=== PATIENT | female | born 1955 | race Caucasian/White ===

== ENCOUNTER 2019-06-26 12:30 | Outpatient (RCR) | payer MEDICARE, MEDICAID, SELFPAY ==
[2019-06-26 13:27] LABS: Basophils % 0.4 %; Eosinophils # 0.1 10^3/uL (0.0-0.8); Eosinophils % 1.1 %; Hematocrit 45.3 % (37.0-47.0); Hemoglobin 14.2 g/dL (11.5-15.3); Lymphocytes # 2.4 10^3/uL (0.8-4.8); Lymphocytes % 30.9 %; Mean Corpuscular HGB Conc 31.3 g/dL (30.0-36.0); Mean Corpuscular Hemoglobin 27.9 pg (28.0-34.0); Monocytes # 0.8 10^3/uL (0.2-0.9); Monocytes % 9.9 %; Neutrophils # 4.5 10^3/uL (1.8-7.7); Neutrophils % 57.4 %; Nucleated Red Blood Cells % 0 %; Platelet Count 302 10^3/cmm (130-400); Red Blood Count 5.09 10^6/uL (4.1-5.3); White Blood Count 7.8 10^3/uL (4.0-10.0)
== END 2019-07-21 23:59 | disposition home or self-care (01) ==
LOC: ONCMED 12:30
PROVIDERS: Family Provider Nurse Practitioner; PCP Nurse Practitioner; Visit Provider Internal Medicine Hematology & Oncology
DX: D75.1 Secondary polycythemia (principal); C50.511 Malignant neoplasm of lower-outer quadrant of right female breast; F17.210 Nicotine dependence, cigarettes, uncomplicated; Z17.0 Estrogen receptor positive status [ER+]; G93.5 Compression of brain; I27.20 Pulmonary hypertension, unspecified; J44.9 Chronic obstructive pulmonary disease, unspecified; M19.90 Unspecified osteoarthritis, unspecified site; F32.9 Major depressive disorder, single episode, unspecified; G89.29 Other chronic pain; M47.816 Spondylosis without myelopathy or radiculopathy, lumbar region; Z99.81 Dependence on supplemental oxygen; Z79.811 Long term (current) use of aromatase inhibitors; Z79.51 Long term (current) use of inhaled steroids; Z92.3 Personal history of irradiation
CPT/HCPCS: 36415; 85025; 99214

== ENCOUNTER 2019-06-30 09:00 | Outpatient (CLI) | payer MEDICARE, MEDICAID, SELFPAY ==
--- NOTE | 2019-06-30 12:56 | ONC FU_ITS ---
Dr. Díaz follow up note Patient: Swathi Frederick Unit #: [id number]: 1955 Dicatated By: Kaya Díaz M.D.Date of Visit:Jun 30, 2019 Onc Med Follow-up/Prog Note History of Present Illness: This is a 63 year-old woman with grade 1 infiltrating ductal carcinoma of the right breast, stage IA (T1c, N0, M0), ER/NE positive and HER-2/christophe negative. She had presented in October 2014 with palpable lump in her right breast. She had been on hormone replacement therapy for the preceding 20 years. Her mammogram on 11/06/2014 revealed 1.3 cm mass in the right breast at 9:00 position corresponding to a 2 cm nodule palpable on examination. An ultrasound guided biopsy on 12/07/2014 revealed grade 1/3 infiltrating ductal carcinoma with the prognostic profile showing ER positive at 100%, NE positive at 98%, and HER-2/christophe negative, 1.1 by FISH, and 1+ by IHC. The Ki-67 was 10%. She underwent lumpectomy and sentinel lymph node biopsy by Dr. Brennan on 12/24/2014. Her surgical pathology showed 1.5 cm infiltrating ductal carcinoma without lymphovascular invasion. Initial margins were positive, but after further excision the final margins were negative. One sentinel lymph was not involved. Her disease thus was pathologic stage IA (T1c, N0, M0). She was first seen by Dr. Ramirez on 12/27/2014. She had daily headaches ever since stopping her hormone replacement therapy. MRI of the brain on 01/10/2015 was negative for metastatic disease. Chiari I malformation was noted. She was referred to neurology for management of migraines. Oncotype DX score on 01/08/2015 return low at 15, corresponding to 9% risk of distant recurrence following hormonal treatment. She began on adjuvant treatment with Femara. Vitamin D deficiency was found, and she was also then started on replacement therapy. DEXA scan in April 2015 showed normal bone density. She completed definitive adjuvant radiation treatment with a boost on 03/06/2015. A CT of the chest on 03/21/2015 showed bilateral nonspecific upper lobe pulmonary nodules from 2-5 mm, and diffuse interstitial thickening with a pulmonary artery hypertension. Her other medical illnesses include COPD, degenerative arthritis, and depression. 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 She has a history of smoking 1 pack of cigarettes daily for 40 years, and she continues to smoke. Repeat CT of the chest on 08/26/2015 showed clearing of the pulmonary nodules. There was soft tissue density in the right breast with a seroma. By ultrasound, the seroma had decreased. She underwent an FNA of the seroma in August 2015. Cytology was benign. She continued adjuvant hormonal therapy with Femara since december 2014 still has dyspnea on exertion because of COPD and now quit smoking said her lungs capacity is down to 17% only and still an Active smoker Chronic back pain MRI lumbar spine done on 06/23/2018 and bone scan done on 06/09/2018 showed no evidence of malignancy rather chronic arthritis Came for follow-up, denies any specific complaints, no nausea vomiting, no fever or chills, no diarrhea constipation, occasionally hot flashes otherwise tolerating Femara well. Still smoking but has cut down significantly Medications: Advair Diskus 1 puff(s) (of 250-50 mcg/dose) Aerosol Powder, Breath Activated Inhalation b.i.d., Aspirin 1 (325 mg) Tablet Oral daily, Benadryl 1 (25 mg) Capsule Oral daily PRN, ClonazePAM 1 Tablet (of 0.5 mg) Oral b.i.d., Doxycycline Hyclate 1 Tablet (of 100 mg) Oral b.i.d., Ibuprofen 1 Tablet (of 800 mg) Oral t.i.d., PARoxetine HCl 1 Tablet (of 20 mg) Oral daily, ProAir HFA 1 puff(s) (of 108 (90 base) mcg/act) Aerosol, solution Inhalation q 4 hours, Propranolol HCl ER 1 Capsule (of 60 mg) Capsule SR 24 HR Oral daily, Venlafaxine HCl 1 Tablet (of 75 mg) Tablet Oral daily Allergies: No Known Allergies. Review of Systems: Review of Systems is not available for this patient. Vital Signs: Performed on Jun 30, 2019 09:18 Height - 63.00 in Weight - 190.4 lbs (LOW) BSA - 1.89 sq.m BMI - 33.73 (HIGH) Temperature - 97.4 F (LOW) Pulse - 72 /min Respiration - 24 /min BP - 160/90 mm(hg) (HIGH) O2 Sat - 92 % (LOW) Pain - 10 Performance Status: 2 - Ambulatory/capable of all self-care, unable to perform any work activities. Up and about more than 50% of waking hours. (ECOG) Physical Examination: Respiratory - mild wheezing, Cardiovascular - Regular rate and rhythm of heart, Extremities - no edema. Lab/Imaging: Test performed on Jun 26, 2019 12:52 WBC 7.8 10^9/L RBC 5.09 10^12/L HGB 14.2 g/dL HCT 45.3 % MCV 89.0 fl MCH 27.9 pg MCHC 31.3 g/dL RDW 13.0 % Platelet Count 302 10^9/L MPV 11.0 fL Neutrophils (Gran) 4.5 10^9/L Lymphocytes 2.4 10^9/L Monocytes 0.8 10^9/L Eosinophils 0.1 10^9/L Basophils 0.0 10^9/L Manual Lymphocytes 30.9 % Manual Monocytes 9.9 % Manual Eosinophils 1.1 % Manual Basophils 0.4 % NRBCs 0.0 /100 WBC Impression: 1. Patient with grade 1 infiltrating ductal carcinoma of the right breast, stage IA (T1c, N0, M0), ER/NE positive and HER-2/christophe negative. Oncotype DX score was 15, low risk. 2. She completed radiation to the right breast on 03/06/2015 to a total dose of 6600 cGy. 3. She began adjuvant hormonal therapy with Femara 2.5 mg daily in December 2014. Her other medical illnesses include: 4. COPD with secondary erythrocytosis.on o2 5. Degenerative arthritis. 6. Depression. 7. She has nicotine dependence (cigarettes). Chronic back pain MRI scan of lumbosacral area done on 06/23/2018 and bone scan done on 06/09/2018 showed no evidence of malignancy but chronic arthritis She does have ongoing problems with the COPD, and she currently appears to be experiencing an acute exacerbation. Polycythemia probably due to hypoxia due to severe COPD or chronic smoking, now on home oxygen Improved with smoking cessation for 1 week Plan: Discussed with patient regarding her labs white blood count 7.8 hemoglobin 14.2 crit 45.3 platelets 302,000 Clinically, patient doing well, tolerating adjuvant therapy with Femara well, no signs symptom suggestive of recurrence of disease. As far as polycythemia is concern, her hemoglobin/hematocrit has improved with cutting down with smoking. Patient was encouraged and was offered any assistance she may need to quit smoking. Patient said she is working on that. In the meantime continue with Femara and her follow-up mammogram done on 01/22/2019 shows BI-RADS 2 e.g. benign. She will return 6 months with CBC CMP at that time she will conclude her 5 years of adjuvant therapy with Femara. Signed By: Kaya Díaz M.D. <<Signature on File>>
== END 2019-06-30 09:01 | disposition home or self-care (01) ==
LOC: ONCMED 09:04
PROVIDERS: Family Provider Nurse Practitioner; PCP Nurse Practitioner; Visit Provider Internal Medicine Hematology & Oncology
DX: C50.511 Malignant neoplasm of lower-outer quadrant of right female breast (principal); C77.3 Secondary and unspecified malignant neoplasm of axilla and upper limb lymph nodes; D75.1 Secondary polycythemia; J44.9 Chronic obstructive pulmonary disease, unspecified; M19.90 Unspecified osteoarthritis, unspecified site; F32.9 Major depressive disorder, single episode, unspecified; F17.210 Nicotine dependence, cigarettes, uncomplicated; G89.29 Other chronic pain; M54.5 Low back pain; Z99.81 Dependence on supplemental oxygen; Z17.0 Estrogen receptor positive status [ER+]; Z79.811 Long term (current) use of aromatase inhibitors; Z79.51 Long term (current) use of inhaled steroids; Z92.3 Personal history of irradiation
CPT/HCPCS: 99214

== ENCOUNTER 2019-11-30 09:19 | Outpatient (CLI) | payer MEDICARE, MEDICAID, SELFPAY ==
[2019-11-30 09:49] LABS: Basophils % 0.4 %; Eosinophils # 0.1 10^3/uL (0.0-0.8); Hematocrit 42.7 % (37.0-47.0); Hemoglobin 12.7 g/dL (11.5-15.3); Lymphocytes # 2.1 10^3/uL (0.8-4.8); Lymphocytes % 25.1 %; Mean Corpuscular HGB Conc 29.7 g/dL (30.0-36.0); Mean Corpuscular Hemoglobin 28.5 pg (28.0-34.0); Mean Corpuscular Volume 95.7 fL (81-99); Mean Platelet Volume 10.4 fL (7.4-10.4); Monocytes # 0.9 10^3/uL (0.2-0.9); Monocytes % 10.6 %; Neutrophils # 5.3 10^3/uL (1.8-7.7); Neutrophils % 62.7 %; Nucleated Red Blood Cells % 0 %; Platelet Count 319 10^3/cmm (130-400); Red Blood Count 4.46 10^6/uL (4.1-5.3); Red Cell Distribution Width 12.7 % (12.1-15.1); White Blood Count 8.4 10^3/uL (4.0-10.0)
[2019-11-30 11:20] LABS: Alanine Aminotransferase 10 U/L (0-33); Alkaline Phosphatase 116 IU/L (35-105); Anion Gap 17.2 (5-19); Aspartate Amino Transferase 15 U/L (0-32); Blood Urea Nitrogen 11 mg/dL (8-23); Calcium 9.4 mg/dL (8.5-10.5); Carbon Dioxide 32 mmol/L (22-29); Chloride 93 mmol/L (98-107); Globulin 3.8 g/dL (1.3-4.6); Glomerular Filtration Rate 101.3 mL/min (90-130); Glucose 88 mg/dL (65-115); Osmolality Calculated 281 mOsm/kg (285-295); Potassium 4.2 mmol/L (3.5-5.1); Sodium 138 mmol/L (136-145); Total Bilirubin 0.2 mg/dL (0.15-1.2); Total Protein 7.8 g/dL (6.6-8.7)
--- NOTE | 2019-11-30 11:45 | ONC FU_ITS ---
Dr. Díaz follow up note Patient: Swathi Frederick Unit #: [id number]: 1955 Dicatated By: Kaya Díaz M.D.Date of Visit:Nov 30, 2019 Onc Med Follow-up/Prog Note History of Present Illness: This is a 64 year-old woman with grade 1 infiltrating ductal carcinoma of the right breast, stage IA (T1c, N0, M0), ER/PA positive and HER-2/christophe negative. She had presented in October 2014 with palpable lump in her right breast. She had been on hormone replacement therapy for the preceding 20 years. Her mammogram on 11/06/2014 revealed 1.3 cm mass in the right breast at 9:00 position corresponding to a 2 cm nodule palpable on examination. An ultrasound guided biopsy on 12/07/2014 revealed grade 1/3 infiltrating ductal carcinoma with the prognostic profile showing ER positive at 100%, PA positive at 98%, and HER-2/christophe negative, 1.1 by FISH, and 1+ by IHC. The Ki-67 was 10%. She underwent lumpectomy and sentinel lymph node biopsy by Dr. Brennan on 12/24/2014. Her surgical pathology showed 1.5 cm infiltrating ductal carcinoma without lymphovascular invasion. Initial margins were positive, but after further excision the final margins were negative. One sentinel lymph was not involved. Her disease thus was pathologic stage IA (T1c, N0, M0). She was first seen by Dr. Ramirez on 12/27/2014. She had daily headaches ever since stopping her hormone replacement therapy. MRI of the brain on 01/10/2015 was negative for metastatic disease. Chiari I malformation was noted. She was referred to neurology for management of migraines. Oncotype DX score on 01/08/2015 return low at 15, corresponding to 9% risk of distant recurrence following hormonal treatment. She began on adjuvant treatment with Femara. Femara was discontinued as she completed 5 years on November 30, 2019 Vitamin D deficiency was found, and she was also then started on replacement therapy. DEXA scan in April 2015 showed normal bone density. She completed definitive adjuvant radiation treatment with a boost on 03/06/2015. A CT of the chest on 03/21/2015 showed bilateral nonspecific upper lobe pulmonary nodules from 2-5 mm, and diffuse interstitial thickening with a pulmonary artery hypertension. Her other medical illnesses include COPD, degenerative arthritis, and depression. 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 She has a history of smoking 1 pack of cigarettes daily for 40 years, and she continues to smoke. Repeat CT of the chest on 08/26/2015 showed clearing of the pulmonary nodules. There was soft tissue density in the right breast with a seroma. By ultrasound, the seroma had decreased. She underwent an FNA of the seroma in August 2015. Cytology was benign. She continued adjuvant hormonal therapy with Femara since december 2014 still has dyspnea on exertion because of COPD and now quit smoking said her lungs capacity is down to 17% only and still an Active smoker Chronic back pain MRI lumbar spine done on 06/23/2018 and bone scan done on 06/09/2018 showed no evidence of malignancy rather chronic arthritis Came for follow-up, denies any specific complaints except mild generalized weakness and fatigue which is chronic in nature, patient is on home oxygen and still smoke about half a pack a day now and trying to cut down further. Denies any new bony pains or fever or chills, denies any nausea or vomiting denies any dysuria. Denies any cough or sore throat. Occasional hot flashes otherwise tolerating Femara very well Medications: Advair Diskus 1 puff(s) (of 250-50 mcg/dose) Aerosol Powder, Breath Activated Inhalation b.i.d., Aspirin 1 (325 mg) Tablet Oral daily, Benadryl 1 (25 mg) Capsule Oral daily PRN, ClonazePAM 1 Tablet (of 0.5 mg) Oral b.i.d., Doxycycline Hyclate 1 Tablet (of 100 mg) Oral b.i.d., Ibuprofen 1 Tablet (of 800 mg) Oral t.i.d., PARoxetine HCl 1 Tablet (of 20 mg) Oral daily, ProAir HFA 1 puff(s) (of 108 (90 base) mcg/act) Aerosol, solution Inhalation q 4 hours, Propranolol HCl ER 1 Capsule (of 60 mg) Capsule SR 24 HR Oral daily, Venlafaxine HCl 1 Tablet (of 75 mg) Tablet Oral daily Allergies: No Known Allergies. Review of Systems: Review of Systems is not available for this patient. Vital Signs: Performed on Nov 30, 2019 10:48 Height - 63.00 in Weight - 191.2 lbs (HIGH) BSA - 1.90 sq.m BMI - 33.87 (HIGH) Temperature - 99.2 F (HIGH) Pulse - 69 /min Respiration - 24 /min BP - 130/76 mm(hg) O2 Sat - 92 % (LOW) Pain - 4 Performance Status: 1 - No physically strenuous activity, but ambulatory and able to carry out light or sedentary work (e.g. office work, light house work). (ECOG) Physical Examination: Respiratory - Poor air entry, mild wheezing, Cardiovascular - Regular rate and rhythm of heart without, Extremities - No edema or rash. Lab/Imaging: Test performed on Jun 26, 2019 12:52 WBC 7.8 10^9/L RBC 5.09 10^12/L HGB 14.2 g/dL HCT 45.3 % MCV 89.0 fl MCH 27.9 pg MCHC 31.3 g/dL RDW 13.0 % Platelet Count 302 10^9/L MPV 11.0 fL Neutrophils (Gran) 4.5 10^9/L Lymphocytes 2.4 10^9/L Monocytes 0.8 10^9/L Eosinophils 0.1 10^9/L Basophils 0.0 10^9/L Manual Lymphocytes 30.9 % Manual Monocytes 9.9 % Manual Eosinophils 1.1 % Manual Basophils 0.4 % NRBCs 0.0 /100 WBC Impression: 1. Patient with grade 1 infiltrating ductal carcinoma of the right breast, stage IA (T1c, N0, M0), ER/PA positive and HER-2/christophe negative. Oncotype DX score was 15, low risk. 2. She completed radiation to the right breast on 03/06/2015 to a total dose of 6600 cGy. 3. She began adjuvant hormonal therapy with Femara 2.5 mg daily in December 2014. Her other medical illnesses include: 4. COPD with secondary erythrocytosis.on o2 5. Degenerative arthritis. 6. Depression. 7. She has nicotine dependence (cigarettes). Chronic back pain MRI scan of lumbosacral area done on 06/23/2018 and bone scan done on 06/09/2018 showed no evidence of malignancy but chronic arthritis She does have ongoing problems with the COPD, and she currently appears to be experiencing an acute exacerbation. Polycythemia probably due to hypoxia due to severe COPD or chronic smoking, now on home oxygen Improved with smoking cessation for 1 week Plan: Discussed with patient regarding her labs white blood count 8.4 hemoglobin 12.7 hematocrit 42.7 platelets 319,000 CMP within normal limit except alk phos 116 Clinically, patient is doing well with no signs symptoms suggestive of recurrence of disease, patient has completed 5 years of adjuvant therapy with Femara today so we will discontinue Femara today and then she will return to clinic in 6 months with a follow-up mammogram. And CBC Polycythemia, probably due to smoking, and underlying chronic lung disease patient is on home oxygen. And also use BiPAP for sleep apnea. Her follow-up hemoglobin/hematocrit is in desirable range. Patient was advised to quit smoking and was offered any assistance she may need and also advised to use BiPAP diligently. Signed By: Kaya Díaz M.D. <<Signature on File>>
== END 2019-11-30 09:20 | disposition home or self-care (01) ==
LOC: ONCMED 09:24
PROVIDERS: PCP Family Medicine; Visit Provider Internal Medicine Hematology & Oncology
DX: Z08 Encounter for follow-up examination after completed treatment for malignant neoplasm (principal); Z85.3 Personal history of malignant neoplasm of breast; D75.1 Secondary polycythemia; E55.9 Vitamin D deficiency, unspecified; F17.210 Nicotine dependence, cigarettes, uncomplicated; F41.9 Anxiety disorder, unspecified; J45.909 Unspecified asthma, uncomplicated; J44.9 Chronic obstructive pulmonary disease, unspecified; F32.9 Major depressive disorder, single episode, unspecified; M19.90 Unspecified osteoarthritis, unspecified site; G47.33 Obstructive sleep apnea (adult) (pediatric); Z92.3 Personal history of irradiation; Z92.21 Personal history of antineoplastic chemotherapy
CPT/HCPCS: 36415; 80053; 85025; G0463

== ENCOUNTER → 2019-12-28 13:10 | Outpatient (BNVA) | payer MEDICARE, MEDICAID, SELFPAY | PROVIDERS: PCP Family Medicine; Visit Provider Family Medicine | DX: Z13.6 Encounter for screening for cardiovascular disorders (principal); E66.9 Obesity, unspecified; K21.9 Gastro-esophageal reflux disease without esophagitis; F17.219 Nicotine dependence, cigarettes, with unspecified nicotine-induced disorders; Z68.32 Body mass index [BMI] 32.0-32.9, adult | CPT/HCPCS: 80061; 82306 ==

== ENCOUNTER 2020-01-16 11:37 | Outpatient (CLI) | payer MEDICARE, MEDICAID, SELFPAY ==
--- NOTE | 2020-01-16 11:45 | USCV_ITS ---
Jjalexis Swathi Age: 64 Gender: F : 1955 Exam Date: 01/16/2020 12:11 Ordering Phys: Lorena Allred MD Technologist: Marge Chavez Exam Location: [facility] [place] Indication: SOB BP: / HR: 81 Rhythm: Sinus Technical Quality: Adequate MEASUREMENTS (Male / Female) Normal Values 2D ECHO LV Diastolic Diameter PLAX 3.7 cm 4.2 - 5.9 / 3.9 - 5.3 cm LV Systolic Diameter PLAX 2.9 cm IVS Diastolic Thickness 1.1 cm 0.6 - 1.0 / 0.6 - 0.9 cm IVS Systolic Thickness 1.7 cm LVPW Diastolic Thickness 1.5 cm 0.6 - 1.0 / 0.6 - 0.9 cm LVPW Systolic Thickness 1.3 cm LVOT Diameter 2.0 cm LV Ejection Fraction 2D Teich 42.6 % LV Ejection Fraction MOD 2C 56.7 % LV Ejection Fraction 2C AL 56.5 % LA Diameter 3.3 cm LA Width 2.7 cm LA Height 3.7 cm RA Width 3.2 cm RA Height 3.1 cm M-MODE LV Diastolic Diameter MM 3.7 cm 4.2 - 5.9 / 3.9 - 5.3 cm LV Systolic Diameter MM 2.4 cm LV Ejection Fraction MM Teich 64.6 % IVS Diastolic Thickness MM 1.2 cm 0.6 - 1.0 / 0.6 - 0.9 cm IVS Systolic Thickness MM 1.4 cm LVPW Diastolic Thickness MM 1.4 cm 0.6 - 1.0 / 0.6 - 0.9 cm LVPW Systolic Thickness MM 2.0 cm RV Diastolic Diameter MM 1.5 cm Aortic Annulus Diameter 2.9 cm LA Ao Ratio MM 1.2 MV E Point Septal Separation 0.5 cm DOPPLER AV Peak Velocity 139.0 cm/s LVOT Peak Velocity 84.0 cm/s AV Area Cont Eq vti 2.0 cm squared AV Area Cont Eq pk 1.9 cm squared MV Area PHT 3.0 cm squared Mitral E to A Ratio 1.0 MV E' Velocity 6.0 cm/s Mitral E to MV E' Ratio 11.0 Mitral E to LV E' Lateral Ratio 13.3 Mitral E to LV E' Septal Ratio 9.5 TR Peak Velocity 289.6 cm/s TR Peak Gradient 33.6 mmHg TR Mean Velocity 227.4 cm/s TR Mean Gradient 22.4 mmHg TR Velocity Time Integral 116.5 cm TV Peak E Velocity 48.0 cm/s Right Atrial Pressure 3.0 mmHg Pulmonary Artery Systolic Pressu 36.5 mmHg PV Peak Velocity 86.0 cm/s RV Acceleration Time 0.1 s RV Ejection Time 0.3 s RV AcT/ET 0.4 FINDINGS Left Ventricle Normal left ventricular size and systolic function, EF 76 %. No regional wall motion abnormalities. Right Ventricle The right ventricle is normal in size and function. Right Atrium The right atrium is normal in size. Left Atrium The left atrium is normal in size. Mitral Valve Thickened anterior mitral leaflet Aortic Valve No gross abnormalities noted Tricuspid Valve Trace tricuspid valve regurgitation. Pulmonic Valve No gross abnormalities noted Pericardium Normal pericardium without effusion. Aorta Plaque seen in the ascending aorta. CONCLUSIONS Normal left ventricular size and systolic function, EF 76 %. No regional wall motion abnormalities. Thickened anterior mitral leaflet. Trace tricuspid valve regurgitation. There is no pericardial effusion. There are no intracardiac masses. Plaques seen in the ascending aorta. No previous study is available for comparison. Dr Andreina Elizondo MD FAC (Electronically Signed) Final Date: 16 January 2020 23:50 S
== END 2020-01-16 11:38 | disposition home or self-care (01) ==
LOC: US 11:39
PROVIDERS: PCP Family Medicine; Visit Provider Internal Medicine Critical Care Medicine
DX: R06.02 Shortness of breath (principal); I08.2 Rheumatic disorders of both aortic and tricuspid valves
CPT/HCPCS: 93306

== ENCOUNTER 2020-01-22 09:37 | Outpatient (CLI) | payer MEDICARE, MEDICAID, SELFPAY ==
--- NOTE | 2020-01-22 09:43 | MM_ITS ---
WS: [id number] BILATERAL DIGITAL DIAGNOSTIC MAMMOGRAM MAMMOGRAPHY WITH CAD CLINICAL INFORMATION: HX OF BREAST CA HISTORY: History of right breast cancer with radiation therapy. COMPARISON: January 19, 2019 TECHNIQUE: Bilateral CC, MLO, and ML views. FINDINGS: Scattered fibroglandular densities bilaterally. Stable clustered and slightly increased calcification s right breast along the prior lumpectomy site. Stable intramammary lymph nodes upper outer left [address]. No suspicious focal mass, asymmetry, calcifications, or architectural distortion. No evidence of fabiano gnancy. MM/[id number] IMPRESSION: BI-RADS: 2-Benign FOLLOW UP: 1 Year Follow-up Recommend return to annual diagnostic mammography.
== END 2020-01-22 09:38 | disposition home or self-care (01) ==
LOC: ONCMED 09:39
PROVIDERS: PCP Family Medicine; Visit Provider Internal Medicine Hematology & Oncology
DX: Z85.3 Personal history of malignant neoplasm of breast (principal)
CPT/HCPCS: 77066

== ENCOUNTER → 2020-03-11 10:54 | Outpatient (BNVA) | payer MEDICARE, MEDICAID, SELFPAY | PROVIDERS: PCP Family Medicine; Visit Provider Internal Medicine | DX: Z20.828 Contact with and (suspected) exposure to other viral communicable diseases (principal) | CPT/HCPCS: 87635 ==

== ENCOUNTER 2020-03-20 12:14 | Outpatient (CLI) | payer MEDICARE, MEDICAID, SELFPAY ==
[2020-03-20 14:50] LABS: 25 Hydroxy Vitamin D 42 ng/mL (30-100)
== END 2020-03-20 12:15 | disposition home or self-care (01) ==
LOC: LAB 12:18
PROVIDERS: PCP Family Medicine; Visit Provider Family Medicine
DX: E55.9 Vitamin D deficiency, unspecified (principal)
CPT/HCPCS: 36415; 82306

== ENCOUNTER 2020-05-31 09:59 | Outpatient (CLI) | payer MEDICARE, MEDICAID, SELFPAY ==
[2020-05-31 10:33] LABS: Basophils % 0.2 %; Eosinophils # 0.1 10^3/uL (0.0-0.8); Eosinophils % 1.7 %; Hematocrit 35.3 % (37.0-47.0); Hemoglobin 10.3 g/dL (11.5-15.3); Lymphocytes # 1.6 10^3/uL (0.8-4.8); Mean Corpuscular HGB Conc 29.2 g/dL (30.0-36.0); Mean Corpuscular Volume 89.1 fL (81-99); Mean Platelet Volume 10.2 fL (7.4-10.4); Monocytes # 0.9 10^3/uL (0.2-0.9); Monocytes % 10.7 %; Neutrophils # 5.44 10^3/uL (1.8-7.7); Neutrophils % 67.2 %; Nucleated Red Blood Cells % 0 %; Platelet Count 405 10^3/cmm (130-400); Red Blood Count 3.96 10^6/uL (4.1-5.3); Red Cell Distribution Width 13.1 % (12.1-15.1); White Blood Count 8.1 10^3/uL (4.0-10.0)
--- NOTE | 2020-05-31 12:02 | ONC FU_ITS ---
Dr. Díaz follow up note Patient: Swathi Frederick Unit #: [id number]: 1955 Dicatated By: Kaya Díaz M.D.Date of Visit:May 31, 2020 Onc Med Follow-up/Prog Note History of Present Illness: This is a 64 year-old woman with grade 1 infiltrating ductal carcinoma of the right breast, stage IA (T1c, N0, M0), ER/NM positive and HER-2/christophe negative. She had presented in October 2014 with palpable lump in her right breast. She had been on hormone replacement therapy for the preceding 20 years. Her mammogram on 11/06/2014 revealed 1.3 cm mass in the right breast at 9:00 position corresponding to a 2 cm nodule palpable on examination. An ultrasound guided biopsy on 12/07/2014 revealed grade 1/3 infiltrating ductal carcinoma with the prognostic profile showing ER positive at 100%, NM positive at 98%, and HER-2/christophe negative, 1.1 by FISH, and 1+ by IHC. The Ki-67 was 10%. She underwent lumpectomy and sentinel lymph node biopsy by Dr. Brennan on 12/24/2014. Her surgical pathology showed 1.5 cm infiltrating ductal carcinoma without lymphovascular invasion. Initial margins were positive, but after further excision the final margins were negative. One sentinel lymph was not involved. Her disease thus was pathologic stage IA (T1c, N0, M0). She was first seen by Dr. Ramirez on 12/27/2014. She had daily headaches ever since stopping her hormone replacement therapy. MRI of the brain on 01/10/2015 was negative for metastatic disease. Chiari I malformation was noted. She was referred to neurology for management of migraines. Oncotype DX score on 01/08/2015 return low at 15, corresponding to 9% risk of distant recurrence following hormonal treatment. She began on adjuvant treatment with Femara. Femara was discontinued as she completed 5 years on November 30, 2019 Vitamin D deficiency was found, and she was also then started on replacement therapy. DEXA scan in April 2015 showed normal bone density. She completed definitive adjuvant radiation treatment with a boost on 03/06/2015. A CT of the chest on 03/21/2015 showed bilateral nonspecific upper lobe pulmonary nodules from 2-5 mm, and diffuse interstitial thickening with a pulmonary artery hypertension. Her other medical illnesses include COPD, degenerative arthritis, and depression. 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 She has a history of smoking 1 pack of cigarettes daily for 40 years, and she continues to smoke. Repeat CT of the chest on 08/26/2015 showed clearing of the pulmonary nodules. There was soft tissue density in the right breast with a seroma. By ultrasound, the seroma had decreased. She underwent an FNA of the seroma in August 2015. Cytology was benign. 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 Patient still smoke about a pack a day. But denies any fever chills denies any nausea or vomiting denies any diarrhea or constipation denies any bony pains denies any melena or hematochezia, denies any hemoptysis or hematemesis, denies any jaundice Medications: Advair Diskus 1 puff(s) (of 250-50 mcg/dose) Aerosol Powder, Breath Activated Inhalation b.i.d., Aspirin 1 (325 mg) Tablet Oral daily, Benadryl 1 (25 mg) Capsule Oral daily PRN, ClonazePAM 1 Tablet (of 0.5 mg) Oral b.i.d., Doxycycline Hyclate 1 Tablet (of 100 mg) Oral b.i.d., Ibuprofen 1 Tablet (of 800 mg) Oral t.i.d., Lisinopril 1 Tablet (of 10 mg) Oral daily, PARoxetine HCl 1 Tablet (of 20 mg) Oral daily, ProAir HFA 1 puff(s) (of 108 (90 base) mcg/act) Aerosol, solution Inhalation q 4 hours, Propranolol HCl ER 1 Capsule (of 60 mg) Capsule SR 24 HR Oral daily, Venlafaxine HCl 1 Tablet (of 75 mg) Tablet Oral daily Allergies: No Known Allergies. Review of Systems: Constitutional - Appetite is good and weight is stable. No fever, chills, hot flashes, or night sweats. Energy level is fair, ENMT - No sinus congestion/drainage. No mouth sores. No sore throat or difficulty swallowing, Hematologic/Lymphatic - Positive for abnormal bruising or bleeding, Respiratory - Pt has shortness of breath, is on oxygen, Cardiovascular - No angina pain. No palpitations, Gastrointestinal - No nausea or vomiting. No heartburn or acid reflux. No diarrhea or constipation. No blood in the stool or black stools, Genitourinary (F) - No dysuria or hematuria. No urinary frequency. No urgency or incontinence, Musculoskeletal - Pt reports back pain, Integumentary - , Neurologic - No headache or dizziness. No numbness/paresthesias or other focal neurologic symptoms, Psychiatric - No anxiety or depression. No insomnia. Vital Signs: Performed on May 31, 2020 11:29 Height - 63.00 in Weight - 190.0 lbs (LOW) BSA - 1.89 sq.m BMI - 33.66 (HIGH) Temperature - 98.0 F (LOW) Pulse - 77 /min Respiration - 26 /min BP - 179/94 mm(hg) (HIGH) O2 Sat - 99 % Pain - 10 Performance Status: 1 - No physically strenuous activity, but ambulatory and able to carry out light or sedentary work (e.g. office work, light house work). (ECOG) Physical Examination: Respiratory - Poor air entry mild wheezing bilaterally, Cardiovascular - Regular rate and rhythm of heart, Gastrointestinal - Soft, bowel sounds present, Extremities - No visible edema or rash. Lab/Imaging: Test performed on May 31, 2020 10:15 WBC 8.1 10 3/uL RBC 3.96 10 6/uL HGB 10.3 g/dL HCT 35.3 % MCV 89.1 fL MCH 26.0 pg MCHC 29.2 g/dL RDW 13.1 % Platelet Count 405 10 3/cmm MPV 10.2 fL Neutrophils 5.44 10 3/uL Lymphocytes 1.6 10 3/uL Monocytes 0.9 10 3/uL Eosinophils 0.1 10 3/uL Basophils 0.0 10 3/uL Neutrophil % 67.2 % Lymphocyte % 20.0 % Monocyte % 10.7 % Eosinophil % 1.7 % Basophils % 0.2 % NRBC % 0 % Impression: 1. Patient with grade 1 infiltrating ductal carcinoma of the right breast, stage IA (T1c, N0, M0), ER/NM positive and HER-2/christophe negative. Oncotype DX score was 15, low risk. 2. She completed radiation to the right breast on 03/06/2015 to a total dose of 6600 cGy. 3. She began adjuvant hormonal therapy with Femara 2.5 mg daily in December 2014. Her other medical illnesses include: 4. COPD with secondary erythrocytosis.on o2 5. Degenerative arthritis. 6. Depression. 7. She has nicotine dependence (cigarettes). Chronic back pain MRI scan of lumbosacral area done on 06/23/2018 and bone scan done on 06/09/2018 showed no evidence of malignancy but chronic arthritis She does have ongoing problems with the COPD, and she currently appears to be experiencing an acute exacerbation. Polycythemia probably due to hypoxia due to severe COPD or chronic smoking, now on home oxygen Improved with smoking cessation for 1 week Plan: Discussed with patient regarding her labs white blood count 8.1 hemoglobin 10.3 hematocrit 35.3 platelets 405,000, compared to hemoglobin 12.7 on November 30, 2019 Follow-up mammogram shows benign findings Clinically, patient doing well now with new symptoms like progressive generalized weakness and fatigue and her follow-up labs shows anemia,Patient has history of polycythemia secondary to chronic smoking and sleep apnea patient denies any history of gross bleeding. At this point will consider baseline anemia work-up including iron studies B12 folic acid and reticulocyte count and then she will return to clinic in 2 weeks with CBC Patient was advised to quit smoking and was offered any assistance she may need Signed By: Kaya Díaz M.D. <<Signature on File>>
== END 2020-05-31 10:00 | disposition home or self-care (01) ==
LOC: ONCMED 10:03
PROVIDERS: PCP Family Medicine; Visit Provider Internal Medicine Hematology & Oncology
DX: Z08 Encounter for follow-up examination after completed treatment for malignant neoplasm (principal); Z85.3 Personal history of malignant neoplasm of breast; D75.1 Secondary polycythemia; J44.1 Chronic obstructive pulmonary disease with (acute) exacerbation; R09.02 Hypoxemia; R53.1 Weakness; R53.83 Other fatigue; G47.30 Sleep apnea, unspecified; M19.90 Unspecified osteoarthritis, unspecified site; F32.9 Major depressive disorder, single episode, unspecified; F17.210 Nicotine dependence, cigarettes, uncomplicated; Z99.81 Dependence on supplemental oxygen; Z92.3 Personal history of irradiation; Z92.23 Personal history of estrogen therapy
CPT/HCPCS: 36415; 85025; 85045; 99214

== ENCOUNTER 2020-06-19 05:52 | Outpatient (CLI) | payer MEDICARE, MEDICAID, SELFPAY ==
[2020-06-19 11:33] LABS: Basophils % 0.2 %; Eosinophils # 0.1 10^3/uL (0.0-0.8); Eosinophils % 1.7 %; Hematocrit 36.1 % (37.0-47.0); Hemoglobin 10.4 g/dL (11.5-15.3); Lymphocytes # 1.5 10^3/uL (0.8-4.8); Lymphocytes % 17.6 %; Mean Corpuscular HGB Conc 28.8 g/dL (30.0-36.0); Mean Corpuscular Hemoglobin 25.7 pg (28.0-34.0); Mean Corpuscular Volume 89.4 fL (81-99); Mean Platelet Volume 10.1 fL (7.4-10.4); Monocytes # 0.7 10^3/uL (0.2-0.9); Monocytes % 8.3 %; Neutrophils # 5.91 10^3/uL (1.8-7.7); Neutrophils % 71.8 %; Nucleated Red Blood Cells % 0 %; Platelet Count 398 10^3/cmm (130-400); Red Blood Count 4.04 10^6/uL (4.1-5.3); Red Cell Distribution Width 13.4 % (12.1-15.1); White Blood Count 8.2 10^3/uL (4.0-10.0)
[2020-06-19 12:19] LABS: Ferritin 97 ng/mL (15-150); Iron 40 ug/dL (37-145); Percent Saturation 15.3 % (20-50); Total Iron Binding Capacity 261 mcg/dl; Unsaturated Iron Binding 221 ug/dL (112-347); Vitamin B12 326 pg/mL (232-1245)
--- NOTE | 2020-06-19 13:14 | ONC FU_ITS ---
Dr. Díaz follow up note Patient: Swathi Frederick Unit #: [id number]: 1955 Dicatated By: Kaya Díaz M.D.Date of Visit:Jun 19, 2020 Onc Med Follow-up/Prog Note History of Present Illness: This is a 64 year-old woman with grade 1 infiltrating ductal carcinoma of the right breast, stage IA (T1c, N0, M0), ER/KS positive and HER-2/christophe negative. She had presented in October 2014 with palpable lump in her right breast. She had been on hormone replacement therapy for the preceding 20 years. Her mammogram on 11/06/2014 revealed 1.3 cm mass in the right breast at 9:00 position corresponding to a 2 cm nodule palpable on examination. An ultrasound guided biopsy on 12/07/2014 revealed grade 1/3 infiltrating ductal carcinoma with the prognostic profile showing ER positive at 100%, KS positive at 98%, and HER-2/christophe negative, 1.1 by FISH, and 1+ by IHC. The Ki-67 was 10%. She underwent lumpectomy and sentinel lymph node biopsy by Dr. Brennan on 12/24/2014. Her surgical pathology showed 1.5 cm infiltrating ductal carcinoma without lymphovascular invasion. Initial margins were positive, but after further excision the final margins were negative. One sentinel lymph was not involved. Her disease thus was pathologic stage IA (T1c, N0, M0). She was first seen by Dr. Ramirez on 12/27/2014. She had daily headaches ever since stopping her hormone replacement therapy. MRI of the brain on 01/10/2015 was negative for metastatic disease. Chiari I malformation was noted. She was referred to neurology for management of migraines. Oncotype DX score on 01/08/2015 return low at 15, corresponding to 9% risk of distant recurrence following hormonal treatment. She began on adjuvant treatment with Femara. Femara was discontinued as she completed 5 years on November 30, 2019 Vitamin D deficiency was found, and she was also then started on replacement therapy. DEXA scan in April 2015 showed normal bone density. She completed definitive adjuvant radiation treatment with a boost on 03/06/2015. A CT of the chest on 03/21/2015 showed bilateral nonspecific upper lobe pulmonary nodules from 2-5 mm, and diffuse interstitial thickening with a pulmonary artery hypertension. Her other medical illnesses include COPD, degenerative arthritis, and depression. 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 She has a history of smoking 1 pack of cigarettes daily for 40 years, and she continues to smoke. Repeat CT of the chest on 08/26/2015 showed clearing of the pulmonary nodules. There was soft tissue density in the right breast with a seroma. By ultrasound, the seroma had decreased. She underwent an FNA of the seroma in August 2015. Cytology was benign. She continued adjuvant hormonal therapy with Femara since december 2014 still has dyspnea on exertion because of COPD and now quit smoking said her lungs capacity is down to 17% only and still an Active smoker Chronic back pain MRI lumbar spine done on 06/23/2018 and bone scan done on 06/09/2018 showed no evidence of malignancy rather chronic arthritis Follow-up mammogram done on January 22, 2020 showed BI-RADS 2, benign Came for follow-up, denies any specific complaint except generalized weakness and fatigue, no melena or hematochezia, no nausea or vomiting, no diarrhea constipation, no jaundice, no hematuria., No shortness of breath or palpitation at rest, patient is on home oxygen and continues to smoke about a pack a day Medications: Advair Diskus 1 puff(s) (of 250-50 mcg/dose) Aerosol Powder, Breath Activated Inhalation b.i.d., Aspirin 1 (325 mg) Tablet Oral daily, Benadryl 1 (25 mg) Capsule Oral daily PRN, ClonazePAM 1 Tablet (of 0.5 mg) Oral b.i.d., Doxycycline Hyclate 1 Tablet (of 100 mg) Oral b.i.d., Ibuprofen 1 Tablet (of 800 mg) Oral t.i.d., Lisinopril 1 Tablet (of 10 mg) Oral daily, PARoxetine HCl 1 Tablet (of 20 mg) Oral daily, ProAir HFA 1 puff(s) (of 108 (90 base) mcg/act) Aerosol, solution Inhalation q 4 hours, Propranolol HCl ER 1 Capsule (of 60 mg) Capsule SR 24 HR Oral daily, Venlafaxine HCl 1 Tablet (of 75 mg) Tablet Oral daily Allergies: No Known Allergies. Review of Systems: Constitutional - Her energy level is fair. Appetite is good and weight is stable. No fever, chills, or night sweats. She has hot flashes, Eyes - Denies blurred vision and double vision, ENMT - She has sinus congestion/drainage. No mouth sores. No sore throat or difficulty swallowing, Endocrine - Denies diabetes and thyroid disease, Hematologic/Lymphatic - No abnormal bruising or bleeding, Breasts - No abnormal masses of breast, no nipple discharge or pain, Respiratory - She has shortness of breath. She has a productive cough which produces yellow phlegm. No pleuritic pain or hemoptysis, Cardiovascular - No angina pain. No palpitations, Gastrointestinal - No nausea or vomiting. She has had heartburn. No diarrhea or constipation. No blood in the stool or black stools, Genitourinary (F) - No dysuria or hematuria. No urinary frequency. No urgency or incontinence, Musculoskeletal - No joint or bone pain, Integumentary - , Neurologic - She has had headaches. No dizziness. She has numbness/tingling in her right foot, Psychiatric - She has anxiety and depression. No insomnia. Vital Signs: Performed on Jun 19, 2020 12:38 Height - 63.00 in Weight - 188.6 lbs (LOW) BSA - 1.89 sq.m BMI - 33.41 (HIGH) Temperature - 98.0 F (LOW) Pulse - 82 /min Respiration - 18 /min BP - 178/99 mm(hg) (HIGH) O2 Sat - 93 % (LOW) Pain - 0 Performance Status: 2 - Ambulatory/capable of all self-care, unable to perform any work activities. Up and about more than 50% of waking hours. (ECOG) Physical Examination: Respiratory - Poor air entry, bilateral wheezing, Cardiovascular - Regular rate and rhythm of heart, Gastrointestinal - Soft, bowel sounds present, Extremities - No edema or rash. Lab/Imaging: Test performed on May 31, 2020 10:15 Retic Count % 1.5300 % WBC 8.1 10 3/uL RBC 3.96 10 6/uL HGB 10.3 g/dL HCT 35.3 % MCV 89.1 fL MCH 26.0 pg MCHC 29.2 g/dL RDW 13.1 % Platelet Count 405 10 3/cmm MPV 10.2 fL Neutrophils 5.44 10 3/uL Lymphocytes 1.6 10 3/uL Monocytes 0.9 10 3/uL Eosinophils 0.1 10 3/uL Basophils 0.0 10 3/uL Neutrophil % 67.2 % Lymphocyte % 20.0 % Monocyte % 10.7 % Eosinophil % 1.7 % Basophils % 0.2 % NRBC % 0 % Impression: 1. Patient with grade 1 infiltrating ductal carcinoma of the right breast, stage IA (T1c, N0, M0), ER/KS positive and HER-2/christophe negative. Oncotype DX score was 15, low risk. 2. She completed radiation to the right breast on 03/06/2015 to a total dose of 6600 cGy. 3. She began adjuvant hormonal therapy with Femara 2.5 mg daily in December 2014. Her other medical illnesses include: 4. COPD with secondary erythrocytosis.on o2 5. Degenerative arthritis. 6. Depression. 7. She has nicotine dependence (cigarettes). Chronic back pain MRI scan of lumbosacral area done on 06/23/2018 and bone scan done on 06/09/2018 showed no evidence of malignancy but chronic arthritis She does have ongoing problems with the COPD, and she currently appears to be experiencing an acute exacerbation. Polycythemia probably due to hypoxia due to severe COPD or chronic smoking, now on home oxygen Improved with smoking cessation for 1 week Plan: Discussed with patient regarding her labs white blood count 8.2 hemoglobin 10.4 g hematocrit 36.1 platelets 398,000 anemia work-up showed iron saturation 15.3% which is low, ferritin 97 iron 40, B12 326 Clinically, patient doing reasonably well now with iron deficiency anemia, stable, will try oral iron/MVI and repeat CBC and iron studies in a month, if no improvement, may consider parenteral iron or bone marrow evaluation. Patient was advised to quit smoking, was offered any assistance she may need Signed By: Kaya Díaz M.D. <<Signature on File>>
== END 2020-06-19 05:53 | disposition home or self-care (01) ==
LOC: ONCMED 05:53
PROVIDERS: PCP Family Medicine; Visit Provider Internal Medicine Hematology & Oncology
DX: Z08 Encounter for follow-up examination after completed treatment for malignant neoplasm (principal); Z85.3 Personal history of malignant neoplasm of breast; D50.9 Iron deficiency anemia, unspecified; D75.1 Secondary polycythemia; J44.1 Chronic obstructive pulmonary disease with (acute) exacerbation; F17.210 Nicotine dependence, cigarettes, uncomplicated; M47.817 Spondylosis without myelopathy or radiculopathy, lumbosacral region; F32.9 Major depressive disorder, single episode, unspecified; Z99.81 Dependence on supplemental oxygen
CPT/HCPCS: 36415; 82607; 82728; 83540; 83550; 85025; G0463

== ENCOUNTER 2020-07-19 09:39 | Outpatient (CLI) | payer MEDICARE, MEDICAID, SELFPAY ==
[2020-07-19 10:26] LABS: Basophils % 0.2 %; Eosinophils # 0.1 10^3/uL (0.0-0.8); Eosinophils % 1.1 %; Hematocrit 33.4 % (37.0-47.0); Hemoglobin 9.6 g/dL (11.5-15.3); Lymphocytes # 1.8 10^3/uL (0.8-4.8); Lymphocytes % 16.6 %; Mean Corpuscular HGB Conc 28.7 g/dL (30.0-36.0); Mean Corpuscular Hemoglobin 25.5 pg (28.0-34.0); Mean Corpuscular Volume 88.8 fL (81-99); Monocytes # 1.3 10^3/uL (0.2-0.9); Monocytes % 11.9 %; Neutrophils # 7.41 10^3/uL (1.8-7.7); Neutrophils % 69.7 %; Nucleated Red Blood Cells % 0 %; Platelet Count 450 10^3/cmm (130-400); Red Blood Count 3.76 10^6/uL (4.1-5.3); Red Cell Distribution Width 13.7 % (12.1-15.1); White Blood Count 10.6 10^3/uL (4.0-10.0)
[2020-07-19 10:34] LABS: Ferritin 124 ng/mL (15-150); Iron 50 ug/dL (37-145); Percent Saturation 20.2 % (20-50); Total Iron Binding Capacity 247 mcg/dl; Unsaturated Iron Binding 197 ug/dL (112-347)
--- NOTE | 2020-07-19 11:49 | ONC FU_ITS ---
Dr. Díaz follow up note Patient: Swathi Frederick Unit #: [id number]: 1955 Dicatated By: Kaya Díaz M.D.Date of Visit:Jul 19, 2020 Onc Med Follow-up/Prog Note History of Present Illness: This is a 64 year-old woman with grade 1 infiltrating ductal carcinoma of the right breast, stage IA (T1c, N0, M0), ER/HI positive and HER-2/christophe negative. She had presented in October 2014 with palpable lump in her right breast. She had been on hormone replacement therapy for the preceding 20 years. Her mammogram on 11/06/2014 revealed 1.3 cm mass in the right breast at 9:00 position corresponding to a 2 cm nodule palpable on examination. An ultrasound guided biopsy on 12/07/2014 revealed grade 1/3 infiltrating ductal carcinoma with the prognostic profile showing ER positive at 100%, HI positive at 98%, and HER-2/christophe negative, 1.1 by FISH, and 1+ by IHC. The Ki-67 was 10%. She underwent lumpectomy and sentinel lymph node biopsy by Dr. Brennan on 12/24/2014. Her surgical pathology showed 1.5 cm infiltrating ductal carcinoma without lymphovascular invasion. Initial margins were positive, but after further excision the final margins were negative. One sentinel lymph was not involved. Her disease thus was pathologic stage IA (T1c, N0, M0). She was first seen by Dr. Ramirez on 12/27/2014. She had daily headaches ever since stopping her hormone replacement therapy. MRI of the brain on 01/10/2015 was negative for metastatic disease. Chiari I malformation was noted. She was referred to neurology for management of migraines. Oncotype DX score on 01/08/2015 return low at 15, corresponding to 9% risk of distant recurrence following hormonal treatment. She began on adjuvant treatment with Femara. Femara was discontinued as she completed 5 years on November 30, 2019 Vitamin D deficiency was found, and she was also then started on replacement therapy. DEXA scan in April 2015 showed normal bone density. She completed definitive adjuvant radiation treatment with a boost on 03/06/2015. A CT of the chest on 03/21/2015 showed bilateral nonspecific upper lobe pulmonary nodules from 2-5 mm, and diffuse interstitial thickening with a pulmonary artery hypertension. Her other medical illnesses include COPD, degenerative arthritis, and depression. 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 She has a history of smoking 1 pack of cigarettes daily for 40 years, and she continues to smoke. Repeat CT of the chest on 08/26/2015 showed clearing of the pulmonary nodules. There was soft tissue density in the right breast with a seroma. By ultrasound, the seroma had decreased. She underwent an FNA of the seroma in August 2015. Cytology was benign. She continued adjuvant hormonal therapy with Femara since december 2014 still has dyspnea on exertion because of COPD and now quit smoking said her lungs capacity is down to 17% only and still an Active smoker Chronic back pain MRI lumbar spine done on 06/23/2018 and bone scan done on 06/09/2018 showed no evidence of malignancy rather chronic arthritis Follow-up mammogram done on January 22, 2020 showed BI-RADS 2, benign Came for follow-up, denies any specific complaint except chronic cough but now with off and on blood mixed, as per patient Dr. Allred's office has ordered CT scan of chest and she is waiting for schedule. Also complaining of intolerance to oral iron, with indigestion, constipation and does not want to continue with. Denies any melena or hematochezia denies any jaundice but off and on mild hemoptysis. Medications: Advair Diskus 1 puff(s) (of 250-50 mcg/dose) Aerosol Powder, Breath Activated Inhalation b.i.d., Aspirin 1 (325 mg) Tablet Oral daily, Benadryl 1 (25 mg) Capsule Oral daily PRN, ClonazePAM 1 Tablet (of 0.5 mg) Oral b.i.d., Doxycycline Hyclate 1 Tablet (of 100 mg) Oral b.i.d., Ibuprofen 1 Tablet (of 800 mg) Oral t.i.d., Lisinopril 1 Tablet (of 10 mg) Oral daily, PARoxetine HCl 1 Tablet (of 20 mg) Oral daily, ProAir HFA 1 puff(s) (of 108 (90 base) mcg/act) Aerosol, solution Inhalation q 4 hours, Propranolol HCl ER 1 Capsule (of 60 mg) Capsule SR 24 HR Oral daily, Venlafaxine HCl 1 Tablet (of 75 mg) Tablet Oral daily Allergies: No Known Allergies. Review of Systems: Constitutional - Appetite is good and weight is stable. No fever, chills, hot flashes, or night sweats. Energy level is fair, ENMT - No sinus congestion/drainage. No mouth sores. No sore throat or difficulty swallowing, Hematologic/Lymphatic - Positive for abnormal bruising or bleeding, Respiratory - Pt has shortness of breath, is on oxygen, Cardiovascular - No angina pain. No palpitations, Gastrointestinal - No nausea or vomiting. No heartburn or acid reflux. No diarrhea or constipation. No blood in the stool or black stools, Genitourinary (F) - No dysuria or hematuria. No urinary frequency. No urgency or incontinence, Musculoskeletal - Pt reports back pain, Neurologic - No headache or dizziness. No numbness/paresthesias or other focal neurologic symptoms, Psychiatric - No anxiety or depression. No insomnia. Vital Signs: Performed on Jul 19, 2020 11:13 Height - 63.00 in Weight - 184.2 lbs (LOW) BSA - 1.87 sq.m BMI - 32.63 (HIGH) Temperature - 99.0 F (HIGH) Pulse - 88 /min Respiration - 16 /min BP - 196/89 mm(hg) (HIGH) O2 Sat - 83 % (LOW) Pain - 8 Performance Status: 2 - Ambulatory/capable of all self-care, unable to perform any work activities. Up and about more than 50% of waking hours. (ECOG) Physical Examination: Respiratory - Poor air entry otherwise clear, Cardiovascular - Regular rate and rhythm of heart, Gastrointestinal - Soft, bowel sounds present, Extremities - No visible edema. Lab/Imaging: Test performed on Jun 19, 2020 11:16 Ferritin 97 ng/mL Iron 40 mcg/dL Vitamin B12 326 pg/mL Iron Binding Capacity (TIBC) 261 mcg/dl % Iron Saturation 15.3 % UIBC 221 mcg/dL WBC 8.2 10 3/uL RBC 4.04 10 6/uL HGB 10.4 g/dL HCT 36.1 % MCV 89.4 fL MCH 25.7 pg MCHC 28.8 g/dL RDW 13.4 % Platelet Count 398 10 3/cmm MPV 10.1 fL Neutrophils 5.91 10 3/uL Lymphocytes 1.5 10 3/uL Monocytes 0.7 10 3/uL Eosinophils 0.1 10 3/uL Basophils 0.0 10 3/uL Neutrophil % 71.8 % Lymphocyte % 17.6 % Monocyte % 8.3 % Eosinophil % 1.7 % Basophils % 0.2 % NRBC % 0 % Test performed on May 31, 2020 10:15 Retic Count % 1.5300 % Impression: 1. Patient with grade 1 infiltrating ductal carcinoma of the right breast, stage IA (T1c, N0, M0), ER/HI positive and HER-2/christophe negative. Oncotype DX score was 15, low risk. 2. She completed radiation to the right breast on 03/06/2015 to a total dose of 6600 cGy. 3. She began adjuvant hormonal therapy with Femara 2.5 mg daily in December 2014. Her other medical illnesses include: 4. COPD with secondary erythrocytosis.on o2 5. Degenerative arthritis. 6. Depression. 7. She has nicotine dependence (cigarettes). Chronic back pain MRI scan of lumbosacral area done on 06/23/2018 and bone scan done on 06/09/2018 showed no evidence of malignancy but chronic arthritis She does have ongoing problems with the COPD, and she currently appears to be experiencing an acute exacerbation. Polycythemia probably due to hypoxia due to severe COPD or chronic smoking, now on home oxygen Improved with smoking cessation for 1 week Iron deficiency anemia, Intolerance to oral iron Plan: Discussed with patient regarding her labs white blood count 10.6 hemoglobin 9.6 hematocrit 33.4 platelets 450,000, today's iron studies pending Iron studies done on June 19, 2020 showed iron saturation 15.3% which is low ferritin 97 iron 40 and TIBC 261 and B12 at 326 Clinically, patient is doing reasonably well but complaining of generalized weakness and fatigue and her follow-up CBC shows further drop in her hemoglobin now 9.6 g compared to 10.4 g on June 19, 2020 which could be due to off and on hemoptysis and patient is not comfortable with oral iron, as patient has iron deficiency anemia, and intolerance to oral iron, we will consider trial of parenteral iron with Injectafer 750 mg IV weekly x2 and return to clinic in month after second infusion with CBC and iron studies, if there is a normalization of her iron stores and patient has persistent anemia, will consider bone marrow evaluation to rule out underlying myelodysplasia As far as mild hemoptysis is concerned, now being evaluated by pulmonology, patient was advised to quit smoking and was offered any assistance she may need Mild leukocytosis could be due to underlying chronic bronchitis or smoking, will continue to monitor. Signed By: Kaya Díaz M.D. <<Signature on File>>
== END 2020-07-19 09:40 | disposition home or self-care (01) ==
LOC: ONCMED 09:42
PROVIDERS: PCP Family Medicine; Visit Provider Internal Medicine Hematology & Oncology
DX: Z08 Encounter for follow-up examination after completed treatment for malignant neoplasm (principal); Z85.3 Personal history of malignant neoplasm of breast; R04.2 Hemoptysis; D50.9 Iron deficiency anemia, unspecified; D72.829 Elevated white blood cell count, unspecified; J44.9 Chronic obstructive pulmonary disease, unspecified; D75.1 Secondary polycythemia; F17.200 Nicotine dependence, unspecified, uncomplicated; Z99.81 Dependence on supplemental oxygen
CPT/HCPCS: 36415; 82728; 83540; 83550; 85025; 99214

== ENCOUNTER 2020-07-31 09:29 | Outpatient (CLI) | payer MEDICARE, MEDICAID, SELFPAY ==
--- NOTE | 2020-07-31 | CT_ITS ---
WS: [id number] LDCT LUNG CANCER SCREENING TECHNIQUE: Noncontrast CT of the chest with coronal and sagittal reformatted images. CLINICAL INFORMATION: NICOTINE DEPENDECE COMPARISON: CT chest 3 DLP: [address] scans at [facility] use at least one of these dose optimization techniques: automat ed exposure control; mA and/or kV adjustment per patient size (includes targeted exams where dose is matched to clinical indication); or iterative reconstruction. FINDINGS: Spiculated right suprahilar and right upper lobe paramediastinal and soft tissue mass. This measures approximately 6.4 x 4.0 x 7.6 cm AP by transverse by craniocaudal. Findings are most compatible with NEOPLASM. Recommend dedicated contrast enhanced chest CT and further evaluation with bronchoscopy. Mi ld narrowing of the right upper mainstem bronchus. Mild narrowing of the right distal main stem bronc hus. Mediastinal lymphadenopathy. Right hilar lymphadenopathy. Additional spiculated right suprahilar nodules along the right fissure measuring 1.6 x 1.3 CM. Spicul ated right middle lobe nodule measuring 7 mm. Subpleural nodularity in the right middle lobe. Interst itial thickening in the right upper lobe suspicious for lymphangitic or interstitial spread of diseas e. A few tiny satellite nodules. Advanced chronic emphysematous changes. Left lung is well aerated. Aortic calcification. Coronary john cification. Adrenal glands appear normal. No axillary lymphadenopathy. RECOMMEND FURTHER EVALUATION WITH CONTRAST-ENHANCED CHEST CT AND BRONCHOSCOPY. CT/CT lung screening [id number] IMPRESSION: LUNG-RADS: 4XS-Suspicious with Significant Findings FOLLOW UP: See Report
== END 2020-07-31 09:30 | disposition home or self-care (01) ==
LOC: ONCMED 09:31 → RAD 09:32
PROVIDERS: PCP Family Medicine; Visit Provider Internal Medicine Critical Care Medicine
DX: Z12.2 Encounter for screening for malignant neoplasm of respiratory organs (principal); F17.210 Nicotine dependence, cigarettes, uncomplicated
CPT/HCPCS: 71271

== ENCOUNTER → 2020-08-08 11:24 | Outpatient (BNVA) | payer MEDICARE, MEDICAID, SELFPAY | PROVIDERS: PCP Family Medicine; Visit Provider Internal Medicine Critical Care Medicine | DX: Z01.812 Encounter for preprocedural laboratory examination (principal); R06.02 Shortness of breath; J98.59 Other diseases of mediastinum, not elsewhere classified | CPT/HCPCS: 87635 ==

== ENCOUNTER 2020-08-12 05:51 | Outpatient (CLI) | payer MEDICARE, MEDICAID, SELFPAY ==
[2020-08-12] MEDS: ferric carboxy (IVPB) 750 MG in sodium chloride 0.9% (100 ml) 100 ML 460 MG IV (10:35)
[2020-08-12] MEDS: sodium chloride 0.9% (100 ml) 100 ML (10:35)
== END 2020-08-12 05:52 | disposition home or self-care (01) ==
LOC: ONCMED 05:54
PROVIDERS: PCP Family Medicine; Visit Provider Internal Medicine Hematology & Oncology
DX: D50.9 Iron deficiency anemia, unspecified (principal)
CPT/HCPCS: 96365; J1439

== ENCOUNTER 2020-08-15 06:12 | Day surgery (SDC) | payer MEDICARE, MEDICAID, SELFPAY ==
[2020-08-14 08:44] VITALS: BMI 32.2
--- NOTE | 2020-08-15 07:05 | W.PM.OPSUD ---
Surgery/Procedure H&P Update DATE OF PROCEDURE: August 15, 2020 DATE H&P PERFORMED: 07/16/20 H&P UPDATE INFORMATION: I have reviewed H&P completed within last 30 days, I have examined patient prior to procedure and No changes to prior documentation PREOP DIAGNOSIS: Suspected lung cancer PRIMARY INDICATION FOR PROCEDURE: This is a 65-year-old lady with previous history of stage Ia breast cancer now coming in with a PET positive midsternal lung mass. PLANNED PROCEDURE: Bronchoscopy with inspection of the airway, possible endobronchial biopsy, bronchoalveolar lavage, endobronchial ultrasound-guided transbronchial needle aspiration of lymph nodes. Operation Date: 08/15/20 08:00 Proposed Procedures p Ebus [id number] R91.1(Not Applicable) - Lorena Allred MD
[2020-08-15 07:06] VITALS: BP 136/84; PULSE 99; RESP 24; TEMP 36.1; O2SAT 95
[2020-08-15] MEDS: sodium chloride 0.9% 1,000 ML 30 ML IV (07:07)
[2020-08-15] MEDS: midazolam 1 mg/mL INJ 2 mL 2 MG IVP (07:07)
--- NOTE | 2020-08-15 07:49 | ANES.PREANE2 ---
Pre-Anesthetic Assessment Pre-Anesthetic Assessment: Height/Weight: Height 1.63 m Weight 85.275 kg Temp Pulse Resp BP Pulse Ox 97.0 F L 99 24 H 136/84 95 08/15/20 07:06 08/15/20 07:06 08/15/20 07:06 08/15/20 07:06 08/15/20 07:06 Preop Diagnosis: Suspected lung cancer Proposed Procedure: Operation Date: 08/15/20 08:00 Proposed Procedures p Ebus [id number] R91.1(Not Applicable) - Lorena Allred MD Was Beta Renata taken within 24 hours: N/A Last intake: Intake Last Liquid Date 08/14/20 Last Liquid Time 23:54 Last Solid Date 08/14/20 Last Solid Time 20:00 Social: Social History: Tobacco and No alcohol Exam: Pre-Anes Outpt Exam: alert, oriented x 3 and regular rate & rhythm Additional Exam Findings (including area of procedure): BBS decreased, rhonchi Airway: Submandibular: WNL Cervical ROM: WNL MP: 2 Dentition: False Pulmonary: Pulmonary: COPD and Cough Comments: Home O2 6L CV/HEM: CV/HEM: HTN GI: GI: GERD Metabolic: Metabolic: Morbid obesity Neuropsych: Neuropsych: Anxiety Anesthetic Plan: ASA status: 3 Anesthesia: General Risk of > 500 ml blood loss (7ml/kg in children): No Meds/Allergies Current Medications: Current Medications Generic Name Dose Route Start Last Admin Trade Name Freq PRN Reason Stop Dose Admin Sodium Chloride 1,000 mls @ 30 ml s/hr 08/15/20 06:45 08/15/20 07:07 Sodium Chloride 0.9% IV 08/16/20 06:44 30 mls/hr .Q24H GIANNA Administration Midazolam HCl 2 mg 08/15/20 06:41 08/15/20 07:07 Midazolam 1 Mg/M l Inj 2 Ml IVP 2 mg Q5M PRN Administration Preop Anxiety PFSH Anesthesia PFSH: Medical History (Updated 08/01/20 @ 15:15 by Lorena Allred MD) Anxiety and depression COPD (chronic obstructive pulmonary disease) Essential (primary) hypertension Essential tremor History of breast cancer Scoliosis Surgical History (Updated 07/29/20 @ 11:48 by Jair Brennan MD) H/O tubal ligation History of appendectomy History of lumpectomy of right breast History of tonsillectomy Status post colonoscopy Family History Other CAD (coronary artery disease) Diabetes Social History Smoking and tobacco status: current every day smoker cigarettes Packs smoked per day: 0.5 Years cigarettes smoked: 50 Quit status (tobacco): considering quitting Second hand smoke exposure: No Smoking risk assessment/counseling performed?: Yes Alcohol intake: never Lives independently: Yes Household members: none Marital status: / Current occupational status: disabled History of recent travel: No Current gender identity: Female Data Anesthesia Cardiac Studies: No Data to Display
[2020-08-15 08:44] VITALS: BP 156/66; PULSE 98; RESP 20; TEMP 36.4; O2SAT 96
[2020-08-15 08:47] VITALS: BP 129/89; PULSE 96; RESP 22; O2SAT 99
--- NOTE | 2020-08-15 08:51 | P.PCN_ITS ---
PACU note PACU note: VSS, Good respiratory effort, report to CAL[facility]INNER Post-Anesthesia Exam: awake
--- NOTE | 2020-08-15 08:51 | PM.PACU ---
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
[2020-08-15 08:54] VITALS: BP 122/73; PULSE 96; RESP 18; TEMP 36.4; O2SAT 95
[2020-08-15 08:59] VITALS: BP 129/73; PULSE 95; RESP 20; TEMP 36.6; O2SAT 95
--- NOTE | 2020-08-15 09:09 | PM.OP ---
Operative Report Date of procedure: August 15, 2020 Pre-op Diagnosis: Suspected lung cancer Post-op diagnosis: same Brief History: This is a 65-year-old lady with PET positive right hilar and paratracheal mass coming in for bronchoscopic evaluation. Procedure: Name of the procedure: Bronchoscopy with inspection of the airway,endobronchial ultrasound-guided transbronchial needle aspiration of lymph nodes and control of bleeding. Indication: Suspected lung cancer Anesthesia: General anesthesia. Local anesthesia: The vocal cords, trachea, arnol in the right and left mainstem bronchi were anesthetized with 1% lidocaine. Description of the procedure: The procedure was explained to the patient and the consent was obtained. The patient was brought to the OR. The patient underwent laryngeal mask airway placement for general anesthesia. Following induction of general anesthesia, the bronchoscope was advanced through the LMA. The vocal cords are normal. The vocal cords anesthetized with 1% lidocaine, 3 mL. Bronchoscope was then introduced into the upper trachea. The upper and lower trachea was anesthetized with 1% lidocaine. The lower trachea appeared to be erythematous, no endotracheal lesion was seen. The arnol was sharp. The arnol, the right and left mainstem bronchi are anesthetized with 1% lidocaine. In a systematic manner bilateral bronchial tree was then examined. The bronchoscope was advanced into the left mainstem bronchus. The left upper lobe, lingula and left lower lobe bronchi were examined up to the third subsegmental level and no abnormalities were identified. There is no endobronchial lesion, active bleeding or mucous plug. The bronchoscope was then introduced into the right mainstem bronchus. The right upper lobe, right middle lobe and right lower lobe bronchi were examined up to the third subsegmental level and no abnormalities were identified. There was airway erythema throughout the lung. The endobronchial ultrasound was introduced through the LMA. Large right paratracheal mass was identified under ultrasound guidance. Fine-needle aspiration was performed from the right paratracheal mass. Samples: 1. The fine-needle aspiration from right paratracheal mass was sent for rapid onsite evaluation as well as histopathology. Complications: There was no immediate complications. Duration of the procedure: 14 minutes
[2020-08-15 09:37] VITALS: BP 144/93; PULSE 89; RESP 18; O2SAT 94
--- NOTE | 2020-08-15 11:42 | ANE.PACU2 ---
Inpatient post-anesthesia follow up: Airway intact: Yes Vital signs: Temperature 97.9 F Pulse Rate 89 Respiratory Rate 18 Blood Pressure 144/93 Pulse Oximetry 94 Oxygen Delivery Me thod Nasal Cannula Oxygen Flow Rate 4 Fraction of Inspir ed Oxygen Hydration adequate: Yes Nausea and vomiting: No Pain level: 2 Mental status: Baseline
[2020-08-22 13:21] LABS: PD-L1 (Clone 22C3) by IHC BBPL See Report
== END 2020-08-15 10:11 | disposition home or self-care (01) ==
PROVIDERS: PCP Family Medicine; Visit Provider Internal Medicine Critical Care Medicine
PROC: BB4BZZZ Ultrasonography of Pleura (ICD-10-PCS; principal; 2020-08-15 08:00)
PROC: 0BJ08ZZ Inspection of Tracheobronchial Tree, Via Natural or Artificial Opening Endoscopic (ICD-10-PCS; CPT 31622; 2020-08-15 08:00)
DX: C34.90 Malignant neoplasm of unspecified part of unspecified bronchus or lung (principal); J44.9 Chronic obstructive pulmonary disease, unspecified; Z99.81 Dependence on supplemental oxygen; K21.9 Gastro-esophageal reflux disease without esophagitis; E66.01 Morbid (severe) obesity due to excess calories; Z68.32 Body mass index [BMI] 32.0-32.9, adult; F41.9 Anxiety disorder, unspecified; Z85.3 Personal history of malignant neoplasm of breast; F17.210 Nicotine dependence, cigarettes, uncomplicated
CPT/HCPCS: 31625; 31627; 80500; 88305; 88342; 96374; J2250; J2704; J7030

== ENCOUNTER 2020-08-19 10:41 | Outpatient (CLI) | payer MEDICARE, MEDICAID, SELFPAY ==
[2020-08-19] MEDS: ferric carboxy (IVPB) 750 MG in sodium chloride 0.9% (100 ml) 100 ML 460 MG IV (10:55)
== END 2020-08-19 10:42 | disposition home or self-care (01) ==
PROVIDERS: PCP Family Medicine; Visit Provider Internal Medicine Hematology & Oncology
DX: D50.9 Iron deficiency anemia, unspecified (principal); D75.1 Secondary polycythemia; C50.511 Malignant neoplasm of lower-outer quadrant of right female breast; Z17.0 Estrogen receptor positive status [ER+]; F17.210 Nicotine dependence, cigarettes, uncomplicated; E55.9 Vitamin D deficiency, unspecified
CPT/HCPCS: 96365; J1439

== ENCOUNTER 2020-08-21 05:43 | Outpatient (CLI) | payer MEDICARE, MEDICAID, SELFPAY ==
--- NOTE | 2020-08-21 14:36 | ONC FU_ITS ---
Dr. Díaz follow up note Patient: Swathi Frederick Unit #: [id number]: 1955 Dicatated By: Kaya Díaz M.D.Date of Visit:Aug 21, 2020 Onc Med Follow-up/Prog Note History of Present Illness: This is a 65 year-old woman with grade 1 infiltrating ductal carcinoma of the right breast, stage IA (T1c, N0, M0), ER/AK positive and HER-2/christophe negative. She had presented in October 2014 with palpable lump in her right breast. She had been on hormone replacement therapy for the preceding 20 years. Her mammogram on 11/06/2014 revealed 1.3 cm mass in the right breast at 9:00 position corresponding to a 2 cm nodule palpable on examination. An ultrasound guided biopsy on 12/07/2014 revealed grade 1/3 infiltrating ductal carcinoma with the prognostic profile showing ER positive at 100%, AK positive at 98%, and HER-2/christophe negative, 1.1 by FISH, and 1+ by IHC. The Ki-67 was 10%. She underwent lumpectomy and sentinel lymph node biopsy by Dr. Bernnan on 12/24/2014. Her surgical pathology showed 1.5 cm infiltrating ductal carcinoma without lymphovascular invasion. Initial margins were positive, but after further excision the final margins were negative. One sentinel lymph was not involved. Her disease thus was pathologic stage IA (T1c, N0, M0). She was first seen by Dr. Ramirez on 12/27/2014. She had daily headaches ever since stopping her hormone replacement therapy. MRI of the brain on 01/10/2015 was negative for metastatic disease. Chiari I malformation was noted. She was referred to neurology for management of migraines. Oncotype DX score on 01/08/2015 return low at 15, corresponding to 9% risk of distant recurrence following hormonal treatment. She began on adjuvant treatment with Femara. Femara was discontinued as she completed 5 years on November 30, 2019 Vitamin D deficiency was found, and she was also then started on replacement therapy. DEXA scan in April 2015 showed normal bone density. She completed definitive adjuvant radiation treatment with a boost on 03/06/2015. A CT of the chest on 03/21/2015 showed bilateral nonspecific upper lobe pulmonary nodules from 2-5 mm, and diffuse interstitial thickening with a pulmonary artery hypertension. Her other medical illnesses include COPD, degenerative arthritis, and depression. 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 She has a history of smoking 1 pack of cigarettes daily for 40 years, and she continues to smoke. Repeat CT of the chest on 08/26/2015 showed clearing of the pulmonary nodules. There was soft tissue density in the right breast with a seroma. By ultrasound, the seroma had decreased. She underwent an FNA of the seroma in August 2015. Cytology was benign. She continued adjuvant hormonal therapy with Femara since december 2014 still has dyspnea on exertion because of COPD and now quit smoking said her lungs capacity is down to 17% only and still an Active smoker Chronic back pain MRI lumbar spine done on 06/23/2018 and bone scan done on 06/09/2018 showed no evidence of malignancy rather chronic arthritis Follow-up mammogram done on January 22, 2020 showed BI-RADS 2, benign chronic cough but now with off and on blood mixed, as per patient Dr. Allred's office has ordered CT scan of chest Which was done on July 31, 2020 showed 6.4 x 4 x 7.6 cm right upper lobe paramediastinal mass and additional spiculated right suprahilar nodule along with right fissure measuring 1.6 x 1.3 cm. Spiculated right middle lobe nodule measuring 7 mm subpleural nodularity in the right middle lobe advance chronic emphysematous changes subsequently underwent CT PET scan on August 03, 2020 which confirmed right upper lobe paramediastinal/superior right hilar mass measuring 4.2 x 7.4 cm with central necrosis with SUV of 37.3 and a 1.4 cm spiculated mass at the minor fissure, right upper lobe has SUV of 12.6, consistent with a satellite malignant lesion. Other, subcentimeter lesions are present in other lobes bilaterally, too small to characterize. Mediastinal lymphadenopathy is present in prevascular, left paratracheal, subaortic, bilateral hilar territory. The field marketing representative left hilar node has SUV of 8.5. Otherwise no evidence of distant or osseous metastatic disease. Underwent bronchoscopy on August 15, 2020, and biopsy from right paritracheal mass confirmed squamous cell carcinoma and biopsy of right paratracheal mass #2 again confirmed squamous cell carcinoma Came for follow-up, denies any specific complaint except off and on but improving hemoptysis as per patient after recent bronchoscopy she was having little more hemoptysis than she was told by Dr. Allred that he did cauterization in the bronchus so hemoptysis should continue to improve. Denies any new bony pains denies any fever or chills denies any nausea or vomiting but occasionally headaches, still smoking about half pack a day and she is on home oxygen. Medications: Advair Diskus 1 puff(s) (of 250-50 mcg/dose) Aerosol Powder, Breath Activated Inhalation b.i.d., Aspirin 1 (325 mg) Tablet Oral daily, Benadryl 1 (25 mg) Capsule Oral daily PRN, ClonazePAM 1 Tablet (of 0.5 mg) Oral b.i.d., Doxycycline Hyclate 1 Tablet (of 100 mg) Oral b.i.d., Ibuprofen 1 Tablet (of 800 mg) Oral t.i.d., Lisinopril 1 Tablet (of 10 mg) Oral daily, PARoxetine HCl 1 Tablet (of 20 mg) Oral daily, ProAir HFA 1 puff(s) (of 108 (90 base) mcg/act) Aerosol, solution Inhalation q 4 hours, Propranolol HCl ER 1 Capsule (of 60 mg) Capsule SR 24 HR Oral daily, Venlafaxine HCl 1 Tablet (of 75 mg) Tablet Oral daily Allergies: No Known Allergies. Review of Systems: Review of Systems is not available for this patient. Vital Signs: Performed on Aug 21, 2020 13:12 Height - 63.00 in Weight - 180.6 lbs (LOW) BSA - 1.85 sq.m BMI - 31.99 (HIGH) Temperature - 98.7 F Pulse - 74 /min Respiration - 22 /min BP - 172/76 mm(hg) (HIGH) O2 Sat - 97 % Pain - 8 Fatigue - 5 Performance Status: 2 - Ambulatory/capable of all self-care, unable to perform any work activities. Up and about more than 50% of waking hours. (ECOG) Physical Examination: Respiratory - Poor air entry otherwise clear, Cardiovascular - Regular rate and rhythm of heart, Gastrointestinal - Soft, bowel sounds present, Extremities - No visible edema. Lab/Imaging: Test performed on Jul 19, 2020 09:55 Ferritin 124 ng/mL Iron 50 mcg/dL Iron Binding Capacity (TIBC) 247 mcg/dl % Iron Saturation 20.2 % UIBC 197 mcg/dL WBC 10.6 10 3/uL RBC 3.76 10 6/uL HGB 9.6 g/dL HCT 33.4 % MCV 88.8 fL MCH 25.5 pg MCHC 28.7 g/dL RDW 13.7 % Platelet Count 450 10 3/cmm MPV 10.0 fL Neutrophils 7.41 10 3/uL Lymphocytes 1.8 10 3/uL Monocytes 1.3 10 3/uL Eosinophils 0.1 10 3/uL Basophils 0.0 10 3/uL Neutrophil % 69.7 % Lymphocyte % 16.6 % Monocyte % 11.9 % Eosinophil % 1.1 % Basophils % 0.2 % NRBC % 0 % Test performed on Jun 19, 2020 11:16 Vitamin B12 326 pg/mL Test performed on May 31, 2020 10:15 Retic Count % 1.5300 % Impression: 1. Squamous cell carcinoma per transbronchial biopsy from right peritracheal mass done on August 15, 2020 CT scan of chest done on July 31, 2020 showed 6.4 x 4 x 7.6 cm right suprahilar/right upper lobe paramediastinal mass and additional spiculated right suprahilar nodule along with right fissure measuring 1.6 x 1.3 cm, spiculated right middle lobe nodule measuring 7 mm and mediastinal lymphadenopathy CT PET scan done on August 03, 2020 showed FDG positive centrally necrotic right upper lobe mass, malignant circular lesion at the right minor fissure, multiple bilateral pulmonary nodules too small to characterize, extensive bilateral malignant mediastinal lymphadenopathy 2. Patient with grade 1 infiltrating ductal carcinoma of the right breast, stage IA (T1c, N0, M0), ER/AK positive and HER-2/christophe negative. Oncotype DX score was 15, low risk. 3 She completed radiation to the right breast on 03/06/2015 to a total dose of 6600 cGy. 4. She began adjuvant hormonal therapy with Femara 2.5 mg daily in December 2014. 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 Degenerative arthritis. 7. She has nicotine dependence (cigarettes). Chronic back pain MRI scan of lumbosacral area done on 06/23/2018 and bone scan done on 06/09/2018 showed no evidence of malignancy but chronic arthritis She does have ongoing problems with the COPD, and she currently appears to be experiencing an acute exacerbation. Polycythemia probably due to hypoxia due to severe COPD or chronic smoking, now on home oxygen Improved with smoking cessation for 1 week Iron deficiency anemia, Intolerance to oral iron Plan: Discussed with patient regarding her newly diagnosed non-small cell lung cancer, disease status and treatment options, clinically it appears patient has extensive locoregional non-small cell lung cancer, on CT PET scan patient has bilateral mediastinal lymphadenopathy, clinically that will make her stage at least IIIb, as multiple bilateral pulmonary nodules are too small to characterize. At this point will proceed with MRI scan of the head to complete staging work-up and also consider Pose molecular profiling to identify therapeutic mutation, we will also consider refer to radiation oncology for evaluation, although concern is advanced his emphysema requiring home oxygen and patient continues to smoke, as far as mild hemoptysis concern, it is improving. Patient was advised to quit smoking and was offered any assistance she may need Patient will return to clinic after MRI scan of the brain and hopefully by that time will have guardant 360 report back for discussion and treatment planning Signed By: Kaya Díaz M.D. <<Signature on File>>
== END 2020-08-21 05:44 | disposition home or self-care (01) ==
LOC: ONCMED 05:45
PROVIDERS: PCP Family Medicine; Visit Provider Internal Medicine Hematology & Oncology
DX: C34.11 Malignant neoplasm of upper lobe, right bronchus or lung (principal); Z85.3 Personal history of malignant neoplasm of breast; R91.8 Other nonspecific abnormal finding of lung field; R59.0 Localized enlarged lymph nodes; R04.2 Hemoptysis; J44.9 Chronic obstructive pulmonary disease, unspecified; D75.1 Secondary polycythemia; D50.9 Iron deficiency anemia, unspecified; M19.90 Unspecified osteoarthritis, unspecified site; F17.210 Nicotine dependence, cigarettes, uncomplicated; Z92.3 Personal history of irradiation; Z92.23 Personal history of estrogen therapy; Z99.81 Dependence on supplemental oxygen
CPT/HCPCS: 99214

== ENCOUNTER 2020-08-22 08:55 | Outpatient (CLI) | payer MEDICARE, MEDICAID, SELFPAY | END 2020-08-22 08:56 | disposition home or self-care (01) | LOC: ONCMED 08:59 | PROVIDERS: PCP Family Medicine; Visit Provider Internal Medicine Hematology & Oncology | DX: C34.91 Malignant neoplasm of unspecified part of right bronchus or lung (principal) | CPT/HCPCS: 36415 ==

== ENCOUNTER 2020-09-05 09:07 | Outpatient (CLI) | payer MEDICARE, MEDICAID, SELFPAY ==
--- NOTE | 2020-09-05 09:10 | MR_ITS ---
WS: [id number] MRI HEAD WITH CONTRAST TECHNIQUE: Sagittal T1, T2 axial, T2 axial FLAIR, axial susceptibility weighted imaging, axial diffus ion weighted images, and coronal T2 images were obtained. Pre and post-T1 axial and post T1 coronal i mages. ADC and FSPGR images. CLINICAL INFORMATION: NEW DIAGNOSIS OF LUNG CANCER COMPARISON: None. FINDINGS: No evidence of restricted diffusion to suggest acute ischemia. Mild small vessel changes. Mild parenc hymal volume loss. Small vessel changes in the aquiles. Small vessel changes have progressed since 2014. Normal posterior fossa. Normal vascular flow voids at the skull base. No extra-axial fluid collection . No evidence of mass or mass effect. Paranasal sinuses and mastoid air cells are well aerated. Mild symmetric atrophy temporal lobes and hippocampal formations. Normal optic chiasm and pituitary infund ibulum. Incidental slightly low-lying cerebellar tonsils. Normal fourth ventricle. Several punctate foci of hemosiderin in the right posterior temporal and parietal lobes. Single punct ate focus of hemosiderin in the left posterior temporal lobe. This is nonspecific but can be seen wit h amyloid angiopathy. Not typical for hypertensive microhemorrhage. No hemosiderin in the brainstem o r aquiles. No abnormal gadolinium enhancement. Normal dural venous sinuses. Normal optic chiasm and pituitary in fundibulum. Normal cavernous sinuses and Meckel's cave. MR/MR head wo/w con [id number] IMPRESSION: 1. No evidence of restricted diffusion to suggest acute ischemia. 2. No evidence of enhancing intracranial metastatic disease. 3. Mild small vessel changes with mild parenchymal volume loss. Small vessel c hanges in the aquiles. This is progressed since 2014. 4. Numerous new small punctate foci of hemosiderin in the right parietal and t emporal lobes. Single focus in the left posterior temporal lobe consistent with chronic tiny punctate microhemorrhages mainly subcortical in location. This is nonspecific but can be seen with amyloid angiopathy. 5. Mild symmetric atrophy involving the temporal lobes and hippocampal formati ons.
[2020-09-05 10:01] LABS: Blood Urea Nitrogen 14 mg/dL (8-23); Glomerular Filtration Rate 161.2 mL/min (90-130)
[2020-09-05] MEDS: gadobenate dimeglumine 20 mL vial IV (10:09)
== END 2020-09-05 09:08 | disposition home or self-care (01) ==
LOC: RADSHAW 09:08
PROVIDERS: Radiology Neuroradiology; PCP Family Medicine; Visit Provider Internal Medicine Hematology & Oncology
DX: C34.90 Malignant neoplasm of unspecified part of unspecified bronchus or lung (principal); G31.9 Degenerative disease of nervous system, unspecified
CPT/HCPCS: 70553; 82565; 84520; A9577

== ENCOUNTER 2020-09-19 05:42 | Outpatient (CLI) | payer MEDICARE, MEDICAID, SELFPAY ==
[2020-09-19 12:07] LABS: Basophils % 0.3 %; Eosinophils # 0.1 10^3/uL (0.0-0.8); Eosinophils % 0.6 %; Hematocrit 37.1 % (37.0-47.0); Hemoglobin 11.2 g/dL (11.5-15.3); Lymphocytes # 1.8 10^3/uL (0.8-4.8); Lymphocytes % 16.7 %; Mean Corpuscular HGB Conc 30.2 g/dL (30.0-36.0); Mean Corpuscular Hemoglobin 27.6 pg (28.0-34.0); Mean Corpuscular Volume 91.4 fL (81-99); Mean Platelet Volume 10.4 fL (7.4-10.4); Monocytes # 0.9 10^3/uL (0.2-0.9); Monocytes % 8.1 %; Neutrophils # 8.13 10^3/uL (1.8-7.7); Nucleated Red Blood Cells % 0 %; Platelet Count 471 10^3/cmm (130-400); Red Blood Count 4.06 10^6/uL (4.1-5.3); Red Cell Distribution Width 15.8 % (12.1-15.1)
[2020-09-19 12:47] LABS: Alanine Aminotransferase 16 U/L (0-33); Albumin Level 3.8 g/dL (3.5-5.2); Alkaline Phosphatase 137 IU/L (35-105); Anion Gap 12.6 (5-19); Aspartate Amino Transferase 13 U/L (0-32); Blood Urea Nitrogen 13 mg/dL (8-23); Calcium 9.6 mg/dL (8.5-10.5); Carbon Dioxide 34 mmol/L (22-29); Chloride 93 mmol/L (98-107); Globulin 3.8 g/dL (1.3-4.6); Glomerular Filtration Rate 161.2 mL/min (90-130); Glucose 107 mg/dL (65-115); Osmolality Calculated 283 mOsm/kg (285-295); Potassium 3.6 mmol/L (3.5-5.1); Sodium 136 mmol/L (136-145); Total Bilirubin 0.2 mg/dL (0.15-1.2); Total Protein 7.6 g/dL (6.6-8.7)
--- NOTE | 2020-09-19 16:15 | ONC FU_ITS ---
Dr. Díaz follow up note Patient: Swathi Frederick Unit #: [id number]: 1955 Dicatated By: Kaya Díaz M.D.Date of Visit:Sep 19, 2020 Onc Med Follow-up/Prog Note History of Present Illness: This is a 65 year-old woman with grade 1 infiltrating ductal carcinoma of the right breast, stage IA (T1c, N0, M0), ER/VT positive and HER-2/christophe negative. She had presented in October 2014 with palpable lump in her right breast. She had been on hormone replacement therapy for the preceding 20 years. Her mammogram on 11/06/2014 revealed 1.3 cm mass in the right breast at 9:00 position corresponding to a 2 cm nodule palpable on examination. An ultrasound guided biopsy on 12/07/2014 revealed grade 1/3 infiltrating ductal carcinoma with the prognostic profile showing ER positive at 100%, VT positive at 98%, and HER-2/christophe negative, 1.1 by FISH, and 1+ by IHC. The Ki-67 was 10%. She underwent lumpectomy and sentinel lymph node biopsy by Dr. Brennan on 12/24/2014. Her surgical pathology showed 1.5 cm infiltrating ductal carcinoma without lymphovascular invasion. Initial margins were positive, but after further excision the final margins were negative. One sentinel lymph was not involved. Her disease thus was pathologic stage IA (T1c, N0, M0). She was first seen by Dr. Ramirez on 12/27/2014. She had daily headaches ever since stopping her hormone replacement therapy. MRI of the brain on 01/10/2015 was negative for metastatic disease. Chiari I malformation was noted. She was referred to neurology for management of migraines. Oncotype DX score on 01/08/2015 return low at 15, corresponding to 9% risk of distant recurrence following hormonal treatment. She began on adjuvant treatment with Femara. Femara was discontinued as she completed 5 years on November 30, 2019 Vitamin D deficiency was found, and she was also then started on replacement therapy. DEXA scan in April 2015 showed normal bone density. She completed definitive adjuvant radiation treatment with a boost on 03/06/2015. A CT of the chest on 03/21/2015 showed bilateral nonspecific upper lobe pulmonary nodules from 2-5 mm, and diffuse interstitial thickening with a pulmonary artery hypertension. Her other medical illnesses include COPD, degenerative arthritis, and depression. 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 She has a history of smoking 1 pack of cigarettes daily for 40 years, and she continues to smoke. Repeat CT of the chest on 08/26/2015 showed clearing of the pulmonary nodules. There was soft tissue density in the right breast with a seroma. By ultrasound, the seroma had decreased. She underwent an FNA of the seroma in August 2015. Cytology was benign. She continued adjuvant hormonal therapy with Femara since december 2014 still has dyspnea on exertion because of COPD and now quit smoking said her lungs capacity is down to 17% only and still an Active smoker Chronic back pain MRI lumbar spine done on 06/23/2018 and bone scan done on 06/09/2018 showed no evidence of malignancy rather chronic arthritis Follow-up mammogram done on January 22, 2020 showed BI-RADS 2, benign chronic cough but now with off and on blood mixed, as per patient Dr. Allred's office has ordered CT scan of chest Which was done on July 31, 2020 showed 6.4 x 4 x 7.6 cm right upper lobe paramediastinal mass and additional spiculated right suprahilar nodule along with right fissure measuring 1.6 x 1.3 cm. Spiculated right middle lobe nodule measuring 7 mm subpleural nodularity in the right middle lobe advance chronic emphysematous changes subsequently underwent CT PET scan on August 03, 2020 which confirmed right upper lobe paramediastinal/superior right hilar mass measuring 4.2 x 7.4 cm with central necrosis with SUV of 37.3 and a 1.4 cm spiculated mass at the minor fissure, right upper lobe has SUV of 12.6, consistent with a satellite malignant lesion. Other, subcentimeter lesions are present in other lobes bilaterally, too small to characterize. Mediastinal lymphadenopathy is present in prevascular, left paratracheal, subaortic, bilateral hilar territory. The digital sales representative left hilar node has SUV of 8.5. Otherwise no evidence of distant or osseous metastatic disease. Underwent bronchoscopy on August 15, 2020, and biopsy from right paritracheal mass confirmed squamous cell carcinoma and biopsy of right paratracheal mass #2 again confirmed squamous cell carcinoma MRI scan of the brain done on September 05, 2020 showed no evidence of enhancing intracranial metastatic disease Guardant 360 done on August 29, 2020 showed no targetable therapeutic mutations PD-L1 expression, TPS more than 50%, Came for follow-up, denies any specific complaint except anxiety no fever chills, no nausea vomiting, no diarrhea constipation no hemoptysis hematemesis no headaches still smoke about pack a day and on home oxygen Medications: Advair Diskus 1 puff(s) (of 250-50 mcg/dose) Aerosol Powder, Breath Activated Inhalation b.i.d., Aspirin 1 (325 mg) Tablet Oral daily, Benadryl 1 (25 mg) Capsule Oral daily PRN, ClonazePAM 1 Tablet (of 0.5 mg) Oral b.i.d., Doxycycline Hyclate 1 Tablet (of 100 mg) Oral b.i.d., Ibuprofen 1 Tablet (of 800 mg) Oral t.i.d., Lisinopril 1 Tablet (of 10 mg) Oral daily, PARoxetine HCl 1 Tablet (of 20 mg) Oral daily, ProAir HFA 1 puff(s) (of 108 (90 base) mcg/act) Aerosol, solution Inhalation q 4 hours, Propranolol HCl ER 1 Capsule (of 60 mg) Capsule SR 24 HR Oral daily, Venlafaxine HCl 1 Tablet (of 75 mg) Tablet Oral daily Allergies: No Known Allergies. Review of Systems: Review of Systems is not available for this patient. Vital Signs: Performed on Sep 19, 2020 12:59 Height - 63.00 in Temperature - 98.1 F (LOW) Pulse - 89 /min Respiration - 18 /min BP - 151/75 mm(hg) (HIGH) O2 Sat - 95 % (LOW) Pain - 7 Performance Status: 2 - Ambulatory/capable of all self-care, unable to perform any work activities. Up and about more than 50% of waking hours. (ECOG) Physical Examination: Respiratory - Poor air entry, mild wheezing bilaterally, Cardiovascular - Regular rate and rhythm of heart, Gastrointestinal - Soft, bowel sounds present, Extremities - No visible edema. Lab/Imaging: Test performed on Jul 19, 2020 09:55 Ferritin 124 ng/mL Iron 50 mcg/dL Iron Binding Capacity (TIBC) 247 mcg/dl % Iron Saturation 20.2 % UIBC 197 mcg/dL WBC 10.6 10 3/uL RBC 3.76 10 6/uL HGB 9.6 g/dL HCT 33.4 % MCV 88.8 fL MCH 25.5 pg MCHC 28.7 g/dL RDW 13.7 % Platelet Count 450 10 3/cmm MPV 10.0 fL Neutrophils 7.41 10 3/uL Lymphocytes 1.8 10 3/uL Monocytes 1.3 10 3/uL Eosinophils 0.1 10 3/uL Basophils 0.0 10 3/uL Neutrophil % 69.7 % Lymphocyte % 16.6 % Monocyte % 11.9 % Eosinophil % 1.1 % Basophils % 0.2 % NRBC % 0 % Test performed on Jun 19, 2020 11:16 Vitamin B12 326 pg/mL Test performed on May 31, 2020 10:15 Retic Count % 1.5300 % Impression: 1. Squamous cell carcinoma per transbronchial biopsy from right peritracheal mass done on August 15, 2020 CT scan of chest done on July 31, 2020 showed 6.4 x 4 x 7.6 cm right suprahilar/right upper lobe paramediastinal mass and additional spiculated right suprahilar nodule along with right fissure measuring 1.6 x 1.3 cm, spiculated right middle lobe nodule measuring 7 mm and mediastinal lymphadenopathy CT PET scan done on August 03, 2020 showed FDG positive centrally necrotic right upper lobe mass, malignant circular lesion at the right minor fissure, multiple bilateral pulmonary nodules too small to characterize, extensive bilateral malignant mediastinal lymphadenopathy, Stage IIIb versus stage Court, PD-L1 TPS more than 50% MRI scan of the head done on September 05, 2020 showed no evidence of metastatic disease Guardant 360 shows no targetable therapeutic mutations 2. Patient with grade 1 infiltrating ductal carcinoma of the right breast, stage IA (T1c, N0, M0), ER/VT positive and HER-2/christophe negative. Oncotype DX score was 15, low risk. 3 She completed radiation to the right breast on 03/06/2015 to a total dose of 6600 cGy. 4. She began adjuvant hormonal therapy with Femara 2.5 mg daily in December 2014. 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 Degenerative arthritis. 7. She has nicotine dependence (cigarettes). Chronic back pain MRI scan of lumbosacral area done on 06/23/2018 and bone scan done on 06/09/2018 showed no evidence of malignancy but chronic arthritis She does have ongoing problems with the COPD, and she currently appears to be experiencing an acute exacerbation. Polycythemia probably due to hypoxia due to severe COPD or chronic smoking, now on home oxygen Improved with smoking cessation for 1 week Iron deficiency anemia, Intolerance to oral iron Plan: Regarding her labs white blood count 11 hemoglobin 11.2 compared to 9.6 prior to Injectafer infusion, hematocrit 37.1 platelets 471,000 Guardant 360 showed no targetable therapeutic mutations, PD-L1 tissue, shows TPS more than 50%, MRI scan of the brain shows no brain mets Clinically, patient doing well with no new signs symptoms, further testing confirmed there is no evidence of brain mets and molecular profiling shows no evidence of targetable therapeutic mutations but her PD-L1 on the tissue showed TPS more than 50%. And clinically appears patient has locally advanced disease or may be metastatic disease to the lungs, case was discussed with Dr. Cruz radiation oncology who suggested upfront systemic therapy followed by CT PET scan if it shows resolution of bilateral pulmonary nodules then consider combined chemoradiation therapy. Considering locally advanced disease still contained in the chest, will consider chemo immunotherapy with Keytruda every 3 weeks and carboplatin/Taxol day 1 and 8 and repeat every 21 days along with Keytruda and consider follow-up CT PET scan after 3 cycles if it shows good response e.g. resolution of bilateral pulmonary nodules then will discuss with radiation oncology regarding combined chemoradiation All the side effect possible benefits associated with chemoimmunotherapy including but not limited to bone marrow suppression, allergic reaction, endocrinopathy especially with immunotherapy, peripheral neuropathy hyperglycemia due to steroids especially with the Taxol, hair loss was discussed further teaching done by chemotherapy nurse in the meantime will obtain approval from her insurance and then we will see her back 1 week after starting of chemoimmunotherapy with CBC CMP Patient was advised to quit smoking and was offered any assistance she may need And also refer her to Dr. Brennan for Port-A-Cath placement Signed By: Kaya Díaz M.D. <<Signature on File>>
== END 2020-09-19 05:43 | disposition home or self-care (01) ==
LOC: ONCMED 05:44
PROVIDERS: PCP Family Medicine; Visit Provider Internal Medicine Hematology & Oncology
DX: C34.11 Malignant neoplasm of upper lobe, right bronchus or lung (principal); C77.1 Secondary and unspecified malignant neoplasm of intrathoracic lymph nodes; D50.9 Iron deficiency anemia, unspecified; Z85.3 Personal history of malignant neoplasm of breast; J44.9 Chronic obstructive pulmonary disease, unspecified; M19.90 Unspecified osteoarthritis, unspecified site; F17.210 Nicotine dependence, cigarettes, uncomplicated; D75.1 Secondary polycythemia; Z99.81 Dependence on supplemental oxygen; Z92.23 Personal history of estrogen therapy; Z92.3 Personal history of irradiation
CPT/HCPCS: 36415; 80053; 85025; 99215

== ENCOUNTER → 2020-09-28 14:13 | Outpatient (BNVA) | payer MEDICARE, MEDICAID, SELFPAY | PROVIDERS: PCP Family Medicine; Visit Provider Nurse Practitioner | DX: Z20.822 Contact with and (suspected) exposure to COVID-19 (principal) | CPT/HCPCS: 87635 ==

== ENCOUNTER 2020-10-01 10:20 | Day surgery (SDC) | payer MEDICARE, MEDICAID, SELFPAY ==
[2020-09-30 11:10] VITALS: BMI 32.2
[2020-10-01] VITALS (7 sets, daily range): BP systolic 75–129; BP diastolic 49–67; PULSE 83–89; RESP 18–27; TEMP 36.4–37.6; O2SAT 92–100
--- NOTE | 2020-10-01 | SC_ITS ---
WS: [id number] C-ARM RADIOGRAPHS CHEST; 3 IMAGES HISTORY: NEELAM CATH COMPARISON: None available. Intraoperative imaging during LEFT subclavian Port-A-Cath placement. SC/C-arm FL for CVA [id number] IMPRESSION: Intraoperative imaging during Mediport placement.
--- NOTE | 2020-10-01 10:48 | SCC_ITS ---
Placement of port-a-cath 20.2 seconds of fluoroscopic guidance, for a cumulative dose of 2.39 mGy, was provided to Dr. Brennan by the radiology department. C-arm images of the chest were saved for the patient's permanent record. [facility]
--- NOTE | 2020-10-01 11:36 | W.PM.OPSUD ---
Surgery/Procedure H&P Update DATE OF PROCEDURE: October 01, 2020 DATE H&P PERFORMED: 09/27/20 H&P UPDATE INFORMATION: I have reviewed H&P completed within last 30 days, I have examined patient prior to procedure and No changes to prior documentation PREOP DIAGNOSIS: Lung cancer PLANNED PROCEDURE: Operation Date: 10/01/20 12:00 Proposed Procedures p [id number] Placement of port-a-cath c34.90(Not Applicable) - Jair Brennan MD
--- NOTE | 2020-10-01 11:51 | ANES.PREANE2 ---
Pre-Anesthetic Assessment Pre-Anesthetic Assessment: Height/Weight: Height 1.63 m Weight 85.275 kg Temp Pulse Resp BP Pulse Ox 97.5 F L 83 18 129/67 100 10/01/20 11:05 10/01/20 11:05 10/01/20 11:05 10/01/20 11:05 10/01/20 11:05 Preop Diagnosis: Lung cancer Proposed Procedure: Operation Date: 10/01/20 12:00 Proposed Procedures p 47208 Placement of port-a-cath c34.90(Not Applicable) - Jair Brennan MD Was Beta Renata taken within 24 hours: Yes Was Clonidine taken within 24 hours: N/A Last intake: Intake Last Liquid Date 09/30/20 Last Liquid Time 21:00 Last Solid Date 09/30/20 Last Solid Time 18:00 Social: Social History: Tobacco and No alcohol Exam: Pre-Anes Outpt Exam: alert, oriented x 3, clear to auscultation bilaterally and regular rate & rhythm Airway: Submandibular: WNL Cervical ROM: WNL MP: 2 Pulmonary: Pulmonary: COPD Comments: Metastatic Cancer CV/HEM: CV/HEM: None reported : : None reported Hepatic: Hepatic: None reported GI: GI: None reported Metabolic: Metabolic: None reported Musc/skel: Musc/skel: Lower Back Pain, OA/DJD and Weakness Neuropsych: Neuropsych: Depression Anesthetic Plan: ASA status: 3 Anesthesia: MAC PFSH Anesthesia PFSH: Medical History (Updated 09/27/20 @ 12:21 by Jair Brennan MD) Anxiety and depression COPD (chronic obstructive pulmonary disease) Essential (primary) hypertension Essential tremor History of breast cancer Lung cancer Scoliosis Surgical History H/O tubal ligation History of appendectomy History of lumpectomy of right breast History of tonsillectomy Status post colonoscopy Family History Other CAD (coronary artery disease) Diabetes Social History Smoking and tobacco status: current every day smoker cigarettes Packs smoked per day: 0.5 Years cigarettes smoked: 50 Quit status (tobacco): considering quitting Second hand smoke exposure: No Smoking risk assessment/counseling performed?: Yes Alcohol intake: never Lives independently: Yes Household members: none Marital status: / Current occupational status: disabled History of recent travel: No Current gender identity: Female Data Anesthesia Cardiac Studies: No Data to Display
[2020-10-01] MEDS: sodium chloride 0.9% 1,000 ML 30 ML IV (12:02)
--- NOTE | 2020-10-01 12:48 | PM.OP ---
Operative Report Date of procedure: October 01, 2020 Pre-op Diagnosis: Lung cancer Post-op diagnosis: same Procedure Done: Placement of PowerPort in the left subclavian vein Fluoroscopic guidance and interpretation for placement of catheter Pathology: none sent Surgeon: Jair Brennan Anesthesia: MAC Condition: stable Disposition: PACU Procedure: The patient was taken to the Operating Room and the chest and neck bilaterally were prepped and draped in a sterile manner after the antibiotic had been administered and shoulder rolls had been placed. A total of 10 mL of 1% lidocaine with 0.5% Marcaine was infiltrated under the clavicle on the left side at the site of the planned entry into the subclavian vein. An introducer needle was then used to access the subclavian vein under the clavicle and after withdrawing blood syringe was removed and a guidewire passed under fluoroscopy into the superior vena cava. The site of the planned port was then marked on the chest and a 15 blade was used to make a 3 cm skin incision this was extended into the subcutaneous tissue using electrocautery and a subcutaneous pocket over the pectoralis fascia was created 2-0 Vicryl suture was used to suture the port to the pectoral fascia in the pocket on 3 sides. The catheter, after having been flushed with hep saline, was attached to the tunneler and a tunnel created between the port site and the subclavian vein entry site. Under fluoroscopy the dilator sheath was passed over the guidewire into the proximal superior vena cava. The inner dilator was removed and the sheath left behind and~ the catheter was introduced through the peel-away sheath with the tip in the superior vena cava. The peel-away sheath was removed. The proximal end of the catheter was cut to the right size and was attached to the port. Using a Crocker needle the port was accessed, it withdrew blood easily and flushed easily. A final 5cc of heparin was used to flush the PowerPort. The subcutaneous tissue was approximated using interrupted 3-0 Vicryl sutures and the skin at the introducer site and the port site was closed using subcuticular running 4-0 Monocryl sutures. Surgical glue was applied and the patient was stable throughout the procedure. Fluoroscopic guidance and interpretation was performed for introduction of the guidewire in the left subclavian vein, passage of dilator and placement of catheter tip in the distal superior vena cava.
[2020-10-01] MEDS: heparin, porcine 1,000 unit/mL INJ 10 mL 6000 UNIT IRRIGATION (13:03)
[2020-10-01] MEDS: lidocaine 1% INJ 20 mL 10 ML SUBCUT (13:10)
--- NOTE | 2020-10-01 13:23 | SUR.PHASEI ---
PT AWAKES EASILY, GOOD RESP NOTED VSS LT CHEST DRESSING EXOFING D/I
--- NOTE | 2020-10-01 13:58 | ANE.PACU2 ---
Inpatient post-anesthesia follow up: Airway intact: Yes Vital signs: Temperature 99.6 F Pulse Rate 88 Respiratory Rate 18 Blood Pressure 102/59 Pulse Oximetry 98 Oxygen Delivery Me thod Nasal Cannula Oxygen Flow Rate 6 Fraction of Inspir ed Oxygen Hydration adequate: Yes Nausea and vomiting: No Pain level: 2 Mental status: Baseline
== END 2020-10-01 14:06 | disposition home or self-care (01) ==
PROVIDERS: PCP Family Medicine; Visit Provider Surgery
PROC: (CPT 36561; principal; 2020-10-01 11:50)
DX: C34.90 Malignant neoplasm of unspecified part of unspecified bronchus or lung (principal); J44.9 Chronic obstructive pulmonary disease, unspecified; M19.90 Unspecified osteoarthritis, unspecified site; F32.9 Major depressive disorder, single episode, unspecified; I10 Essential (primary) hypertension; Z85.3 Personal history of malignant neoplasm of breast; F17.210 Nicotine dependence, cigarettes, uncomplicated; Z79.82 Long term (current) use of aspirin
CPT/HCPCS: 36561; 77001; 96365; C1788; J0690; J1644; J2250; J2704; J3010; J3490; J7030

== ENCOUNTER 2020-10-08 14:20 | Outpatient (CLI) | payer MEDICARE, MEDICAID, SELFPAY ==
[2020-10-08 14:59] LABS: Basophils % 0.4 %; Eosinophils # 0.1 10^3/uL (0.0-0.8); Eosinophils % 1.3 %; Hematocrit 34.9 % (37.0-47.0); Hemoglobin 10.7 g/dL (11.5-15.3); Lymphocytes # 2.5 10^3/uL (0.8-4.8); Lymphocytes % 22.9 %; Mean Corpuscular HGB Conc 30.7 g/dL (30.0-36.0); Mean Corpuscular Hemoglobin 27.5 pg (28.0-34.0); Mean Corpuscular Volume 89.7 fL (81-99); Mean Platelet Volume 10.1 fL (7.4-10.4); Monocytes # 1.4 10^3/uL (0.2-0.9); Monocytes % 12.6 %; Neutrophils # 6.74 10^3/uL (1.8-7.7); Neutrophils % 62.4 %; Nucleated Red Blood Cells % 0 %; Platelet Count 430 10^3/cmm (130-400); Red Blood Count 3.89 10^6/uL (4.1-5.3); Red Cell Distribution Width 14.9 % (12.1-15.1); White Blood Count 10.8 10^3/uL (4.0-10.0)
[2020-10-08 16:19] LABS: Alanine Aminotransferase 8 U/L (0-33); Albumin Level 3.5 g/dL (3.5-5.2); Alkaline Phosphatase 108 IU/L (35-105); Anion Gap 14.2 (5-19); Aspartate Amino Transferase 16 U/L (0-32); Blood Urea Nitrogen 10 mg/dL (8-23); Calcium 9.1 mg/dL (8.5-10.5); Carbon Dioxide 31 mmol/L (22-29); Chloride 96 mmol/L (98-107); Globulin 3.7 g/dL (1.3-4.6); Glomerular Filtration Rate 124.6 mL/min (90-130); Glucose 81 mg/dL (65-115); Osmolality Calculated 282 mOsm/kg (285-295); Potassium 4.2 mmol/L (3.5-5.1); Sodium 137 mmol/L (136-145); Thyroid Stimulating Hormone 1.02 uIU/mL (0.27-4.20); Total Bilirubin 0.2 mg/dL (0.15-1.2); Total Protein 7.2 g/dL (6.6-8.7)
== END 2020-10-08 14:21 | disposition home or self-care (01) ==
LOC: ONCMED 14:21
PROVIDERS: PCP Family Medicine; Visit Provider Internal Medicine Hematology & Oncology
DX: C50.811 Malignant neoplasm of overlapping sites of right female breast (principal); Z17.0 Estrogen receptor positive status [ER+]; E03.9 Hypothyroidism, unspecified; Z79.899 Other long term (current) drug therapy
CPT/HCPCS: 36591; 80053; 84443; 85025

== ENCOUNTER 2020-10-09 09:25 | Outpatient (CLI) | payer MEDICARE, MEDICAID, SELFPAY ==
[2020-10-09] MEDS: sodium chloride 0.9% 250 ML 75 ML IV (11:10)
[2020-10-09] MEDS: palonosetron 0.25 mg/5 mL SDV IV (11:10)
[2020-10-09] MEDS: famotidine 20 mg/2 mL INJ IVP (11:11)
[2020-10-09] MEDS: diphenhydrAMINE 50 mg/mL SDV 1mL 25 MG IV (11:13)
[2020-10-09] MEDS: fosaprepitant 150 MG in sodium chloride 0.9% 150 ML 300 MG IV (11:32)
--- NOTE | 2020-10-26 22:26 | ONC FU_ITS ---
[facility] Patient Note Patient: Swathi Frederick Unit #: [id number]: [id number] Dictated By: Javy HancockDate of Visit: Oct 09, 2020 Onc MED Follow-Up/Prog Note Chief Complaint: Breast cancer. History of Present Illness: Ms Frederick is a 65 year-old woman with grade 1 infiltrating ductal carcinoma of the right breast, stage IA (T1c, N0, M0), ER/ME positive and HER-2/christophe negative. She had presented in October 2014 with palpable lump in her right breast. She had been on hormone replacement therapy for the preceding 20 years. Her mammogram on 11/06/2014 revealed 1.3 cm mass in the right breast at 9:00 position corresponding to a 2 cm nodule palpable on examination. An ultrasound guided biopsy on 12/07/2014 revealed grade 1/3 infiltrating ductal carcinoma with the prognostic profile showing ER positive at 100%, ME positive at 98%, and HER-2/christophe negative, 1.1 by FISH, and 1+ by IHC. The Ki-67 was 10%. She underwent lumpectomy and sentinel lymph node biopsy by Dr. Brennan on 12/24/2014. Her surgical pathology showed 1.5 cm infiltrating ductal carcinoma without lymphovascular invasion. Initial margins were positive, but after further excision the final margins were negative. One sentinel lymph was not involved. Her disease thus was pathologic stage IA (T1c, N0, M0). She was first seen by Dr. Ramirez on 12/27/2014. She had daily headaches ever since stopping her hormone replacement therapy. MRI of the brain on 01/10/2015 was negative for metastatic disease. Chiari I malformation was noted. She was referred to neurology for management of migraines. Oncotype DX score on 01/08/2015 return low at 15, corresponding to 9% risk of distant recurrence following hormonal treatment. She began on adjuvant treatment with Femara in December 2014. Femara was discontinued as she completed 5 years on November 30, 2019. She was found to beVitamin D deficient and she was also then started on replacement therapy. DEXA scan in April 2015 showed normal bone density. She completed definitive adjuvant radiation treatment with a boost on 03/06/2015. A CT of the chest on 03/21/2015 showed bilateral nonspecific upper lobe pulmonary nodules from 2-5 mm, and diffuse interstitial thickening with a pulmonary artery hypertension. Her other medical illnesses include COPD, degenerative arthritis, and depression. 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 She has a history of smoking 1 pack of cigarettes daily for 40 years, and she continues to smoke. Repeat CT of the chest on 08/26/2015 showed clearing of the pulmonary nodules. There was soft tissue density in the right breast with a seroma. By ultrasound, the seroma had decreased. She underwent an FNA of the seroma in August 2015. Cytology was benign. She continued adjuvant hormonal therapy with Femara since December 2014 . Follow-up mammogram done on January 22, 2020 showed BI-RADS 2, benign. Mrs. Mathews had follow-up with Dr. Allred on July 16, 2020 for exacerbation of COPD although she continued to smoke. She was offered low-dose CT scan for lung cancer screening ended pursue the CTs [place]. She did have a CT lung screening on July 31 2020. It reported a spiculated right suprahilar and right upper lobe paramediastinal and soft tissue mass. It measured 6.4 x 4.0 x 7.6 cm AP by transverse by craniocaudal. Findings were most compatible with neoplasm. Recommended dedicated contrast-enhanced chest CT and further evaluation with bronchoscopy. Mild narrowing of the right upper main stem bronchus. Mild narrowing of the right distal mainstem bronchus. Mediastinal lymphadenopathy. Right hilar lymphadenopathy. Mrs. Niño underwent PET CT on August 03, 2020 via [facility] radiology. The right upper lobe paramediastinal/superior right hilar mass measured 4.2 x 7.4 cm with central necrosis and an SUV of 37.3 representing malignancy, likely primary bronchogenic carcinoma. A 1.4 spiculated mass at the minor fissure, right upper lobe has an SUV of 12.6 consistent with a satellite malignant lesion. Other subcentimeter lesions were present in other lobes bilaterally too small to characterize. These are likely malignant and should be closely followed on future imaging. Malignant mediastinal adenopathy is present, representing metastatic disease. These are present in the prevascular, left paratracheal, subaortic and bilateral hilar territory. The financial services sales representative left hilar node has an SUV of 8.5. There were no findings to indicate osseous metastatic disease. No significant pelvic or abdominal adenopathy was present. She did have extensive malignant mediastinal adenopathy. Ms. Mathews underwent bronchoscopy with endobronchial ultrasound-guided transbronchial needle aspiration of lymph nodes and control of bleeding on August 15, [address] Allred. Fine-needle aspiration was performed on the right paratracheal mass. 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 P63 was positive DTF???1 was negative p16 negative Ki 67 = 60% global CK 5/6 strongly and diffusely positive in tumor cells. CK7 was negative CK20 was negative; CK cocktail: Strongly and diffusely positive in tumor cells. CK 8/18 strongly and diffusely positive in tumor cells. CK Victor M: Strongly diffusely positive tumor cells. Staging MRI of the brain from September 05, 2020 reported no evidence of restricted diffusion to suggest ischemia. No evidence of enhancing intracranial metastatic disease. Mild small vessel changes with mild parenchymal volume loss. Small vessel changes in the aquiles. This has progressed since 2015. Numerous new small punctate foci of hemosiderin in the right parietal and temporal lobes. Single focus in the left posterior temporal lobe consistent with chronic tiny punctate microhemorrhages mainly subcortical in location. This is nonspecific but can be seen with amyloid angiopathy. Mild symmetric atrophy involving the temporal lobes and hippocampal formations. Guardant 360 done on August 29, 2020 showed no targetable therapeutic mutations. PD-L1 expression TPS was more than 50%. Dr. Díaz's plan of care is to pursue systemic chemotherapy followed by follow-up PET CT. If the PET/CT shows resolution of bilateral pulmonary nodules then consider combined chemoradiation therapy. Considering that Ms. Tamayo has locally advanced disease still contained in the chest Dr. Díaz has recommended chemo therapy with immunotherapy consisting of pembrolizumab every 3 weeks and carboplatin Taxol day 1 and 8 repeat every 28 days. She will have follow-up PET CT after 3 cycles. If this again shows good resolution of bilateral pulmonary nodules then will discuss radiation oncology with combined chemoradiation. Incidentally Mrs. Niño was found to be iron deficient with a hemoglobin of 9.4 and was given 2 doses of Injectafer 1 on August 12, 2020 and again on August 19, 2020. Repeat follow-up PET/CT from September 28, 2020 reported the right upper lobe. Mediastinal/superior right hilar mass currently measured 4.2 x 7.4 cm with an SUV of 28.9 and extensive central necrosis. This is unchanged in size and questionably improved in uptake. The 1.46 spiculated mass at the minor fissure, right upper lobe has an SUV of 13.5 and is unchanged in the prior study from 08/03/2020. Subcentimeter pulmonary nodules are unchanged with the prior study. The left hilar index node has an SUV of 7.7, unchanged from 8.5 previously. The other mediastinal nodes in the prevascular, left paratracheal and subaortic and bilateral hilar regions are stable from the prior study. There is no indication of osseous metastatic disease. Mrs. Frederick is here today to begin her first cycle of chemotherapy with carboplatin Taxol day 1 and 8 and Keytruda days 1 on a 21-day cycle. She has pre-existing peripheral neuropathy but states is nothing that has been bothersome or limiting for her. She denies any fever or chills. She still is extremely short of breath and continues to wear continuous oxygen. She has had no new hemoptysis.. She denies any orthopnea. She said no nausea or vomiting. She denies any bowels or bladder changes at present. Her appetite is fair but her energy is marginal. She states she is too short of breath to do much of anything but is able to do her chores around the house as long as she takes it slow . Her ECOG is 2. Past Medical History: Anxiety Asthma Chronic obstructive pulmonary disease Depression Osteoarthritis Past Surgical History: Appendectomy Tonsillectomy Tubal ligation Left subclavian Port-A-Cath???Dr. Brennan in 2020 Prevnar 13 in 2014 Flu vaccine in 2014 Breast biopsy in 2014 Allergies: No Known Allergies. Medications: Advair Diskus 1 puff(s) (of 250-50 mcg/dose) Aerosol Powder, Breath Activated Inhalation b.i.d. Aspirin 1 (325 mg) Tablet Oral daily Benadryl 1 (25 mg) Capsule Oral daily PRN ClonazePAM 1 Tablet (of 0.5 mg) Oral b.i.d. Doxycycline Hyclate 1 Tablet (of 100 mg) Oral b.i.d. Ibuprofen 1 Tablet (of 800 mg) Oral t.i.d. Lisinopril 1 Tablet (of 10 mg) Oral daily PARoxetine HCl 1 Tablet (of 20 mg) Oral daily ProAir HFA 1 puff(s) (of 108 (90 base) mcg/act) Aerosol, solution Inhalation q 4 hours Propranolol HCl ER 1 Capsule (of 60 mg) Capsule SR 24 HR Oral daily Venlafaxine HCl 1 Tablet (of 75 mg) Tablet Oral daily Family History: Ms. Frederick's mother is . Ms. Frederick's father is . Unknown family history. Social History: Ms. Frederick is and she is a disabled. She is a daily smoker who has smoked 0.5 packs/day for 41 years. She has no history of drinking. Ms. Frederick reports the following support systems: lives in own house and adequate transportation available for expected visits. Her diet consists of regular meals. She indicates her activity level as: daily activities. Review Of Symptoms: see above Vital Signs: Performed on Oct 09, 2020 09:44 Height - 63.00 in Weight - 179.4 lbs (LOW) BSA - 1.85 sq.m BMI - 31.78 (HIGH) Temperature - 97.6 F (LOW) Pulse - 93 /min Respiration - 18 /min BP - 131/83 mm(hg) O2 Sat - 94 % (LOW) Pain - 0 Fatigue - 8,2 - Ambulatory/capable of all self-care, unable to perform any work activities. Up and about more than 50% of waking hours. (ECOG) Physical Examination: Constitutional Alert, oriented, no acute distress. Skin pink, warm and dry. Head Normocephalic; atraumatic. Eyes Conjunctivae and sclerae are clear and without icterus. Pupils are reactive and equal. Neck Supple without masses or thyromegaly. No jugular venous distension. Hematologic/Lymphatic No petechiae or purpura. No tender or palpable lymph nodes in the cervical, supraclavicular, or axillary area. Respiratory Lungs are clear to auscultation without rhonchi but faint scattered wheezing in lower lobes that resolves with cough. Cardiovascular Regular rate and rhythm of heart without murmurs,clicks, gallops or rubs. Chest Chest is symmetric without chest wall deformities. Left chest wall venous access device insertion site is unremarkable. Back/Spine Non-tender to palpation. Extremities No visible deformities, no cyanosis, clubbing or edema. Pulses 4+ and equal bilaterally. Musculoskeletal No tenderness or swelling, normal range of motion without obvious weakness. Integumentary No rashes or lesions. Neurologic No sensory or motor deficits, normal cerebellar function, normal gait. Psychiatric Alert and oriented times three. Coherent speech. Verbalizes understanding of our discussions today. Laboratory:see flow sheet Impression: 1. Squamous cell carcinoma per transbronchial biopsy from right peritracheal mass done on August 15, 2020 CT scan of chest done on July 31, 2020 showed 6.4 x 4 x 7.6 cm right suprahilar/right upper lobe paramediastinal mass and additional spiculated right suprahilar nodule along with right fissure measuring 1.6 x 1.3 cm, spiculated right middle lobe nodule measuring 7 mm and mediastinal lymphadenopathy CT PET scan done on August 03, 2020 showed FDG positive centrally necrotic right upper lobe mass, malignant circular lesion at the right minor fissure, multiple bilateral pulmonary nodules too small to characterize, extensive bilateral malignant mediastinal lymphadenopathy, Stage IIIb versus stage Court, PD-L1 TPS more than 50% MRI scan of the head done on September 05, 2020 showed no evidence of metastatic disease Guardant 360 shows no targetable therapeutic mutations 2. Patient with grade 1 infiltrating ductal carcinoma of the right breast, stage IA (T1c, N0, M0), ER/ME positive and HER-2/christophe negative. Oncotype DX score was 15, low risk. 3 She completed radiation to the right breast on 03/06/2015 to a total dose of 6600 cGy. 4. She began adjuvant hormonal therapy with Femara 2.5 mg daily in December 2014. 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 Degenerative arthritis. 7. She has nicotine dependence (cigarettes). Chronic back pain MRI scan of lumbosacral area done on 06/23/2018 and bone scan done on 06/09/2018 showed no evidence of malignancy but chronic arthritis She does have ongoing problems with the COPD, and she currently appears to be experiencing an acute exacerbation. Polycythemia probably due to hypoxia due to severe COPD or chronic smoking, now on home oxygen Improved with smoking cessation for 1 week Iron deficiency anemia, Intolerance to oral iron Plan: PROBLEMS ADDRESSED TODAY 1. Non-small cell lung cancer diagnosed July 2020. Guardant 360 showed no targetable therapeutic mutations, PD-L1 tissue, shows TPS more than 50%, MRI scan of the brain shows no brain mets Clinically, patient doing well with no new signs symptoms, further testing confirmed there is no evidence of brain mets and molecular profiling shows no evidence of targetable therapeutic mutations but her PD-L1 on the tissue showed TPS more than 50%. And clinically appears patient has locally advanced disease or may be metastatic disease to the lungs, case was discussed with Dr. Cruz radiation oncology who suggested upfront systemic therapy followed by CT PET scan if it shows resolution of bilateral pulmonary nodules then consider combined chemoradiation therapy. Considering locally advanced disease still contained in the chest, will consider chemo immunotherapy with Keytruda every 3 weeks and carboplatin/Taxol day 1 and 8 and repeat every 21 days along with Keytruda and consider follow-up CT PET scan after 3 cycles if it shows good response e.g. resolution of bilateral pulmonary nodules then will discuss with radiation oncology regarding combined chemoradiation A. Proceed with cycle 1 pembrolizumab, carboplatin, paclitaxel. B. Steroid compliance confirmed. C. Labs from October 08, 2020 were reviewed in detail and discussed with Ms. Mathews and a copy was given to her. WBC 10.8, hemoglobin 10.7, platelets 4 and 30,000 ANC is 6740. Potassium 4.2 random glucose is 81 creatinine 0.5 and LFTs are normal. Baseline TSH is 1.02. 2. Iron deficiency anemia-intolerant to oral iron replacement A. Status post Injectafer last given on August 19, 2020 that was her second dose the first 1 was on August 12, 2020. B. Her hemoglobin has improved to 10.7 from July 19 at which time was 9.6. C. She has not yet had repeat iron studies. 3. Follow-up plan A. We will plan to see her back in 1 week with CBC CMP for post chemo follow-up. B. She will have interim CBC CMP for chemotherapy monitoring. C. She will return in 3 weeks for cycle 2 pembrolizumab/carboplatin/paclitaxel. D. Mrs. Mathews was instructed to contact us in interim should questions or problems arise. 4. Patient chemotherapy education A. The patient was informed of chemotherapy plan and specific drugs were discussed. We also discussed how chemotherapy works and identified common side effects including alopecia; myelosuppression-including neutropenia, anemia, thrombocytopenia; peripheral neuropathy; fatigue; nausea; diarrhea; constipation; bleeding or bruising; skin changes; mouth sores; drug hypersensitivity/allergic reactions or anaphylaxis and extravasation. They have also been informed how to contact the clinic with side effects or symptoms, including but not limited to fever greater than 100.4???, chills, sore throat, bleeding or bruising that is not explained or mouth sores, cough, nasal discharge, diarrhea, constipation, nausea and/or vomiting not relieved with medications on hand at home, as well as any other concern or question they may have. Our hours are 8:00 a.m. to 4:30 p.m. on Wednesday through and 8-12:00 on Wednesday. However, someone is sharepoint solutions architect 24 hours per day and they have been advised to contact the [facility] at if it is after hours. We have also discussed potential long-term side effects of chemotherapy including secondary cancers, infertility, pulmonary complications, cardiac complications, and again peripheral neuropathy. We have discussed that they certainly need to let us know before taking any antioxidants or herbal or further dietary supplements, as we are unsure of how these agents react with chemotherapy and we request that they avoid these products for now. They were informed that it is okay to take multivitamins at normal doses. They verbally state that they understand to take all medications as directed by their healthcare provider unless otherwise indicated. They also verbalized understanding to leave the pressure dressing on the intravenous administration site for at least two hours after treatment. Instructions for oral care with baking soda and salt water rinses as well as a guide for use of [id number] medication were provided with the treatment plan. They have been given a written patient treatment plan, of which a copy is in the chart, as well as specific drug information. They have no questions and verbalized understanding and are willing to proceed with chemotherapy at this time. Time spent with this visit today included review of patient records prior to visit, discussion of chemotherapy treatment plan, side effect of medication management as well as answering various questions and then post visit documentation was 65 minutes. Signed By: Javy Hancock-, [facility] Kaya Díaz MD <<Signature on File>>
== END 2020-10-09 09:26 | disposition home or self-care (01) ==
LOC: ONCMED 09:27
PROVIDERS: PCP Family Medicine; Visit Provider Nurse Practitioner
DX: Z51.12 Encounter for antineoplastic immunotherapy (principal); Z51.11 Encounter for antineoplastic chemotherapy; C34.11 Malignant neoplasm of upper lobe, right bronchus or lung; C50.511 Malignant neoplasm of lower-outer quadrant of right female breast; Z17.0 Estrogen receptor positive status [ER+]; D75.1 Secondary polycythemia; D50.9 Iron deficiency anemia, unspecified; F17.210 Nicotine dependence, cigarettes, uncomplicated; E55.9 Vitamin D deficiency, unspecified; I27.20 Pulmonary hypertension, unspecified; J44.9 Chronic obstructive pulmonary disease, unspecified; F32.9 Major depressive disorder, single episode, unspecified; F41.9 Anxiety disorder, unspecified; J45.909 Unspecified asthma, uncomplicated; Z79.811 Long term (current) use of aromatase inhibitors
CPT/HCPCS: 96367; 96375; 96413; 96417; 99215; J1100; J1200; J1453; J2469; J3490; J7030; J7040; J7050; J9045; J9267; J9271

== ENCOUNTER 2020-10-16 07:13 | Outpatient (CLI) | payer MEDICARE, MEDICAID, SELFPAY ==
[2020-10-16 09:23] LABS: Basophils % 0.2 %; Hematocrit 36.8 % (37.0-47.0); Hemoglobin 11.3 g/dL (11.5-15.3); Lymphocytes # 0.5 10^3/uL (0.8-4.8); Lymphocytes % 6.5 %; Mean Corpuscular HGB Conc 30.7 g/dL (30.0-36.0); Mean Corpuscular Hemoglobin 27.9 pg (28.0-34.0); Mean Corpuscular Volume 90.9 fL (81-99); Mean Platelet Volume 10.4 fL (7.4-10.4); Monocytes # 0.1 10^3/uL (0.2-0.9); Monocytes % 0.6 %; Neutrophils # 7.42 10^3/uL (1.8-7.7); Neutrophils % 92.2 %; Nucleated Red Blood Cells % 0 %; Platelet Count 477 10^3/cmm (130-400); Red Blood Count 4.05 10^6/uL (4.1-5.3); White Blood Count 8.1 10^3/uL (4.0-10.0)
[2020-10-16 09:57] LABS: Alanine Aminotransferase 10 U/L (0-33); Albumin Level 3.6 g/dL (3.5-5.2); Alkaline Phosphatase 96 IU/L (35-105); Anion Gap 16.6 (5-19); Aspartate Amino Transferase 10 U/L (0-32); Blood Urea Nitrogen 10 mg/dL (8-23); Carbon Dioxide 29 mmol/L (22-29); Chloride 96 mmol/L (98-107); Globulin 3.5 g/dL (1.3-4.6); Glomerular Filtration Rate 161.2 mL/min (90-130); Glucose 175 mg/dL (65-115); Osmolality Calculated 287 mOsm/kg (285-295); Potassium 4.6 mmol/L (3.5-5.1); Sodium 137 mmol/L (136-145); Total Bilirubin 0.2 mg/dL (0.15-1.2); Total Protein 7.1 g/dL (6.6-8.7)
[2020-10-16] MEDS: famotidine 20 mg/2 mL INJ IVP (10:55)
[2020-10-16] MEDS: sodium chloride 0.9% 250 ML 75 ML IV (10:55)
[2020-10-16] MEDS: diphenhydrAMINE 50 mg/mL SDV 1mL 25 MG IV (10:56)
[2020-10-16] MEDS: fosaprepitant 150 MG in sodium chloride 0.9% 150 ML 300 MG IV (10:58)
[2020-10-16] MEDS: palonosetron 0.25 mg/5 mL SDV IV (11:25)
[2020-10-16] MEDS: pegfilgrastim 6 mg/0.6 mL Kit (onpro) SUBCUT (13:55)
--- NOTE | 2020-10-29 00:39 | ONC FU_ITS ---
[facility] Patient Note Patient: Swathi Frederick Unit #: [id number]: [id number] Dictated By: Javy HancockDate of Visit: Oct 16, 2020 Onc MED Follow-Up/Prog Note Chief Complaint: Breast cancer. History of Present Illness: Ms Frederick is a 65 year-old woman with grade 1 infiltrating ductal carcinoma of the right breast, stage IA (T1c, N0, M0), ER/FL positive and HER-2/christophe negative. She had presented in October 2014 with palpable lump in her right breast. She had been on hormone replacement therapy for the preceding 20 years. Her mammogram on 11/06/2014 revealed 1.3 cm mass in the right breast at 9:00 position corresponding to a 2 cm nodule palpable on examination. An ultrasound guided biopsy on 12/07/2014 revealed grade 1/3 infiltrating ductal carcinoma with the prognostic profile showing ER positive at 100%, FL positive at 98%, and HER-2/christophe negative, 1.1 by FISH, and 1+ by IHC. The Ki-67 was 10%. She underwent lumpectomy and sentinel lymph node biopsy by Dr. Brennan on 12/24/2014. Her surgical pathology showed 1.5 cm infiltrating ductal carcinoma without lymphovascular invasion. Initial margins were positive, but after further excision the final margins were negative. One sentinel lymph was not involved. Her disease thus was pathologic stage IA (T1c, N0, M0). She was first seen by Dr. Ramirez on 12/27/2014. She had daily headaches ever since stopping her hormone replacement therapy. MRI of the brain on 01/10/2015 was negative for metastatic disease. Chiari I malformation was noted. She was referred to neurology for management of migraines. Oncotype DX score on 01/08/2015 return low at 15, corresponding to 9% risk of distant recurrence following hormonal treatment. She began on adjuvant treatment with Femara in December 2014. Femara was discontinued as she completed 5 years on November 30, 2019. She was found to beVitamin D deficient and she was also then started on replacement therapy. DEXA scan in April 2015 showed normal bone density. She completed definitive adjuvant radiation treatment with a boost on 03/06/2015. A CT of the chest on 03/21/2015 showed bilateral nonspecific upper lobe pulmonary nodules from 2-5 mm, and diffuse interstitial thickening with a pulmonary artery hypertension. Her other medical illnesses include COPD, degenerative arthritis, and depression. 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 She has a history of smoking 1 pack of cigarettes daily for 40 years, and she continues to smoke. Repeat CT of the chest on 08/26/2015 showed clearing of the pulmonary nodules. There was soft tissue density in the right breast with a seroma. By ultrasound, the seroma had decreased. She underwent an FNA of the seroma in August 2015. Cytology was benign. She continued adjuvant hormonal therapy with Femara since December 2014 . Follow-up mammogram done on January 22, 2020 showed BI-RADS 2, benign. Mrs. Mathews had follow-up with Dr. Allred on July 16, 2020 for exacerbation of COPD although she continued to smoke. She was offered low-dose CT scan for lung cancer screening ended pursue the CTs [place]. She did have a CT lung screening on July 31 2020. It reported a spiculated right suprahilar and right upper lobe paramediastinal and soft tissue mass. It measured 6.4 x 4.0 x 7.6 cm AP by transverse by craniocaudal. Findings were most compatible with neoplasm. Recommended dedicated contrast-enhanced chest CT and further evaluation with bronchoscopy. Mild narrowing of the right upper main stem bronchus. Mild narrowing of the right distal mainstem bronchus. Mediastinal lymphadenopathy. Right hilar lymphadenopathy. Mrs. Niño underwent PET CT on August 03, [address] [facility] radiology. The right upper lobe paramediastinal/superior right hilar mass measured 4.2 x 7.4 cm with central necrosis and an SUV of 37.3 representing malignancy, likely primary bronchogenic carcinoma. A 1.4 spiculated mass at the minor fissure, right upper lobe has an SUV of 12.6 consistent with a satellite malignant lesion. Other subcentimeter lesions were present in other lobes bilaterally too small to characterize. These are likely malignant and should be closely followed on future imaging. Malignant mediastinal adenopathy is present, representing metastatic disease. These are present in the prevascular, left paratracheal, subaortic and bilateral hilar territory. The correspondence representative left hilar node has an SUV of 8.5. There were no findings to indicate osseous metastatic disease. No significant pelvic or abdominal adenopathy was present. She did have extensive malignant mediastinal adenopathy. Ms. Mathews underwent bronchoscopy with endobronchial ultrasound-guided transbronchial needle aspiration of lymph nodes and control of bleeding on August 15, [address] Allred. Fine-needle aspiration was performed on the right paratracheal mass. 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 P63 was positive DTF???1 was negative p16 negative Ki 67 = 60% global CK 5/6 strongly and diffusely positive in tumor cells. CK7 was negative CK20 was negative; CK cocktail: Strongly and diffusely positive in tumor cells. CK 8/18 strongly and diffusely positive in tumor cells. CK Victor M: Strongly diffusely positive tumor cells. Staging MRI of the brain from September 05, 2020 reported no evidence of restricted diffusion to suggest ischemia. No evidence of enhancing intracranial metastatic disease. Mild small vessel changes with mild parenchymal volume loss. Small vessel changes in the aquiles. This has progressed since 2015. Numerous new small punctate foci of hemosiderin in the right parietal and temporal lobes. Single focus in the left posterior temporal lobe consistent with chronic tiny punctate microhemorrhages mainly subcortical in location. This is nonspecific but can be seen with amyloid angiopathy. Mild symmetric atrophy involving the temporal lobes and hippocampal formations. Guardant 360 done on August 29, 2020 showed no targetable therapeutic mutations. PD-L1 expression TPS was more than 50%. Dr. Díaz's plan of care is to pursue systemic chemotherapy followed by follow-up PET CT. If the PET/CT shows resolution of bilateral pulmonary nodules then consider combined chemoradiation therapy. Considering that Ms. Tamayo has locally advanced disease still contained in the chest Dr. Díaz has recommended chemo therapy with immunotherapy consisting of pembrolizumab every 3 weeks and carboplatin Taxol day 1 and 8 repeat every 28 days. She will have follow-up PET CT after 3 cycles. If this again shows good resolution of bilateral pulmonary nodules then will discuss radiation oncology with combined chemoradiation. Incidentally Mrs. Niño was found to be iron deficient with a hemoglobin of 9.4 and was given 2 doses of Injectafer 1 on August 12, 2020 and again on August 19, 2020. Repeat follow-up PET/CT from September 28, 2020 reported the right upper lobe. Mediastinal/superior right hilar mass currently measured 4.2 x 7.4 cm with an SUV of 28.9 and extensive central necrosis. This is unchanged in size and questionably improved in uptake. The 1.46 spiculated mass at the minor fissure, right upper lobe has an SUV of 13.5 and is unchanged in the prior study from 08/03/2020. Subcentimeter pulmonary nodules are unchanged with the prior study. The left hilar index node has an SUV of 7.7, unchanged from 8.5 previously. The other mediastinal nodes in the prevascular, left paratracheal and subaortic and bilateral hilar regions are stable from the prior study. There is no indication of osseous metastatic disease. Mrs. Frederick is here today for followup and consideration of cycle 1 day 8 with carboplatin Taxol day 1 and 8 and Keytruda days 1 on a 21-day cycle. She began cycle 1 day 1 on 10/09/2020. She has pre-existing peripheral neuropathy but states is nothing that has been bothersome or limiting for her. She denies any exacerbation of the neuropathy with cycle 1 carboplatin/Taxol/Keytruda. She states she thinks she is tolerated it well. She states she is eating good but her energy still comes and goes. She states her breathing is still pretty marginal but is certainly no worse. She thinks it may be slightly better. She denies any fever or chills. She still is extremely short of breath and continues to wear continuous oxygen. She has had no new Or worsening hemoptysis. She denies any orthopnea. She denies nausea or vomiting. She denies any bowels or bladder changes at present. Her appetite is fair but her energy is marginal. She states she is too short of breath to do much of anything but is able to do her chores around the house as long as she takes it slow . Her ECOG is 2. Past Medical History: Anxiety Asthma Chronic obstructive pulmonary disease Depression Osteoarthritis Past Surgical History: Appendectomy Tonsillectomy Tubal ligation Left subclavian Port-A-Cath???Dr. Brennan in 2020 Prevnar 13 in 2014 Flu vaccine in 2014 Breast biopsy in 2014 Allergies: No Known Allergies. Medications: Advair Diskus 1 puff(s) (of 250-50 mcg/dose) Aerosol Powder, Breath Activated Inhalation b.i.d. Aspirin 1 (325 mg) Tablet Oral daily Benadryl 1 (25 mg) Capsule Oral daily PRN ClonazePAM 1 Tablet (of 0.5 mg) Oral b.i.d. Doxycycline Hyclate 1 Tablet (of 100 mg) Oral b.i.d. Ibuprofen 1 Tablet (of 800 mg) Oral t.i.d. Lisinopril 1 Tablet (of 10 mg) Oral daily PARoxetine HCl 1 Tablet (of 20 mg) Oral daily ProAir HFA 1 puff(s) (of 108 (90 base) mcg/act) Aerosol, solution Inhalation q 4 hours Propranolol HCl ER 1 Capsule (of 60 mg) Capsule SR 24 HR Oral daily Venlafaxine HCl 1 Tablet (of 75 mg) Tablet Oral daily Family History: Ms. Frederick's mother is . Ms. Frederick's father is . Unknown family history. Social History: Ms. Frederick is and she is a disabled. She is a daily smoker who has smoked 0.5 packs/day for 41 years. She has no history of drinking. Ms. Frederick reports the following support systems: lives in own house and adequate transportation available for expected visits. Her diet consists of regular meals. She indicates her activity level as: daily activities. Review Of Symptoms: <See Above> Vital Signs: Performed on Oct 16, 2020 15:04 Height - 63.00 in Temperature - 97.2 F (LOW) Pulse - 75 /min Respiration - 18 /min BP - 130/73 mm(hg) O2 Sat - 97 %,1 - No physically strenuous activity, but ambulatory and able to carry out light or sedentary work (e.g. office work, light house work). (ECOG) Physical Examination: Constitutional Alert, oriented, no acute distress. Skin pink, warm and dry. Head Normocephalic; atraumatic. Eyes Conjunctivae and sclerae are clear and without icterus. Pupils are reactive and equal. Neck Supple without masses or thyromegaly. No jugular venous distension. Hematologic/Lymphatic No petechiae or purpura. No tender or palpable lymph nodes in the cervical, supraclavicular, or axillary area. Respiratory Lungs are clear to auscultation without rhonchi but faint scattered wheezing in lower lobes that resolves with cough. Cardiovascular Regular rate and rhythm of heart without murmurs,clicks, gallops or rubs. Chest Chest is symmetric without chest wall deformities. Left chest wall venous access device insertion site is unremarkable. Back/Spine Non-tender to palpation. Extremities No visible deformities, no cyanosis, clubbing or edema. Pulses 4+ and equal bilaterally. Musculoskeletal No tenderness or swelling, normal range of motion without obvious weakness. Integumentary No rashes or lesions. Neurologic No sensory or motor deficits, normal cerebellar function, normal gait. Psychiatric Alert and oriented times three. Coherent speech. Verbalizes understanding of our discussions today. Laboratory:Test performed on Oct 16, 2020 08:52 Sodium 137 mmol/L Potassium 4.6 mmol/L Chloride 96 mmol/L CO2 29 mmol/L Anion Gap 16.6 BUN 10 mg/dL Creatinine 0.4 mg/dL Cr Clearance (Est) 184.9300 mL/min eGFR 161.2 mL/min Glucose 175 mg/dL Osmolality - Calculated 287 mOsm/kg Calcium 9.0 mg/dL Protein, Total 7.1 g/dL Albumin 3.6 g/dL Globulin 3.5 g/dL Bilirubin, Total 0.2 mg/dL ALT (SGPT) 10 U/L AST (SGOT) 10 U/L Alkaline Phosphatase 96 IU/L WBC 8.1 10 3/uL RBC 4.05 10 6/uL HGB 11.3 g/dL HCT 36.8 % MCV 90.9 fL MCH 27.9 pg MCHC 30.7 g/dL RDW 15.0 % Platelet Count 477 10 3/cmm MPV 10.4 fL Neutrophils 7.42 10 3/uL Lymphocytes 0.5 10 3/uL Monocytes 0.1 10 3/uL Eosinophils 0.0 10 3/uL Basophils 0.0 10 3/uL Neutrophil % 92.2 % Lymphocyte % 6.5 % Monocyte % 0.6 % Eosinophil % 0.0 % Basophils % 0.2 % NRBC % 0 % Test performed on Oct 08, 2020 14:43 TSH 1.02 uIU/mL Test performed on Jul 19, 2020 09:55 Ferritin 124 ng/mL Iron 50 mcg/dL Iron Binding Capacity (TIBC) 247 mcg/dl % Iron Saturation 20.2 % UIBC 197 mcg/dL Test performed on Jun 19, 2020 11:16 Vitamin B12 326 pg/mL Test performed on May 31, 2020 10:15 Retic Count % 1.5300 % Impression: 1. Squamous cell carcinoma per transbronchial biopsy from right peritracheal mass done on August 15, 2020 CT scan of chest done on July 31, 2020 showed 6.4 x 4 x 7.6 cm right suprahilar/right upper lobe paramediastinal mass and additional spiculated right suprahilar nodule along with right fissure measuring 1.6 x 1.3 cm, spiculated right middle lobe nodule measuring 7 mm and mediastinal lymphadenopathy CT PET scan done on August 03, 2020 showed FDG positive centrally necrotic right upper lobe mass, malignant circular lesion at the right minor fissure, multiple bilateral pulmonary nodules too small to characterize, extensive bilateral malignant mediastinal lymphadenopathy, Stage IIIb versus stage Court, PD-L1 TPS more than 50% MRI scan of the head done on September 05, 2020 showed no evidence of metastatic disease Guardant 360 shows no targetable therapeutic mutations 2. Patient with grade 1 infiltrating ductal carcinoma of the right breast, stage IA (T1c, N0, M0), ER/FL positive and HER-2/christophe negative. Oncotype DX score was 15, low risk. 3 She completed radiation to the right breast on 03/06/2015 to a total dose of 6600 cGy. 4. She began adjuvant hormonal therapy with Femara 2.5 mg daily in December 2014. 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 Degenerative arthritis. 7. She has nicotine dependence (cigarettes). Chronic back pain MRI scan of lumbosacral area done on 06/23/2018 and bone scan done on 06/09/2018 showed no evidence of malignancy but chronic arthritis She does have ongoing problems with the COPD, and she currently appears to be experiencing an acute exacerbation. Polycythemia probably due to hypoxia due to severe COPD or chronic smoking, now on home oxygen Improved with smoking cessation for 1 week Iron deficiency anemia, Intolerance to oral iron Plan/Problems Addressed at this Visit: 1. Non-small cell lung cancer diagnosed July 2020. Guardant 360 showed no targetable therapeutic mutations, PD-L1 tissue, shows TPS more than 50%, MRI scan of the brain shows no brain mets Clinically, patient doing well with no new signs symptoms, further testing confirmed there is no evidence of brain mets and molecular profiling shows no evidence of targetable therapeutic mutations but her PD-L1 on the tissue showed TPS more than 50%. And clinically appears patient has locally advanced disease or may be metastatic disease to the lungs, case was discussed with Dr. Cruz radiation oncology who suggested upfront systemic therapy followed by CT PET scan if it shows resolution of bilateral pulmonary nodules then consider combined chemoradiation therapy. Considering locally advanced disease still contained in the chest, Dr Díaz has recommended chemo immunotherapy with Keytruda every 3 weeks and carboplatin/Taxol day 1 and 8 and repeat every 21 days along with Keytruda and consider follow-up CT PET scan after 3 cycles if it shows good response e.g. resolution of bilateral pulmonary nodules then will discuss with radiation oncology regarding combined chemoradiation A. Proceed with cycle 1 day 8 pembrolizumab, carboplatin, paclitaxel. The pembrolizumab was given on day 1 and she is due for day 8 carboplatin paclitaxel today. B. Steroid compliance confirmed. C. Labs from October 16, 2020 were reviewed in detail and discussed with Ms. Mathews and a copy was given to her. WBC 8.1, hemoglobin 11.3, platelets 477,000, ANC is 7420. Creatinine 0.4 random glucose 175, LFTs are normal. Baseline TSH 1.02. D. We will refill her hydrocodone 10/21/2024 to take 1 or 2 as needed for pain. She has chronic pain from the degenerative arthritis. She is also scheduled for Neulasta on pro and I am concerned about worsening of her pre-existing bone pain. 2. Iron deficiency anemia-intolerant to oral iron replacement A. Status post Injectafer last given on August 19, 2020 that was her second dose the first 1 was on August 12, 2020. B. Her hemoglobin has improved to 11.3 from July 19 at which time was 9.6. C. She has not yet had repeat iron studies. 3. Follow-up plan A. We will plan to see her back in 2 weeks with CBC CMP for consideration of cycle 2 day 1 treatment. B. She will have interim CBC CMP for chemotherapy monitoring. C. Mrs. Mathews was instructed to contact us in interim should questions or problems arise. Signed By: Javy Hancock-, [facility] Kaya Díaz MD <<Signature on File>>
== END 2020-10-16 07:14 | disposition home or self-care (01) ==
LOC: ONCMED 07:18
PROVIDERS: PCP Family Medicine; Visit Provider Nurse Practitioner
DX: Z51.11 Encounter for antineoplastic chemotherapy (principal); C50.511 Malignant neoplasm of lower-outer quadrant of right female breast; Z17.0 Estrogen receptor positive status [ER+]; C78.01 Secondary malignant neoplasm of right lung; D75.1 Secondary polycythemia; D50.9 Iron deficiency anemia, unspecified; F17.210 Nicotine dependence, cigarettes, uncomplicated; E55.9 Vitamin D deficiency, unspecified; J44.9 Chronic obstructive pulmonary disease, unspecified; Z79.811 Long term (current) use of aromatase inhibitors
CPT/HCPCS: 80053; 85025; 96372; 96375; 96377; 96413; 96417; 99214; J1100; J1200; J1453; J2469; J2505; J3490; J7030; J7040; J7050; J9045; J9267

== ENCOUNTER 2020-10-23 06:39 | Outpatient (CLI) | payer MEDICARE, MEDICAID, SELFPAY ==
[2020-10-23 10:49] LABS: Hematocrit 37.8 % (37.0-47.0); Hemoglobin 11.3 g/dL (11.5-15.3); Mean Corpuscular HGB Conc 29.9 g/dL (30.0-36.0); Mean Corpuscular Hemoglobin 28.1 pg (28.0-34.0); Mean Platelet Volume 10.4 fL (7.4-10.4); Platelet Count 376 10^3/cmm (130-400); Red Blood Count 4.02 10^6/uL (4.1-5.3); Red Cell Distribution Width 16.2 % (12.1-15.1); White Blood Count 21.1 10^3/uL (4.0-10.0)
[2020-10-23 11:05] LABS: Alanine Aminotransferase 12 U/L (0-33); Albumin Level 3.7 g/dL (3.5-5.2); Alkaline Phosphatase 184 IU/L (35-105); Anion Gap 11.1 (5-19); Aspartate Amino Transferase 11 U/L (0-32); Blood Urea Nitrogen 8 mg/dL (8-23); Calcium 8.8 mg/dL (8.5-10.5); Carbon Dioxide 31 mmol/L (22-29); Chloride 98 mmol/L (98-107); Glomerular Filtration Rate 161.2 mL/min (90-130); Glucose 103 mg/dL (65-115); Osmolality Calculated 281 mOsm/kg (285-295); Potassium 4.1 mmol/L (3.5-5.1); Sodium 136 mmol/L (136-145); Total Bilirubin 0.2 mg/dL (0.15-1.2); Total Protein 6.7 g/dL (6.6-8.7)
[2020-10-23 11:24] LABS: Slide Review Slide Review Perform
[2020-10-23 11:48] LABS: Absolute Eosinophils 0.2 10^3/cmm (0.0-0.7); Absolute Segmented Neutrophil 16.5 10/cmm (1.6-7.1); Eosinophils 1 %; Lymphocytes 10 %; Monocytes Absolute 1.3 10^3/cmm (0.1-0.6); Segmented Neutrophils 78 %; Total Cells Counted 100 (0-100)
[2020-10-23 11:50] LABS: Lymphocytes Absolute 2.1 10^3/cmm (1.2-3.4)
[2020-10-23 12:09] LABS: Absolute Neutrophil 16.5 10^3/cmm (1.4-6.5); Platelet Estimate Normal (Normal)
== END 2020-10-23 06:40 | disposition home or self-care (01) ==
LOC: ONCMED 06:42
PROVIDERS: PCP Family Medicine; Visit Provider Nurse Practitioner
DX: C50.511 Malignant neoplasm of lower-outer quadrant of right female breast (principal); Z17.0 Estrogen receptor positive status [ER+]; C34.11 Malignant neoplasm of upper lobe, right bronchus or lung; D50.9 Iron deficiency anemia, unspecified; D75.1 Secondary polycythemia; F17.210 Nicotine dependence, cigarettes, uncomplicated; E55.9 Vitamin D deficiency, unspecified
CPT/HCPCS: 36591; 80053; 85007; 85025

== ENCOUNTER 2020-11-06 05:36 | Outpatient (RCR) | payer MEDICARE, MEDICAID, SELFPAY ==
[2020-10-30 10:04] LABS: Basophils # 0.1 10^3/uL (0.0-0.1); Basophils % 0.4 %; Hematocrit 35.8 % (37.0-47.0); Hemoglobin 10.9 g/dL (11.5-15.3); Lymphocytes # 0.8 10^3/uL (0.8-4.8); Lymphocytes % 5.1 %; Mean Corpuscular HGB Conc 30.4 g/dL (30.0-36.0); Mean Corpuscular Hemoglobin 27.9 pg (28.0-34.0); Mean Corpuscular Volume 91.8 fL (81-99); Mean Platelet Volume 9.8 fL (7.4-10.4); Monocytes # 0.2 10^3/uL (0.2-0.9); Monocytes % 1.1 %; Neutrophils # 14.93 10^3/uL (1.8-7.7); Neutrophils % 92.4 %; Nucleated Red Blood Cells % 0 %; Platelet Count 363 10^3/cmm (130-400); Red Cell Distribution Width 15.9 % (12.1-15.1); White Blood Count 16.2 10^3/uL (4.0-10.0)
[2020-10-30 10:41] LABS: Alanine Aminotransferase 12 U/L (0-33); Albumin Level 3.8 g/dL (3.5-5.2); Alkaline Phosphatase 152 IU/L (35-105); Anion Gap 13.8 (5-19); Aspartate Amino Transferase 9 U/L (0-32); Blood Urea Nitrogen 11 mg/dL (8-23); Calcium 9.5 mg/dL (8.5-10.5); Carbon Dioxide 32 mmol/L (22-29); Chloride 97 mmol/L (98-107); Globulin 3.8 g/dL (1.3-4.6); Glomerular Filtration Rate 161.2 mL/min (90-130); Glucose 110 mg/dL (65-115); Osmolality Calculated 286 mOsm/kg (285-295); Potassium 4.8 mmol/L (3.5-5.1); Sodium 138 mmol/L (136-145); Thyroid Stimulating Hormone 0.44 uIU/mL (0.27-4.20); Total Bilirubin 0.2 mg/dL (0.15-1.2); Total Protein 7.6 g/dL (6.6-8.7)
--- NOTE | 2020-10-30 11:19 | ONC FU_ITS ---
Dr. Díaz follow up note Patient: Swathi Frederick Unit #: [id number]: [id number] Dicatated By: Kaya Díaz M.D.Date of Visit:October 30, 2020 Onc Med Follow-up/Prog Note History of Present Illness: Ms Frederick is a 65 year-old woman with grade 1 infiltrating ductal carcinoma of the right breast, stage IA (T1c, N0, M0), ER/DC positive and HER-2/christophe negative. She had presented in October 2014 with palpable lump in her right breast. She had been on hormone replacement therapy for the preceding 20 years. Her mammogram on 11/06/2014 revealed 1.3 cm mass in the right breast at 9:00 position corresponding to a 2 cm nodule palpable on examination. An ultrasound guided biopsy on 12/07/2014 revealed grade 1/3 infiltrating ductal carcinoma with the prognostic profile showing ER positive at 100%, DC positive at 98%, and HER-2/christophe negative, 1.1 by FISH, and 1+ by IHC. The Ki-67 was 10%. She underwent lumpectomy and sentinel lymph node biopsy by Dr. Brennan on 12/24/2014. Her surgical pathology showed 1.5 cm infiltrating ductal carcinoma without lymphovascular invasion. Initial margins were positive, but after further excision the final margins were negative. One sentinel lymph was not involved. Her disease thus was pathologic stage IA (T1c, N0, M0). She was first seen by Dr. Ramirez on 12/27/2014. She had daily headaches ever since stopping her hormone replacement therapy. MRI of the brain on 01/10/2015 was negative for metastatic disease. Chiari I malformation was noted. She was referred to neurology for management of migraines. Oncotype DX score on 01/08/2015 return low at 15, corresponding to 9% risk of distant recurrence following hormonal treatment. She began on adjuvant treatment with Femara in December 2014. Femara was discontinued as she completed 5 years on November 30, 2019. She was found to beVitamin D deficient and she was also then started on replacement therapy. DEXA scan in April 2015 showed normal bone density. She completed definitive adjuvant radiation treatment with a boost on 03/06/2015. A CT of the chest on 03/21/2015 showed bilateral nonspecific upper lobe pulmonary nodules from 2-5 mm, and diffuse interstitial thickening with a pulmonary artery hypertension. Her other medical illnesses include COPD, degenerative arthritis, and depression. 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 She has a history of smoking 1 pack of cigarettes daily for 40 years, and she continues to smoke. Repeat CT of the chest on 08/26/2015 showed clearing of the pulmonary nodules. There was soft tissue density in the right breast with a seroma. By ultrasound, the seroma had decreased. She underwent an FNA of the seroma in August 2015. Cytology was benign. She continued adjuvant hormonal therapy with Femara since December 2014 . Follow-up mammogram done on January 22, 2020 showed BI-RADS 2, benign. Mrs. Mathews had follow-up with Dr. Allred on July 16, 2020 for exacerbation of COPD although she continued to smoke. She was offered low-dose CT scan for lung cancer screening ended pursue the CTs [place]. She did have a CT lung screening on July 31 2020. It reported a spiculated right suprahilar and right upper lobe paramediastinal and soft tissue mass. It measured 6.4 x 4.0 x 7.6 cm AP by transverse by craniocaudal. Findings were most compatible with neoplasm. Recommended dedicated contrast-enhanced chest CT and further evaluation with bronchoscopy. Mild narrowing of the right upper main stem bronchus. Mild narrowing of the right distal mainstem bronchus. Mediastinal lymphadenopathy. Right hilar lymphadenopathy. Mrs. Niño underwent PET CT on August 03, 2020 via [facility] radiology. The right upper lobe paramediastinal/superior right hilar mass measured 4.2 x 7.4 cm with central necrosis and an SUV of 37.3 representing malignancy, likely primary bronchogenic carcinoma. A 1.4 spiculated mass at the minor fissure, right upper lobe has an SUV of 12.6 consistent with a satellite malignant lesion. Other subcentimeter lesions were present in other lobes bilaterally too small to characterize. These are likely malignant and should be closely followed on future imaging. Malignant mediastinal adenopathy is present, representing metastatic disease. These are present in the prevascular, left paratracheal, subaortic and bilateral hilar territory. 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 There were no findings to indicate osseous metastatic disease. No significant pelvic or abdominal adenopathy was present. She did have extensive malignant mediastinal adenopathy. Ms. Mathews underwent bronchoscopy with endobronchial ultrasound-guided transbronchial needle aspiration of lymph nodes and control of bleeding on August 15, [address] Allred. Fine-needle aspiration was performed on the right paratracheal mass. 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 P63 was positive DTF???1 was negative p16 negative Ki 67 = 60% global CK 5/6 strongly and diffusely positive in tumor cells. CK7 was negative CK20 was negative; CK cocktail: Strongly and diffusely positive in tumor cells. CK 8/18 strongly and diffusely positive in tumor cells. CK Victor M: Strongly diffusely positive tumor cells. Staging MRI of the brain from September 05, 2020 reported no evidence of restricted diffusion to suggest ischemia. No evidence of enhancing intracranial metastatic disease. Mild small vessel changes with mild parenchymal volume loss. Small vessel changes in the aquiles. This has progressed since 2015. Numerous new small punctate foci of hemosiderin in the right parietal and temporal lobes. Single focus in the left posterior temporal lobe consistent with chronic tiny punctate microhemorrhages mainly subcortical in location. This is nonspecific but can be seen with amyloid angiopathy. Mild symmetric atrophy involving the temporal lobes and hippocampal formations. Guardant 360 done on August 29, 2020 showed no targetable therapeutic mutations. PD-L1 expression TPS was more than 50%. , Was advised to pursue with systemic therapy with chemoimmunotherapy with Keytruda/carboplatin/Taxol , followed by follow-up PET CT. If the PET/CT shows resolution of bilateral pulmonary nodules then consider combined chemoradiation therapy. Considering that she has locally advanced disease still contained in the chest , chemo therapy with immunotherapy consisting of pembrolizumab every 3 weeks and carboplatin Taxol day 1 and 8 repeat every 28 days was recommended She will have follow-up PET CT after 3 cycles. If this again shows good resolution of bilateral pulmonary nodules then will discuss radiation oncology with combined chemoradiation. Incidentally Mrs. Niño was found to be iron deficient with a hemoglobin of 9.4 and was given 2 doses of Injectafer 1 on August 12, 2020 and again on August 19, 2020. Repeat follow-up PET/CT from September 28, 2020 reported the right upper lobe. Mediastinal/superior right hilar mass currently measured 4.2 x 7.4 cm with an SUV of 28.9 and extensive central necrosis. This is unchanged in size and questionably improved in uptake. The 1.46 spiculated mass at the minor fissure, right upper lobe has an SUV of 13.5 and is unchanged in the prior study from 08/03/2020. Subcentimeter pulmonary nodules are unchanged with the prior study. The left hilar index node has an SUV of 7.7, unchanged from 8.5 previously. The other mediastinal nodes in the prevascular, left paratracheal and subaortic and bilateral hilar regions are stable from the prior study. There is no indication of osseous metastatic disease. Patient started chemoimmunotherapy on October 09, 2020 with Keytruda/carboplatin/Taxol Came for follow-up, complaining of mild sore throat somewhat feverish, but no hemoptysis or hematemesis, some worsening of wheezing, still smoke about a pack a day, no hemoptysis or hematemesis, no jaundice, no skin rash, tolerated first cycle of chemotherapy well with Keytruda/carboplatin/Taxol., Medications: Advair Diskus 1 puff(s) (of 250-50 mcg/dose) Aerosol Powder, Breath Activated Inhalation b.i.d., Aspirin 1 (325 mg) Tablet Oral daily, Benadryl 1 (25 mg) Capsule Oral daily PRN, ClonazePAM 1 Tablet (of 0.5 mg) Oral b.i.d., Doxycycline Hyclate 1 Tablet (of 100 mg) Oral b.i.d., Ibuprofen 1 Tablet (of 800 mg) Oral t.i.d., Lisinopril 1 Tablet (of 10 mg) Oral daily, PARoxetine HCl 1 Tablet (of 20 mg) Oral daily, ProAir HFA 1 puff(s) (of 108 (90 base) mcg/act) Aerosol, solution Inhalation q 4 hours, Propranolol HCl ER 1 Capsule (of 60 mg) Capsule SR 24 HR Oral daily, Venlafaxine HCl 1 Tablet (of 75 mg) Tablet Oral daily Allergies: No Known Allergies. Review of Systems: Review of Systems is not available for this patient. Vital Signs: Performed on October 30, 2020 10:31 Height - 63.00 in Temperature - 96.9 F (LOW) Pulse - 73 /min Respiration - 18 /min BP - 134/76 mm(hg) O2 Sat - 98 % Pain - 0 Fatigue - 8 Performance Status: 1 - No physically strenuous activity, but ambulatory and able to carry out light or sedentary work (e.g. office work, light house work). (ECOG) Physical Examination: Respiratory - Poor air entry mild wheezing, Cardiovascular - Regular rate and rhythm of heart, Gastrointestinal - Soft, bowel sounds present, Extremities - No visible edema or rash. Lab/Imaging: Test performed on October 30, 2020 09:50 Sodium 138 mmol/L TSH 0.44 uIU/mL Potassium 4.8 mmol/L Chloride 97 mmol/L CO2 32 mmol/L Anion Gap 13.8 BUN 11 mg/dL Creatinine 0.4 mg/dL Cr Clearance (Est) 184.9300 mL/min eGFR 161.2 mL/min Glucose 110 mg/dL Osmolality - Calculated 286 mOsm/kg Calcium 9.5 mg/dL Protein, Total 7.6 g/dL Albumin 3.8 g/dL Globulin 3.8 g/dL Bilirubin, Total 0.2 mg/dL ALT (SGPT) 12 U/L AST (SGOT) 9 U/L Alkaline Phosphatase 152 IU/L WBC 16.2 10 3/uL RBC 3.90 10 6/uL HGB 10.9 g/dL HCT 35.8 % MCV 91.8 fL MCH 27.9 pg MCHC 30.4 g/dL RDW 15.9 % Platelet Count 363 10 3/cmm MPV 9.8 fL Neutrophils 14.93 10 3/uL Lymphocytes 0.8 10 3/uL Monocytes 0.2 10 3/uL Eosinophils 0.0 10 3/uL Basophils 0.1 10 3/uL Neutrophil % 92.4 % Lymphocyte % 5.1 % Monocyte % 1.1 % Eosinophil % 0.0 % Basophils % 0.4 % NRBC % 0 % Test performed on Jul 19, 2020 09:55 Ferritin 124 ng/mL Iron 50 mcg/dL Iron Binding Capacity (TIBC) 247 mcg/dl % Iron Saturation 20.2 % UIBC 197 mcg/dL Test performed on Jun 19, 2020 11:16 Vitamin B12 326 pg/mL Test performed on May 31, 2020 10:15 Retic Count % 1.5300 % Impression: 1. Squamous cell carcinoma per transbronchial biopsy from right peritracheal mass done on August 15, 2020 CT scan of chest done on July 31, 2020 showed 6.4 x 4 x 7.6 cm right suprahilar/right upper lobe paramediastinal mass and additional spiculated right suprahilar nodule along with right fissure measuring 1.6 x 1.3 cm, spiculated right middle lobe nodule measuring 7 mm and mediastinal lymphadenopathy CT PET scan done on August 03, 2020 showed FDG positive centrally necrotic right upper lobe mass, malignant circular lesion at the right minor fissure, multiple bilateral pulmonary nodules too small to characterize, extensive bilateral malignant mediastinal lymphadenopathy, Stage IIIb versus stage Court, PD-L1 TPS more than 50% MRI scan of the head done on September 05, 2020 showed no evidence of metastatic disease Guardant 360 shows no targetable therapeutic mutations Started on chemoimmunotherapy with Keytruda/carboplatin/Taxol on October 09, 2020 2. Patient with grade 1 infiltrating ductal carcinoma of the right breast, stage IA (T1c, N0, M0), ER/DC positive and HER-2/christophe negative. Oncotype DX score was 15, low risk. 3 She completed radiation to the right breast on 03/06/2015 to a total dose of 6600 cGy. 4. She began adjuvant hormonal therapy with Femara 2.5 mg daily in December 2014. 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 Degenerative arthritis. 7. She has nicotine dependence (cigarettes). Chronic back pain MRI scan of lumbosacral area done on 06/23/2018 and bone scan done on 06/09/2018 showed no evidence of malignancy but chronic arthritis She does have ongoing problems with the COPD, and she currently appears to be experiencing an acute exacerbation. Polycythemia probably due to hypoxia due to severe COPD or chronic smoking, now on home oxygen Improved with smoking cessation for 1 week Iron deficiency anemia, Intolerance to oral iron Plan: Discussed with patient regarding her labs white blood count 16.2 hemoglobin 10.9 hematocrit 35.8 platelets 363,000 Clinically, patient is doing reasonably well, tolerating systemic chemoimmunotherapy with Keytruda/carboplatin/Taxol well, will proceed with second cycle today and then she return to clinic in 1 week for day 8 carboplatin/Taxol followed by Neulasta to prevent chemotherapy-induced leukopenia/neutropenia As per mild sore throat/wheezing is concerned probably due to upper respiratory infection with atypical bacteria, will consider Z-Demarcus with Medrol Dosepak, patient was also advised to stop smoking and was offered any assistance she may need.And also get chest x-ray Return to clinic in 1 week with CBC CMP Signed By: Kaya Díaz M.D. <<Signature on File>>
[2020-10-30] MEDS: sodium chloride 0.9% 250 ML 75 ML IV (11:24)
[2020-10-30] MEDS: famotidine 20 mg/2 mL INJ IVP (11:24)
[2020-10-30] MEDS: diphenhydrAMINE 50 mg/mL SDV 1mL 25 MG IV (11:26)
[2020-10-30] MEDS: palonosetron 0.25 mg/5 mL SDV IV (11:30)
[2020-10-30] MEDS: fosaprepitant 150 MG in sodium chloride 0.9% 150 ML 300 MG IV (11:46)
[2020-11-06 10:41] LABS: Basophils % 0.4 %; Hematocrit 38.3 % (37.0-47.0); Hemoglobin 11.8 g/dL (11.5-15.3); Lymphocytes # 0.6 10^3/uL (0.8-4.8); Lymphocytes % 7.7 %; Mean Corpuscular HGB Conc 30.8 g/dL (30.0-36.0); Mean Corpuscular Hemoglobin 28.1 pg (28.0-34.0); Mean Corpuscular Volume 91.2 fL (81-99); Mean Platelet Volume 9.8 fL (7.4-10.4); Monocytes # 0.1 10^3/uL (0.2-0.9); Monocytes % 1.3 %; Neutrophils # 7.44 10^3/uL (1.8-7.7); Neutrophils % 89.4 %; Nucleated Red Blood Cells % 0 %; Platelet Count 456 10^3/cmm (130-400); Red Cell Distribution Width 15.9 % (12.1-15.1); White Blood Count 8.3 10^3/uL (4.0-10.0)
[2020-11-06 11:06] LABS: Alanine Aminotransferase 33 U/L (0-33); Albumin Level 3.9 g/dL (3.5-5.2); Alkaline Phosphatase 124 IU/L (35-105); Anion Gap 16.5 (5-19); Aspartate Amino Transferase 18 U/L (0-32); Blood Urea Nitrogen 17 mg/dL (8-23); Calcium 8.9 mg/dL (8.5-10.5); Carbon Dioxide 30 mmol/L (22-29); Chloride 96 mmol/L (98-107); Globulin 3.6 g/dL (1.3-4.6); Glomerular Filtration Rate 124.6 mL/min (90-130); Glucose 119 mg/dL (65-115); Osmolality Calculated 287 mOsm/kg (285-295); Potassium 5.5 mmol/L (3.5-5.1); Sodium 137 mmol/L (136-145); Total Bilirubin 0.2 mg/dL (0.15-1.2); Total Protein 7.5 g/dL (6.6-8.7)
[2020-11-06] MEDS: famotidine 20 mg/2 mL INJ IVP (12:48)
[2020-11-06] MEDS: sodium chloride 0.9% 250 ML 75 ML IV (12:48)
[2020-11-06] MEDS: diphenhydrAMINE 50 mg/mL SDV 1mL 25 MG IVP (12:50)
[2020-11-06] MEDS: palonosetron 0.25 mg/5 mL SDV IVP (12:54)
[2020-11-06] MEDS: fosaprepitant 150 MG in sodium chloride 0.9% 150 ML 300 MG IV (13:09)
[2020-11-06 13:35] LABS: Ferritin 892 ng/mL (15-150); Iron 57 ug/dL (37-145); Percent Saturation 18.2 % (20-50); Total Iron Binding Capacity 313 mcg/dl; Unsaturated Iron Binding 256 ug/dL (112-347)
[2020-11-06] MEDS: pegfilgrastim 6 mg/0.6 mL Kit (onpro) SUBCUT (15:08)
--- NOTE | 2020-11-14 11:31 | ONC FU_ITS ---
[facility] Patient Note Patient: Swathi Frederick Unit #: [id number]: [id number] Dictated By: Javy HancockDate of Visit: November 06, 2020 Onc MED Follow-Up/Prog Note Chief Complaint: Breast cancer. History of Present Illness: Ms Frederick is a 65 year-old woman with grade 1 infiltrating ductal carcinoma of the right breast, stage IA (T1c, N0, M0), ER/CT positive and HER-2/christophe negative. She had presented in October 2014 with palpable lump in her right breast. She had been on hormone replacement therapy for the preceding 20 years. Her mammogram on 11/06/2014 revealed 1.3 cm mass in the right breast at 9:00 position corresponding to a 2 cm nodule palpable on examination. An ultrasound guided biopsy on 12/07/2014 revealed grade 1/3 infiltrating ductal carcinoma with the prognostic profile showing ER positive at 100%, CT positive at 98%, and HER-2/christophe negative, 1.1 by FISH, and 1+ by IHC. The Ki-67 was 10%. She underwent lumpectomy and sentinel lymph node biopsy by Dr. Brennan on 12/24/2014. Her surgical pathology showed 1.5 cm infiltrating ductal carcinoma without lymphovascular invasion. Initial margins were positive, but after further excision the final margins were negative. One sentinel lymph was not involved. Her disease thus was pathologic stage IA (T1c, N0, M0). She was first seen by Dr. Ramirez on 12/27/2014. She had daily headaches ever since stopping her hormone replacement therapy. MRI of the brain on 01/10/2015 was negative for metastatic disease. Chiari I malformation was noted. She was referred to neurology for management of migraines. Oncotype DX score on 01/08/2015 return low at 15, corresponding to 9% risk of distant recurrence following hormonal treatment. She began on adjuvant treatment with Femara in December 2014. Femara was discontinued as she completed 5 years on November 30, 2019. She was found to beVitamin D deficient and she was also then started on replacement therapy. DEXA scan in April 2015 showed normal bone density. She completed definitive adjuvant radiation treatment with a boost on 03/06/2015. A CT of the chest on 03/21/2015 showed bilateral nonspecific upper lobe pulmonary nodules from 2-5 mm, and diffuse interstitial thickening with a pulmonary artery hypertension. Her other medical illnesses include COPD, degenerative arthritis, and depression. 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 She has a history of smoking 1 pack of cigarettes daily for 40 years, and she continues to smoke. Repeat CT of the chest on 08/26/2015 showed clearing of the pulmonary nodules. There was soft tissue density in the right breast with a seroma. By ultrasound, the seroma had decreased. She underwent an FNA of the seroma in August 2015. Cytology was benign. She continued adjuvant hormonal therapy with Femara since December 2014 . Follow-up mammogram done on January 22, 2020 showed BI-RADS 2, benign. Mrs. Mathews had follow-up with Dr. Allred on July 16, 2020 for exacerbation of COPD although she continued to smoke. She was offered low-dose CT scan for lung cancer screening ended pursue the CTs [place]. She did have a CT lung screening on July 31 2020. It reported a spiculated right suprahilar and right upper lobe paramediastinal and soft tissue mass. It measured 6.4 x 4.0 x 7.6 cm AP by transverse by craniocaudal. Findings were most compatible with neoplasm. Recommended dedicated contrast-enhanced chest CT and further evaluation with bronchoscopy. Mild narrowing of the right upper main stem bronchus. Mild narrowing of the right distal mainstem bronchus. Mediastinal lymphadenopathy. Right hilar lymphadenopathy. Mrs. Niño underwent PET CT on August 03, 2020 via [facility] radiology. The right upper lobe paramediastinal/superior right hilar mass measured 4.2 x 7.4 cm with central necrosis and an SUV of 37.3 representing malignancy, likely primary bronchogenic carcinoma. A 1.4 spiculated mass at the minor fissure, right upper lobe has an SUV of 12.6 consistent with a satellite malignant lesion. Other subcentimeter lesions were present in other lobes bilaterally too small to characterize. These are likely malignant and should be closely followed on future imaging. Malignant mediastinal adenopathy is present, representing metastatic disease. These are present in the prevascular, left paratracheal, subaortic and bilateral hilar territory. The ict sales representative left hilar node has an SUV of 8.5. There were no findings to indicate osseous metastatic disease. No significant pelvic or abdominal adenopathy was present. She did have extensive malignant mediastinal adenopathy. Ms. Mathews underwent bronchoscopy with endobronchial ultrasound-guided transbronchial needle aspiration of lymph nodes and control of bleeding on August 15, [address] Allred. Fine-needle aspiration was performed on the right paratracheal mass. 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 P63 was positive DTF???1 was negative p16 negative Ki 67 = 60% global CK 5/6 strongly and diffusely positive in tumor cells. CK7 was negative CK20 was negative; CK cocktail: Strongly and diffusely positive in tumor cells. CK 8/18 strongly and diffusely positive in tumor cells. CK Victor M: Strongly diffusely positive tumor cells. Staging MRI of the brain from September 05, 2020 reported no evidence of restricted diffusion to suggest ischemia. No evidence of enhancing intracranial metastatic disease. Mild small vessel changes with mild parenchymal volume loss. Small vessel changes in the aquiles. This has progressed since 2015. Numerous new small punctate foci of hemosiderin in the right parietal and temporal lobes. Single focus in the left posterior temporal lobe consistent with chronic tiny punctate microhemorrhages mainly subcortical in location. This is nonspecific but can be seen with amyloid angiopathy. Mild symmetric atrophy involving the temporal lobes and hippocampal formations. Guardant 360 done on August 29, 2020 showed no targetable therapeutic mutations. PD-L1 expression TPS was more than 50%. Dr. Díaz's plan of care is to pursue systemic chemotherapy followed by follow-up PET CT. If the PET/CT shows resolution of bilateral pulmonary nodules then consider combined chemoradiation therapy. Considering that Ms. Tamayo has locally advanced disease still contained in the chest Dr. Díaz has recommended chemo therapy with immunotherapy consisting of pembrolizumab every 3 weeks and carboplatin Taxol day 1 and 8 repeat every 28 days. She will have follow-up PET CT after 3 cycles. If this again shows good resolution of bilateral pulmonary nodules then will discuss radiation oncology with combined chemoradiation. Incidentally Mrs. Niño was found to be iron deficient with a hemoglobin of 9.4 and was given 2 doses of Injectafer 1 on August 12, 2020 and again on August 19, 2020. Repeat follow-up PET/CT from September 28, 2020 reported the right upper lobe. Mediastinal/superior right hilar mass currently measured 4.2 x 7.4 cm with an SUV of 28.9 and extensive central necrosis. This is unchanged in size and questionably improved in uptake. The 1.46 spiculated mass at the minor fissure, right upper lobe has an SUV of 13.5 and is unchanged in the prior study from 08/03/2020. Subcentimeter pulmonary nodules are unchanged with the prior study. The left hilar index node has an SUV of 7.7, unchanged from 8.5 previously. The other mediastinal nodes in the prevascular, left paratracheal and subaortic and bilateral hilar regions are stable from the prior study. There is no indication of osseous metastatic disease. She began chemotherapy with carboplatin Taxol/Keytruda on day 1 and 8 of a 21-day cycle on October 09, 2020. She is here today for cycle 2-day 8 carboplatin paclitaxel. She had carboplatin Taxol Keytruda last week. She has pre-existing peripheral neuropathy but states is nothing that has been bothersome or limiting for her. She denies any exacerbation of the neuropathy with the chemotherapy. She states she does feel little better overall. She still short of breath but states it is seems to be getting better. She denies any hemoptysis. She denies any productive cough. She states overall her cough is better. She denies any fever or chills. She states she has not had any mouth sores, sore throat or trouble swallowing. Her appetite is still good. Her energy is still marginal. She tires easily and has to rest often. She is still able to do all her ADLs. She denies any nausea or vomiting. She is had no diarrhea or constipation. She denies any urinary changes. She denies any headaches, vision changes or periods of confusion. She states overall she is doing pretty good . Her ECOG is 2. Past Medical History: Anxiety Asthma Chronic obstructive pulmonary disease Depression Osteoarthritis Past Surgical History: Appendectomy Tonsillectomy Tubal ligation Left subclavian Port-A-Cath???Dr. Brennan in 2020 Prevnar 13 in 2014 Flu vaccine in 2014 Breast biopsy in 2014 Allergies: No Known Allergies. Medications: Advair Diskus 1 puff(s) (of 250-50 mcg/dose) Aerosol Powder, Breath Activated Inhalation b.i.d. Aspirin 1 (325 mg) Tablet Oral daily Benadryl 1 (25 mg) Capsule Oral daily PRN ClonazePAM 1 Tablet (of 0.5 mg) Oral b.i.d. Doxycycline Hyclate 1 Tablet (of 100 mg) Oral b.i.d. Ibuprofen 1 Tablet (of 800 mg) Oral t.i.d. Lisinopril 1 Tablet (of 10 mg) Oral daily PARoxetine HCl 1 Tablet (of 20 mg) Oral daily ProAir HFA 1 puff(s) (of 108 (90 base) mcg/act) Aerosol, solution Inhalation q 4 hours Propranolol HCl ER 1 Capsule (of 60 mg) Capsule SR 24 HR Oral daily Venlafaxine HCl 1 Tablet (of 75 mg) Tablet Oral daily Family History: Ms. Frederick's mother is . Ms. Frederick's father is . Unknown family history. Social History: Ms. Frederick is and she is a disabled. She is a daily smoker who has smoked 0.5 packs/day for 41 years. She has no history of drinking. Ms. Frederick reports the following support systems: lives in own house and adequate transportation available for expected visits. Her diet consists of regular meals. She indicates her activity level as: daily activities. Review Of Symptoms: <See Above> Vital Signs: Performed on November 06, 2020 15:16 Height - 63.00 in Temperature - 97.8 F (LOW) Pulse - 85 /min Respiration - 20 /min BP - 121/61 mm(hg) O2 Sat - 96 % Performed on November 06, 2020 12:05 Height - 63.00 in Weight - 181 lbs (HIGH) BSA - 1.85 sq.m BMI - 32.06 (HIGH) Temperature - 96.9 F (LOW) Pulse - 80 /min Respiration - 19 /min BP - 120/77 mm(hg) O2 Sat - 97 % Pain - 8,2 - Ambulatory/capable of all self-care, unable to perform any work activities. Up and about more than 50% of waking hours. (ECOG) Physical Examination: Constitutional Alert, oriented, no acute distress. Skin pink, warm and dry. Head Normocephalic; atraumatic. Eyes Conjunctivae and sclerae are clear and without icterus. Pupils are reactive and equal. Neck Supple without masses or thyromegaly. No jugular venous distension. Respiratory Lungs are clear to auscultation without rhonchi but faint scattered wheezing in lower lobes that resolves with cough. Cardiovascular Regular rate and rhythm of heart without murmurs,clicks, gallops or rubs. Chest Chest is symmetric without chest wall deformities. Left chest wall venous access device insertion site is unremarkable. Back/Spine Non-tender to palpation. Extremities No visible deformities, no cyanosis, clubbing or edema. Pulses 4+ and equal bilaterally. Musculoskeletal No tenderness or swelling, normal range of motion without obvious weakness. Integumentary No rashes or lesions. Neurologic No sensory or motor deficits, normal cerebellar function. Psychiatric Alert and oriented times three. Coherent speech. Verbalizes understanding of our discussions today. Laboratory:Test performed on November 06, 2020 12:14 Creatinine 0.5 mg/dL Cr Clearance (Est) 147.95 mL/min Test performed on November 06, 2020 10:10 Ferritin 892 ng/mL Iron 57 mcg/dL Sodium 137 mmol/L Iron Binding Capacity (TIBC) 313 mcg/dl Potassium 5.5 mmol/L % Iron Saturation 18.2 % Chloride 96 mmol/L CO2 30 mmol/L UIBC 256 mcg/dL Anion Gap 16.5 BUN 17 mg/dL eGFR 124.6 mL/min Glucose 119 mg/dL Osmolality - Calculated 287 mOsm/kg Calcium 8.9 mg/dL Protein, Total 7.5 g/dL Albumin 3.9 g/dL Globulin 3.6 g/dL Bilirubin, Total 0.2 mg/dL ALT (SGPT) 33 U/L AST (SGOT) 18 U/L Alkaline Phosphatase 124 IU/L WBC 8.3 10 3/uL RBC 4.20 10 6/uL HGB 11.8 g/dL HCT 38.3 % MCV 91.2 fL MCH 28.1 pg MCHC 30.8 g/dL RDW 15.9 % Platelet Count 456 10 3/cmm MPV 9.8 fL Neutrophils 7.44 10 3/uL Lymphocytes 0.6 10 3/uL Monocytes 0.1 10 3/uL Eosinophils 0.0 10 3/uL Basophils 0.0 10 3/uL Neutrophil % 89.4 % Lymphocyte % 7.7 % Monocyte % 1.3 % Eosinophil % 0.0 % Basophils % 0.4 % NRBC % 0 % Test performed on October 30, 2020 09:50 TSH 0.44 uIU/mL Test performed on Jun 19, 2020 11:16 Vitamin B12 326 pg/mL Test performed on May 31, 2020 10:15 Retic Count % 1.5300 % Impression: 1. Squamous cell carcinoma per transbronchial biopsy from right peritracheal mass done on August 15, 2020 CT scan of chest done on July 31, 2020 showed 6.4 x 4 x 7.6 cm right suprahilar/right upper lobe paramediastinal mass and additional spiculated right suprahilar nodule along with right fissure measuring 1.6 x 1.3 cm, spiculated right middle lobe nodule measuring 7 mm and mediastinal lymphadenopathy CT PET scan done on August 03, 2020 showed FDG positive centrally necrotic right upper lobe mass, malignant circular lesion at the right minor fissure, multiple bilateral pulmonary nodules too small to characterize, extensive bilateral malignant mediastinal lymphadenopathy, Stage IIIb versus stage Court, PD-L1 TPS more than 50% MRI scan of the head done on September 05, 2020 showed no evidence of metastatic disease Guardant 360 shows no targetable therapeutic mutations 2. Patient with grade 1 infiltrating ductal carcinoma of the right breast, stage IA (T1c, N0, M0), ER/CT positive and HER-2/christophe negative. Oncotype DX score was 15, low risk. 3 She completed radiation to the right breast on 03/06/2015 to a total dose of 6600 cGy. 4. She began adjuvant hormonal therapy with Femara 2.5 mg daily in December 2014. 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 Degenerative arthritis. 7. She has nicotine dependence (cigarettes). Chronic back pain MRI scan of lumbosacral area done on 06/23/2018 and bone scan done on 06/09/2018 showed no evidence of malignancy but chronic arthritis She does have ongoing problems with the COPD, and she currently appears to be experiencing an acute exacerbation. Polycythemia probably due to hypoxia due to severe COPD or chronic smoking, now on home oxygen Improved with smoking cessation for 1 week Iron deficiency anemia, Intolerance to oral iron Plan/Problems Addressed at this Visit: 1. Non-small cell lung cancer diagnosed July 2020. Guardant 360 showed no targetable therapeutic mutations, PD-L1 tissue, shows TPS more than 50%, MRI scan of the brain shows no brain mets Clinically, patient doing well with no new signs symptoms, further testing confirmed there is no evidence of brain mets and molecular profiling shows no evidence of targetable therapeutic mutations but her PD-L1 on the tissue showed TPS more than 50%. And clinically appears patient has locally advanced disease or may be metastatic disease to the lungs, case was discussed with Dr. Cruz radiation oncology who suggested upfront systemic therapy followed by CT PET scan if it shows resolution of bilateral pulmonary nodules then consider combined chemoradiation therapy. Considering locally advanced disease still contained in the chest, Dr Díaz has recommended chemo immunotherapy with Keytruda every 3 weeks and carboplatin/Taxol day 1 and 8 and repeat every 21 days along with Keytruda and consider follow-up CT PET scan after 3 cycles if it shows good response e.g. resolution of bilateral pulmonary nodules then will discuss with radiation oncology regarding combined chemoradiation A. Proceed with cycle 2 day 8 pembrolizumab, carboplatin, paclitaxel. The pembrolizumab was given on day 1 and she is due for day 8 carboplatin paclitaxel today. She will continue with Neulasta support as well. B. Steroid compliance confirmed. C. Labs from November 06, 2020 were reviewed in detail and discussed with Ms. Mathews and a copy was given to her. WBC 8.3, hemoglobin 11.8, platelets 156,000, ANC is 7 5.5, random glucose 119, creatinine 0.5 LFTs are normal alk phos is 124 but improved from 152 on last visit. Her TSH last week was 0.44. Her weight is stable at 181. 440. Potassium D. Pain management: hydrocodone 10/21/2024 to take 1 or 2 as needed for pain. She has chronic pain from the degenerative arthritis. She is also scheduled for Neulasta on pro and I am concerned about worsening of her pre-existing bone pain. E. Refill lorazepam. 2. Iron deficiency anemia-intolerant to oral iron replacement A. Status post Injectafer last given on August 19, 2020 that was her second dose the first 1 was on August 12, 2020. B. Her hemoglobin has improved to 11.8 from July 19 at which time was 9.6. C. She has not yet had repeat iron studies. 3. Follow-up plan A. We will plan to see her back in 2 weeks with CBC CMP for consideration of cycle 3 day 1 treatment. B. She will have interim CBC CMP for chemotherapy monitoring. C. Mrs. Mathews was instructed to contact us in interim should questions or problems arise. Signed By: Javy Hancock-, [facility] Kaya Díaz MD <<Signature on File>>
== END 2020-11-18 23:59 | disposition home or self-care (01) ==
LOC: ONCMED 05:36
PROVIDERS: Internal Medicine Hematology & Oncology; PCP Family Medicine; Visit Provider Nurse Practitioner
DX: Z51.12 Encounter for antineoplastic immunotherapy (principal); Z51.11 Encounter for antineoplastic chemotherapy; C50.511 Malignant neoplasm of lower-outer quadrant of right female breast; Z17.0 Estrogen receptor positive status [ER+]; C34.11 Malignant neoplasm of upper lobe, right bronchus or lung; D75.1 Secondary polycythemia; D50.9 Iron deficiency anemia, unspecified; E55.9 Vitamin D deficiency, unspecified; F17.210 Nicotine dependence, cigarettes, uncomplicated; F41.9 Anxiety disorder, unspecified; J45.909 Unspecified asthma, uncomplicated; J44.9 Chronic obstructive pulmonary disease, unspecified; F32.9 Major depressive disorder, single episode, unspecified; Z79.811 Long term (current) use of aromatase inhibitors; Z79.899 Other long term (current) drug therapy
CPT/HCPCS: 80053; 82728; 83540; 83550; 84443; 85025; 96367; 96375; 96377; 96413; 96417; 99214; 99215; J1100; J1200; J1453; J2469; J2505; J3490; J7030; J7040; J7050; J9045; J9267; J9271

== ENCOUNTER 2020-11-17 09:37 | Emergency (ER) | payer MEDICARE, MEDICAID, SELFPAY ==
[2020-11-17 09:39] VITALS: BP 124/63; RESP 22; TEMP 36.2; BMI 30.9
--- NOTE | 2020-11-17 09:57 | W.ED.GENADLT ---
HPI - General Adult General: Chief complaint: General Medical Stated complaint: SORE THROAT Time Seen by Provider: 11/17/20 09:42 History of Present Illness: HPI narrative: Patient is a 65-year-old female comes to the ED with a sore throat, headache and sinus drainage and congestion. Patient has a past medical history of stage III lung cancer and is on 6 L of oxygen via nasal cannula at home. Patient has chemotherapy weekly. Patient says for the past 3 to 4 days she is been having a sore throat and a headache. Patient says she has been having sinus drainage and congestion for several weeks now. She says the sore throat for the past couple days is worse in the mornings. She states that last night she took ibuprofen 800 mg to help with her headache and sore throat and it did improve her pain and she was able to sleep. Today she woke up with a worse sore throat and a headache as well. She takes azithromycin 500 mg every other day and Zyrtec 10 mg daily. Associated symptoms: Reports headache(s); Deny chest pain, dyspnea, nausea, rash, palpitations or vomiting Review of Systems Const: Denies: fever(s), chills or fatigue Eyes: Denies: change in vision or eye discomfort ENMT: Reports: throat pain, nasal discharge, nasal congestion and sinus pain; Denies: odynophagia Card: Denies: chest pain, palpitations, edema, swelling of feet/ankles, dyspnea on exertion or orthopnea Resp: Denies: dyspnea, productive cough or non-productive cough GI: Denies: abdominal pain, nausea, vomiting, diarrhea, constipation or hematochezia : Denies: flank pain, dysuria or hematuria Musc: Denies: neck pain, back pain or extremity swelling Skin/Breast: Denies: rash or new lesions Neuro: Reports: headache(s); Denies: numbness in extremities or weakness in extremities PFSH ED PFSH: Medical History Anxiety and depression COPD (chronic obstructive pulmonary disease) Essential (primary) hypertension Essential tremor History of breast cancer Lung cancer Scoliosis Surgical History H/O tubal ligation History of appendectomy History of lumpectomy of right breast History of tonsillectomy Port-A-Cath in place (10/01/20) Status post colonoscopy Family History Other CAD (coronary artery disease) Diabetes Social History Smoking and tobacco status: current every day smoker cigarettes Packs smoked per day: 0.5 Years cigarettes smoked: 50 Quit status (tobacco): considering quitting Second hand smoke exposure: No Smoking risk assessment/counseling performed?: Yes Alcohol intake: never Lives independently: Yes Household members: none Marital status: / Current occupational status: disabled History of recent travel: No Current gender identity: Female Physical Exam Const: COMMON NORMALS: no acute distress, patient oriented x3 and alert GENERAL APPEARANCE: cooperative and comfortable HENMT: COMMON NORMALS: normocephalic, EAC's normal and TM's normal bilaterally HEAD & SCALP: normocephalic FACE & SINUS: sinus tenderness frontal (bilateral) and maxillary (bilateral) NOSE: Nasal discharge present clear Clear nasal discharge laterality: bilateral and Other nasal findings present (Patient had to blow nose several times during exam.) EXTERNAL AUDITORY CANAL: EAC's normal TYMPANIC MEMBRANE: TM's normal bilaterally MOUTH: Normal oral and palatal mucosa present THROAT: uvula midline and posterior oropharynx abnormal cobblestoning Eye: COMMON NORMALS: Equal, round and reactive pupils present PUPIL: Yes Equal, round and reactive pupils present Neck/C-Spine: COMMON NORMALS: supple GENERAL: Yes normal visual inspection Resp: COMMON NORMALS: normal respiratory effort, No retractions, No use of accessory muscles and clear to auscultation bilaterally AUSCULTATION: clear to auscultation bilaterally Cardio: COMMON NORMALS: regular rate, regular rhythm, S1 normal heart sound present, S2 normal heart sound present, No gallops present (Cardio), No clicks present (Cardio), No murmurs present (Cardio) and Peripheral pulses 2+ throughout RATE: regular rate RHYTHM: regular rhythm HEART SOUNDS: S1 normal heart sound present and S2 normal heart sound present PERIPHERAL PULSES: Peripheral pulses 2+ throughout GI: COMMON NORMALS: Normal to inspection, nondistended, normoactive bowel sounds present, Soft to palpation, non-tender and no masses PALPATION: Yes Soft to palpation : COMMON NORMALS: Yes no CVA tenderness BLADDER/KIDNEY EXAM: Yes no CVA tenderness Back/Pelvis: COMMON NORMALS: no CVA tenderness Extremity: COMMON NORMALS: normal to inspection Neuro: COMMON NORMALS: patient oriented x3 and moves all extremities SENSORIUM/ORIENTATION: Yes alert Skin: GENERAL SKIN EXAM: dry skin Course Vital Signs: Vital signs: Vital Signs Temperature 97.1 F L 11/17/20 09:39 Pulse Rate 84 11/17/20 11:58 Respiratory Rate 20 H 11/17/20 11:58 Blood Pressure 142/74 11/17/20 11:58 Pulse Oximetry 90 11/17/20 11:58 MDM - General Adult MDM Narrative: Medical decision making narrative: Patient is a 65-year-old female who comes to the ED with nasal drainage, sinus pain and headache. Patient has stage III lung cancer and is on approximately 6 L of oxygen at home. Exam findings are remarkable for maxillary and frontal sinus tenderness bilaterally. Cobblestoning of posterior oropharynx and clear nasal drainage. Rapid strep was negative. Patient diagnosed with sinusitis discharged home with a steroid prescription and Augmentin. Patient told to follow-up with her PCP in 7 to 10 days for reevaluation. Return to ED precautions given. Patient understood agree with plan. Lab Data: Attestation: I reviewed the patient's lab results. Labs: Lab Results 11/17/20 Range/Units 10:19 Group A Strep Rapi d Negative (Negative) Discharge Plan Discharge Patient Disposition: Home Clinical Impression: Sinusitis Qualifiers: Sinusitis location: maxillary Chronicity: acute Recurrence: non-recurrent Qualified Code(s): J01.00 - Acute maxillary sinusitis, unspecified Condition: Stable Prescriptions: New amoxicillin-pot clavulanate 500-125 mg tablet 1 tab PO BID 7 Days Qty: 14 RF: 0 methylprednisolone 4 mg tablets,dose pack See Rx Instructions .ROUTE .COMPLEX Qty: 21 RF: 0 No Action albuterol sulfate 2.5 mg/0.5 mL solution for nebulization 5 mg INHALATION QID RF: 0 paroxetine HCl [Paxil] 20 mg tablet 20 mg PO QDAY RF: 0 aspirin [Adult Low Dose Aspirin] 81 mg tablet,delayed release (DR/EC) 325 mg PO QDAY RF: 0 guaifenesin 600 mg tablet extended release 12hr 600 mg PO BID RF: 0 budesonide 0.5 mg/2 mL suspension for nebulization 0.5 mg INHALATION BID 30 Days Qty: 120 RF: 3 revefenacin 175 mcg/3 mL solution for nebulization 175 mcg INHALATION DAILY 30 Days Qty: 90 RF: 3 ondansetron HCl 8 mg tablet 8 mg PO Q8H PRN (Reason: nausea and vomiting) 10 Days Qty: 30 RF: 0 Perforomist 20 mcg/2 mL solution for nebulization 2 ml INHALATION BID RF: 0 azithromycin 500 mg tablet 500 mg PO .COMPLEX 90 Days Qty: 45 RF: 1 lorazepam 1 mg tablet 1 mg PO TID PRNRF: 0 cetirizine [Zyrtec] 10 mg tablet 10 mg PO DAILY RF: 0 omeprazole 40 mg capsule,delayed release(DR/EC) 40 mg PO BID Qty: 60 RF: 2 cyclobenzaprine 10 mg tablet 10 mg PO TID PRN (Reason: muscle spasm) Qty: 90 RF: 0 propranolol 60 mg capsule,extended release 24 hr 60 mg PO QDAY Qty: 30 RF: 5 lisinopril 10 mg tablet 10 mg PO .po q hs Qty: 90 RF: 0 (DME) wheelchair See Rx Instructions .Route .MEDSUPPLY Qty: 1 RF: 0 ibuprofen 800 mg tablet 800 mg PO BID Qty: 60 RF: 0 venlafaxine [Effexor XR] 75 mg capsule,extended release 24hr 75 mg PO DAILY Qty: 30 RF: 0 clonazepam 0.5 mg tablet 0.5 mg PO BID Qty: 60 RF: 0 fluticasone propionate [Flonase Allergy Relief] 50 mcg/actuation spray,suspension 1 spray intranasal DAILY Qty: 16 RF: 3 hydrocodone-acetaminophen 5-325 mg tablet 1 tab PO Q6H PRN (Reason: pain) Qty: 20 RF: 0 Discharge Orders: Discharge ED (Routine); Ordered 11/17/20 Ordered By: Jb Katz Referrals: Sveta Price DO [Primary Care Provider] - Discharge Diet: Regular Discharge Activity: Increase activity as tolerated Patient Instructions: Sinusitis (ED) Activity Restrictions/Additional Instructions: Follow-up with medical provider as directed. Take medications as prescribed. Fill your steroid prescription today, but you do not need to start taking steroid prescription until tomorrow. Return to the ER or your medical provider if condition worsens. Please read and understand discharge instructions. Thank you for choosing [facility] for your healthcare needs today. Please realize this is an emergency room and that we are providing you with a medical screening exam and this may not be complete and all inclusive of all the testing and or work up that you may need to determine your ailment or severity of your illness. It is very important that you follow up as instructed or that you return to the Emergency Department should you have concerns or if your condition changes or worsens in any way. Coding Level of Care Code ED [employer] for [employer] Fwd Exam Comprehensive
[2020-11-17] MEDS: ibuprofen 800 mg tablet PO (10:08)
[2020-11-17 10:11] VITALS: BP 124/63; PULSE 84; RESP 18; O2SAT 89
[2020-11-17 10:31] LABS: Rapid Strep A Test Negative (Negative)
[2020-11-17] MEDS: dexamethasone 10 mg/mL INJ IM (11:44)
[2020-11-17 11:58] VITALS: BP 142/74; PULSE 84; RESP 20; O2SAT 90
== END 2020-11-17 11:59 | disposition home or self-care (01) ==
PROVIDERS: Emergency Provider Physician Assistant; PCP Family Medicine
DX: J01.00 Acute maxillary sinusitis, unspecified (principal); Z79.82 Long term (current) use of aspirin; J44.9 Chronic obstructive pulmonary disease, unspecified; I10 Essential (primary) hypertension; Z85.3 Personal history of malignant neoplasm of breast; Z85.118 Personal history of other malignant neoplasm of bronchus and lung; F17.210 Nicotine dependence, cigarettes, uncomplicated
CPT/HCPCS: 87081; 87880; 96372; 99283; J1100

== ENCOUNTER 2020-12-17 05:44 | Outpatient (RCR) | payer MEDICARE, MEDICAID, SELFPAY ==
--- NOTE | 2020-11-20 08:28 | XR_ITS ---
WS: [id number] Chest 2 views, 11/20/2020 Clinical Data: BASELINE/COUGH/COUGH/SHORTNESS OF BREATH Comparison: PET scan, 09/28/2020. Findings: No nodules, masses or effusions are seen. The heart is normal. The pulmonary vascularity is not increased. No pneumonia or pneumothorax is seen. The large right upper lobe right paratracheal m ass is not seen on the current examination. The diaphragms are flattened. The aortic arch shows mild calcification. There is a left subclavian catheter which ends in the superior vena cava. XR/XR chest 2V* [id number] Impression: 1. Right upper lobe mass not present on today's x-ray. 2. Atherosclerosis and hyperinflation.
[2020-11-20 11:41] LABS: Basophils # 0.1 10^3/uL (0.0-0.1); Basophils % 0.5 %; Hematocrit 32.3 % (37.0-47.0); Hemoglobin 9.9 g/dL (11.5-15.3); Lymphocytes # 0.7 10^3/uL (0.8-4.8); Lymphocytes % 4.6 %; Mean Corpuscular HGB Conc 30.7 g/dL (30.0-36.0); Mean Corpuscular Hemoglobin 28.5 pg (28.0-34.0); Mean Corpuscular Volume 93.1 fL (81-99); Mean Platelet Volume 9.5 fL (7.4-10.4); Monocytes # 0.2 10^3/uL (0.2-0.9); Monocytes % 1.6 %; Neutrophils % 92.3 %; Nucleated Red Blood Cells % 0 %; Platelet Count 327 10^3/cmm (130-400); Red Blood Count 3.47 10^6/uL (4.1-5.3); White Blood Count 14.6 10^3/uL (4.0-10.0)
[2020-11-20 12:07] LABS: Alanine Aminotransferase 24 U/L (0-33); Albumin Level 3.3 g/dL (3.5-5.2); Alkaline Phosphatase 175 IU/L (35-105); Anion Gap 13.1 (5-19); Aspartate Amino Transferase 13 U/L (0-32); Blood Urea Nitrogen 14 mg/dL (8-23); Calcium 9.1 mg/dL (8.5-10.5); Carbon Dioxide 31 mmol/L (22-29); Chloride 97 mmol/L (98-107); Globulin 3.4 g/dL (1.3-4.6); Glomerular Filtration Rate 161.2 mL/min (90-130); Glucose 138 mg/dL (65-115); Osmolality Calculated 287 mOsm/kg (285-295); Potassium 4.1 mmol/L (3.5-5.1); Sodium 137 mmol/L (136-145); Total Bilirubin 0.2 mg/dL (0.15-1.2); Total Protein 6.7 g/dL (6.6-8.7)
[2020-11-20] MEDS: sodium chloride 0.9% 250 ML 75 ML IV (13:35)
[2020-11-20] MEDS: famotidine 20 mg/2 mL INJ IVP (13:35)
[2020-11-20] MEDS: diphenhydrAMINE 50 mg/mL SDV 1mL 25 MG IVP (13:37)
[2020-11-20] MEDS: palonosetron 0.25 mg/5 mL SDV IVP (13:42)
[2020-11-20] MEDS: fosaprepitant 150 MG in sodium chloride 0.9% 150 ML 300 MG IV (13:59)
--- NOTE | 2020-11-20 17:01 | ONC FU_ITS ---
Dr. 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 She had presented in October 2014 with palpable lump in her right breast. She had been on hormone replacement therapy for the preceding 20 years. Her mammogram on 11/06/2014 revealed 1.3 cm mass in the right breast at 9:00 position corresponding to a 2 cm nodule palpable on examination. An ultrasound guided biopsy on 12/07/2014 revealed grade 1/3 infiltrating ductal carcinoma with the prognostic profile showing ER positive at 100%, MS positive at 98%, and HER-2/christophe negative, 1.1 by FISH, and 1+ by IHC. The Ki-67 was 10%. She underwent lumpectomy and sentinel lymph node biopsy by Dr. Brennan on 12/24/2014. Her surgical pathology showed 1.5 cm infiltrating ductal carcinoma without lymphovascular invasion. Initial margins were positive, but after further excision the final margins were negative. One sentinel lymph was not involved. Her disease thus was pathologic stage IA (T1c, N0, M0). She was first seen by Dr. Ramirez on 12/27/2014. She had daily headaches ever since stopping her hormone replacement therapy. MRI of the brain on 01/10/2015 was negative for metastatic disease. Chiari I malformation was noted. She was referred to neurology for management of migraines. Oncotype DX score on 01/08/2015 return low at 15, corresponding to 9% risk of distant recurrence following hormonal treatment. She began on adjuvant treatment with Femara in December 2014. Femara was discontinued as she completed 5 years on November 30, 2019. She was found to beVitamin D deficient and she was also then started on replacement therapy. DEXA scan in April 2015 showed normal bone density. She completed definitive adjuvant radiation treatment with a boost on 03/06/2015. A CT of the chest on 03/21/2015 showed bilateral nonspecific upper lobe pulmonary nodules from 2-5 mm, and diffuse interstitial thickening with a pulmonary artery hypertension. Her other medical illnesses include COPD, degenerative arthritis, and depression. 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 She has a history of smoking 1 pack of cigarettes daily for 40 years, and she continues to smoke. Repeat CT of the chest on 08/26/2015 showed clearing of the pulmonary nodules. There was soft tissue density in the right breast with a seroma. By ultrasound, the seroma had decreased. She underwent an FNA of the seroma in August 2015. Cytology was benign. She continued adjuvant hormonal therapy with Femara since December 2014 . Follow-up mammogram done on January 22, 2020 showed BI-RADS 2, benign. Mrs. Mathews had follow-up with Dr. Allred on July 16, 2020 for exacerbation of COPD although she continued to smoke. She was offered low-dose CT scan for lung cancer screening ended pursue the CTs [place]. She did have a CT lung screening on July 31 2020. It reported a spiculated right suprahilar and right upper lobe paramediastinal and soft tissue mass. It measured 6.4 x 4.0 x 7.6 cm AP by transverse by craniocaudal. Findings were most compatible with neoplasm. Recommended dedicated contrast-enhanced chest CT and further evaluation with bronchoscopy. Mild narrowing of the right upper main stem bronchus. Mild narrowing of the right distal mainstem bronchus. Mediastinal lymphadenopathy. Right hilar lymphadenopathy. Mrs. Niño underwent PET CT on August 03, 2020 via [facility] radiology. The right upper lobe paramediastinal/superior right hilar mass measured 4.2 x 7.4 cm with central necrosis and an SUV of 37.3 representing malignancy, likely primary bronchogenic carcinoma. A 1.4 spiculated mass at the minor fissure, right upper lobe has an SUV of 12.6 consistent with a satellite malignant lesion. Other subcentimeter lesions were present in other lobes bilaterally too small to characterize. These are likely malignant and should be closely followed on future imaging. Malignant mediastinal adenopathy is present, representing metastatic disease. These are present in the prevascular, left paratracheal, subaortic and bilateral hilar territory. The phone representative left hilar node has an SUV of 8.5. There were no findings to indicate osseous metastatic disease. No significant pelvic or abdominal adenopathy was present. She did have extensive malignant mediastinal adenopathy. Ms. Mathews underwent bronchoscopy with endobronchial ultrasound-guided transbronchial needle aspiration of lymph nodes and control of bleeding on August 15, [address] Allred. Fine-needle aspiration was performed on the right paratracheal mass. 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 P63 was positive DTF???1 was negative p16 negative Ki 67 = 60% global CK 5/6 strongly and diffusely positive in tumor cells. CK7 was negative CK20 was negative; CK cocktail: Strongly and diffusely positive in tumor cells. CK 8/18 strongly and diffusely positive in tumor cells. CK Victor M: Strongly diffusely positive tumor cells. Staging MRI of the brain from September 05, 2020 reported no evidence of restricted diffusion to suggest ischemia. No evidence of enhancing intracranial metastatic disease. Mild small vessel changes with mild parenchymal volume loss. Small vessel changes in the aquiles. This has progressed since 2015. Numerous new small punctate foci of hemosiderin in the right parietal and temporal lobes. Single focus in the left posterior temporal lobe consistent with chronic tiny punctate microhemorrhages mainly subcortical in location. This is nonspecific but can be seen with amyloid angiopathy. Mild symmetric atrophy involving the temporal lobes and hippocampal formations. Guardant 360 done on August 29, 2020 showed no targetable therapeutic mutations. PD-L1 expression TPS was more than 50%. Dr. Díaz's plan of care is to pursue systemic chemotherapy followed by follow-up PET CT. If the PET/CT shows resolution of bilateral pulmonary nodules then consider combined chemoradiation therapy. Considering that Ms. Tamayo has locally advanced disease still contained in the chest Dr. Díaz has recommended chemo therapy with immunotherapy consisting of pembrolizumab every 3 weeks and carboplatin Taxol day 1 and 8 repeat every 28 days. She will have follow-up PET CT after 3 cycles. If this again shows good resolution of bilateral pulmonary nodules then will discuss radiation oncology with combined chemoradiation. Incidentally Mrs. Niño was found to be iron deficient with a hemoglobin of 9.4 and was given 2 doses of Injectafer 1 on August 12, 2020 and again on August 19, 2020. Repeat follow-up PET/CT from September 28, 2020 reported the right upper lobe. Mediastinal/superior right hilar mass currently measured 4.2 x 7.4 cm with an SUV of 28.9 and extensive central necrosis. This is unchanged in size and questionably improved in uptake. The 1.46 spiculated mass at the minor fissure, right upper lobe has an SUV of 13.5 and is unchanged in the prior study from 08/03/2020. Subcentimeter pulmonary nodules are unchanged with the prior study. The left hilar index node has an SUV of 7.7, unchanged from 8.5 previously. The other mediastinal nodes in the prevascular, left paratracheal and subaortic and bilateral hilar regions are stable from the prior study. There is no indication of osseous metastatic disease. She began chemotherapy with carboplatin Taxol/Keytruda on day 1 and 8 of a 21-day cycle on October 09, 2020. Came for follow-up, denies any specific complaints except she was admitted to hospital recently with severe sinusitis treated with antibiotics, now feeling much better and denies any specific complaint except dyspnea exertion, patient has severe COPD/emphysema on home oxygen and also continues to smoke AGAINST MEDICAL ADVICE. But no hemoptysis or hematemesis, no jaundice, no skin rash, no headaches blurred vision or double vision, tolerating systemic therapy with Keytruda/carboplatin/Taxol well otherwise Medications: Advair Diskus 1 puff(s) (of 250-50 mcg/dose) Aerosol Powder, Breath Activated Inhalation b.i.d., Amoxicillin-Pot Clavulanate (500-125 mg) Tablet Oral b.i.d., Aspirin 1 (325 mg) Tablet Oral daily, Benadryl 1 (25 mg) Capsule Oral daily PRN, ClonazePAM 1 Tablet (of 0.5 mg) Oral b.i.d., Doxycycline Hyclate 1 Tablet (of 100 mg) Oral b.i.d., Ibuprofen 1 Tablet (of 800 mg) Oral t.i.d., Lisinopril 1 Tablet (of 10 mg) Oral daily, methylPREDNISolone Tablet Therapy Pack Oral, PARoxetine HCl 1 Tablet (of 20 mg) Oral daily, ProAir HFA 1 puff(s) (of 108 (90 base) mcg/act) Aerosol, solution Inhalation q 4 hours, Propranolol HCl ER 1 Capsule (of 60 mg) Capsule SR 24 HR Oral daily, Venlafaxine HCl 1 Tablet (of 75 mg) Tablet Oral daily Allergies: No Known Allergies. Review of Systems: Review of Systems is not available for this patient. Vital Signs: Performed on Nov 20, 2020 12:41 Height - 63.00 in Temperature - 97.4 F (LOW) Pulse - 73 /min Respiration - 18 /min BP - 135/77 mm(hg) O2 Sat - 98 % Pain - 4 Fatigue - 10 Performance Status: 1 - No physically strenuous activity, but ambulatory and able to carry out light or sedentary work (e.g. office work, light house work). (ECOG) Physical Examination: Respiratory - Poor air entry, with mild wheezing bilaterally, Cardiovascular - Regular rate and rhythm of heart, Gastrointestinal - Soft, bowel sounds present, Extremities - No visible edema or rash. Lab/Imaging: Test performed on Nov 20, 2020 11:20 Sodium 137 mmol/L TSH 0.30 uIU/mL Potassium 4.1 mmol/L Chloride 97 mmol/L CO2 31 mmol/L Anion Gap 13.1 BUN 14 mg/dL Creatinine 0.4 mg/dL Cr Clearance (Est) 184.9300 mL/min eGFR 161.2 mL/min Glucose 138 mg/dL Osmolality - Calculated 287 mOsm/kg Calcium 9.1 mg/dL Protein, Total 6.7 g/dL Albumin 3.3 g/dL Globulin 3.4 g/dL Bilirubin, Total 0.2 mg/dL ALT (SGPT) 24 U/L AST (SGOT) 13 U/L Alkaline Phosphatase 175 IU/L WBC 14.6 10 3/uL RBC 3.47 10 6/uL HGB 9.9 g/dL HCT 32.3 % MCV 93.1 fL MCH 28.5 pg MCHC 30.7 g/dL RDW 17.0 % Platelet Count 327 10 3/cmm MPV 9.5 fL Neutrophils 13.50 10 3/uL Lymphocytes 0.7 10 3/uL Monocytes 0.2 10 3/uL Eosinophils 0.0 10 3/uL Basophils 0.1 10 3/uL Neutrophil % 92.3 % Lymphocyte % 4.6 % Monocyte % 1.6 % Eosinophil % 0.0 % Basophils % 0.5 % NRBC % 0 % Test performed on November 06, 2020 10:10 Ferritin 892 ng/mL Iron 57 mcg/dL Iron Binding Capacity (TIBC) 313 mcg/dl % Iron Saturation 18.2 % UIBC 256 mcg/dL Test performed on Jun 19, 2020 11:16 Vitamin B12 326 pg/mL Test performed on May 31, 2020 10:15 Retic Count % 1.5300 % Impression: 1. Squamous cell carcinoma per transbronchial biopsy from right peritracheal mass done on August 15, 2020 CT scan of chest done on July 31, 2020 showed 6.4 x 4 x 7.6 cm right suprahilar/right upper lobe paramediastinal mass and additional spiculated right suprahilar nodule along with right fissure measuring 1.6 x 1.3 cm, spiculated right middle lobe nodule measuring 7 mm and mediastinal lymphadenopathy CT PET scan done on August 03, 2020 showed FDG positive centrally necrotic right upper lobe mass, malignant circular lesion at the right minor fissure, multiple bilateral pulmonary nodules too small to characterize, extensive bilateral malignant mediastinal lymphadenopathy, Stage IIIb versus stage Court, PD-L1 TPS more than 50% MRI scan of the head done on September 05, 2020 showed no evidence of metastatic disease Guardant 360 shows no targetable therapeutic mutations 2. Patient with grade 1 infiltrating ductal carcinoma of the right breast, stage IA (T1c, N0, M0), ER/MS positive and HER-2/christophe negative. Oncotype DX score was 15, low risk. 3 She completed radiation to the right breast on 03/06/2015 to a total dose of 6600 cGy. 4. She began adjuvant hormonal therapy with Femara 2.5 mg daily in December 2014. 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 Degenerative arthritis. 7. She has nicotine dependence (cigarettes). Chronic back pain MRI scan of lumbosacral area done on 06/23/2018 and bone scan done on 06/09/2018 showed no evidence of malignancy but chronic arthritis She does have ongoing problems with the COPD, and she currently appears to be experiencing an acute exacerbation. Polycythemia probably due to hypoxia due to severe COPD or chronic smoking, now on home oxygen Improved with smoking cessation for 1 week Iron deficiency anemia, Intolerance to oral iron Plan: Discussed with patient regarding her labs white blood count 14.6 hemoglobin 9.9 hematocrit 32.3 platelets 327,000 CMP within normal limits Clinically, patient is doing reasonably well, with no new signs symptoms history of recurrence of or disease progression, tolerating palliative chemotherapy with carboplatin/Taxol/Keytruda well, will proceed with next cycle with Keytruda/carboplatin/Taxol today and then she will return to clinic in 1 week with CBC CMP if is in desirable range, for day 8 chemotherapy with carboplatin/Taxol, Patient was advised to quit smoking and was offered any assistance she may need Signed By: Kaya Díaz M.D. <<Signature on File>>
[2020-11-26 08:51] LABS: Basophils # 0.1 10^3/uL (0.0-0.1); Basophils % 0.5 %; Hematocrit 35.5 % (37.0-47.0); Hemoglobin 10.9 g/dL (11.5-15.3); Lymphocytes # 0.5 10^3/uL (0.8-4.8); Lymphocytes % 5.4 %; Mean Corpuscular HGB Conc 30.7 g/dL (30.0-36.0); Mean Corpuscular Hemoglobin 28.8 pg (28.0-34.0); Mean Corpuscular Volume 93.7 fL (81-99); Mean Platelet Volume 9.6 fL (7.4-10.4); Monocytes # 0.1 10^3/uL (0.2-0.9); Monocytes % 1.2 %; Neutrophils # 8.44 10^3/uL (1.8-7.7); Nucleated Red Blood Cells % 0 %; Platelet Count 474 10^3/cmm (130-400); Red Blood Count 3.79 10^6/uL (4.1-5.3); Red Cell Distribution Width 16.3 % (12.1-15.1); White Blood Count 9.2 10^3/uL (4.0-10.0)
[2020-11-26 09:18] LABS: Alanine Aminotransferase 24 U/L (0-33); Albumin Level 4.1 g/dL (3.5-5.2); Alkaline Phosphatase 168 IU/L (35-105); Aspartate Amino Transferase 16 U/L (0-32); Blood Urea Nitrogen 16 mg/dL (8-23); Calcium 9.1 mg/dL (8.5-10.5); Carbon Dioxide 28 mmol/L (22-29); Chloride 93 mmol/L (98-107); Globulin 3.2 g/dL (1.3-4.6); Glomerular Filtration Rate 161.2 mL/min (90-130); Glucose 149 mg/dL (65-115); Osmolality Calculated 284 mOsm/kg (285-295); Sodium 135 mmol/L (136-145); Total Bilirubin 0.2 mg/dL (0.15-1.2); Total Protein 7.3 g/dL (6.6-8.7)
[2020-11-26] MEDS: sodium chloride 0.9% 250 ML 75 ML IV (11:35)
[2020-11-26] MEDS: palonosetron 0.25 mg/5 mL SDV IVP (11:38)
[2020-11-26] MEDS: famotidine 20 mg/2 mL INJ IVP (11:39)
[2020-11-26] MEDS: diphenhydrAMINE 50 mg/mL SDV 1mL 25 MG IVP (11:40)
[2020-11-26] MEDS: fosaprepitant 150 MG in sodium chloride 0.9% 150 ML 300 MG IV (11:57)
[2020-11-26] MEDS: pegfilgrastim 6 mg/0.6 mL Kit (onpro) SUBCUT (14:30)
--- NOTE | 2020-12-03 09:16 | ONC FU_ITS ---
Dr. Díaz follow up note Patient: Swathi Frederick Unit #: [id number]: 1955 Dicatated By: Kaya Díaz M.D.Date of Visit:Nov 26, 2020 Onc Med Follow-up/Prog Note History of Present Illness: Ms Frederick is a 65 year-old woman with grade 1 infiltrating ductal carcinoma of the right breast, stage IA (T1c, N0, M0), ER/IL positive and HER-2/christophe negative. She had presented in October 2014 with palpable lump in her right breast. She had been on hormone replacement therapy for the preceding 20 years. Her mammogram on 11/06/2014 revealed 1.3 cm mass in the right breast at 9:00 position corresponding to a 2 cm nodule palpable on examination. An ultrasound guided biopsy on 12/07/2014 revealed grade 1/3 infiltrating ductal carcinoma with the prognostic profile showing ER positive at 100%, IL positive at 98%, and HER-2/christophe negative, 1.1 by FISH, and 1+ by IHC. The Ki-67 was 10%. She underwent lumpectomy and sentinel lymph node biopsy by Dr. Brennan on 12/24/2014. Her surgical pathology showed 1.5 cm infiltrating ductal carcinoma without lymphovascular invasion. Initial margins were positive, but after further excision the final margins were negative. One sentinel lymph was not involved. Her disease thus was pathologic stage IA (T1c, N0, M0). She was first seen by Dr. Ramirez on 12/27/2014. She had daily headaches ever since stopping her hormone replacement therapy. MRI of the brain on 01/10/2015 was negative for metastatic disease. Chiari I malformation was noted. She was referred to neurology for management of migraines. Oncotype DX score on 01/08/2015 return low at 15, corresponding to 9% risk of distant recurrence following hormonal treatment. She began on adjuvant treatment with Femara in December 2014. Femara was discontinued as she completed 5 years on November 30, 2019. She was found to beVitamin D deficient and she was also then started on replacement therapy. DEXA scan in April 2015 showed normal bone density. She completed definitive adjuvant radiation treatment with a boost on 03/06/2015. A CT of the chest on 03/21/2015 showed bilateral nonspecific upper lobe pulmonary nodules from 2-5 mm, and diffuse interstitial thickening with a pulmonary artery hypertension. Her other medical illnesses include COPD, degenerative arthritis, and depression. 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 She has a history of smoking 1 pack of cigarettes daily for 40 years, and she continues to smoke. Repeat CT of the chest on 08/26/2015 showed clearing of the pulmonary nodules. There was soft tissue density in the right breast with a seroma. By ultrasound, the seroma had decreased. She underwent an FNA of the seroma in August 2015. Cytology was benign. She continued adjuvant hormonal therapy with Femara since December 2014 . Follow-up mammogram done on January 22, 2020 showed BI-RADS 2, benign. Mrs. Mathews had follow-up with Dr. Allred on July 16, 2020 for exacerbation of COPD although she continued to smoke. She was offered low-dose CT scan for lung cancer screening ended pursue the CTs [place]. She did have a CT lung screening on July 31 2020. It reported a spiculated right suprahilar and right upper lobe paramediastinal and soft tissue mass. It measured 6.4 x 4.0 x 7.6 cm AP by transverse by craniocaudal. Findings were most compatible with neoplasm. Recommended dedicated contrast-enhanced chest CT and further evaluation with bronchoscopy. Mild narrowing of the right upper main stem bronchus. Mild narrowing of the right distal mainstem bronchus. Mediastinal lymphadenopathy. Right hilar lymphadenopathy. Mrs. Niño underwent PET CT on August 03, 2020 via [facility] radiology. The right upper lobe paramediastinal/superior right hilar mass measured 4.2 x 7.4 cm with central necrosis and an SUV of 37.3 representing malignancy, likely primary bronchogenic carcinoma. A 1.4 spiculated mass at the minor fissure, right upper lobe has an SUV of 12.6 consistent with a satellite malignant lesion. Other subcentimeter lesions were present in other lobes bilaterally too small to characterize. These are likely malignant and should be closely followed on future imaging. Malignant mediastinal adenopathy is present, representing metastatic disease. These are present in the prevascular, left paratracheal, subaortic and bilateral hilar territory. The hospital insurance representative left hilar node has an SUV of 8.5. There were no findings to indicate osseous metastatic disease. No significant pelvic or abdominal adenopathy was present. She did have extensive malignant mediastinal adenopathy. Ms. Mathews underwent bronchoscopy with endobronchial ultrasound-guided transbronchial needle aspiration of lymph nodes and control of bleeding on August 15, [address] Allred. Fine-needle aspiration was performed on the right paratracheal mass. 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 P63 was positive DTF???1 was negative p16 negative Ki 67 = 60% global CK 5/6 strongly and diffusely positive in tumor cells. CK7 was negative CK20 was negative; CK cocktail: Strongly and diffusely positive in tumor cells. CK 8/18 strongly and diffusely positive in tumor cells. CK Victor M: Strongly diffusely positive tumor cells. Staging MRI of the brain from September 05, 2020 reported no evidence of restricted diffusion to suggest ischemia. No evidence of enhancing intracranial metastatic disease. Mild small vessel changes with mild parenchymal volume loss. Small vessel changes in the aquiles. This has progressed since 2015. Numerous new small punctate foci of hemosiderin in the right parietal and temporal lobes. Single focus in the left posterior temporal lobe consistent with chronic tiny punctate microhemorrhages mainly subcortical in location. This is nonspecific but can be seen with amyloid angiopathy. Mild symmetric atrophy involving the temporal lobes and hippocampal formations. Guardant 360 done on August 29, 2020 showed no targetable therapeutic mutations. PD-L1 expression TPS was more than 50%. Dr. Díaz's plan of care is to pursue systemic chemotherapy followed by follow-up PET CT. If the PET/CT shows resolution of bilateral pulmonary nodules then consider combined chemoradiation therapy. Considering that Ms. Tamayo has locally advanced disease still contained in the chest Dr. Díaz has recommended chemo therapy with immunotherapy consisting of pembrolizumab every 3 weeks and carboplatin Taxol day 1 and 8 repeat every 28 days. She will have follow-up PET CT after 3 cycles. If this again shows good resolution of bilateral pulmonary nodules then will discuss radiation oncology with combined chemoradiation. Incidentally Mrs. Niño was found to be iron deficient with a hemoglobin of 9.4 and was given 2 doses of Injectafer 1 on August 12, 2020 and again on August 19, 2020. Repeat follow-up PET/CT from September 28, 2020 reported the right upper lobe. Mediastinal/superior right hilar mass currently measured 4.2 x 7.4 cm with an SUV of 28.9 and extensive central necrosis. This is unchanged in size and questionably improved in uptake. The 1.46 spiculated mass at the minor fissure, right upper lobe has an SUV of 13.5 and is unchanged in the prior study from 08/03/2020. Subcentimeter pulmonary nodules are unchanged with the prior study. The left hilar index node has an SUV of 7.7, unchanged from 8.5 previously. The other mediastinal nodes in the prevascular, left paratracheal and subaortic and bilateral hilar regions are stable from the prior study. There is no indication of osseous metastatic disease. She began chemotherapy with carboplatin Taxol/Keytruda on day 1 and 8 of a 21-day cycle on October 09, 2020. Came for follow-up, denies any specific complaints, no fever chills, no nausea or vomiting, no diarrhea constipation, still smoking about a pack a day while on home oxygen, denies any abdominal pain. Denies any peripheral numbness, tolerating systemic therapy with Keytruda/carboplatin/Taxol well otherwise Medications: Advair Diskus 1 puff(s) (of 250-50 mcg/dose) Aerosol Powder, Breath Activated Inhalation b.i.d., Amoxicillin-Pot Clavulanate (500-125 mg) Tablet Oral b.i.d., Aspirin 1 (325 mg) Tablet Oral daily, Benadryl 1 (25 mg) Capsule Oral daily PRN, ClonazePAM 1 Tablet (of 0.5 mg) Oral b.i.d., Doxycycline Hyclate 1 Tablet (of 100 mg) Oral b.i.d., Ibuprofen 1 Tablet (of 800 mg) Oral t.i.d., Lisinopril 1 Tablet (of 10 mg) Oral daily, methylPREDNISolone Tablet Therapy Pack Oral, PARoxetine HCl 1 Tablet (of 20 mg) Oral daily, ProAir HFA 1 puff(s) (of 108 (90 base) mcg/act) Aerosol, solution Inhalation q 4 hours, Propranolol HCl ER 1 Capsule (of 60 mg) Capsule SR 24 HR Oral daily, Venlafaxine HCl 1 Tablet (of 75 mg) Tablet Oral daily Allergies: No Known Allergies. Review of Systems: Review of Systems is not available for this patient. Vital Signs: Performed on Nov 26, 2020 12:38 Height - 63.00 in Weight - 176 lbs (LOW) BSA - 1.83 sq.m BMI - 31.18 (HIGH) Temperature - 97 F (LOW) Pulse - 92 /min Respiration - 18 /min BP - 143/84 mm(hg) (HIGH) O2 Sat - 94 % (LOW) Pain - 8 Fatigue - 10 Performance Status: 1 - No physically strenuous activity, but ambulatory and able to carry out light or sedentary work (e.g. office work, light house work). (ECOG) Physical Examination: Respiratory - Poor air entry otherwise clear, Cardiovascular - Regular rate and rhythm of heart, Gastrointestinal - Soft, bowel sounds present, Extremities - No visible edema or rash. Lab/Imaging: Test performed on Nov 26, 2020 08:35 Sodium 135 mmol/L Potassium 5.0 mmol/L Chloride 93 mmol/L CO2 28 mmol/L Anion Gap 19.0 BUN 16 mg/dL Creatinine 0.4 mg/dL Cr Clearance (Est) 184.9300 mL/min eGFR 161.2 mL/min Glucose 149 mg/dL Osmolality - Calculated 284 mOsm/kg Calcium 9.1 mg/dL Protein, Total 7.3 g/dL Albumin 4.1 g/dL Globulin 3.2 g/dL Bilirubin, Total 0.2 mg/dL ALT (SGPT) 24 U/L AST (SGOT) 16 U/L Alkaline Phosphatase 168 IU/L WBC 9.2 10 3/uL RBC 3.79 10 6/uL HGB 10.9 g/dL HCT 35.5 % MCV 93.7 fL MCH 28.8 pg MCHC 30.7 g/dL RDW 16.3 % Platelet Count 474 10 3/cmm MPV 9.6 fL Neutrophils 8.44 10 3/uL Lymphocytes 0.5 10 3/uL Monocytes 0.1 10 3/uL Eosinophils 0.0 10 3/uL Basophils 0.1 10 3/uL Neutrophil % 92.0 % Lymphocyte % 5.4 % Monocyte % 1.2 % Eosinophil % 0.0 % Basophils % 0.5 % NRBC % 0 % Test performed on Nov 20, 2020 11:20 TSH 0.30 uIU/mL Test performed on November 06, 2020 10:10 Ferritin 892 ng/mL Iron 57 mcg/dL Iron Binding Capacity (TIBC) 313 mcg/dl % Iron Saturation 18.2 % UIBC 256 mcg/dL Test performed on Jun 19, 2020 11:16 Vitamin B12 326 pg/mL Test performed on May 31, 2020 10:15 Retic Count % 1.5300 % Impression: 1. Squamous cell carcinoma per transbronchial biopsy from right peritracheal mass done on August 15, 2020 CT scan of chest done on July 31, 2020 showed 6.4 x 4 x 7.6 cm right suprahilar/right upper lobe paramediastinal mass and additional spiculated right suprahilar nodule along with right fissure measuring 1.6 x 1.3 cm, spiculated right middle lobe nodule measuring 7 mm and mediastinal lymphadenopathy CT PET scan done on August 03, 2020 showed FDG positive centrally necrotic right upper lobe mass, malignant circular lesion at the right minor fissure, multiple bilateral pulmonary nodules too small to characterize, extensive bilateral malignant mediastinal lymphadenopathy, Stage IIIb versus stage Court, PD-L1 TPS more than 50% MRI scan of the head done on September 05, 2020 showed no evidence of metastatic disease Guardant 360 shows no targetable therapeutic mutations 2. Patient with grade 1 infiltrating ductal carcinoma of the right breast, stage IA (T1c, N0, M0), ER/IL positive and HER-2/christophe negative. Oncotype DX score was 15, low risk. 3 She completed radiation to the right breast on 03/06/2015 to a total dose of 6600 cGy. 4. She began adjuvant hormonal therapy with Femara 2.5 mg daily in December 2014. 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 Degenerative arthritis. 7. She has nicotine dependence (cigarettes). Chronic back pain MRI scan of lumbosacral area done on 06/23/2018 and bone scan done on 06/09/2018 showed no evidence of malignancy but chronic arthritis She does have ongoing problems with the COPD, and she currently appears to be experiencing an acute exacerbation. Polycythemia probably due to hypoxia due to severe COPD or chronic smoking, now on home oxygen Improved with smoking cessation for 1 week Iron deficiency anemia, Intolerance to oral iron Plan: Discussed with patient regarding her labs white blood count 9.2 hemoglobin 10.9 g compared to 9.9 g previously hematocrit 35.5 platelets 474,000 CMP within normal limits except alk phos 168 Clinically, patient is doing well with no new signs symptom, tolerating systemic therapy with Keytruda/carboplatin/Taxol well, will proceed next weekly dose of carboplatin/Taxol today and then she will return to clinic in 2 weeks with CBC CMP and if reasonable for next cycle, I will consider follow-up CT PET scan after next cycle to assess disease response. Patient was advised to quit smoking and was offered any assistance she may need Signed By: Kaya Díaz M.D. <<Signature on File>>
[2020-12-10 11:09] LABS: Basophils # 0.2 10^3/uL (0.0-0.1); Basophils % 0.8 %; Hematocrit 29.3 % (37.0-47.0); Lymphocytes # 0.8 10^3/uL (0.8-4.8); Lymphocytes % 3.8 %; Mean Corpuscular HGB Conc 30.7 g/dL (30.0-36.0); Mean Corpuscular Volume 94.5 fL (81-99); Mean Platelet Volume 10.3 fL (7.4-10.4); Monocytes # 0.3 10^3/uL (0.2-0.9); Monocytes % 1.5 %; Neutrophils # 20.18 10^3/uL (1.8-7.7); Neutrophils % 93.1 %; Nucleated Red Blood Cells % 0 %; Platelet Count 333 10^3/cmm (130-400); Red Cell Distribution Width 17.7 % (12.1-15.1); White Blood Count 21.7 10^3/uL (4.0-10.0)
[2020-12-10 11:44] LABS: Alanine Aminotransferase 12 U/L (0-33); Albumin Level 3.4 g/dL (3.5-5.2); Alkaline Phosphatase 212 IU/L (35-105); Anion Gap 17.2 (5-19); Aspartate Amino Transferase 16 U/L (0-32); Blood Urea Nitrogen 13 mg/dL (8-23); Calcium 9.3 mg/dL (8.5-10.5); Carbon Dioxide 27 mmol/L (22-29); Chloride 100 mmol/L (98-107); Globulin 3.6 g/dL (1.3-4.6); Glomerular Filtration Rate 161.2 mL/min (90-130); Glucose 112 mg/dL (65-115); Osmolality Calculated 291 mOsm/kg (285-295); Potassium 4.2 mmol/L (3.5-5.1); Sodium 140 mmol/L (136-145); Total Bilirubin 0.2 mg/dL (0.15-1.2)
--- NOTE | 2020-12-16 22:07 | ONC FU_ITS ---
[facility] Patient Note Patient: Swathi Frederick Unit #: [id number]: [id number] Dictated By: Javy HancockDate of Visit: Dec 10, 2020 Onc MED Follow-Up/Prog Note Chief Complaint: Breast cancer. History of Present Illness: Ms Frederick is a 65 year-old woman with grade 1 infiltrating ductal carcinoma of the right breast, stage IA (T1c, N0, M0), ER/TX positive and HER-2/christophe negative. She had presented in October 2014 with palpable lump in her right breast. She had been on hormone replacement therapy for the preceding 20 years. Her mammogram on 11/06/2014 revealed 1.3 cm mass in the right breast at 9:00 position corresponding to a 2 cm nodule palpable on examination. An ultrasound guided biopsy on 12/07/2014 revealed grade 1/3 infiltrating ductal carcinoma with the prognostic profile showing ER positive at 100%, TX positive at 98%, and HER-2/christophe negative, 1.1 by FISH, and 1+ by IHC. The Ki-67 was 10%. She underwent lumpectomy and sentinel lymph node biopsy by Dr. Brennan on 12/24/2014. Her surgical pathology showed 1.5 cm infiltrating ductal carcinoma without lymphovascular invasion. Initial margins were positive, but after further excision the final margins were negative. One sentinel lymph was not involved. Her disease thus was pathologic stage IA (T1c, N0, M0). She was first seen by Dr. Ramirez on 12/27/2014. She had daily headaches ever since stopping her hormone replacement therapy. MRI of the brain on 01/10/2015 was negative for metastatic disease. Chiari I malformation was noted. She was referred to neurology for management of migraines. Oncotype DX score on 01/08/2015 return low at 15, corresponding to 9% risk of distant recurrence following hormonal treatment. She began on adjuvant treatment with Femara in December 2014. Femara was discontinued as she completed 5 years on November 30, 2019. She was found to beVitamin D deficient and she was also then started on replacement therapy. DEXA scan in April 2015 showed normal bone density. She completed definitive adjuvant radiation treatment with a boost on 03/06/2015. A CT of the chest on 03/21/2015 showed bilateral nonspecific upper lobe pulmonary nodules from 2-5 mm, and diffuse interstitial thickening with a pulmonary artery hypertension. Her other medical illnesses include COPD, degenerative arthritis, and depression. 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 She has a history of smoking 1 pack of cigarettes daily for 40 years, and she continues to smoke. Repeat CT of the chest on 08/26/2015 showed clearing of the pulmonary nodules. There was soft tissue density in the right breast with a seroma. By ultrasound, the seroma had decreased. She underwent an FNA of the seroma in August 2015. Cytology was benign. She continued adjuvant hormonal therapy with Femara since December 2014 . Follow-up mammogram done on January 22, 2020 showed BI-RADS 2, benign. Mrs. Mathews had follow-up with Dr. Allred on July 16, 2020 for exacerbation of COPD although she continued to smoke. She was offered low-dose CT scan for lung cancer screening ended pursue the CTs [place]. She did have a CT lung screening on July 31 2020. It reported a spiculated right suprahilar and right upper lobe paramediastinal and soft tissue mass. It measured 6.4 x 4.0 x 7.6 cm AP by transverse by craniocaudal. Findings were most compatible with neoplasm. Recommended dedicated contrast-enhanced chest CT and further evaluation with bronchoscopy. Mild narrowing of the right upper main stem bronchus. Mild narrowing of the right distal mainstem bronchus. Mediastinal lymphadenopathy. Right hilar lymphadenopathy. Mrs. Niño underwent PET CT on August 03, 2020 via [facility] radiology. The right upper lobe paramediastinal/superior right hilar mass measured 4.2 x 7.4 cm with central necrosis and an SUV of 37.3 representing malignancy, likely primary bronchogenic carcinoma. A 1.4 spiculated mass at the minor fissure, right upper lobe has an SUV of 12.6 consistent with a satellite malignant lesion. Other subcentimeter lesions were present in other lobes bilaterally too small to characterize. These are likely malignant and should be closely followed on future imaging. Malignant mediastinal adenopathy is present, representing metastatic disease. These are present in the prevascular, left paratracheal, subaortic and bilateral hilar territory. The parts representative left hilar node has an SUV of 8.5. There were no findings to indicate osseous metastatic disease. No significant pelvic or abdominal adenopathy was present. She did have extensive malignant mediastinal adenopathy. Ms. Mathews underwent bronchoscopy with endobronchial ultrasound-guided transbronchial needle aspiration of lymph nodes and control of bleeding on August 15, [address] Allred. Fine-needle aspiration was performed on the right paratracheal mass. 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 P63 was positive DTF???1 was negative p16 negative Ki 67 = 60% global CK 5/6 strongly and diffusely positive in tumor cells. CK7 was negative CK20 was negative; CK cocktail: Strongly and diffusely positive in tumor cells. CK 8/18 strongly and diffusely positive in tumor cells. CK Victor M: Strongly diffusely positive tumor cells. Staging MRI of the brain from September 05, 2020 reported no evidence of restricted diffusion to suggest ischemia. No evidence of enhancing intracranial metastatic disease. Mild small vessel changes with mild parenchymal volume loss. Small vessel changes in the aquiles. This has progressed since 2015. Numerous new small punctate foci of hemosiderin in the right parietal and temporal lobes. Single focus in the left posterior temporal lobe consistent with chronic tiny punctate microhemorrhages mainly subcortical in location. This is nonspecific but can be seen with amyloid angiopathy. Mild symmetric atrophy involving the temporal lobes and hippocampal formations. Guardant 360 done on August 29, 2020 showed no targetable therapeutic mutations. PD-L1 expression TPS was more than 50%. Dr. Díaz's plan of care is to pursue systemic chemotherapy followed by follow-up PET CT. If the PET/CT shows resolution of bilateral pulmonary nodules then consider combined chemoradiation therapy. Considering that Ms. Tamayo has locally advanced disease still contained in the chest Dr. Díaz has recommended chemo therapy with immunotherapy consisting of pembrolizumab every 3 weeks and carboplatin Taxol day 1 and 8 repeat every 28 days. She will have follow-up PET CT after 3 cycles. If this again shows good resolution of bilateral pulmonary nodules then will discuss radiation oncology with combined chemoradiation. Incidentally Ms. Frederick was found to be iron deficient with a hemoglobin of 9.4 and was given 2 doses of Injectafer 1 on August 12, 2020 and again on August 19, 2020. Repeat follow-up PET/CT from September 28, 2020 reported the right upper lobe. Mediastinal/superior right hilar mass currently measured 4.2 x 7.4 cm with an SUV of 28.9 and extensive central necrosis. This is unchanged in size and questionably improved in uptake. The 1.46 spiculated mass at the minor fissure, right upper lobe has an SUV of 13.5 and is unchanged in the prior study from 08/03/2020. Subcentimeter pulmonary nodules are unchanged with the prior study. The left hilar index node has an SUV of 7.7, unchanged from 8.5 previously. The other mediastinal nodes in the prevascular, left paratracheal and subaortic and bilateral hilar regions are stable from the prior study. There is no indication of osseous metastatic disease. She began chemotherapy with carboplatin Taxol/Keytruda on day 1 and 8 of a 21-day cycle on October 09, 2020. Ms. Mathews is here today for follow-up. Mrs. Mathews presents today for follow-up. She is due for cycle 4-day 1 carboplatin paclitaxel and Keytruda. However she presents with symptoms of upper respiratory infection including productive cough, sore throat and left-sided ear pain. She states the ear pain radiates down into her jaw even. She has not had any known fever but has had some intermittent chills. She has not been on any antibiotics recently. She denies any recent Covid exposure. She has had no recent testing. She does have productive cough of thick green sputum . She states she is significantly more short of breath with the sputum. She has a hard time getting it up sometimes but other times it comes freely. She states she coughs a lot at night and this keeps her awake and she is not resting well. Her appetite is decreased just because of the cough. She states overall she just feels weaker. She is still able to do all her ADLs without any assistance. She denies any angina or palpitations. She said no diarrhea. Her ECOG is 2. Past Medical History: Anxiety Asthma Chronic obstructive pulmonary disease Depression Osteoarthritis Past Surgical History: Appendectomy Tonsillectomy Tubal ligation Left subclavian Port-A-Cath???Dr. Brennan in 2020 Prevnar 13 in 2014 Flu vaccine in 2014 Breast biopsy in 2014 Allergies: No Known Allergies. Medications: Advair Diskus 1 puff(s) (of 250-50 mcg/dose) Aerosol Powder, Breath Activated Inhalation b.i.d. Amoxicillin-Pot Clavulanate (500-125 mg) Tablet Oral b.i.d. Aspirin 1 (325 mg) Tablet Oral daily Benadryl 1 (25 mg) Capsule Oral daily PRN ClonazePAM 1 Tablet (of 0.5 mg) Oral b.i.d. Doxycycline Hyclate 1 Tablet (of 100 mg) Oral b.i.d. Ibuprofen 1 Tablet (of 800 mg) Oral t.i.d. Lisinopril 1 Tablet (of 10 mg) Oral daily methylPREDNISolone Tablet Therapy Pack Oral PARoxetine HCl 1 Tablet (of 20 mg) Oral daily ProAir HFA 1 puff(s) (of 108 (90 base) mcg/act) Aerosol, solution Inhalation q 4 hours Propranolol HCl ER 1 Capsule (of 60 mg) Capsule SR 24 HR Oral daily Venlafaxine HCl 1 Tablet (of 75 mg) Tablet Oral daily Family History: Ms. Frederick's mother is . Ms. Frederick's father is . Unknown family history. Social History: Ms. Frederick is and she is a disabled. She is a daily smoker who has smoked 0.5 packs/day for 41 years. She has no history of drinking. Ms. Frederick reports the following support systems: lives in own house and adequate transportation available for expected visits. Her diet consists of regular meals. She indicates her activity level as: daily activities. Review Of Symptoms: <See Above> Vital Signs: Performed on Dec 10, 2020 12:02 Height - 63.00 in Weight - 180.8 lbs (HIGH) BSA - 1.85 sq.m BMI - 32.03 (HIGH) Temperature - 96.8 F (LOW) Pulse - 85 /min Respiration - 20 /min BP - 120/80 mm(hg) O2 Sat - 91 % (LOW) Pain - 0 Fatigue - 10,2 - Ambulatory/capable of all self-care, unable to perform any work activities. Up and about more than 50% of waking hours. (ECOG) Physical Examination: Constitutional Alert, oriented, no acute distress. Skin pink, warm and dry. Head Normocephalic; atraumatic. Eyes Conjunctivae and sclerae are clear and without icterus. Pupils are reactive and equal. Neck Supple without masses or thyromegaly. No jugular venous distension. Hematologic/Lymphatic No petechiae or purpura. No tender or palpable lymph nodes in the cervical, supraclavicular, or axillary area. Respiratory Lungs are noted to have mild rhonchi bilaterally and faint scattered wheezing in lower lobes that resolves with cough. Cardiovascular Regular rate and rhythm of heart without murmurs,clicks, gallops or rubs. Chest Chest is symmetric without chest wall deformities. Left chest wall venous access device insertion site is unremarkable. Back/Spine Non-tender to palpation. Extremities No visible deformities, no cyanosis, clubbing or edema. Pulses 4+ and equal bilaterally. Musculoskeletal No tenderness or swelling, normal range of motion without obvious weakness. Integumentary No rashes or lesions. Neurologic No sensory or motor deficits, normal cerebellar function. Psychiatric Alert and oriented times three. Coherent speech. Verbalizes understanding of our discussions today. Laboratory:Test performed on Dec 10, 2020 10:32 Sodium 140 mmol/L Potassium 4.2 mmol/L Chloride 100 mmol/L CO2 27 mmol/L Anion Gap 17.2 BUN 13 mg/dL Creatinine 0.4 mg/dL Cr Clearance (Est) 184.9300 mL/min eGFR 161.2 mL/min Glucose 112 mg/dL Osmolality - Calculated 291 mOsm/kg Calcium 9.3 mg/dL Protein, Total 7.0 g/dL Albumin 3.4 g/dL Globulin 3.6 g/dL Bilirubin, Total 0.2 mg/dL ALT (SGPT) 12 U/L AST (SGOT) 16 U/L Alkaline Phosphatase 212 IU/L WBC 21.7 10 3/uL RBC 3.10 10 6/uL HGB 9.0 g/dL HCT 29.3 % MCV 94.5 fL MCH 29.0 pg MCHC 30.7 g/dL RDW 17.7 % Platelet Count 333 10 3/cmm MPV 10.3 fL Neutrophils 20.18 10 3/uL Lymphocytes 0.8 10 3/uL Monocytes 0.3 10 3/uL Eosinophils 0.0 10 3/uL Basophils 0.2 10 3/uL Neutrophil % 93.1 % Lymphocyte % 3.8 % Monocyte % 1.5 % Eosinophil % 0.0 % Basophils % 0.8 % NRBC % 0 % Test performed on Nov 20, 2020 11:20 TSH 0.30 uIU/mL Test performed on November 06, 2020 10:10 Ferritin 892 ng/mL Iron 57 mcg/dL Iron Binding Capacity (TIBC) 313 mcg/dl % Iron Saturation 18.2 % UIBC 256 mcg/dL Test performed on Jun 19, 2020 11:16 Vitamin B12 326 pg/mL Impression: 1. Squamous cell carcinoma per transbronchial biopsy from right peritracheal mass done on August 15, 2020 CT scan of chest done on July 31, 2020 showed 6.4 x 4 x 7.6 cm right suprahilar/right upper lobe paramediastinal mass and additional spiculated right suprahilar nodule along with right fissure measuring 1.6 x 1.3 cm, spiculated right middle lobe nodule measuring 7 mm and mediastinal lymphadenopathy CT PET scan done on August 03, 2020 showed FDG positive centrally necrotic right upper lobe mass, malignant circular lesion at the right minor fissure, multiple bilateral pulmonary nodules too small to characterize, extensive bilateral malignant mediastinal lymphadenopathy, Stage IIIb versus stage Court, PD-L1 TPS more than 50% MRI scan of the head done on September 05, 2020 showed no evidence of metastatic disease Guardant 360 shows no targetable therapeutic mutations 2. Patient with grade 1 infiltrating ductal carcinoma of the right breast, stage IA (T1c, N0, M0), ER/TX positive and HER-2/christophe negative. Oncotype DX score was 15, low risk. 3 She completed radiation to the right breast on 03/06/2015 to a total dose of 6600 cGy. 4. She began adjuvant hormonal therapy with Femara 2.5 mg daily in December 2014. 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 Degenerative arthritis. 7. She has nicotine dependence (cigarettes). Chronic back pain MRI scan of lumbosacral area done on 06/23/2018 and bone scan done on 06/09/2018 showed no evidence of malignancy but chronic arthritis She does have ongoing problems with the COPD, and she currently appears to be experiencing an acute exacerbation. Polycythemia probably due to hypoxia due to severe COPD or chronic smoking, now on home oxygen Improved with smoking cessation for 1 week Iron deficiency anemia, Intolerance to oral iron Plan/Problems Addressed at this Visit: Lung cancer: Considering locally advanced disease still contained in the chest, Dr Díaz has recommended chemo immunotherapy with Keytruda every 3 weeks and carboplatin/Taxol day 1 and 8 and repeat every 21 days along with Keytruda and consider follow-up CT PET scan after 3 cycles if it shows good response e.g. resolution of bilateral pulmonary nodules then will discuss with radiation oncology regarding combined chemoradiation A. Hold planned treatment today due to URI. B. Steroid compliance confirmed. C. Labs from December 10, 2020 were reviewed in detail and discussed with Ms. Mathews and a copy was given to her. WBC 21.7. She did have Neulasta on November 26, 2020. Hemoglobin 9.0, platelets 333,000. Her ANC is 20,180. Her basophils are 0.2. D. Pain management: hydrocodone 10/21/2024 to take 1 or 2 as needed for pain. She has chronic pain from the degenerative arthritis. She is also scheduled for Neulasta on pro and I am concerned about worsening of her pre-existing bone pain. 2. Iron deficiency anemia-intolerant to oral iron replacement A. Status post Injectafer last given on August 19, 2020 that was her second dose the first 1 was on August 12, 2020. B. Her hemoglobin has improved to 11.8 from July 19 at which time was 9.6. However it is 9.0 today. This could be due to her upper respiratory infection however we will plan to recheck her repeat iron studies on her next visit. 3. Upper respiratory infection acute A. We will start her on Augmentin 875 twice daily for 7 days. A. She also have Ciprodex 4 her left ear pain. She does have some redness in the canal and slight discoloration of the TM but no active exudate. C. We will also send in Ramsey Cortez to help with the cough. D. We will refill her ibuprofen 100 mg 3 times daily as needed for pain. She states she thinks this is working better than her other pain medication right now although she does have both available when she refills ibuprofen. 4. Follow-up plan A. We will plan to see her back in 1 weeks with CBC CMP for consideration of cycle 4 day 1 treatment. B. She will have interim CBC CMP for chemotherapy monitoring. C. Mrs. Mathews was instructed to contact us in interim should questions or problems arise. Signed By: Javy Hancock-, [facility]OR[facility] ALLEGAN HOSPITALArlin Díaz MD <<Signature on File>>
[2020-12-17 10:54] LABS: Basophils % 0.2 %; Hematocrit 30.5 % (37.0-47.0); Hemoglobin 9.4 g/dL (11.5-15.3); Lymphocytes # 0.8 10^3/uL (0.8-4.8); Lymphocytes % 7.8 %; Mean Corpuscular HGB Conc 30.8 g/dL (30.0-36.0); Mean Corpuscular Hemoglobin 29.5 pg (28.0-34.0); Mean Corpuscular Volume 95.6 fL (81-99); Mean Platelet Volume 9.6 fL (7.4-10.4); Monocytes # 0.1 10^3/uL (0.2-0.9); Neutrophils # 8.81 10^3/uL (1.8-7.7); Neutrophils % 90.5 %; Nucleated Red Blood Cells % 0 %; Platelet Count 331 10^3/cmm (130-400); Red Blood Count 3.19 10^6/uL (4.1-5.3); White Blood Count 9.7 10^3/uL (4.0-10.0)
[2020-12-17 11:01] LABS: Glucose Urine UA Norm (Normal); Ketones Urine Negative (Negative); Protein Urine Neg (Negative); Specific Gravity, Urine 1.005 (1.005-1.030); Urine Appearance Clear (CLEAR); Urine Color Yellow (Yellow); pH Urine 7 (5-7)
[2020-12-17 11:02] LABS: Add Urine Microscopic? YES; Bilirubin Urine Neg (Negative); Blood Urine Trace (Negative); Leukocyte Esterase Urine Negative (Negative); Nitrate Urine Negative (Negative); RBC Urine 0-4 /hpf (0-2); Urobilinogen Urine Norm (Negative)
[2020-12-17 11:03] LABS: Add Urine Culture? No; WBC Urine 0-4 /hpf (0-5)
[2020-12-17 11:18] LABS: Alanine Aminotransferase 11 U/L (0-33); Albumin Level 3.4 g/dL (3.5-5.2); Alkaline Phosphatase 137 IU/L (35-105); Anion Gap 14.3 (5-19); Aspartate Amino Transferase 9 U/L (0-32); Blood Urea Nitrogen 9 mg/dL (8-23); Calcium 8.9 mg/dL (8.5-10.5); Carbon Dioxide 31 mmol/L (22-29); Chloride 98 mmol/L (98-107); Ferritin 885 ng/mL (15-150); Globulin 3.2 g/dL (1.3-4.6); Glomerular Filtration Rate 224.7 mL/min (90-130); Glucose 109 mg/dL (65-115); Iron 50 ug/dL (37-145); Osmolality Calculated 287 mOsm/kg (285-295); Percent Saturation 24.6 % (20-50); Potassium 4.3 mmol/L (3.5-5.1); Sodium 139 mmol/L (136-145); Total Bilirubin 0.2 mg/dL (0.15-1.2); Total Iron Binding Capacity 203 mcg/dl; Total Protein 6.6 g/dL (6.6-8.7); Unsaturated Iron Binding 153 ug/dL (112-347)
[2020-12-17] MEDS: sodium chloride 0.9% 250 ML 75 ML IV (12:31)
[2020-12-17] MEDS: famotidine 20 mg/2 mL INJ IVP (12:31)
[2020-12-17] MEDS: diphenhydrAMINE 50 mg/mL SDV 1mL 25 MG IVP (12:33)
[2020-12-17] MEDS: palonosetron 0.25 mg/5 mL SDV IVP (12:42)
[2020-12-17] MEDS: fosaprepitant 150 MG in sodium chloride 0.9% 150 ML 300 MG IV (13:05)
--- NOTE | 2020-12-23 14:15 | ONC FU_ITS ---
[facility] Patient Note Patient: Swathi Frederick Unit #: [id number]: 1955 Dictated By: Javy HancockDate of Visit: Dec 17, 2020 Onc MED Follow-Up/Prog Note Chief Complaint: Breast cancer. History of Present Illness: Ms Frederick is a 65 year-old woman with grade 1 infiltrating ductal carcinoma of the right breast, stage IA (T1c, N0, M0), ER/MA positive and HER-2/christophe negative. She had presented in October 2014 with palpable lump in her right breast. She had been on hormone replacement therapy for the preceding 20 years. Her mammogram on 11/06/2014 revealed 1.3 cm mass in the right breast at 9:00 position corresponding to a 2 cm nodule palpable on examination. An ultrasound guided biopsy on 12/07/2014 revealed grade 1/3 infiltrating ductal carcinoma with the prognostic profile showing ER positive at 100%, MA positive at 98%, and HER-2/christophe negative, 1.1 by FISH, and 1+ by IHC. The Ki-67 was 10%. She underwent lumpectomy and sentinel lymph node biopsy by Dr. Brennan on 12/24/2014. Her surgical pathology showed 1.5 cm infiltrating ductal carcinoma without lymphovascular invasion. Initial margins were positive, but after further excision the final margins were negative. One sentinel lymph was not involved. Her disease thus was pathologic stage IA (T1c, N0, M0). She was first seen by Dr. Ramirez on 12/27/2014. She had daily headaches ever since stopping her hormone replacement therapy. MRI of the brain on 01/10/2015 was negative for metastatic disease. Chiari I malformation was noted. She was referred to neurology for management of migraines. Oncotype DX score on 01/08/2015 return low at 15, corresponding to 9% risk of distant recurrence following hormonal treatment. She began on adjuvant treatment with Femara in December 2014. Femara was discontinued as she completed 5 years on November 30, 2019. She was found to beVitamin D deficient and she was also then started on replacement therapy. DEXA scan in April 2015 showed normal bone density. She completed definitive adjuvant radiation treatment with a boost on 03/06/2015. A CT of the chest on 03/21/2015 showed bilateral nonspecific upper lobe pulmonary nodules from 2-5 mm, and diffuse interstitial thickening with a pulmonary artery hypertension. Her other medical illnesses include COPD, degenerative arthritis, and depression. 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 She has a history of smoking 1 pack of cigarettes daily for 40 years, and she continues to smoke. Repeat CT of the chest on 08/26/2015 showed clearing of the pulmonary nodules. There was soft tissue density in the right breast with a seroma. By ultrasound, the seroma had decreased. She underwent an FNA of the seroma in August 2015. Cytology was benign. She continued adjuvant hormonal therapy with Femara since December 2014 . Follow-up mammogram done on January 22, 2020 showed BI-RADS 2, benign. Mrs. Mathews had follow-up with Dr. Allred on July 16, 2020 for exacerbation of COPD although she continued to smoke. She was offered low-dose CT scan for lung cancer screening ended pursue the CTs [place]. She did have a CT lung screening on July 31 2020. It reported a spiculated right suprahilar and right upper lobe paramediastinal and soft tissue mass. It measured 6.4 x 4.0 x 7.6 cm AP by transverse by craniocaudal. Findings were most compatible with neoplasm. Recommended dedicated contrast-enhanced chest CT and further evaluation with bronchoscopy. Mild narrowing of the right upper main stem bronchus. Mild narrowing of the right distal mainstem bronchus. Mediastinal lymphadenopathy. Right hilar lymphadenopathy. Mrs. Niño underwent PET CT on August 03, 2020 via [facility]. The right upper lobe paramediastinal/superior right hilar mass measured 4.2 x 7.4 cm with central necrosis and an SUV of 37.3 representing malignancy, likely primary bronchogenic carcinoma. A 1.4 spiculated mass at the minor fissure, right upper lobe has an SUV of 12.6 consistent with a satellite malignant lesion. Other subcentimeter lesions were present in other lobes bilaterally too small to characterize. These are likely malignant and should be closely followed on future imaging. Malignant mediastinal adenopathy is present, representing metastatic disease. These are present in the prevascular, left paratracheal, subaortic and bilateral hilar territory. The players club representative left hilar node has an SUV of 8.5. There were no findings to indicate osseous metastatic disease. No significant pelvic or abdominal adenopathy was present. She did have extensive malignant mediastinal adenopathy. Ms. Mathews underwent bronchoscopy with endobronchial ultrasound-guided transbronchial needle aspiration of lymph nodes and control of bleeding on August 15, [address] Allred. Fine-needle aspiration was performed on the right paratracheal mass. 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 P63 was positive DTF???1 was negative p16 negative Ki 67 = 60% global CK 5/6 strongly and diffusely positive in tumor cells. CK7 was negative CK20 was negative; CK cocktail: Strongly and diffusely positive in tumor cells. CK 8/18 strongly and diffusely positive in tumor cells. CK Victor M: Strongly diffusely positive tumor cells. Staging MRI of the brain from September 05, 2020 reported no evidence of restricted diffusion to suggest ischemia. No evidence of enhancing intracranial metastatic disease. Mild small vessel changes with mild parenchymal volume loss. Small vessel changes in the aquiles. This has progressed since 2015. Numerous new small punctate foci of hemosiderin in the right parietal and temporal lobes. Single focus in the left posterior temporal lobe consistent with chronic tiny punctate microhemorrhages mainly subcortical in location. This is nonspecific but can be seen with amyloid angiopathy. Mild symmetric atrophy involving the temporal lobes and hippocampal formations. Guardant 360 done on August 29, 2020 showed no targetable therapeutic mutations. PD-L1 expression TPS was more than 50%. Dr. Díaz's plan of care is to pursue systemic chemotherapy followed by follow-up PET CT. If the PET/CT shows resolution of bilateral pulmonary nodules then consider combined chemoradiation therapy. Considering that Ms. Tamayo has locally advanced disease still contained in the chest Dr. Díaz has recommended chemo therapy with immunotherapy consisting of pembrolizumab every 3 weeks and carboplatin Taxol day 1 and 8 repeat every 28 days. She will have follow-up PET CT after 3 cycles. If this again shows good resolution of bilateral pulmonary nodules then will discuss radiation oncology with combined chemoradiation. Incidentally Ms. Frederick was found to be iron deficient with a hemoglobin of 9.4 and was given 2 doses of Injectafer 1 on August 12, 2020 and again on August 19, 2020. Repeat follow-up PET/CT from September 28, 2020 reported the right upper lobe. Mediastinal/superior right hilar mass currently measured 4.2 x 7.4 cm with an SUV of 28.9 and extensive central necrosis. This is unchanged in size and questionably improved in uptake. The 1.46 spiculated mass at the minor fissure, right upper lobe has an SUV of 13.5 and is unchanged in the prior study from 08/03/2020. Subcentimeter pulmonary nodules are unchanged with the prior study. The left hilar index node has an SUV of 7.7, unchanged from 8.5 previously. The other mediastinal nodes in the prevascular, left paratracheal and subaortic and bilateral hilar regions are stable from the prior study. There is no indication of osseous metastatic disease. She began chemotherapy with carboplatin Taxol/Keytruda on day 1 and 8 of a 21-day cycle on October 09, 2020. Ms. Mathews is here today for follow-up. She is due for cycle 4-day 1 Keytruda/carboplatin paclitaxel. She presented last week for consideration of treatment but was found to have an upper respiratory infection including productive cough, sore throat and left-sided ear pain. She was given oral antibiotics and ear drops and her treatment delayed 1 week. She states she is feeling much better. Her ear pain resolved with than 1 to 2 days of treatment with the antibiotics and eardrops. She no longer has productive cough. She denies any fever or chills. She denies any mouth sores, sore throat or difficulty swallowing. Her energy is some better and her appetite is better. She still has marginal performance status but is able to do all her ADLs without any assistance. She denies any new pain. She is utilizing a wheeled walker for mobility assistance. She states she does not use it at home but uses it in the clinic just for additional stability. She denies any current nausea or vomiting. She states she has been able to eat her little diabetes without any problem. She denies any neuropathy symptoms. She denies any diarrhea or constipation. She has had no episodes of headaches, vision changes or acute confusion. Her ECOG is 2. Past Medical History: Anxiety Asthma Chronic obstructive pulmonary disease Depression Osteoarthritis Past Surgical History: Appendectomy Tonsillectomy Tubal ligation Left subclavian Port-A-Cath???Dr. Brennan in 2020 Prevnar 13 in 2014 Flu vaccine in 2014 Breast biopsy in 2014 Allergies: No Known Allergies. Medications: Advair Diskus 1 puff(s) (of 250-50 mcg/dose) Aerosol Powder, Breath Activated Inhalation b.i.d. Amoxicillin-Pot Clavulanate (500-125 mg) Tablet Oral b.i.d. Aspirin 1 (325 mg) Tablet Oral daily Benadryl 1 (25 mg) Capsule Oral daily PRN ClonazePAM 1 Tablet (of 0.5 mg) Oral b.i.d. Doxycycline Hyclate 1 Tablet (of 100 mg) Oral b.i.d. Ibuprofen 1 Tablet (of 800 mg) Oral t.i.d. Lisinopril 1 Tablet (of 10 mg) Oral daily methylPREDNISolone Tablet Therapy Pack Oral PARoxetine HCl 1 Tablet (of 20 mg) Oral daily ProAir HFA 1 puff(s) (of 108 (90 base) mcg/act) Aerosol, solution Inhalation q 4 hours Propranolol HCl ER 1 Capsule (of 60 mg) Capsule SR 24 HR Oral daily Venlafaxine HCl 1 Tablet (of 75 mg) Tablet Oral daily Family History: Ms. Frederick's mother is . Ms. Frederick's father is . Unknown family history. Social History: Ms. Frederick is and she is a disabled. She is a daily smoker who has smoked 0.5 packs/day for 41 years. She has no history of drinking. Ms. Frederick reports the following support systems: lives in own house and adequate transportation available for expected visits. Her diet consists of regular meals. She indicates her activity level as: daily activities. Review Of Symptoms: <See Above> Vital Signs: Performed on Dec 17, 2020 16:20 Height - 63.00 in Temperature - 97.4 F (LOW) Pulse - 86 /min Respiration - 20 /min BP - 170/88 mm(hg) (HIGH) O2 Sat - 95 % (LOW),2 - Ambulatory/capable of all self-care, unable to perform any work activities. Up and about more than 50% of waking hours. (ECOG) Physical Examination: Constitutional Alert, oriented, no acute distress. Skin pink, warm and dry. Head Normocephalic; atraumatic. Eyes Conjunctivae and sclerae are clear and without icterus. Pupils are reactive and equal. Neck Supple without masses or thyromegaly. No jugular venous distension. Hematologic/Lymphatic No petechiae or purpura. No tender or palpable lymph nodes in the cervical, supraclavicular, or axillary area. Respiratory Lungs are clear to auscultation without rhonchi or wheezing. Cardiovascular Regular rate and rhythm of heart without murmurs,clicks, gallops or rubs. Chest Chest is symmetric without chest wall deformities. Left chest wall venous access device insertion site is unremarkable. Back/Spine Non-tender to palpation. Extremities No visible deformities, no cyanosis, clubbing or edema. Musculoskeletal No tenderness or swelling, normal range of motion without obvious weakness. Integumentary No rashes or lesions. Neurologic No sensory or motor deficits, normal cerebellar function. Psychiatric Alert and oriented times three. Coherent speech. Verbalizes understanding of our discussions today. Laboratory:Test performed on Dec 17, 2020 10:29 Ua Color Yellow Ua Appearance Clear Ua Glucose Norm Ua Bilirubin Neg Ua Ketones Negative Ua Specific [place] 1.005 Ua Blood Trace Ua pH 7 Ua Protein Neg Ua Nitrites Negative Ua Leukocyte Esterase Negative Ua Micro: WBC 0-4 /hpf Ua Micro: RBC 0-4 /hpf Ua Micro: Squam Epith Cells 5-10 /hpf Ua Micro: Bacteria NONE /hpf Test performed on Dec 17, 2020 10:23 Ferritin 885 ng/mL Iron 50 mcg/dL Sodium 139 mmol/L Iron Binding Capacity (TIBC) 203 mcg/dl Potassium 4.3 mmol/L % Iron Saturation 24.6 % Chloride 98 mmol/L CO2 31 mmol/L UIBC 153 mcg/dL Anion Gap 14.3 BUN 9 mg/dL Creatinine 0.3 mg/dL Cr Clearance (Est) 246.5800 mL/min eGFR 224.7 mL/min Glucose 109 mg/dL Osmolality - Calculated 287 mOsm/kg Calcium 8.9 mg/dL Protein, Total 6.6 g/dL Albumin 3.4 g/dL Globulin 3.2 g/dL Bilirubin, Total 0.2 mg/dL ALT (SGPT) 11 U/L AST (SGOT) 9 U/L Alkaline Phosphatase 137 IU/L WBC 9.7 10 3/uL RBC 3.19 10 6/uL HGB 9.4 g/dL HCT 30.5 % MCV 95.6 fL MCH 29.5 pg MCHC 30.8 g/dL RDW 17.0 % Platelet Count 331 10 3/cmm MPV 9.6 fL Neutrophils 8.81 10 3/uL Lymphocytes 0.8 10 3/uL Monocytes 0.1 10 3/uL Eosinophils 0.0 10 3/uL Basophils 0.0 10 3/uL Neutrophil % 90.5 % Lymphocyte % 7.8 % Monocyte % 1.0 % Eosinophil % 0.0 % Basophils % 0.2 % NRBC % 0 % Test performed on Nov 20, 2020 11:20 TSH 0.30 uIU/mL Impression: 1. Squamous cell carcinoma per transbronchial biopsy from right peritracheal mass done on August 15, 2020 CT scan of chest done on July 31, 2020 showed 6.4 x 4 x 7.6 cm right suprahilar/right upper lobe paramediastinal mass and additional spiculated right suprahilar nodule along with right fissure measuring 1.6 x 1.3 cm, spiculated right middle lobe nodule measuring 7 mm and mediastinal lymphadenopathy CT PET scan done on August 03, 2020 showed FDG positive centrally necrotic right upper lobe mass, malignant circular lesion at the right minor fissure, multiple bilateral pulmonary nodules too small to characterize, extensive bilateral malignant mediastinal lymphadenopathy, Stage IIIb versus stage Court, PD-L1 TPS more than 50% MRI scan of the head done on September 05, 2020 showed no evidence of metastatic disease Guardant 360 shows no targetable therapeutic mutations 2. Patient with grade 1 infiltrating ductal carcinoma of the right breast, stage IA (T1c, N0, M0), ER/MA positive and HER-2/christophe negative. Oncotype DX score was 15, low risk. 3 She completed radiation to the right breast on 03/06/2015 to a total dose of 6600 cGy. 4. She began adjuvant hormonal therapy with Femara 2.5 mg daily in December 2014. 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 Degenerative arthritis. 7. She has nicotine dependence (cigarettes). Chronic back pain MRI scan of lumbosacral area done on 06/23/2018 and bone scan done on 06/09/2018 showed no evidence of malignancy but chronic arthritis She does have ongoing problems with the COPD, and she currently appears to be experiencing an acute exacerbation. Polycythemia probably due to hypoxia due to severe COPD or chronic smoking, now on home oxygen Improved with smoking cessation for 1 week Iron deficiency anemia, Intolerance to oral iron Plan/Problems Addressed at this Visit: Lung cancer: Considering locally advanced disease still contained in the chest, Dr Díaz has recommended chemo immunotherapy with Keytruda every 3 weeks and carboplatin/Taxol day 1 and 8 and repeat every 21 days along with Keytruda and consider follow-up CT PET scan after 3 cycles if it shows good response e.g. resolution of bilateral pulmonary nodules then will discuss with radiation oncology regarding combined chemoradiation. Her cycle 4-day 1 was delayed last week due to upper respiratory infection. That has improved dramatically and essentially resolved at this time. A. Proceed with Keytruda/carboplatin/paclitaxel cycle 4-day 1 today at previous dosing. B. Steroid compliance confirmed. C. Labs from December 17, 2020 were reviewed in detail and discussed with Coreen Yoly and a copy was given to her. WBC 9.7, hemoglobin 9.4, hematocrit 30.5, platelets 3 and 31,000, ANC is 8810. Sodium 139, potassium 4.3 renal glucose 109 creatinine 0.3 her alk phos is improved at 137. Her iron saturation was 24.6% iron level is 50 and ferritin is 885. Her last TSH was on November 20 at 0.30. She did have follow-up UA today as she has had an significant UTI in the past she is showing negative for leukocyte esterase. There is no bacteria showing. D. Pain management: hydrocodone 10/21/2024 to take 1 or 2 as needed for pain. She has chronic pain from the degenerative arthritis. She is also scheduled for Neulasta on pro and I am concerned about worsening of her pre-existing bone pain. 2. Iron deficiency anemia-intolerant to oral iron replacement A. Status post Injectafer last given on August 19, 2020 that was her second dose the first 1 was on August 12, 2020. B. Her hemoglobin had improved to 11.8 from July 19 at which time was 9.6. However it is 9.4 today. Her iron studies are normal as above. 3. Upper respiratory infection acute-currently resolved A. She was treated wtih Augmentin 875 twice daily for 7 days on December 10, 2020. A. She also had coverage with Ciprodex otic drops for her left ear pain. That has resolved at present as well. 4. Follow-up plan A. We will plan to see her back in 1 weeks with CBC CMP for consideration of cycle 4 day 8 treatment. She will be due for carboplatin and paclitaxel only. She also have Neulasta support B. She will have interim CBC CMP for chemotherapy monitoring. C. She will be due for follow-up imaging after completion of this cycle as her last PET/CT imaging was September 2020. D. Ms. Frederick was instructed to contact us in interim should questions or problems arise. Signed By: Javy Hancock-, AOCNP Kaya Díaz MD <<Signature on File>>
== END 2020-12-18 23:59 | disposition home or self-care (01) ==
LOC: ONCMED 05:44
PROVIDERS: Internal Medicine Hematology & Oncology; PCP Family Medicine; Visit Provider Nurse Practitioner
DX: Z51.11 Encounter for antineoplastic chemotherapy (principal); Z51.12 Encounter for antineoplastic immunotherapy; C50.811 Malignant neoplasm of overlapping sites of right female breast; Z17.0 Estrogen receptor positive status [ER+]; C78.01 Secondary malignant neoplasm of right lung; C78.02 Secondary malignant neoplasm of left lung; C77.8 Secondary and unspecified malignant neoplasm of lymph nodes of multiple regions; F41.9 Anxiety disorder, unspecified; J45.909 Unspecified asthma, uncomplicated; J44.9 Chronic obstructive pulmonary disease, unspecified; F32.9 Major depressive disorder, single episode, unspecified; D50.9 Iron deficiency anemia, unspecified; F17.210 Nicotine dependence, cigarettes, uncomplicated; Z79.811 Long term (current) use of aromatase inhibitors; Z92.3 Personal history of irradiation; Z79.899 Other long term (current) drug therapy; Z99.81 Dependence on supplemental oxygen
CPT/HCPCS: 36415; 36591; 71046; 80053; 81001; 82728; 83540; 83550; 84443; 85025; 96367; 96368; 96372; 96375; 96377; 96413; 96417; 99214; 99215; J1100; J1200; J1453; J2469; J2505; J3490; J7030; J7040; J7050; J9045; J9267; J9271

== ENCOUNTER 2021-01-14 05:36 | Outpatient (RCR) | payer MEDICARE, MEDICAID, SELFPAY ==
[2020-12-24 08:02] LABS: Hemoglobin 10.1 g/dL (11.5-15.3); Lymphocytes # 0.6 10^3/uL (0.8-4.8); Lymphocytes % 17.3 %; Mean Corpuscular HGB Conc 30.6 g/dL (30.0-36.0); Mean Corpuscular Hemoglobin 29.6 pg (28.0-34.0); Mean Corpuscular Volume 96.8 fL (81-99); Mean Platelet Volume 9.8 fL (7.4-10.4); Monocytes % 0.6 %; Neutrophils % 81.8 %; Nucleated Red Blood Cells % 0 %; Platelet Count 414 10^3/cmm (130-400); Red Blood Count 3.41 10^6/uL (4.1-5.3); Red Cell Distribution Width 17.1 % (12.1-15.1); White Blood Count 3.2 10^3/uL (4.0-10.0)
[2020-12-24 08:20] LABS: Alanine Aminotransferase 17 U/L (0-33); Albumin Level 3.9 g/dL (3.5-5.2); Alkaline Phosphatase 135 IU/L (35-105); Anion Gap 17.5 (5-19); Aspartate Amino Transferase 16 U/L (0-32); Blood Urea Nitrogen 10 mg/dL (8-23); Calcium 9.5 mg/dL (8.5-10.5); Carbon Dioxide 28 mmol/L (22-29); Chloride 97 mmol/L (98-107); Globulin 3.1 g/dL (1.3-4.6); Glomerular Filtration Rate 161.2 mL/min (90-130); Glucose 202 mg/dL (65-115); Osmolality Calculated 291 mOsm/kg (285-295); Potassium 4.5 mmol/L (3.5-5.1); Sodium 138 mmol/L (136-145); Total Bilirubin 0.2 mg/dL (0.15-1.2)
[2020-12-24 09:40] LABS: Slide Review Slide Review Perform
[2020-12-24] MEDS: famotidine 20 mg/2 mL INJ IVP (10:28)
[2020-12-24] MEDS: sodium chloride 0.9% 250 ML 75 ML IV (10:28)
[2020-12-24] MEDS: diphenhydrAMINE 50 mg/mL SDV 1mL 25 MG IVP (10:30)
[2020-12-24] MEDS: palonosetron 0.25 mg/5 mL SDV IVP (10:35)
[2020-12-24] MEDS: fosaprepitant 150 MG in sodium chloride 0.9% 150 ML 300 MG IV (10:51)
[2020-12-24] MEDS: pegfilgrastim 6 mg/0.6 mL Kit (onpro) SUBCUT (13:35)
--- NOTE | 2021-01-06 09:04 | ONC FU_ITS ---
Dr. Díaz follow up note Patient: Swathi Frederick Unit #: [id number]: 1955 Dicatated By: Kaya Díaz M.D.Date of Visit:Dec 24, 2020 Onc Med Follow-up/Prog Note History of Present Illness: Ms Frederick is a 65 year-old woman with grade 1 infiltrating ductal carcinoma of the right breast, stage IA (T1c, N0, M0), ER/CT positive and HER-2/christophe negative. She had presented in October 2014 with palpable lump in her right breast. She had been on hormone replacement therapy for the preceding 20 years. Her mammogram on 11/06/2014 revealed 1.3 cm mass in the right breast at 9:00 position corresponding to a 2 cm nodule palpable on examination. An ultrasound guided biopsy on 12/07/2014 revealed grade 1/3 infiltrating ductal carcinoma with the prognostic profile showing ER positive at 100%, CT positive at 98%, and HER-2/christophe negative, 1.1 by FISH, and 1+ by IHC. The Ki-67 was 10%. She underwent lumpectomy and sentinel lymph node biopsy by Dr. Brennan on 12/24/2014. Her surgical pathology showed 1.5 cm infiltrating ductal carcinoma without lymphovascular invasion. Initial margins were positive, but after further excision the final margins were negative. One sentinel lymph was not involved. Her disease thus was pathologic stage IA (T1c, N0, M0). She was first seen by Dr. Ramirez on 12/27/2014. She had daily headaches ever since stopping her hormone replacement therapy. MRI of the brain on 01/10/2015 was negative for metastatic disease. Chiari I malformation was noted. She was referred to neurology for management of migraines. Oncotype DX score on 01/08/2015 return low at 15, corresponding to 9% risk of distant recurrence following hormonal treatment. She began on adjuvant treatment with Femara in December 2014. Femara was discontinued as she completed 5 years on November 30, 2019. She was found to beVitamin D deficient and she was also then started on replacement therapy. DEXA scan in April 2015 showed normal bone density. She completed definitive adjuvant radiation treatment with a boost on 03/06/2015. A CT of the chest on 03/21/2015 showed bilateral nonspecific upper lobe pulmonary nodules from 2-5 mm, and diffuse interstitial thickening with a pulmonary artery hypertension. Her other medical illnesses include COPD, degenerative arthritis, and depression. 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 She has a history of smoking 1 pack of cigarettes daily for 40 years, and she continues to smoke. Repeat CT of the chest on 08/26/2015 showed clearing of the pulmonary nodules. There was soft tissue density in the right breast with a seroma. By ultrasound, the seroma had decreased. She underwent an FNA of the seroma in August 2015. Cytology was benign. She continued adjuvant hormonal therapy with Femara since December 2014 . Follow-up mammogram done on January 22, 2020 showed BI-RADS 2, benign. Mrs. Mathews had follow-up with Dr. Allred on July 16, 2020 for exacerbation of COPD although she continued to smoke. She was offered low-dose CT scan for lung cancer screening ended pursue the CTs [place]. She did have a CT lung screening on July 31 2020. It reported a spiculated right suprahilar and right upper lobe paramediastinal and soft tissue mass. It measured 6.4 x 4.0 x 7.6 cm AP by transverse by craniocaudal. Findings were most compatible with neoplasm. Recommended dedicated contrast-enhanced chest CT and further evaluation with bronchoscopy. Mild narrowing of the right upper main stem bronchus. Mild narrowing of the right distal mainstem bronchus. Mediastinal lymphadenopathy. Right hilar lymphadenopathy. Mrs. Niño underwent PET CT on August 03, 2020 via [facility] radiology. The right upper lobe paramediastinal/superior right hilar mass measured 4.2 x 7.4 cm with central necrosis and an SUV of 37.3 representing malignancy, likely primary bronchogenic carcinoma. A 1.4 spiculated mass at the minor fissure, right upper lobe has an SUV of 12.6 consistent with a satellite malignant lesion. Other subcentimeter lesions were present in other lobes bilaterally too small to characterize. These are likely malignant and should be closely followed on future imaging. Malignant mediastinal adenopathy is present, representing metastatic disease. These are present in the prevascular, left paratracheal, subaortic and bilateral hilar territory. The account manager sales representative left hilar node has an SUV of 8.5. There were no findings to indicate osseous metastatic disease. No significant pelvic or abdominal adenopathy was present. She did have extensive malignant mediastinal adenopathy. Ms. Mathews underwent bronchoscopy with endobronchial ultrasound-guided transbronchial needle aspiration of lymph nodes and control of bleeding on August 15, [address] Allred. Fine-needle aspiration was performed on the right paratracheal mass. 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 P63 was positive DTF???1 was negative p16 negative Ki 67 = 60% global CK 5/6 strongly and diffusely positive in tumor cells. CK7 was negative CK20 was negative; CK cocktail: Strongly and diffusely positive in tumor cells. CK 8/18 strongly and diffusely positive in tumor cells. CK Victor M: Strongly diffusely positive tumor cells. Staging MRI of the brain from September 05, 2020 reported no evidence of restricted diffusion to suggest ischemia. No evidence of enhancing intracranial metastatic disease. Mild small vessel changes with mild parenchymal volume loss. Small vessel changes in the aquiles. This has progressed since 2015. Numerous new small punctate foci of hemosiderin in the right parietal and temporal lobes. Single focus in the left posterior temporal lobe consistent with chronic tiny punctate microhemorrhages mainly subcortical in location. This is nonspecific but can be seen with amyloid angiopathy. Mild symmetric atrophy involving the temporal lobes and hippocampal formations. Guardant 360 done on August 29, 2020 showed no targetable therapeutic mutations. PD-L1 expression TPS was more than 50%. Dr. Díaz's plan of care is to pursue systemic chemotherapy followed by follow-up PET CT. If the PET/CT shows resolution of bilateral pulmonary nodules then consider combined chemoradiation therapy. Considering that Ms. Tamayo has locally advanced disease still contained in the chest Dr. Díaz has recommended chemo therapy with immunotherapy consisting of pembrolizumab every 3 weeks and carboplatin Taxol day 1 and 8 repeat every 28 days. She will have follow-up PET CT after 3 cycles. If this again shows good resolution of bilateral pulmonary nodules then will discuss radiation oncology with combined chemoradiation. Incidentally Ms. Frederick was found to be iron deficient with a hemoglobin of 9.4 and was given 2 doses of Injectafer 1 on August 12, 2020 and again on August 19, 2020. Repeat follow-up PET/CT from September 28, 2020 reported the right upper lobe. Mediastinal/superior right hilar mass currently measured 4.2 x 7.4 cm with an SUV of 28.9 and extensive central necrosis. This is unchanged in size and questionably improved in uptake. The 1.46 spiculated mass at the minor fissure, right upper lobe has an SUV of 13.5 and is unchanged in the prior study from 08/03/2020. Subcentimeter pulmonary nodules are unchanged with the prior study. The left hilar index node has an SUV of 7.7, unchanged from 8.5 previously. The other mediastinal nodes in the prevascular, left paratracheal and subaortic and bilateral hilar regions are stable from the prior study. There is no indication of osseous metastatic disease. She began chemotherapy with carboplatin Taxol/Keytruda on day 1 and 8 of a 21-day cycle on October 09, 2020. Came for follow-up, denies any specific complaint except mild lower extremity edema usually respond to Lasix, still smoking about pack a day requesting nicotine patch otherwise no fever chills, no nausea or vomiting, no diarrhea or constipation, no headaches blurry or double vision, no peripheral numbness, tolerating systemic therapy with Keytruda/carboplatin/Taxol well otherwise Medications: Advair Diskus 1 puff(s) (of 250-50 mcg/dose) Aerosol Powder, Breath Activated Inhalation b.i.d., Amoxicillin-Pot Clavulanate (500-125 mg) Tablet Oral b.i.d., Aspirin 1 (325 mg) Tablet Oral daily, Benadryl 1 (25 mg) Capsule Oral daily PRN, ClonazePAM 1 Tablet (of 0.5 mg) Oral b.i.d., Doxycycline Hyclate 1 Tablet (of 100 mg) Oral b.i.d., Ibuprofen 1 Tablet (of 800 mg) Oral t.i.d., Lisinopril 1 Tablet (of 10 mg) Oral daily, methylPREDNISolone Tablet Therapy Pack Oral, PARoxetine HCl 1 Tablet (of 20 mg) Oral daily, ProAir HFA 1 puff(s) (of 108 (90 base) mcg/act) Aerosol, solution Inhalation q 4 hours, Propranolol HCl ER 1 Capsule (of 60 mg) Capsule SR 24 HR Oral daily, Venlafaxine HCl 1 Tablet (of 75 mg) Tablet Oral daily Allergies: No Known Allergies. Review of Systems: Review of Systems is not available for this patient. Vital Signs: Performed on Dec 24, 2020 13:30 Height - 63.00 in Temperature - 98.0 F (LOW) Pulse - 87 /min Respiration - 20 /min BP - 147/76 mm(hg) (HIGH) O2 Sat - 93 % (LOW) Performed on Dec 24, 2020 12:04 Height - 63.00 in Weight - 183.2 lbs (HIGH) BSA - 1.86 sq.m BMI - 32.45 (HIGH) Temperature - 96.6 F (LOW) Pulse - 91 /min Respiration - 20 /min BP - 171/75 mm(hg) (HIGH) O2 Sat - 94 % (LOW) Pain - 4 Performance Status: 1 - No physically strenuous activity, but ambulatory and able to carry out light or sedentary work (e.g. office work, light house work). (ECOG) Physical Examination: Respiratory - Poor air entry, mild wheezing, Cardiovascular - Regular rate and rhythm of heart, Gastrointestinal - Soft, bowel sounds present, Extremities - 1+ pitting edema bilaterally. Lab/Imaging: Test performed on Dec 24, 2020 07:40 Creatinine 0.4 mg/dL Cr Clearance (Est) 184.93 mL/min Test performed on Dec 17, 2020 10:29 Ua Color Yellow Ua Appearance Clear Ua Glucose Norm Ua Bilirubin Neg Ua Ketones Negative Ua Specific [place] 1.005 Ua Blood Trace Ua pH 7 Ua Protein Neg Ua Nitrites Negative Ua Leukocyte Esterase Negative Ua Micro: WBC 0-4 /hpf Ua Micro: RBC 0-4 /hpf Ua Micro: Squam Epith Cells 5-10 /hpf Ua Micro: Bacteria NONE /hpf Test performed on Dec 17, 2020 10:23 Ferritin 885 ng/mL Iron 50 mcg/dL Sodium 139 mmol/L Iron Binding Capacity (TIBC) 203 mcg/dl Potassium 4.3 mmol/L % Iron Saturation 24.6 % Chloride 98 mmol/L CO2 31 mmol/L UIBC 153 mcg/dL Anion Gap 14.3 BUN 9 mg/dL eGFR 224.7 mL/min Glucose 109 mg/dL Osmolality - Calculated 287 mOsm/kg Calcium 8.9 mg/dL Protein, Total 6.6 g/dL Albumin 3.4 g/dL Globulin 3.2 g/dL Bilirubin, Total 0.2 mg/dL ALT (SGPT) 11 U/L AST (SGOT) 9 U/L Alkaline Phosphatase 137 IU/L WBC 9.7 10 3/uL RBC 3.19 10 6/uL HGB 9.4 g/dL HCT 30.5 % MCV 95.6 fL MCH 29.5 pg MCHC 30.8 g/dL RDW 17.0 % Platelet Count 331 10 3/cmm MPV 9.6 fL Neutrophils 8.81 10 3/uL Lymphocytes 0.8 10 3/uL Monocytes 0.1 10 3/uL Eosinophils 0.0 10 3/uL Basophils 0.0 10 3/uL Neutrophil % 90.5 % Lymphocyte % 7.8 % Monocyte % 1.0 % Eosinophil % 0.0 % Basophils % 0.2 % NRBC % 0 % Test performed on Nov 20, 2020 11:20 TSH 0.30 uIU/mL Impression: 1. Squamous cell carcinoma per transbronchial biopsy from right peritracheal mass done on August 15, 2020 CT scan of chest done on July 31, 2020 showed 6.4 x 4 x 7.6 cm right suprahilar/right upper lobe paramediastinal mass and additional spiculated right suprahilar nodule along with right fissure measuring 1.6 x 1.3 cm, spiculated right middle lobe nodule measuring 7 mm and mediastinal lymphadenopathy CT PET scan done on August 03, 2020 showed FDG positive centrally necrotic right upper lobe mass, malignant circular lesion at the right minor fissure, multiple bilateral pulmonary nodules too small to characterize, extensive bilateral malignant mediastinal lymphadenopathy, Stage IIIb versus stage Court, PD-L1 TPS more than 50% MRI scan of the head done on September 05, 2020 showed no evidence of metastatic disease Guardant 360 shows no targetable therapeutic mutations 2. Patient with grade 1 infiltrating ductal carcinoma of the right breast, stage IA (T1c, N0, M0), ER/CT positive and HER-2/christophe negative. Oncotype DX score was 15, low risk. 3 She completed radiation to the right breast on 03/06/2015 to a total dose of 6600 cGy. 4. She began adjuvant hormonal therapy with Femara 2.5 mg daily in December 2014. 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 Degenerative arthritis. 7. She has nicotine dependence (cigarettes). Chronic back pain MRI scan of lumbosacral area done on 06/23/2018 and bone scan done on 06/09/2018 showed no evidence of malignancy but chronic arthritis She does have ongoing problems with the COPD, and she currently appears to be experiencing an acute exacerbation. Polycythemia probably due to hypoxia due to severe COPD or chronic smoking, now on home oxygen Improved with smoking cessation for 1 week Iron deficiency anemia, Intolerance to oral iron Plan: Discussed with patient regarding her labs white blood count 3.2 hemoglobin 10.1 hematocrit 33 platelets 444,000 ANC 2600 CMP within normal limit except glucose 202 Clinically, patient doing reasonably well tolerating palliative therapy with Keytruda/carboplatin/Taxol well, will proceed with cycle #4 day 8 with weekly carboplatin/Taxol today and then she will return to clinic in 2 weeks with CBC CMP and with follow-up CT PET scan to assess disease status. As far as mild lower extremity edema is concerned, we will give her prescription for Lasix 20 mg p.o. daily for 3 days then as needed Patient was also advised to quit smoking and was offered any assistance she may need, Patient was also advised to monitor her blood sugar and her diet and follow PMDs instruction regarding diabetes management Signed By: Kaya Díaz M.D. <<Signature on File>>
[2021-01-07 08:27] LABS: Basophils # 0.1 10^3/uL (0.0-0.1); Basophils % 0.8 %; Hematocrit 33.8 % (37.0-47.0); Hemoglobin 10.3 g/dL (11.5-15.3); Lymphocytes # 0.7 10^3/uL (0.8-4.8); Lymphocytes % 4.2 %; Mean Corpuscular HGB Conc 30.5 g/dL (30.0-36.0); Mean Corpuscular Hemoglobin 30.3 pg (28.0-34.0); Mean Corpuscular Volume 99.4 fL (81-99); Mean Platelet Volume 9.6 fL (7.4-10.4); Monocytes # 0.1 10^3/uL (0.2-0.9); Monocytes % 0.8 %; Neutrophils # 16.15 10^3/uL (1.8-7.7); Neutrophils % 93.1 %; Nucleated Red Blood Cells % 0 %; Platelet Count 311 10^3/cmm (130-400); White Blood Count 17.4 10^3/uL (4.0-10.0)
[2021-01-07 08:47] LABS: Alanine Aminotransferase 11 U/L (0-33); Albumin Level 3.6 g/dL (3.5-5.2); Alkaline Phosphatase 201 IU/L (35-105); Anion Gap 15.5 (5-19); Aspartate Amino Transferase 12 U/L (0-32); Blood Urea Nitrogen 15 mg/dL (8-23); Calcium 9.1 mg/dL (8.5-10.5); Carbon Dioxide 29 mmol/L (22-29); Chloride 97 mmol/L (98-107); Globulin 3.6 g/dL (1.3-4.6); Glomerular Filtration Rate 161.2 mL/min (90-130); Glucose 171 mg/dL (65-115); Osmolality Calculated 289 mOsm/kg (285-295); Potassium 4.5 mmol/L (3.5-5.1); Sodium 137 mmol/L (136-145); Total Bilirubin 0.2 mg/dL (0.15-1.2); Total Protein 7.2 g/dL (6.6-8.7)
[2021-01-07] MEDS: sodium chloride 0.9% 250 ML 125 ML IV (10:00)
[2021-01-07] MEDS: sodium chloride 0.9% (100 ml) 100 ML 75 ML (10:00)
[2021-01-07] MEDS: famotidine 20 mg/2 mL INJ IVP (10:06)
[2021-01-07] MEDS: diphenhydrAMINE 50 mg/mL SDV 1mL 25 MG IVP (10:07)
[2021-01-07] MEDS: fosaprepitant 150 MG in sodium chloride 0.9% 150 ML 300 MG IV (10:23)
[2021-01-07] MEDS: palonosetron 0.25 mg/5 mL SDV IVP (11:05)
--- NOTE | 2021-01-07 12:54 | ONC FU_ITS ---
Dr. Díaz follow up note Patient: Swathi Frederick Unit #: [id number]: [id number] Dicatated By: Kaya Díaz M.D.Date of Visit:Jan 07, 2021 Onc Med Follow-up/Prog Note History of Present Illness: Ms Frederick is a 65 year-old woman with grade 1 infiltrating ductal carcinoma of the right breast, stage IA (T1c, N0, M0), ER/GA positive and HER-2/christophe negative. She had presented in October 2014 with palpable lump in her right breast. She had been on hormone replacement therapy for the preceding 20 years. Her mammogram on 11/06/2014 revealed 1.3 cm mass in the right breast at 9:00 position corresponding to a 2 cm nodule palpable on examination. An ultrasound guided biopsy on 12/07/2014 revealed grade 1/3 infiltrating ductal carcinoma with the prognostic profile showing ER positive at 100%, GA positive at 98%, and HER-2/christophe negative, 1.1 by FISH, and 1+ by IHC. The Ki-67 was 10%. She underwent lumpectomy and sentinel lymph node biopsy by Dr. Brennan on 12/24/2014. Her surgical pathology showed 1.5 cm infiltrating ductal carcinoma without lymphovascular invasion. Initial margins were positive, but after further excision the final margins were negative. One sentinel lymph was not involved. Her disease thus was pathologic stage IA (T1c, N0, M0). She was first seen by Dr. Ramirez on 12/27/2014. She had daily headaches ever since stopping her hormone replacement therapy. MRI of the brain on 01/10/2015 was negative for metastatic disease. Chiari I malformation was noted. She was referred to neurology for management of migraines. Oncotype DX score on 01/08/2015 return low at 15, corresponding to 9% risk of distant recurrence following hormonal treatment. She began on adjuvant treatment with Femara in December 2014. Femara was discontinued as she completed 5 years on November 30, 2019. She was found to beVitamin D deficient and she was also then started on replacement therapy. DEXA scan in April 2015 showed normal bone density. She completed definitive adjuvant radiation treatment with a boost on 03/06/2015. A CT of the chest on 03/21/2015 showed bilateral nonspecific upper lobe pulmonary nodules from 2-5 mm, and diffuse interstitial thickening with a pulmonary artery hypertension. Her other medical illnesses include COPD, degenerative arthritis, and depression. 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 She has a history of smoking 1 pack of cigarettes daily for 40 years, and she continues to smoke. Repeat CT of the chest on 08/26/2015 showed clearing of the pulmonary nodules. There was soft tissue density in the right breast with a seroma. By ultrasound, the seroma had decreased. She underwent an FNA of the seroma in August 2015. Cytology was benign. She continued adjuvant hormonal therapy with Femara since December 2014 . Follow-up mammogram done on January 22, 2020 showed BI-RADS 2, benign. Mrs. Mathews had follow-up with Dr. Allred on July 16, 2020 for exacerbation of COPD although she continued to smoke. She was offered low-dose CT scan for lung cancer screening ended pursue the CTs [place]. She did have a CT lung screening on July 31 2020. It reported a spiculated right suprahilar and right upper lobe paramediastinal and soft tissue mass. It measured 6.4 x 4.0 x 7.6 cm AP by transverse by craniocaudal. Findings were most compatible with neoplasm. Recommended dedicated contrast-enhanced chest CT and further evaluation with bronchoscopy. Mild narrowing of the right upper main stem bronchus. Mild narrowing of the right distal mainstem bronchus. Mediastinal lymphadenopathy. Right hilar lymphadenopathy. Mrs. Niño underwent PET CT on August 03, [address] [facility] radiology. The right upper lobe paramediastinal/superior right hilar mass measured 4.2 x 7.4 cm with central necrosis and an SUV of 37.3 representing malignancy, likely primary bronchogenic carcinoma. A 1.4 spiculated mass at the minor fissure, right upper lobe has an SUV of 12.6 consistent with a satellite malignant lesion. Other subcentimeter lesions were present in other lobes bilaterally too small to characterize. These are likely malignant and should be closely followed on future imaging. Malignant mediastinal adenopathy is present, representing metastatic disease. These are present in the prevascular, left paratracheal, subaortic and bilateral hilar territory. The sales representative business courses left hilar node has an SUV of 8.5. There were no findings to indicate osseous metastatic disease. No significant pelvic or abdominal adenopathy was present. She did have extensive malignant mediastinal adenopathy. Ms. Mathews underwent bronchoscopy with endobronchial ultrasound-guided transbronchial needle aspiration of lymph nodes and control of bleeding on August 15, [address] Allred. Fine-needle aspiration was performed on the right paratracheal mass. 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 P63 was positive DTF???1 was negative p16 negative Ki 67 = 60% global CK 5/6 strongly and diffusely positive in tumor cells. CK7 was negative CK20 was negative; CK cocktail: Strongly and diffusely positive in tumor cells. CK 8/18 strongly and diffusely positive in tumor cells. CK Victor M: Strongly diffusely positive tumor cells. Staging MRI of the brain from September 05, 2020 reported no evidence of restricted diffusion to suggest ischemia. No evidence of enhancing intracranial metastatic disease. Mild small vessel changes with mild parenchymal volume loss. Small vessel changes in the aquiles. This has progressed since 2015. Numerous new small punctate foci of hemosiderin in the right parietal and temporal lobes. Single focus in the left posterior temporal lobe consistent with chronic tiny punctate microhemorrhages mainly subcortical in location. This is nonspecific but can be seen with amyloid angiopathy. Mild symmetric atrophy involving the temporal lobes and hippocampal formations. Guardant 360 done on August 29, 2020 showed no targetable therapeutic mutations. PD-L1 expression TPS was more than 50%. Dr. Díaz's plan of care is to pursue systemic chemotherapy followed by follow-up PET CT. If the PET/CT shows resolution of bilateral pulmonary nodules then consider combined chemoradiation therapy. Considering that Ms. Tamayo has locally advanced disease still contained in the chest Dr. Díaz has recommended chemo therapy with immunotherapy consisting of pembrolizumab every 3 weeks and carboplatin Taxol day 1 and 8 repeat every 28 days. She will have follow-up PET CT after 3 cycles. If this again shows good resolution of bilateral pulmonary nodules then will discuss radiation oncology with combined chemoradiation. Incidentally Ms. Frederick was found to be iron deficient with a hemoglobin of 9.4 and was given 2 doses of Injectafer 1 on August 12, 2020 and again on August 19, 2020. Repeat follow-up PET/CT from September 28, 2020 reported the right upper lobe. Mediastinal/superior right hilar mass currently measured 4.2 x 7.4 cm with an SUV of 28.9 and extensive central necrosis. This is unchanged in size and questionably improved in uptake. The 1.46 spiculated mass at the minor fissure, right upper lobe has an SUV of 13.5 and is unchanged in the prior study from 08/03/2020. Subcentimeter pulmonary nodules are unchanged with the prior study. The left hilar index node has an SUV of 7.7, unchanged from 8.5 previously. The other mediastinal nodes in the prevascular, left paratracheal and subaortic and bilateral hilar regions are stable from the prior study. There is no indication of osseous metastatic disease. She began chemotherapy with carboplatin Taxol/Keytruda on day 1 and 8 of a 21-day cycle on October 09, 2020. Follow-up CT PET scan After 4 cycles of Keytruda/carbo/Taxol done on December 28, 2020 showed excellent response, right upper lobe paramediastinal mass now measures 5 x 3.2 cm demonstrate significant central cavitation with only thin solid silva and only 2 sites of viable malignancy are present in anterior and posterior silva with SUV of 6.97.3 respectively. Right upper lobe spiculated mass now measures 1.3 x 2 cm with SUV of 8.6, improvement from prior study. Subcentimeter nodules seen previously are unchanged on current study. Left hilar lymph node with SUV 5.2, down from 7.7 previously. The other describe mediastinal lymph nodes are similarly improved or entirely resolved on current study Came for follow-up, denies any specific complaint except generalized weakness and fatigue, still smoking 1 pack a day and using about 5 L oxygen, no fever chills, no nausea or vomiting, no diarrhea or constipation no hemoptysis or hematemesis no abdominal pain, no peripheral numbness, tolerating systemic therapy with Keytruda/carboplatin/Taxol well Medications: Advair Diskus 1 puff(s) (of 250-50 mcg/dose) Aerosol Powder, Breath Activated Inhalation b.i.d., Amoxicillin-Pot Clavulanate (500-125 mg) Tablet Oral b.i.d., Aspirin 1 (325 mg) Tablet Oral daily, Benadryl 1 (25 mg) Capsule Oral daily PRN, ClonazePAM 1 Tablet (of 0.5 mg) Oral b.i.d., Doxycycline Hyclate 1 Tablet (of 100 mg) Oral b.i.d., Ibuprofen 1 Tablet (of 800 mg) Oral t.i.d., Lisinopril 1 Tablet (of 10 mg) Oral daily, methylPREDNISolone Tablet Therapy Pack Oral, PARoxetine HCl 1 Tablet (of 20 mg) Oral daily, ProAir HFA 1 puff(s) (of 108 (90 base) mcg/act) Aerosol, solution Inhalation q 4 hours, Propranolol HCl ER 1 Capsule (of 60 mg) Capsule SR 24 HR Oral daily, Venlafaxine HCl 1 Tablet (of 75 mg) Tablet Oral daily Allergies: No Known Allergies. Review of Systems: Review of Systems is not available for this patient. Vital Signs: Performed on Jan 07, 2021 09:45 Height - 63.00 in Weight - 182.8 lbs (LOW) BSA - 1.86 sq.m BMI - 32.38 (HIGH) Temperature - 97.6 F (LOW) Pulse - 97 /min Respiration - 18 /min BP - 136/74 mm(hg) O2 Sat - 92 % (LOW) Pain - 8 Fatigue - 10 Performance Status: 1 - No physically strenuous activity, but ambulatory and able to carry out light or sedentary work (e.g. office work, light house work). (ECOG) Physical Examination: Respiratory - Poor air entry, mild wheezing, Cardiovascular - Regular rate and rhythm of heart , Gastrointestinal - Soft, bowel sounds present, Extremities - Trace edema bilaterally. Lab/Imaging: Test performed on Jan 07, 2021 08:15 Sodium 137 mmol/L Potassium 4.5 mmol/L Chloride 97 mmol/L CO2 29 mmol/L Anion Gap 15.5 BUN 15 mg/dL Creatinine 0.4 mg/dL Cr Clearance (Est) 184.9300 mL/min eGFR 161.2 mL/min Glucose 171 mg/dL Osmolality - Calculated 289 mOsm/kg Calcium 9.1 mg/dL Protein, Total 7.2 g/dL Albumin 3.6 g/dL Globulin 3.6 g/dL Bilirubin, Total 0.2 mg/dL ALT (SGPT) 11 U/L AST (SGOT) 12 U/L Alkaline Phosphatase 201 IU/L WBC 17.4 10 3/uL RBC 3.40 10 6/uL HGB 10.3 g/dL HCT 33.8 % MCV 99.4 fL MCH 30.3 pg MCHC 30.5 g/dL RDW 18.0 % Platelet Count 311 10 3/cmm MPV 9.6 fL Neutrophils 16.15 10 3/uL Lymphocytes 0.7 10 3/uL Monocytes 0.1 10 3/uL Eosinophils 0.0 10 3/uL Basophils 0.1 10 3/uL Neutrophil % 93.1 % Lymphocyte % 4.2 % Monocyte % 0.8 % Eosinophil % 0.0 % Basophils % 0.8 % NRBC % 0 % Test performed on Dec 17, 2020 10:29 Ua Color Yellow Ua Appearance Clear Ua Glucose Norm Ua Bilirubin Neg Ua Ketones Negative Ua Specific [place] 1.005 Ua Blood Trace Ua pH 7 Ua Protein Neg Ua Nitrites Negative Ua Leukocyte Esterase Negative Ua Micro: WBC 0-4 /hpf Ua Micro: RBC 0-4 /hpf Ua Micro: Squam Epith Cells 5-10 /hpf Ua Micro: Bacteria NONE /hpf Test performed on Dec 17, 2020 10:23 Ferritin 885 ng/mL Iron 50 mcg/dL Iron Binding Capacity (TIBC) 203 mcg/dl % Iron Saturation 24.6 % UIBC 153 mcg/dL Test performed on Nov 20, 2020 11:20 TSH 0.30 uIU/mL Impression: 1. Squamous cell carcinoma per transbronchial biopsy from right peritracheal mass done on August 15, 2020 CT scan of chest done on July 31, 2020 showed 6.4 x 4 x 7.6 cm right suprahilar/right upper lobe paramediastinal mass and additional spiculated right suprahilar nodule along with right fissure measuring 1.6 x 1.3 cm, spiculated right middle lobe nodule measuring 7 mm and mediastinal lymphadenopathy CT PET scan done on August 03, 2020 showed FDG positive centrally necrotic right upper lobe mass, malignant circular lesion at the right minor fissure, multiple bilateral pulmonary nodules too small to characterize, extensive bilateral malignant mediastinal lymphadenopathy, Stage IIIb versus stage Court, PD-L1 TPS more than 50% MRI scan of the head done on September 05, 2020 showed no evidence of metastatic disease Guardant 360 shows no targetable therapeutic mutations Started on chemoimmunotherapy with Keytruda/carboplatin/Taxol on October 16, 2020, follow-up CT PET scan done on December 28, 2020 showed marked improvement in the right upper lobe mediastinal mass, lesion is now markedly cavitary with only 2 small lesions of viable malignancy remaining. Improvement in the right upper lobe satellite nodule. No change in subcentimeter pulmonary nodules. Improvement or resolution of mediastinal lymphadenopathy. 2. Patient with grade 1 infiltrating ductal carcinoma of the right breast, stage IA (T1c, N0, M0), ER/GA positive and HER-2/christophe negative. Oncotype DX score was 15, low risk. 3 She completed radiation to the right breast on 03/06/2015 to a total dose of 6600 cGy. 4. She began adjuvant hormonal therapy with Femara 2.5 mg daily in December 2014. 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 Degenerative arthritis. 7. She has nicotine dependence (cigarettes). Chronic back pain MRI scan of lumbosacral area done on 06/23/2018 and bone scan done on 06/09/2018 showed no evidence of malignancy but chronic arthritis She does have ongoing problems with the COPD, and she currently appears to be experiencing an acute exacerbation. Polycythemia probably due to hypoxia due to severe COPD or chronic smoking, now on home oxygen Improved with smoking cessation for 1 week Iron deficiency anemia, Intolerance to oral iron Plan: Discussed with patient regarding her labs white blood count 17.4 hemoglobin 10.3 hematocrit 33.8 platelets 311,000 CMP within normal limits except alk phos [address] PET scan finding which shows excellent response Clinically, patient is doing well, with no new signs symptoms stressed to disease progression her follow-up CT PET scan after 4 cycles of Keytruda/carboplatin/Taxol showed excellent response, discussed with patient, at this point, will consider 2 more cycles of same regimen as consolidation e.g. carboplatin/Taxol/Keytruda and then followed by CT PET scan if it shows further improvement, or stable disease, then will change to maintenance therapy with Keytruda alone. We will proceed with cycle number 5-day 1 with Keytruda/weekly carboplatin/Taxol then patient return to clinic in 1 week with CBC CMP and for day 8 carboplatin/Taxol , Patient was advised to quit smoking and was offered any assistance she may need Mild/moderate anemia,, appears multifactorial hemoglobin stable we will continue to monitor Patient was advised Signed By: Kaya Díaz M.D. <<Signature on File>>
[2021-01-07] MEDS: LORazepam 2 mg/mL INJ 1 mL 0.5 MG IV (13:47)
[2021-01-13 10:15] LABS: Basophils # 0.1 10^3/uL (0.0-0.1); Basophils % 0.6 %; Eosinophils % 0.3 %; Hematocrit 31.7 % (37.0-47.0); Hemoglobin 9.7 g/dL (11.5-15.3); Lymphocytes # 2.1 10^3/uL (0.8-4.8); Lymphocytes % 20.7 %; Mean Corpuscular HGB Conc 30.6 g/dL (30.0-36.0); Mean Corpuscular Hemoglobin 30.1 pg (28.0-34.0); Mean Corpuscular Volume 98.4 fL (81-99); Mean Platelet Volume 10.2 fL (7.4-10.4); Monocytes # 0.7 10^3/uL (0.2-0.9); Neutrophils # 7.06 10^3/uL (1.8-7.7); Neutrophils % 70.2 %; Nucleated Red Blood Cells % 0 %; Platelet Count 354 10^3/cmm (130-400); Red Blood Count 3.22 10^6/uL (4.1-5.3); Red Cell Distribution Width 16.9 % (12.1-15.1); White Blood Count 10.1 10^3/uL (4.0-10.0)
[2021-01-13 10:37] LABS: Alanine Aminotransferase 11 U/L (0-33); Albumin Level 3.8 g/dL (3.5-5.2); Alkaline Phosphatase 135 IU/L (35-105); Anion Gap 11.3 (5-19); Aspartate Amino Transferase 10 U/L (0-32); Blood Urea Nitrogen 8 mg/dL (8-23); Calcium 8.9 mg/dL (8.5-10.5); Carbon Dioxide 34 mmol/L (22-29); Chloride 98 mmol/L (98-107); Globulin 2.8 g/dL (1.3-4.6); Glomerular Filtration Rate 224.7 mL/min (90-130); Glucose 98 mg/dL (65-115); Osmolality Calculated 286 mOsm/kg (285-295); Potassium 4.3 mmol/L (3.5-5.1); Sodium 139 mmol/L (136-145); Total Bilirubin 0.2 mg/dL (0.15-1.2); Total Protein 6.6 g/dL (6.6-8.7)
[2021-01-14] MEDS: famotidine 20 mg/2 mL INJ IVP (09:32)
[2021-01-14] MEDS: diphenhydrAMINE 50 mg/mL SDV 1mL 25 MG IVP (09:35)
[2021-01-14] MEDS: sodium chloride 0.9% 250 ML 75 ML IV (09:39)
[2021-01-14] MEDS: palonosetron 0.25 mg/5 mL SDV IVP (09:39)
[2021-01-14] MEDS: fosaprepitant 150 MG in sodium chloride 0.9% 150 ML 300 MG IV (09:55)
[2021-01-14] MEDS: pegfilgrastim 6 mg/0.6 mL Kit (onpro) SUBCUT (12:20)
--- NOTE | 2021-01-16 17:10 | ONC FU_ITS ---
Dr. Díaz follow up note Patient: Swathi Frederick Unit #: [id number]: [id number] Dicatated By: Kaya Díaz M.D.Date of Visit:Jan 14, 2021 Onc Med Follow-up/Prog Note History of Present Illness: Ms Frederick is a 65 year-old woman with grade 1 infiltrating ductal carcinoma of the right breast, stage IA (T1c, N0, M0), ER/WY positive and HER-2/christophe negative. She had presented in October 2014 with palpable lump in her right breast. She had been on hormone replacement therapy for the preceding 20 years. Her mammogram on 11/06/2014 revealed 1.3 cm mass in the right breast at 9:00 position corresponding to a 2 cm nodule palpable on examination. An ultrasound guided biopsy on 12/07/2014 revealed grade 1/3 infiltrating ductal carcinoma with the prognostic profile showing ER positive at 100%, WY positive at 98%, and HER-2/christophe negative, 1.1 by FISH, and 1+ by IHC. The Ki-67 was 10%. She underwent lumpectomy and sentinel lymph node biopsy by Dr. Brennan on 12/24/2014. Her surgical pathology showed 1.5 cm infiltrating ductal carcinoma without lymphovascular invasion. Initial margins were positive, but after further excision the final margins were negative. One sentinel lymph was not involved. Her disease thus was pathologic stage IA (T1c, N0, M0). She was first seen by Dr. Ramirez on 12/27/2014. She had daily headaches ever since stopping her hormone replacement therapy. MRI of the brain on 01/10/2015 was negative for metastatic disease. Chiari I malformation was noted. She was referred to neurology for management of migraines. Oncotype DX score on 01/08/2015 return low at 15, corresponding to 9% risk of distant recurrence following hormonal treatment. She began on adjuvant treatment with Femara in December 2014. Femara was discontinued as she completed 5 years on November 30, 2019. She was found to beVitamin D deficient and she was also then started on replacement therapy. DEXA scan in April 2015 showed normal bone density. She completed definitive adjuvant radiation treatment with a boost on 03/06/2015. A CT of the chest on 03/21/2015 showed bilateral nonspecific upper lobe pulmonary nodules from 2-5 mm, and diffuse interstitial thickening with a pulmonary artery hypertension. Her other medical illnesses include COPD, degenerative arthritis, and depression. 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 She has a history of smoking 1 pack of cigarettes daily for 40 years, and she continues to smoke. Repeat CT of the chest on 08/26/2015 showed clearing of the pulmonary nodules. There was soft tissue density in the right breast with a seroma. By ultrasound, the seroma had decreased. She underwent an FNA of the seroma in August 2015. Cytology was benign. She continued adjuvant hormonal therapy with Femara since December 2014 . Follow-up mammogram done on January 22, 2020 showed BI-RADS 2, benign. Mrs. Mathews had follow-up with Dr. Allred on July 16, 2020 for exacerbation of COPD although she continued to smoke. She was offered low-dose CT scan for lung cancer screening ended pursue the CTs [place]. She did have a CT lung screening on July 31 2020. It reported a spiculated right suprahilar and right upper lobe paramediastinal and soft tissue mass. It measured 6.4 x 4.0 x 7.6 cm AP by transverse by craniocaudal. Findings were most compatible with neoplasm. Recommended dedicated contrast-enhanced chest CT and further evaluation with bronchoscopy. Mild narrowing of the right upper main stem bronchus. Mild narrowing of the right distal mainstem bronchus. Mediastinal lymphadenopathy. Right hilar lymphadenopathy. Mrs. Niño underwent PET CT on August 03, 2020 via [facility] radiology. The right upper lobe paramediastinal/superior right hilar mass measured 4.2 x 7.4 cm with central necrosis and an SUV of 37.3 representing malignancy, likely primary bronchogenic carcinoma. A 1.4 spiculated mass at the minor fissure, right upper lobe has an SUV of 12.6 consistent with a satellite malignant lesion. Other subcentimeter lesions were present in other lobes bilaterally too small to characterize. These are likely malignant and should be closely followed on future imaging. Malignant mediastinal adenopathy is present, representing metastatic disease. These are present in the prevascular, left paratracheal, subaortic and bilateral hilar territory. The volunteer patient representative left hilar node has an SUV of 8.5. There were no findings to indicate osseous metastatic disease. No significant pelvic or abdominal adenopathy was present. She did have extensive malignant mediastinal adenopathy. Ms. Mathews underwent bronchoscopy with endobronchial ultrasound-guided transbronchial needle aspiration of lymph nodes and control of bleeding on August 15, [address] Allred. Fine-needle aspiration was performed on the right paratracheal mass. 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 P63 was positive DTF???1 was negative p16 negative Ki 67 = 60% global CK 5/6 strongly and diffusely positive in tumor cells. CK7 was negative CK20 was negative; CK cocktail: Strongly and diffusely positive in tumor cells. CK 8/18 strongly and diffusely positive in tumor cells. CK Victor M: Strongly diffusely positive tumor cells. Staging MRI of the brain from September 05, 2020 reported no evidence of restricted diffusion to suggest ischemia. No evidence of enhancing intracranial metastatic disease. Mild small vessel changes with mild parenchymal volume loss. Small vessel changes in the aquiles. This has progressed since 2015. Numerous new small punctate foci of hemosiderin in the right parietal and temporal lobes. Single focus in the left posterior temporal lobe consistent with chronic tiny punctate microhemorrhages mainly subcortical in location. This is nonspecific but can be seen with amyloid angiopathy. Mild symmetric atrophy involving the temporal lobes and hippocampal formations. Guardant 360 done on August 29, 2020 showed no targetable therapeutic mutations. PD-L1 expression TPS was more than 50%. Dr. Díaz's plan of care is to pursue systemic chemotherapy followed by follow-up PET CT. If the PET/CT shows resolution of bilateral pulmonary nodules then consider combined chemoradiation therapy. Considering that Ms. Tamayo has locally advanced disease still contained in the chest Dr. Díaz has recommended chemo therapy with immunotherapy consisting of pembrolizumab every 3 weeks and carboplatin Taxol day 1 and 8 repeat every 28 days. She will have follow-up PET CT after 3 cycles. If this again shows good resolution of bilateral pulmonary nodules then will discuss radiation oncology with combined chemoradiation. Incidentally Ms. Frederick was found to be iron deficient with a hemoglobin of 9.4 and was given 2 doses of Injectafer 1 on August 12, 2020 and again on August 19, 2020. Repeat follow-up PET/CT from September 28, 2020 reported the right upper lobe. Mediastinal/superior right hilar mass currently measured 4.2 x 7.4 cm with an SUV of 28.9 and extensive central necrosis. This is unchanged in size and questionably improved in uptake. The 1.46 spiculated mass at the minor fissure, right upper lobe has an SUV of 13.5 and is unchanged in the prior study from 08/03/2020. Subcentimeter pulmonary nodules are unchanged with the prior study. The left hilar index node has an SUV of 7.7, unchanged from 8.5 previously. The other mediastinal nodes in the prevascular, left paratracheal and subaortic and bilateral hilar regions are stable from the prior study. There is no indication of osseous metastatic disease. She began chemotherapy with carboplatin Taxol/Keytruda on day 1 and 8 of a 21-day cycle on October 09, 2020. Follow-up CT PET scan After 4 cycles of Keytruda/carbo/Taxol done on December 28, 2020 showed excellent response, right upper lobe paramediastinal mass now measures 5 x 3.2 cm demonstrate significant central cavitation with only thin solid silva and only 2 sites of viable malignancy are present in anterior and posterior silva with SUV of 6.97.3 respectively. Right upper lobe spiculated mass now measures 1.3 x 2 cm with SUV of 8.6, improvement from prior study. Subcentimeter nodules seen previously are unchanged on current study. Left hilar lymph node with SUV 5.2, down from 7.7 previously. The other describe mediastinal lymph nodes are similarly improved or entirely resolved on current study Came for follow-up, denies any specific complaint except generalized weakness and fatigue, no nausea or vomiting, no diarrhea constipation, no melena or hematochezia, no hemoptysis or hematemesis, still smoking about pack a day otherwise tolerating palliative therapy with carboplatin/Taxol/Keytruda well Medications: Advair Diskus 1 puff(s) (of 250-50 mcg/dose) Aerosol Powder, Breath Activated Inhalation b.i.d., Amoxicillin-Pot Clavulanate (500-125 mg) Tablet Oral b.i.d., Aspirin 1 (325 mg) Tablet Oral daily, Benadryl 1 (25 mg) Capsule Oral daily PRN, ClonazePAM 1 Tablet (of 0.5 mg) Oral b.i.d., Doxycycline Hyclate 1 Tablet (of 100 mg) Oral b.i.d., Ibuprofen 1 Tablet (of 800 mg) Oral t.i.d., Lisinopril 1 Tablet (of 10 mg) Oral daily, methylPREDNISolone Tablet Therapy Pack Oral, PARoxetine HCl 1 Tablet (of 20 mg) Oral daily, ProAir HFA 1 puff(s) (of 108 (90 base) mcg/act) Aerosol, solution Inhalation q 4 hours, Propranolol HCl ER 1 Capsule (of 60 mg) Capsule SR 24 HR Oral daily, Venlafaxine HCl 1 Tablet (of 75 mg) Tablet Oral daily Allergies: No Known Allergies. Review of Systems: Review of Systems is not available for this patient. Vital Signs: Performed on Jan 14, 2021 08:40 Height - 63.00 in Weight - 182.6 lbs (LOW) BSA - 1.86 sq.m BMI - 32.35 (HIGH) Temperature - 97.8 F (LOW) Pulse - 110 /min (HIGH) Respiration - 18 /min BP - 165/98 mm(hg) (HIGH) O2 Sat - 91 % (LOW) Pain - 0 Performance Status: 1 - No physically strenuous activity, but ambulatory and able to carry out light or sedentary work (e.g. office work, light house work). (ECOG) Physical Examination: Respiratory - Lungs are clear to auscultation, Cardiovascular - Regular rate and rhythm of heart, Gastrointestinal - Soft, bowel sounds present, Extremities - No visible edema. Lab/Imaging: Test performed on Jan 13, 2021 09:03 Creatinine 0.3 mg/dL Cr Clearance (Est) 246.58 mL/min Test performed on Jan 07, 2021 08:15 Sodium 137 mmol/L Potassium 4.5 mmol/L Chloride 97 mmol/L CO2 29 mmol/L Anion Gap 15.5 BUN 15 mg/dL eGFR 161.2 mL/min Glucose 171 mg/dL Osmolality - Calculated 289 mOsm/kg Calcium 9.1 mg/dL Protein, Total 7.2 g/dL Albumin 3.6 g/dL Globulin 3.6 g/dL Bilirubin, Total 0.2 mg/dL ALT (SGPT) 11 U/L AST (SGOT) 12 U/L Alkaline Phosphatase 201 IU/L WBC 17.4 10 3/uL RBC 3.40 10 6/uL HGB 10.3 g/dL HCT 33.8 % MCV 99.4 fL MCH 30.3 pg MCHC 30.5 g/dL RDW 18.0 % Platelet Count 311 10 3/cmm MPV 9.6 fL Neutrophils 16.15 10 3/uL Lymphocytes 0.7 10 3/uL Monocytes 0.1 10 3/uL Eosinophils 0.0 10 3/uL Basophils 0.1 10 3/uL Neutrophil % 93.1 % Lymphocyte % 4.2 % Monocyte % 0.8 % Eosinophil % 0.0 % Basophils % 0.8 % NRBC % 0 % Test performed on Dec 17, 2020 10:29 Ua Color Yellow Ua Appearance Clear Ua Glucose Norm Ua Bilirubin Neg Ua Ketones Negative Ua Specific [place] 1.005 Ua Blood Trace Ua pH 7 Ua Protein Neg Ua Nitrites Negative Ua Leukocyte Esterase Negative Ua Micro: WBC 0-4 /hpf Ua Micro: RBC 0-4 /hpf Ua Micro: Squam Epith Cells 5-10 /hpf Ua Micro: Bacteria NONE /hpf Test performed on Dec 17, 2020 10:23 Ferritin 885 ng/mL Iron 50 mcg/dL Iron Binding Capacity (TIBC) 203 mcg/dl % Iron Saturation 24.6 % UIBC 153 mcg/dL Test performed on Nov 20, 2020 11:20 TSH 0.30 uIU/mL Impression: 1. Squamous cell carcinoma per transbronchial biopsy from right peritracheal mass done on August 15, 2020 CT scan of chest done on July 31, 2020 showed 6.4 x 4 x 7.6 cm right suprahilar/right upper lobe paramediastinal mass and additional spiculated right suprahilar nodule along with right fissure measuring 1.6 x 1.3 cm, spiculated right middle lobe nodule measuring 7 mm and mediastinal lymphadenopathy CT PET scan done on August 03, 2020 showed FDG positive centrally necrotic right upper lobe mass, malignant circular lesion at the right minor fissure, multiple bilateral pulmonary nodules too small to characterize, extensive bilateral malignant mediastinal lymphadenopathy, Stage IIIb versus stage Court, PD-L1 TPS more than 50% MRI scan of the head done on September 05, 2020 showed no evidence of metastatic disease Guardant 360 shows no targetable therapeutic mutations Started on chemoimmunotherapy with Keytruda/carboplatin/Taxol on October 16, 2020, follow-up CT PET scan done on December 28, 2020 showed marked improvement in the right upper lobe mediastinal mass, lesion is now markedly cavitary with only 2 small lesions of viable malignancy remaining. Improvement in the right upper lobe satellite nodule. No change in subcentimeter pulmonary nodules. Improvement or resolution of mediastinal lymphadenopathy. 2. Patient with grade 1 infiltrating ductal carcinoma of the right breast, stage IA (T1c, N0, M0), ER/WY positive and HER-2/christophe negative. Oncotype DX score was 15, low risk. 3 She completed radiation to the right breast on 03/06/2015 to a total dose of 6600 cGy. 4. She began adjuvant hormonal therapy with Femara 2.5 mg daily in December 2014. 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 Degenerative arthritis. 7. She has nicotine dependence (cigarettes). Chronic back pain MRI scan of lumbosacral area done on 06/23/2018 and bone scan done on 06/09/2018 showed no evidence of malignancy but chronic arthritis She does have ongoing problems with the COPD, and she currently appears to be experiencing an acute exacerbation. Polycythemia probably due to hypoxia due to severe COPD or chronic smoking, now on home oxygen Improved with smoking cessation for 1 week Iron deficiency anemia, Intolerance to oral iron Plan: Discussed with patient regarding her labs white blood count 10.1 hemoglobin 9.7 hematocrit 31.7 platelets 354,000, CMP within normal limits Clinically, patient doing well with no new signs symptoms suggestive of disease progression, tolerating systemic therapy well, will proceed with day 8 chemotherapy with carboplatin/Taxol and then she will return to clinic in 2 weeks with CBC CMP if reasonable for next cycle with Keytruda/carboplatin/Taxol. As for generalized weakness and fatigue is concerned probably multifactorial including persistent mild/moderate anemia which is probably anemia of chronic disease/malignancy we will continue to monitor and transfuse if hemoglobin less than 8 g and other possibility could be COPD and patient on home oxygen and still smoking actively, patient was advised to quit smoking was offered any assistance she may need Signed By: Kaya Díaz M.D. <<Signature on File>>
== END 2021-01-18 23:59 | disposition home or self-care (01) ==
LOC: ONCMED 05:36
PROVIDERS: PCP Family Medicine; Visit Provider Internal Medicine Hematology & Oncology
DX: Z51.11 Encounter for antineoplastic chemotherapy (principal); C50.511 Malignant neoplasm of lower-outer quadrant of right female breast; Z17.0 Estrogen receptor positive status [ER+]; C34.11 Malignant neoplasm of upper lobe, right bronchus or lung; D75.1 Secondary polycythemia; D50.9 Iron deficiency anemia, unspecified; E55.9 Vitamin D deficiency, unspecified; F17.210 Nicotine dependence, cigarettes, uncomplicated; J44.9 Chronic obstructive pulmonary disease, unspecified; M19.90 Unspecified osteoarthritis, unspecified site; Z79.811 Long term (current) use of aromatase inhibitors; Z79.899 Other long term (current) drug therapy
CPT/HCPCS: 36415; 36591; 80053; 85025; 96367; 96372; 96375; 96377; 96413; 96417; 99215; J1100; J1200; J1453; J2060; J2469; J2505; J3490; J7030; J7040; J7050; J9045; J9267; J9271

== ENCOUNTER 2021-02-18 05:42 | Outpatient (RCR) | payer MEDICARE, MEDICAID, SELFPAY ==
[2021-01-27 10:18] LABS: Basophils # 0.1 10^3/uL (0.0-0.1); Basophils % 0.7 %; Eosinophils % 0.3 %; Hematocrit 33.3 % (37.0-47.0); Hemoglobin 10.4 g/dL (11.5-15.3); Lymphocytes % 18.6 %; Mean Corpuscular HGB Conc 31.2 g/dL (30.0-36.0); Mean Corpuscular Volume 99.1 fL (81-99); Mean Platelet Volume 10.1 fL (7.4-10.4); Monocytes # 1.3 10^3/uL (0.2-0.9); Neutrophils # 11.36 10^3/uL (1.8-7.7); Neutrophils % 71.6 %; Nucleated Red Blood Cells % 0 %; Platelet Count 308 10^3/cmm (130-400); Red Blood Count 3.36 10^6/uL (4.1-5.3); Red Cell Distribution Width 17.6 % (12.1-15.1); White Blood Count 15.8 10^3/uL (4.0-10.0)
[2021-01-27 10:48] LABS: Alanine Aminotransferase 9 U/L (0-33); Albumin Level 3.8 g/dL (3.5-5.2); Alkaline Phosphatase 162 IU/L (35-105); Anion Gap 15.5 (5-19); Aspartate Amino Transferase 11 U/L (0-32); Blood Urea Nitrogen 9 mg/dL (8-23); Calcium 9.1 mg/dL (8.5-10.5); Carbon Dioxide 30 mmol/L (22-29); Chloride 97 mmol/L (98-107); Globulin 3.2 g/dL (1.3-4.6); Glomerular Filtration Rate 161.2 mL/min (90-130); Glucose 80 mg/dL (65-115); Osmolality Calculated 284 mOsm/kg (285-295); Potassium 4.5 mmol/L (3.5-5.1); Sodium 138 mmol/L (136-145); Total Bilirubin 0.2 mg/dL (0.15-1.2)
[2021-01-28] MEDS: palonosetron 0.25 mg/5 mL SDV IV (10:20)
[2021-01-28] MEDS: sodium chloride 0.9% 250 ML 75 ML IV (10:20)
[2021-01-28] MEDS: famotidine 20 mg/2 mL INJ IVP (10:21)
[2021-01-28] MEDS: diphenhydrAMINE 50 mg/mL SDV 1mL 25 MG IV (10:23)
[2021-01-28] MEDS: fosaprepitant 150 MG in sodium chloride 0.9% 150 ML 300 MG IV (10:55)
--- NOTE | 2021-01-28 17:43 | ONC FU_ITS ---
Dr. Díaz follow up note Patient: Swathi Frederick Unit #: [id number]: [id number] Dicatated By: Kaya Díaz M.D.Date of Visit:Jan 28, 2021 Onc Med Follow-up/Prog Note History of Present Illness: Ms Frederick is a 65 year-old woman with grade 1 infiltrating ductal carcinoma of the right breast, stage IA (T1c, N0, M0), ER/MD positive and HER-2/christophe negative. She had presented in October 2014 with palpable lump in her right breast. She had been on hormone replacement therapy for the preceding 20 years. Her mammogram on 11/06/2014 revealed 1.3 cm mass in the right breast at 9:00 position corresponding to a 2 cm nodule palpable on examination. An ultrasound guided biopsy on 12/07/2014 revealed grade 1/3 infiltrating ductal carcinoma with the prognostic profile showing ER positive at 100%, MD positive at 98%, and HER-2/christophe negative, 1.1 by FISH, and 1+ by IHC. The Ki-67 was 10%. She underwent lumpectomy and sentinel lymph node biopsy by Dr. Brennan on 12/24/2014. Her surgical pathology showed 1.5 cm infiltrating ductal carcinoma without lymphovascular invasion. Initial margins were positive, but after further excision the final margins were negative. One sentinel lymph was not involved. Her disease thus was pathologic stage IA (T1c, N0, M0). She was first seen by Dr. Ramirez on 12/27/2014. She had daily headaches ever since stopping her hormone replacement therapy. MRI of the brain on 01/10/2015 was negative for metastatic disease. Chiari I malformation was noted. She was referred to neurology for management of migraines. Oncotype DX score on 01/08/2015 return low at 15, corresponding to 9% risk of distant recurrence following hormonal treatment. She began on adjuvant treatment with Femara in December 2014. Femara was discontinued as she completed 5 years on November 30, 2019. She was found to beVitamin D deficient and she was also then started on replacement therapy. DEXA scan in April 2015 showed normal bone density. She completed definitive adjuvant radiation treatment with a boost on 03/06/2015. A CT of the chest on 03/21/2015 showed bilateral nonspecific upper lobe pulmonary nodules from 2-5 mm, and diffuse interstitial thickening with a pulmonary artery hypertension. Her other medical illnesses include COPD, degenerative arthritis, and depression. 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 She has a history of smoking 1 pack of cigarettes daily for 40 years, and she continues to smoke. Repeat CT of the chest on 08/26/2015 showed clearing of the pulmonary nodules. There was soft tissue density in the right breast with a seroma. By ultrasound, the seroma had decreased. She underwent an FNA of the seroma in August 2015. Cytology was benign. She continued adjuvant hormonal therapy with Femara since December 2014 . Follow-up mammogram done on January 22, 2020 showed BI-RADS 2, benign. Mrs. Mathews had follow-up with Dr. Allred on July 16, 2020 for exacerbation of COPD although she continued to smoke. She was offered low-dose CT scan for lung cancer screening ended pursue the CTs [place]. She did have a CT lung screening on July 31 2020. It reported a spiculated right suprahilar and right upper lobe paramediastinal and soft tissue mass. It measured 6.4 x 4.0 x 7.6 cm AP by transverse by craniocaudal. Findings were most compatible with neoplasm. Recommended dedicated contrast-enhanced chest CT and further evaluation with bronchoscopy. Mild narrowing of the right upper main stem bronchus. Mild narrowing of the right distal mainstem bronchus. Mediastinal lymphadenopathy. Right hilar lymphadenopathy. Mrs. Niño underwent PET CT on August 03, 2020 via [facility] radiology. The right upper lobe paramediastinal/superior right hilar mass measured 4.2 x 7.4 cm with central necrosis and an SUV of 37.3 representing malignancy, likely primary bronchogenic carcinoma. A 1.4 spiculated mass at the minor fissure, right upper lobe has an SUV of 12.6 consistent with a satellite malignant lesion. Other subcentimeter lesions were present in other lobes bilaterally too small to characterize. These are likely malignant and should be closely followed on future imaging. Malignant mediastinal adenopathy is present, representing metastatic disease. These are present in the prevascular, left paratracheal, subaortic and bilateral hilar territory. The sales service representative left hilar node has an SUV of 8.5. There were no findings to indicate osseous metastatic disease. No significant pelvic or abdominal adenopathy was present. She did have extensive malignant mediastinal adenopathy. Ms. Mathews underwent bronchoscopy with endobronchial ultrasound-guided transbronchial needle aspiration of lymph nodes and control of bleeding on August 15, [address] Allred. Fine-needle aspiration was performed on the right paratracheal mass. 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 P63 was positive DTF???1 was negative p16 negative Ki 67 = 60% global CK 5/6 strongly and diffusely positive in tumor cells. CK7 was negative CK20 was negative; CK cocktail: Strongly and diffusely positive in tumor cells. CK 8/18 strongly and diffusely positive in tumor cells. CK Victor M: Strongly diffusely positive tumor cells. Staging MRI of the brain from September 05, 2020 reported no evidence of restricted diffusion to suggest ischemia. No evidence of enhancing intracranial metastatic disease. Mild small vessel changes with mild parenchymal volume loss. Small vessel changes in the aquiles. This has progressed since 2015. Numerous new small punctate foci of hemosiderin in the right parietal and temporal lobes. Single focus in the left posterior temporal lobe consistent with chronic tiny punctate microhemorrhages mainly subcortical in location. This is nonspecific but can be seen with amyloid angiopathy. Mild symmetric atrophy involving the temporal lobes and hippocampal formations. Guardant 360 done on August 29, 2020 showed no targetable therapeutic mutations. PD-L1 expression TPS was more than 50%. Dr. Díaz's plan of care is to pursue systemic chemotherapy followed by follow-up PET CT. If the PET/CT shows resolution of bilateral pulmonary nodules then consider combined chemoradiation therapy. Considering that Ms. Tamayo has locally advanced disease still contained in the chest Dr. Díaz has recommended chemo therapy with immunotherapy consisting of pembrolizumab every 3 weeks and carboplatin Taxol day 1 and 8 repeat every 28 days. She will have follow-up PET CT after 3 cycles. If this again shows good resolution of bilateral pulmonary nodules then will discuss radiation oncology with combined chemoradiation. Incidentally Ms. Frederick was found to be iron deficient with a hemoglobin of 9.4 and was given 2 doses of Injectafer 1 on August 12, 2020 and again on August 19, 2020. Repeat follow-up PET/CT from September 28, 2020 reported the right upper lobe. Mediastinal/superior right hilar mass currently measured 4.2 x 7.4 cm with an SUV of 28.9 and extensive central necrosis. This is unchanged in size and questionably improved in uptake. The 1.46 spiculated mass at the minor fissure, right upper lobe has an SUV of 13.5 and is unchanged in the prior study from 08/03/2020. Subcentimeter pulmonary nodules are unchanged with the prior study. The left hilar index node has an SUV of 7.7, unchanged from 8.5 previously. The other mediastinal nodes in the prevascular, left paratracheal and subaortic and bilateral hilar regions are stable from the prior study. There is no indication of osseous metastatic disease. She began chemotherapy with carboplatin Taxol/Keytruda on day 1 and 8 of a 21-day cycle on October 09, 2020. Follow-up CT PET scan After 4 cycles of Keytruda/carbo/Taxol done on December 28, 2020 showed excellent response, right upper lobe paramediastinal mass now measures 5 x 3.2 cm demonstrate significant central cavitation with only thin solid silva and only 2 sites of viable malignancy are present in anterior and posterior silva with SUV of 6.97.3 respectively. Right upper lobe spiculated mass now measures 1.3 x 2 cm with SUV of 8.6, improvement from prior study. Subcentimeter nodules seen previously are unchanged on current study. Left hilar lymph node with SUV 5.2, down from 7.7 previously. The other describe mediastinal lymph nodes are similarly improved or entirely resolved on current study Came for follow-up, denies any specific complaints, no fever chills, no nausea or vomiting no diarrhea constipation, no hemoptysis or hematemesis, appetite is good still smoking about pack a day otherwise tolerating palliative therapy with carboplatin/Taxol/Keytruda well Medications: Advair Diskus 1 puff(s) (of 250-50 mcg/dose) Aerosol Powder, Breath Activated Inhalation b.i.d., Amoxicillin-Pot Clavulanate (500-125 mg) Tablet Oral b.i.d., Aspirin 1 (325 mg) Tablet Oral daily, Benadryl 1 (25 mg) Capsule Oral daily PRN, ClonazePAM 1 Tablet (of 0.5 mg) Oral b.i.d., Doxycycline Hyclate 1 Tablet (of 100 mg) Oral b.i.d., Ibuprofen 1 Tablet (of 800 mg) Oral t.i.d., Lisinopril 1 Tablet (of 10 mg) Oral daily, methylPREDNISolone Tablet Therapy Pack Oral, PARoxetine HCl 1 Tablet (of 20 mg) Oral daily, ProAir HFA 1 puff(s) (of 108 (90 base) mcg/act) Aerosol, solution Inhalation q 4 hours, Propranolol HCl ER 1 Capsule (of 60 mg) Capsule SR 24 HR Oral daily, Venlafaxine HCl 1 Tablet (of 75 mg) Tablet Oral daily Allergies: No Known Allergies. Review of Systems: Review of Systems is not available for this patient. Vital Signs: Performed on Jan 28, 2021 09:28 Height - 63.00 in Temperature - 97.7 F (LOW) Pulse - 108 /min (HIGH) Respiration - 18 /min BP - 142/91 mm(hg) (HIGH) O2 Sat - 93 % (LOW) Pain - 4 Fatigue - 8 Performance Status: 1 - No physically strenuous activity, but ambulatory and able to carry out light or sedentary work (e.g. office work, light house work). (ECOG) Physical Examination: Respiratory - Poor air entry otherwise clear, Cardiovascular - Regular rate and rhythm of heart, Gastrointestinal - Soft, bowel sounds present, Extremities - No visible edema or rash. Lab/Imaging: Test performed on Jan 28, 2021 07:47 Creatinine 0.4 mg/dL Cr Clearance (Est) 184.93 mL/min Test performed on Jan 07, 2021 08:15 Sodium 137 mmol/L Potassium 4.5 mmol/L Chloride 97 mmol/L CO2 29 mmol/L Anion Gap 15.5 BUN 15 mg/dL eGFR 161.2 mL/min Glucose 171 mg/dL Osmolality - Calculated 289 mOsm/kg Calcium 9.1 mg/dL Protein, Total 7.2 g/dL Albumin 3.6 g/dL Globulin 3.6 g/dL Bilirubin, Total 0.2 mg/dL ALT (SGPT) 11 U/L AST (SGOT) 12 U/L Alkaline Phosphatase 201 IU/L WBC 17.4 10 3/uL RBC 3.40 10 6/uL HGB 10.3 g/dL HCT 33.8 % MCV 99.4 fL MCH 30.3 pg MCHC 30.5 g/dL RDW 18.0 % Platelet Count 311 10 3/cmm MPV 9.6 fL Neutrophils 16.15 10 3/uL Lymphocytes 0.7 10 3/uL Monocytes 0.1 10 3/uL Eosinophils 0.0 10 3/uL Basophils 0.1 10 3/uL Neutrophil % 93.1 % Lymphocyte % 4.2 % Monocyte % 0.8 % Eosinophil % 0.0 % Basophils % 0.8 % NRBC % 0 % Test performed on Dec 17, 2020 10:29 Ua Color Yellow Ua Appearance Clear Ua Glucose Norm Ua Bilirubin Neg Ua Ketones Negative Ua Specific [place] 1.005 Ua Blood Trace Ua pH 7 Ua Protein Neg Ua Nitrites Negative Ua Leukocyte Esterase Negative Ua Micro: WBC 0-4 /hpf Ua Micro: RBC 0-4 /hpf Ua Micro: Squam Epith Cells 5-10 /hpf Ua Micro: Bacteria NONE /hpf Test performed on Dec 17, 2020 10:23 Ferritin 885 ng/mL Iron 50 mcg/dL Iron Binding Capacity (TIBC) 203 mcg/dl % Iron Saturation 24.6 % UIBC 153 mcg/dL Test performed on Nov 20, 2020 11:20 TSH 0.30 uIU/mL Impression: 1. Squamous cell carcinoma per transbronchial biopsy from right peritracheal mass done on August 15, 2020 CT scan of chest done on July 31, 2020 showed 6.4 x 4 x 7.6 cm right suprahilar/right upper lobe paramediastinal mass and additional spiculated right suprahilar nodule along with right fissure measuring 1.6 x 1.3 cm, spiculated right middle lobe nodule measuring 7 mm and mediastinal lymphadenopathy CT PET scan done on August 03, 2020 showed FDG positive centrally necrotic right upper lobe mass, malignant circular lesion at the right minor fissure, multiple bilateral pulmonary nodules too small to characterize, extensive bilateral malignant mediastinal lymphadenopathy, Stage IIIb versus stage Court, PD-L1 TPS more than 50% MRI scan of the head done on September 05, 2020 showed no evidence of metastatic disease Guardant 360 shows no targetable therapeutic mutations Started on chemoimmunotherapy with Keytruda/carboplatin/Taxol on October 16, 2020, follow-up CT PET scan done on December 28, 2020 showed marked improvement in the right upper lobe mediastinal mass, lesion is now markedly cavitary with only 2 small lesions of viable malignancy remaining. Improvement in the right upper lobe satellite nodule. No change in subcentimeter pulmonary nodules. Improvement or resolution of mediastinal lymphadenopathy. 2. Patient with grade 1 infiltrating ductal carcinoma of the right breast, stage IA (T1c, N0, M0), ER/MD positive and HER-2/christophe negative. Oncotype DX score was 15, low risk. 3 She completed radiation to the right breast on 03/06/2015 to a total dose of 6600 cGy. 4. She began adjuvant hormonal therapy with Femara 2.5 mg daily in December 2014. 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 Degenerative arthritis. 7. She has nicotine dependence (cigarettes). Chronic back pain MRI scan of lumbosacral area done on 06/23/2018 and bone scan done on 06/09/2018 showed no evidence of malignancy but chronic arthritis She does have ongoing problems with the COPD, and she currently appears to be experiencing an acute exacerbation. Polycythemia probably due to hypoxia due to severe COPD or chronic smoking, now on home oxygen Improved with smoking cessation for 1 week Iron deficiency anemia, Intolerance to oral iron Plan: Discussed with patient regarding her labs white blood count 15.8 hemoglobin 10.4 compared to 9.7 previously hematocrit 33.3 platelets 308,000 CMP within normal limits Clinically, patient doing well with no new signs symptoms history of disease progression, will proceed with cycle #6 with Keytruda/carboplatin/Taxol today and then she will return to clinic in 1 week with CBC CMP if reasonable for day 8 chemotherapy and after that we will consider follow-up CT PET scan to assess disease status and if it shows further improvement or stable disease, will consider discontinuation of chemotherapy but continue with maintenance immunotherapy alone. Patient was advised to quit smoking and was offered any assistance she may need Signed By: Kaya Díaz M.D. <<Signature on File>>
[2021-02-04 09:21] LABS: Basophils % 0.2 %; Hematocrit 34.4 % (37.0-47.0); Hemoglobin 10.7 g/dL (11.5-15.3); Lymphocytes # 0.6 10^3/uL (0.8-4.8); Lymphocytes % 15.1 %; Mean Corpuscular HGB Conc 31.1 g/dL (30.0-36.0); Mean Corpuscular Hemoglobin 30.3 pg (28.0-34.0); Mean Corpuscular Volume 97.5 fl (81-99); Mean Platelet Volume 10.1 fL (7.4-10.4); Monocytes # 0.1 10^3/uL (0.2-0.9); Monocytes % 1.2 %; Neutrophils # 3.36 10^3/uL (1.8-7.7); Nucleated Red Blood Cells % 0 %; Platelet Count 264 10^3/cmm (130-400); Red Blood Count 3.53 10^6/uL (4.1-5.3); Red Cell Distribution Width 16.2 % (12.1-15.1); White Blood Count 4.1 10^3/uL (4.0-10.0)
[2021-02-04 09:50] LABS: Alanine Aminotransferase 22 U/L (0-33); Albumin Level 4.2 g/dL (3.5-5.2); Alkaline Phosphatase 128 IU/L (35-105); Anion Gap 15.5 (5-19); Aspartate Amino Transferase 18 U/L (0-32); Blood Urea Nitrogen 12 mg/dL (8-23); Calcium 9.1 mg/dL (8.5-10.5); Carbon Dioxide 28 mmol/L (22-29); Chloride 97 mmol/L (98-107); Glomerular Filtration Rate 161.2 mL/min (90-130); Glucose 133 mg/dL (65-115); Osmolality Calculated 284 mOsm/kg (285-295); Potassium 4.5 mmol/L (3.5-5.1); Sodium 136 mmol/L (136-145); Total Bilirubin 0.2 mg/dL (0.15-1.2); Total Protein 7.2 g/dL (6.6-8.7)
--- NOTE | 2021-02-04 17:25 | ONC FU_ITS ---
Dr. Díaz follow up note Patient: Swathi Frederick Unit #: [id number]: 1955 Dicatated By: Kaya Díaz M.D.Date of Visit:Feb 04, 2021 Onc Med Follow-up/Prog Note History of Present Illness: Ms Frederick is a 65 year-old woman with grade 1 infiltrating ductal carcinoma of the right breast, stage IA (T1c, N0, M0), ER/CO positive and HER-2/christophe negative. She had presented in October 2014 with palpable lump in her right breast. She had been on hormone replacement therapy for the preceding 20 years. Her mammogram on 11/06/2014 revealed 1.3 cm mass in the right breast at 9:00 position corresponding to a 2 cm nodule palpable on examination. An ultrasound guided biopsy on 12/07/2014 revealed grade 1/3 infiltrating ductal carcinoma with the prognostic profile showing ER positive at 100%, CO positive at 98%, and HER-2/christophe negative, 1.1 by FISH, and 1+ by IHC. The Ki-67 was 10%. She underwent lumpectomy and sentinel lymph node biopsy by Dr. Brennan on 12/24/2014. Her surgical pathology showed 1.5 cm infiltrating ductal carcinoma without lymphovascular invasion. Initial margins were positive, but after further excision the final margins were negative. One sentinel lymph was not involved. Her disease thus was pathologic stage IA (T1c, N0, M0). She was first seen by Dr. Ramirez on 12/27/2014. She had daily headaches ever since stopping her hormone replacement therapy. MRI of the brain on 01/10/2015 was negative for metastatic disease. Chiari I malformation was noted. She was referred to neurology for management of migraines. Oncotype DX score on 01/08/2015 return low at 15, corresponding to 9% risk of distant recurrence following hormonal treatment. She began on adjuvant treatment with Femara in December 2014. Femara was discontinued as she completed 5 years on November 30, 2019. She was found to beVitamin D deficient and she was also then started on replacement therapy. DEXA scan in April 2015 showed normal bone density. She completed definitive adjuvant radiation treatment with a boost on 03/06/2015. A CT of the chest on 03/21/2015 showed bilateral nonspecific upper lobe pulmonary nodules from 2-5 mm, and diffuse interstitial thickening with a pulmonary artery hypertension. Her other medical illnesses include COPD, degenerative arthritis, and depression. 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 She has a history of smoking 1 pack of cigarettes daily for 40 years, and she continues to smoke. Repeat CT of the chest on 08/26/2015 showed clearing of the pulmonary nodules. There was soft tissue density in the right breast with a seroma. By ultrasound, the seroma had decreased. She underwent an FNA of the seroma in August 2015. Cytology was benign. She continued adjuvant hormonal therapy with Femara since December 2014 . Follow-up mammogram done on January 22, 2020 showed BI-RADS 2, benign. Mrs. Mathews had follow-up with Dr. Allred on July 16, 2020 for exacerbation of COPD although she continued to smoke. She was offered low-dose CT scan for lung cancer screening ended pursue the CTs [place]. She did have a CT lung screening on July 31 2020. It reported a spiculated right suprahilar and right upper lobe paramediastinal and soft tissue mass. It measured 6.4 x 4.0 x 7.6 cm AP by transverse by craniocaudal. Findings were most compatible with neoplasm. Recommended dedicated contrast-enhanced chest CT and further evaluation with bronchoscopy. Mild narrowing of the right upper main stem bronchus. Mild narrowing of the right distal mainstem bronchus. Mediastinal lymphadenopathy. Right hilar lymphadenopathy. Mrs. Niño underwent PET CT on August 03, [address] [facility]. The right upper lobe paramediastinal/superior right hilar mass measured 4.2 x 7.4 cm with central necrosis and an SUV of 37.3 representing malignancy, likely primary bronchogenic carcinoma. A 1.4 spiculated mass at the minor fissure, right upper lobe has an SUV of 12.6 consistent with a satellite malignant lesion. Other subcentimeter lesions were present in other lobes bilaterally too small to characterize. These are likely malignant and should be closely followed on future imaging. Malignant mediastinal adenopathy is present, representing metastatic disease. These are present in the prevascular, left paratracheal, subaortic and bilateral hilar territory. The outside sales account representative left hilar node has an SUV of 8.5. There were no findings to indicate osseous metastatic disease. No significant pelvic or abdominal adenopathy was present. She did have extensive malignant mediastinal adenopathy. Ms. Mathews underwent bronchoscopy with endobronchial ultrasound-guided transbronchial needle aspiration of lymph nodes and control of bleeding on August 15, [address] Allred. Fine-needle aspiration was performed on the right paratracheal mass. 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 P63 was positive DTF???1 was negative p16 negative Ki 67 = 60% global CK 5/6 strongly and diffusely positive in tumor cells. CK7 was negative CK20 was negative; CK cocktail: Strongly and diffusely positive in tumor cells. CK 8/18 strongly and diffusely positive in tumor cells. CK Victor M: Strongly diffusely positive tumor cells. Staging MRI of the brain from September 05, 2020 reported no evidence of restricted diffusion to suggest ischemia. No evidence of enhancing intracranial metastatic disease. Mild small vessel changes with mild parenchymal volume loss. Small vessel changes in the aquiles. This has progressed since 2015. Numerous new small punctate foci of hemosiderin in the right parietal and temporal lobes. Single focus in the left posterior temporal lobe consistent with chronic tiny punctate microhemorrhages mainly subcortical in location. This is nonspecific but can be seen with amyloid angiopathy. Mild symmetric atrophy involving the temporal lobes and hippocampal formations. Guardant 360 done on August 29, 2020 showed no targetable therapeutic mutations. PD-L1 expression TPS was more than 50%. Dr. Díaz's plan of care is to pursue systemic chemotherapy followed by follow-up PET CT. If the PET/CT shows resolution of bilateral pulmonary nodules then consider combined chemoradiation therapy. Considering that Ms. Tamayo has locally advanced disease still contained in the chest Dr. Díaz has recommended chemo therapy with immunotherapy consisting of pembrolizumab every 3 weeks and carboplatin Taxol day 1 and 8 repeat every 28 days. She will have follow-up PET CT after 3 cycles. If this again shows good resolution of bilateral pulmonary nodules then will discuss radiation oncology with combined chemoradiation. Incidentally Ms. Frederick was found to be iron deficient with a hemoglobin of 9.4 and was given 2 doses of Injectafer 1 on August 12, 2020 and again on August 19, 2020. Repeat follow-up PET/CT from September 28, 2020 reported the right upper lobe. Mediastinal/superior right hilar mass currently measured 4.2 x 7.4 cm with an SUV of 28.9 and extensive central necrosis. This is unchanged in size and questionably improved in uptake. The 1.46 spiculated mass at the minor fissure, right upper lobe has an SUV of 13.5 and is unchanged in the prior study from 08/03/2020. Subcentimeter pulmonary nodules are unchanged with the prior study. The left hilar index node has an SUV of 7.7, unchanged from 8.5 previously. The other mediastinal nodes in the prevascular, left paratracheal and subaortic and bilateral hilar regions are stable from the prior study. There is no indication of osseous metastatic disease. She began chemotherapy with carboplatin Taxol/Keytruda on day 1 and 8 of a 21-day cycle on October 09, 2020. Follow-up CT PET scan After 4 cycles of Keytruda/carbo/Taxol done on December 28, 2020 showed excellent response, right upper lobe paramediastinal mass now measures 5 x 3.2 cm demonstrate significant central cavitation with only thin solid silva and only 2 sites of viable malignancy are present in anterior and posterior silva with SUV of 6.97.3 respectively. Right upper lobe spiculated mass now measures 1.3 x 2 cm with SUV of 8.6, improvement from prior study. Subcentimeter nodules seen previously are unchanged on current study. Left hilar lymph node with SUV 5.2, down from 7.7 previously. The other describe mediastinal lymph nodes are similarly improved or entirely resolved on current study Follow-up CT PET scan done on February 01, 2021 shows right upper lobe paramediastinal mass seen on prior study now has SUV of 13 compared to 7.3 previously, spiculated right upper lobe mass has SUV of 13.2 compared to 8.6 previously, left hilar node has SUV of 6.3, questionable increased from prior study. Bilateral subcentimeter pulmonary nodules are unchanged from prior study, no new lesions seen otherwise Came for follow-up, complaining of generalized weakness and fatigue, as per patient she cannot tolerate chemo anymore moreover coming to office every week for chemotherapy because of significant inconvenience too. Otherwise still smoking about pack a day, denies any fever chills denies any nausea or vomiting denies any diarrhea or constipation denies any peripheral neuropathy but generalized weakness and fatigue otherwise tolerating systemic, palliative therapy with Keytruda/carboplatin/Taxol well Medications: Advair Diskus 1 puff(s) (of 250-50 mcg/dose) Aerosol Powder, Breath Activated Inhalation b.i.d., Amoxicillin-Pot Clavulanate (500-125 mg) Tablet Oral b.i.d., Aspirin 1 (325 mg) Tablet Oral daily, Benadryl 1 (25 mg) Capsule Oral daily PRN, ClonazePAM 1 Tablet (of 0.5 mg) Oral b.i.d., Doxycycline Hyclate 1 Tablet (of 100 mg) Oral b.i.d., Ibuprofen 1 Tablet (of 800 mg) Oral t.i.d., Lisinopril 1 Tablet (of 10 mg) Oral daily, methylPREDNISolone Tablet Therapy Pack Oral, PARoxetine HCl 1 Tablet (of 20 mg) Oral daily, ProAir HFA 1 puff(s) (of 108 (90 base) mcg/act) Aerosol, solution Inhalation q 4 hours, Propranolol HCl ER 1 Capsule (of 60 mg) Capsule SR 24 HR Oral daily, Venlafaxine HCl 1 Tablet (of 75 mg) Tablet Oral daily Allergies: No Known Allergies. Review of Systems: Review of Systems is not available for this patient. Vital Signs: Performed on Feb 04, 2021 10:54 Height - 63.00 in Weight - 174.8 lbs (LOW) BSA - 1.83 sq.m BMI - 30.96 (HIGH) Temperature - 97.1 F (LOW) Pulse - 98 /min Respiration - 18 /min BP - 153/93 mm(hg) (HIGH) O2 Sat - 93 % (LOW) Pain - 5 Fatigue - 8 Performance Status: 1 - No physically strenuous activity, but ambulatory and able to carry out light or sedentary work (e.g. office work, light house work). (ECOG) Physical Examination: Respiratory - Poor air entry with mild wheezing bilaterally Cardiovascular - Regular rate and rhythm of heart Gastrointestinal -Soft, bowel sounds present, Extremities - No visible edema. Lab/Imaging: Test performed on Feb 04, 2021 08:42 Sodium 136 mmol/L Potassium 4.5 mmol/L Chloride 97 mmol/L CO2 28 mmol/L Anion Gap 15.5 BUN 12 mg/dL Creatinine 0.4 mg/dL Cr Clearance (Est) 184.9300 mL/min eGFR 161.2 mL/min Glucose 133 mg/dL Osmolality - Calculated 284 mOsm/kg Calcium 9.1 mg/dL Protein, Total 7.2 g/dL Albumin 4.2 g/dL Globulin 3.0 g/dL Bilirubin, Total 0.2 mg/dL ALT (SGPT) 22 U/L AST (SGOT) 18 U/L Alkaline Phosphatase 128 IU/L WBC 4.1 10 3/uL RBC 3.53 10 6/uL HGB 10.7 g/dL HCT 34.4 % MCV 97.5 fl MCH 30.3 pg MCHC 31.1 g/dL RDW 16.2 % Platelet Count 264 10 3/cmm MPV 10.1 fL Neutrophils 3.36 10 3/uL Lymphocytes 0.6 10 3/uL Monocytes 0.1 10 3/uL Eosinophils 0.0 10 3/uL Basophils 0.0 10 3/uL Neutrophil % 83.0 % Lymphocyte % 15.1 % Monocyte % 1.2 % Eosinophil % 0.0 % Basophils % 0.2 % NRBC % 0 % Test performed on Dec 17, 2020 10:29 Ua Color Yellow Ua Appearance Clear Ua Glucose Norm Ua Bilirubin Neg Ua Ketones Negative Ua Specific Burns 1.005 Ua Blood Trace Ua pH 7 Ua Protein Neg Ua Nitrites Negative Ua Leukocyte Esterase Negative Ua Micro: WBC 0-4 /hpf Ua Micro: RBC 0-4 /hpf Ua Micro: Squam Epith Cells 5-10 /hpf Ua Micro: Bacteria NONE /hpf Test performed on Dec 17, 2020 10:23 Ferritin 885 ng/mL Iron 50 mcg/dL Iron Binding Capacity (TIBC) 203 mcg/dl % Iron Saturation 24.6 % UIBC 153 mcg/dL Test performed on Nov 20, 2020 11:20 TSH 0.30 uIU/mL Impression: 1. Squamous cell carcinoma per transbronchial biopsy from right peritracheal mass done on August 15, 2020 CT scan of chest done on July 31, 2020 showed 6.4 x 4 x 7.6 cm right suprahilar/right upper lobe paramediastinal mass and additional spiculated right suprahilar nodule along with right fissure measuring 1.6 x 1.3 cm, spiculated right middle lobe nodule measuring 7 mm and mediastinal lymphadenopathy CT PET scan done on August 03, 2020 showed FDG positive centrally necrotic right upper lobe mass, malignant circular lesion at the right minor fissure, multiple bilateral pulmonary nodules too small to characterize, extensive bilateral malignant mediastinal lymphadenopathy, Stage IIIb versus stage Court, PD-L1 TPS more than 50% MRI scan of the head done on September 05, 2020 showed no evidence of metastatic disease Guardant 360 shows no targetable therapeutic mutations Started on chemoimmunotherapy with Keytruda/carboplatin/Taxol on October 16, 2020, follow-up CT PET scan done on December 28, 2020 showed marked improvement in the right upper lobe mediastinal mass, lesion is now markedly cavitary with only 2 small lesions of viable malignancy remaining. Improvement in the right upper lobe satellite nodule. No change in subcentimeter pulmonary nodules. Improvement or resolution of mediastinal lymphadenopathy. follow-up CT PET scan done on February 01, 2021 which shows right upper lobe paramediastinal mass seen on prior study has now SUV of 13 compared to 7.3 previously, spiculated right upper lobe mass has SUV of 13.2 compared to 8.6 before, left hilar node has SUV of 6.3, questionable increase from previous study. Bilateral subcentimeter pulmonary nodules are unchanged, no new lesions seen otherwise As her follow-up PET scan showed stable disease, increase SUV could be due to mild disease progression or immunotherapy flare, but because of continued decline in quality of life and inconvenience of traveling back and forth to office, chemotherapy with carboplatin/Taxol was discontinued after last dose given on January 28, 2021 but continue with maintenance therapy with Keytruda every 3 weeks starting February 18, 2021 2. Patient with grade 1 infiltrating ductal carcinoma of the right breast, stage IA (T1c, N0, M0), ER/CO positive and HER-2/christophe negative. Oncotype DX score was 15, low risk. 3 She completed radiation to the right breast on 03/06/2015 to a total dose of 6600 cGy. 4. She began adjuvant hormonal therapy with Femara 2.5 mg daily in December 2014. 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 Degenerative arthritis. 7. She has nicotine dependence (cigarettes). Chronic back pain MRI scan of lumbosacral area done on 06/23/2018 and bone scan done on 06/09/2018 showed no evidence of malignancy but chronic arthritis She does have ongoing problems with the COPD, and she currently appears to be experiencing an acute exacerbation. Polycythemia probably due to hypoxia due to severe COPD or chronic smoking, now on home oxygen Improved with smoking cessation for 1 week Iron deficiency anemia, Intolerance to oral iron Plan: Discussed with patient regarding her labs white blood count 4.1 hemoglobin 10.7 hematocrit 34.4 platelets 264,000 CMP within normal limit except glucose 133 and alk phos 128 and follow-up CT PET scan done on February 01, 2021 which shows right upper lobe paramediastinal mass seen on prior study has now SUV of 13 compared to 7.3 previously, spiculated right upper lobe mass has SUV of 13.2 compared to 8.6 before, left hilar node has SUV of 6.3, questionable increase from previous study. Bilateral subcentimeter pulmonary nodules are unchanged, no new lesions seen otherwise Clinically, patient is doing reasonably well, tolerating systemic therapy with Keytruda/carboplatin/Taxol well but with expected side effects, as far as generalized weakness and fatigue is concerned probably multifactorial including mild to moderate anemia and underlying advanced stage COPD, requiring home oxygen and uncontrolled hyperglycemia and of course chemotherapy and traveling back and forth to the office every week. CT PET scan findings were discussed with patient and clinically it appears patient has stable disease and increase in SUV could be due to immunotherapy flare as there is no change in size of tumor and there is no new lesions other possibility could be mild disease progression but considering comorbid conditions, and patient is will to continue with chemotherapy and quality of life, at this point will discontinue chemotherapy but continue with maintenance immunotherapy with Keytruda every 3 weeks and then do follow-up scan to assess disease status and if there is no evidence of progression then will continue with maintenance therapy on the other hand if there is a progression, we will repeat her guardant 360 to identify targetable mutation if present. Patient will return to clinic on February 18 for first dose of maintenance immunotherapy with Keytruda alone. Patient was advised to quit smoking and was offered any assistance she may need As far as anemia is concerned, could be multifactorial including underlying myelodysplasia or chemotherapy, will continue to monitor and consider blood transfusion if hemoglobin less than 8 g. Signed By: Kaya Díaz M.D. <<Signature on File>>
--- NOTE | 2021-02-17 09:09 | MM_ITS ---
WS: [id number] BILATERAL DIGITAL DIAGNOSTIC MAMMOGRAM MAMMOGRAPHY WITH CAD CLINICAL INFORMATION: HX OF BREAST CA HISTORY: COMPARISON: January 22, 2020 TECHNIQUE: Bilateral CC, MLO, and ML views. FINDINGS: Scattered fibroglandular densities bilaterally. Fat necrosis and increased postoperative course dystr ophic calcifications upper outer right breast at the lumpectomy site. Left breast is unremarkable and unchanged. No suspicious focal mass, asymmetry, calcifications, or architectural distortion. No evidence of fabiano gnancy. MM/[id number] IMPRESSION: BI-RADS: 2-Benign FOLLOW UP: 1 Year Follow-up Recommend return to annual diagnostic mammography.
[2021-02-17 14:29] LABS: Basophils % 0.3 %; Eosinophils # 0.1 10^3/uL (0.0-0.8); Eosinophils % 0.8 %; Hematocrit 34.5 % (37.0-47.0); Lymphocytes # 2.6 10^3/uL (0.8-4.8); Lymphocytes % 43.3 %; Mean Corpuscular HGB Conc 31.9 g/dL (30.0-36.0); Mean Corpuscular Hemoglobin 31.4 pg (28.0-34.0); Mean Corpuscular Volume 98.6 fl (81-99); Mean Platelet Volume 9.7 fL (7.4-10.4); Monocytes # 0.6 10^3/uL (0.2-0.9); Monocytes % 10.3 %; Neutrophils # 2.71 10^3/uL (1.8-7.7); Neutrophils % 45.1 %; Nucleated Red Blood Cells % 0 %; Platelet Count 257 10^3/cmm (130-400); Red Cell Distribution Width 15.1 % (12.1-15.1)
[2021-02-17 14:46] LABS: Alanine Aminotransferase 12 U/L (0-33); Albumin Level 3.8 g/dL (3.5-5.2); Alkaline Phosphatase 127 IU/L (35-105); Aspartate Amino Transferase 13 U/L (0-32); Blood Urea Nitrogen 7 mg/dL (8-23); Calcium 9.2 mg/dL (8.5-10.5); Carbon Dioxide 29 mmol/L (22-29); Chloride 98 mmol/L (98-107); Glomerular Filtration Rate 161.2 mL/min (90-130); Glucose 81 mg/dL (65-115); Osmolality Calculated 279 mOsm/kg (285-295); Sodium 136 mmol/L (136-145); Total Bilirubin 0.2 mg/dL (0.15-1.2); Total Protein 6.8 g/dL (6.6-8.7)
--- NOTE | 2021-02-18 17:50 | ONC FU_ITS ---
Dr. Díaz follow up note Patient: Swathi Frederick Unit #: [id number]: [id number] Dicatated By: Kaya Díaz M.D.Date of Visit:Feb 18, 2021 Onc Med Follow-up/Prog Note History of Present Illness: Ms Frederick is a 65 year-old woman with grade 1 infiltrating ductal carcinoma of the right breast, stage IA (T1c, N0, M0), ER/VA positive and HER-2/christophe negative. She had presented in October 2014 with palpable lump in her right breast. She had been on hormone replacement therapy for the preceding 20 years. Her mammogram on 11/06/2014 revealed 1.3 cm mass in the right breast at 9:00 position corresponding to a 2 cm nodule palpable on examination. An ultrasound guided biopsy on 12/07/2014 revealed grade 1/3 infiltrating ductal carcinoma with the prognostic profile showing ER positive at 100%, VA positive at 98%, and HER-2/christophe negative, 1.1 by FISH, and 1+ by IHC. The Ki-67 was 10%. She underwent lumpectomy and sentinel lymph node biopsy by Dr. Brennan on 12/24/2014. Her surgical pathology showed 1.5 cm infiltrating ductal carcinoma without lymphovascular invasion. Initial margins were positive, but after further excision the final margins were negative. One sentinel lymph was not involved. Her disease thus was pathologic stage IA (T1c, N0, M0). She was first seen by Dr. Ramirez on 12/27/2014. She had daily headaches ever since stopping her hormone replacement therapy. MRI of the brain on 01/10/2015 was negative for metastatic disease. Chiari I malformation was noted. She was referred to neurology for management of migraines. Oncotype DX score on 01/08/2015 return low at 15, corresponding to 9% risk of distant recurrence following hormonal treatment. She began on adjuvant treatment with Femara in December 2014. Femara was discontinued as she completed 5 years on November 30, 2019. She was found to beVitamin D deficient and she was also then started on replacement therapy. DEXA scan in April 2015 showed normal bone density. She completed definitive adjuvant radiation treatment with a boost on 03/06/2015. A CT of the chest on 03/21/2015 showed bilateral nonspecific upper lobe pulmonary nodules from 2-5 mm, and diffuse interstitial thickening with a pulmonary artery hypertension. Her other medical illnesses include COPD, degenerative arthritis, and depression. 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 She has a history of smoking 1 pack of cigarettes daily for 40 years, and she continues to smoke. Repeat CT of the chest on 08/26/2015 showed clearing of the pulmonary nodules. There was soft tissue density in the right breast with a seroma. By ultrasound, the seroma had decreased. She underwent an FNA of the seroma in August 2015. Cytology was benign. She continued adjuvant hormonal therapy with Femara since December 2014 . Follow-up mammogram done on January 22, 2020 showed BI-RADS 2, benign. Mrs. Mathews had follow-up with Dr. Allred on July 16, 2020 for exacerbation of COPD although she continued to smoke. She was offered low-dose CT scan for lung cancer screening ended pursue the CTs [place]. She did have a CT lung screening on July 31 2020. It reported a spiculated right suprahilar and right upper lobe paramediastinal and soft tissue mass. It measured 6.4 x 4.0 x 7.6 cm AP by transverse by craniocaudal. Findings were most compatible with neoplasm. Recommended dedicated contrast-enhanced chest CT and further evaluation with bronchoscopy. Mild narrowing of the right upper main stem bronchus. Mild narrowing of the right distal mainstem bronchus. Mediastinal lymphadenopathy. Right hilar lymphadenopathy. Mrs. Niño underwent PET CT on August 03, 2020 via [facility] radiology. The right upper lobe paramediastinal/superior right hilar mass measured 4.2 x 7.4 cm with central necrosis and an SUV of 37.3 representing malignancy, likely primary bronchogenic carcinoma. A 1.4 spiculated mass at the minor fissure, right upper lobe has an SUV of 12.6 consistent with a satellite malignant lesion. Other subcentimeter lesions were present in other lobes bilaterally too small to characterize. These are likely malignant and should be closely followed on future imaging. Malignant mediastinal adenopathy is present, representing metastatic disease. These are present in the prevascular, left paratracheal, subaortic and bilateral hilar territory. The brand representative left hilar node has an SUV of 8.5. There were no findings to indicate osseous metastatic disease. No significant pelvic or abdominal adenopathy was present. She did have extensive malignant mediastinal adenopathy. Ms. Mathews underwent bronchoscopy with endobronchial ultrasound-guided transbronchial needle aspiration of lymph nodes and control of bleeding on August 15, [address] Allred. Fine-needle aspiration was performed on the right paratracheal mass. 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 P63 was positive DTF???1 was negative p16 negative Ki 67 = 60% global CK 5/6 strongly and diffusely positive in tumor cells. CK7 was negative CK20 was negative; CK cocktail: Strongly and diffusely positive in tumor cells. CK 8/18 strongly and diffusely positive in tumor cells. CK Victor M: Strongly diffusely positive tumor cells. Staging MRI of the brain from September 05, 2020 reported no evidence of restricted diffusion to suggest ischemia. No evidence of enhancing intracranial metastatic disease. Mild small vessel changes with mild parenchymal volume loss. Small vessel changes in the aquiles. This has progressed since 2015. Numerous new small punctate foci of hemosiderin in the right parietal and temporal lobes. Single focus in the left posterior temporal lobe consistent with chronic tiny punctate microhemorrhages mainly subcortical in location. This is nonspecific but can be seen with amyloid angiopathy. Mild symmetric atrophy involving the temporal lobes and hippocampal formations. Guardant 360 done on August 29, 2020 showed no targetable therapeutic mutations. PD-L1 expression TPS was more than 50%. plan of care was to pursue systemic chemotherapy followed by follow-up PET CT. If the PET/CT shows resolution of bilateral pulmonary nodules then consider combined chemoradiation therapy. Considering that patient has locally advanced disease still contained in the chest ,was recommendeded chemo therapy with immunotherapy consisting of pembrolizumab every 3 weeks and carboplatin Taxol day 1 and 8 repeat every 28 days. She will have follow-up PET CT after 3 cycles. If this again shows good resolution of bilateral pulmonary nodules then will discuss radiation oncology with combined chemoradiation. Incidentally Ms. Frederick was found to be iron deficient with a hemoglobin of 9.4 and was given 2 doses of Injectafer 1 on August 12, 2020 and again on August 19, 2020. Repeat follow-up PET/CT from September 28, 2020 reported the right upper lobe. Mediastinal/superior right hilar mass currently measured 4.2 x 7.4 cm with an SUV of 28.9 and extensive central necrosis. This is unchanged in size and questionably improved in uptake. The 1.46 spiculated mass at the minor fissure, right upper lobe has an SUV of 13.5 and is unchanged in the prior study from 08/03/2020. Subcentimeter pulmonary nodules are unchanged with the prior study. The left hilar index node has an SUV of 7.7, unchanged from 8.5 previously. The other mediastinal nodes in the prevascular, left paratracheal and subaortic and bilateral hilar regions are stable from the prior study. There is no indication of osseous metastatic disease. She began chemotherapy with carboplatin Taxol/Keytruda on day 1 and 8 of a 21-day cycle on October 09, 2020. Follow-up CT PET scan After 4 cycles of Keytruda/carbo/Taxol done on December 28, 2020 showed excellent response, right upper lobe paramediastinal mass now measures 5 x 3.2 cm demonstrate significant central cavitation with only thin solid silva and only 2 sites of viable malignancy are present in anterior and posterior silva with SUV of 6.97.3 respectively. Right upper lobe spiculated mass now measures 1.3 x 2 cm with SUV of 8.6, improvement from prior study. Subcentimeter nodules seen previously are unchanged on current study. Left hilar lymph node with SUV 5.2, down from 7.7 previously. The other describe mediastinal lymph nodes are similarly improved or entirely resolved on current study Follow-up CT PET scan done on February 01, 2021 shows right upper lobe paramediastinal mass seen on prior study now has SUV of 13 compared to 7.3 previously, spiculated right upper lobe mass has SUV of 13.2 compared to 8.6 previously, left hilar node has SUV of 6.3, questionable increased from prior study. Bilateral subcentimeter pulmonary nodules are unchanged from prior study, no new lesions seen otherwise, Chemotherapy was discontinued after January 28, 2021 and she was started on maintenance Keytruda every 3 weeks on February 17, 2021 Came for follow-up, denies any specific complaint except generalized weakness and fatigue otherwise no fever chills, no nausea or vomiting, no diarrhea constipation, no hemoptysis or hematemesis, no new bony pains tolerated combined chemoimmunotherapy well, follow-up PET scan shows excellent response, now being switched to maintenance immunotherapy with Keytruda every 3 weeks Medications: Advair Diskus 1 puff(s) (of 250-50 mcg/dose) Aerosol Powder, Breath Activated Inhalation b.i.d., Amoxicillin-Pot Clavulanate (500-125 mg) Tablet Oral b.i.d., Aspirin 1 (325 mg) Tablet Oral daily, Benadryl 1 (25 mg) Capsule Oral daily PRN, ClonazePAM 1 Tablet (of 0.5 mg) Oral b.i.d., Doxycycline Hyclate 1 Tablet (of 100 mg) Oral b.i.d., Ibuprofen 1 Tablet (of 800 mg) Oral t.i.d., Lisinopril 1 Tablet (of 10 mg) Oral daily, methylPREDNISolone Tablet Therapy Pack Oral, PARoxetine HCl 1 Tablet (of 20 mg) Oral daily, ProAir HFA 1 puff(s) (of 108 (90 base) mcg/act) Aerosol, solution Inhalation q 4 hours, Propranolol HCl ER 1 Capsule (of 60 mg) Capsule SR 24 HR Oral daily, Venlafaxine HCl 1 Tablet (of 75 mg) Tablet Oral daily Allergies: No Known Allergies. Review of Systems: Review of Systems is not available for this patient. Vital Signs: Performed on Feb 18, 2021 09:46 Height - 63.00 in Weight - 179.2 lbs (HIGH) BSA - 1.85 sq.m BMI - 31.74 (HIGH) Temperature - 97.9 F (LOW) Pulse - 85 /min Respiration - 20 /min BP - 142/84 mm(hg) (HIGH) O2 Sat - 92 % (LOW) Pain - 6 Fatigue - 6 Performance Status: 1 - No physically strenuous activity, but ambulatory and able to carry out light or sedentary work (e.g. office work, light house work). (ECOG) Physical Examination: Respiratory - Lungs are clear to auscultation, Cardiovascular - Regular rate and rhythm of heart, Gastrointestinal - Soft, bowel sounds present, Extremities - No visible edema. Lab/Imaging: Test performed on Feb 18, 2021 08:03 Creatinine 0.4 mg/dL Cr Clearance (Est) 184.93 mL/min Test performed on Feb 04, 2021 08:42 Sodium 136 mmol/L Potassium 4.5 mmol/L Chloride 97 mmol/L CO2 28 mmol/L Anion Gap 15.5 BUN 12 mg/dL eGFR 161.2 mL/min Glucose 133 mg/dL Osmolality - Calculated 284 mOsm/kg Calcium 9.1 mg/dL Protein, Total 7.2 g/dL Albumin 4.2 g/dL Globulin 3.0 g/dL Bilirubin, Total 0.2 mg/dL ALT (SGPT) 22 U/L AST (SGOT) 18 U/L Alkaline Phosphatase 128 IU/L WBC 4.1 10 3/uL RBC 3.53 10 6/uL HGB 10.7 g/dL HCT 34.4 % MCV 97.5 fl MCH 30.3 pg MCHC 31.1 g/dL RDW 16.2 % Platelet Count 264 10 3/cmm MPV 10.1 fL Neutrophils 3.36 10 3/uL Lymphocytes 0.6 10 3/uL Monocytes 0.1 10 3/uL Eosinophils 0.0 10 3/uL Basophils 0.0 10 3/uL Neutrophil % 83.0 % Lymphocyte % 15.1 % Monocyte % 1.2 % Eosinophil % 0.0 % Basophils % 0.2 % NRBC % 0 % Test performed on Dec 17, 2020 10:29 Ua Color Yellow Ua Appearance Clear Ua Glucose Norm Ua Bilirubin Neg Ua Ketones Negative Ua Specific [place] 1.005 Ua Blood Trace Ua pH 7 Ua Protein Neg Ua Nitrites Negative Ua Leukocyte Esterase Negative Ua Micro: WBC 0-4 /hpf Ua Micro: RBC 0-4 /hpf Ua Micro: Squam Epith Cells 5-10 /hpf Ua Micro: Bacteria NONE /hpf Test performed on Dec 17, 2020 10:23 Ferritin 885 ng/mL Iron 50 mcg/dL Iron Binding Capacity (TIBC) 203 mcg/dl % Iron Saturation 24.6 % UIBC 153 mcg/dL Test performed on Nov 20, 2020 11:20 TSH 0.30 uIU/mL Impression: 1. Squamous cell carcinoma per transbronchial biopsy from right peritracheal mass done on August 15, 2020 CT scan of chest done on July 31, 2020 showed 6.4 x 4 x 7.6 cm right suprahilar/right upper lobe paramediastinal mass and additional spiculated right suprahilar nodule along with right fissure measuring 1.6 x 1.3 cm, spiculated right middle lobe nodule measuring 7 mm and mediastinal lymphadenopathy CT PET scan done on August 03, 2020 showed FDG positive centrally necrotic right upper lobe mass, malignant circular lesion at the right minor fissure, multiple bilateral pulmonary nodules too small to characterize, extensive bilateral malignant mediastinal lymphadenopathy, Stage IIIb versus stage Court, PD-L1 TPS more than 50% MRI scan of the head done on September 05, 2020 showed no evidence of metastatic disease Guardant 360 shows no targetable therapeutic mutations Started on chemoimmunotherapy with Keytruda/carboplatin/Taxol on October 16, 2020, follow-up CT PET scan done on December 28, 2020 showed marked improvement in the right upper lobe mediastinal mass, lesion is now markedly cavitary with only 2 small lesions of viable malignancy remaining. Improvement in the right upper lobe satellite nodule. No change in subcentimeter pulmonary nodules. Improvement or resolution of mediastinal lymphadenopathy. follow-up CT PET scan done on February 01, 2021 which shows right upper lobe paramediastinal mass seen on prior study has now SUV of 13 compared to 7.3 previously, spiculated right upper lobe mass has SUV of 13.2 compared to 8.6 before, left hilar node has SUV of 6.3, questionable increase from previous study. Bilateral subcentimeter pulmonary nodules are unchanged, no new lesions seen otherwise As her follow-up PET scan showed stable disease, increase SUV could be due to mild disease progression or immunotherapy flare, but because of continued decline in quality of life and inconvenience of traveling back and forth to office, chemotherapy with carboplatin/Taxol was discontinued after last dose given on January 28, 2021 but continue with maintenance therapy with Keytruda every 3 weeks starting February 18, 2021 2. Patient with grade 1 infiltrating ductal carcinoma of the right breast, stage IA (T1c, N0, M0), ER/VA positive and HER-2/christophe negative. Oncotype DX score was 15, low risk. 3 She completed radiation to the right breast on 03/06/2015 to a total dose of 6600 cGy. 4. She began adjuvant hormonal therapy with Femara 2.5 mg daily in December 2014. 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 Degenerative arthritis. 7. She has nicotine dependence (cigarettes). Chronic back pain MRI scan of lumbosacral area done on 06/23/2018 and bone scan done on 06/09/2018 showed no evidence of malignancy but chronic arthritis She does have ongoing problems with the COPD, and she currently appears to be experiencing an acute exacerbation. Polycythemia probably due to hypoxia due to severe COPD or chronic smoking, now on home oxygen Improved with smoking cessation for 1 week Iron deficiency anemia, Intolerance to oral iron Plan: Discussed with patient regarding her labs white blood count 6 hemoglobin 11 hematocrit 34.5 platelets 257,000 CMP within normal limits Clinically, patient is doing reasonably well, lab work-up is within normal range so we will proceed with maintenance dose Keytruda today and then she will return to clinic in 3 weeks with CBC CMP, plan to continue maintenance therapy with Keytruda every 3 weeks and repeat follow-up CT PET scan in 3 months. Patient was advised to quit smoking and was offered any assistance she may need. Signed By: Kaya Díaz M.D. <<Signature on File>>
== END 2021-02-18 23:59 | disposition home or self-care (01) ==
LOC: ONCMED 05:42
PROVIDERS: PCP Family Medicine; Visit Provider Internal Medicine Hematology & Oncology
DX: Z51.12 Encounter for antineoplastic immunotherapy (principal); Z51.11 Encounter for antineoplastic chemotherapy; C34.11 Malignant neoplasm of upper lobe, right bronchus or lung; D75.1 Secondary polycythemia; D50.9 Iron deficiency anemia, unspecified; E55.9 Vitamin D deficiency, unspecified; F17.210 Nicotine dependence, cigarettes, uncomplicated; J44.9 Chronic obstructive pulmonary disease, unspecified; Z85.3 Personal history of malignant neoplasm of breast; Z79.811 Long term (current) use of aromatase inhibitors; Z79.899 Other long term (current) drug therapy; Z92.3 Personal history of irradiation
CPT/HCPCS: 36591; 77066; 80053; 85025; 96367; 96375; 96413; 96417; 99214; 99215; J1100; J1200; J1453; J2469; J3490; J7030; J7040; J7050; J9045; J9267; J9271

== ENCOUNTER → 2021-03-04 12:06 | Outpatient (BNVA) | payer MEDICARE, MEDICAID, SELFPAY | PROVIDERS: PCP Family Medicine; Visit Provider Family Medicine | DX: I10 Essential (primary) hypertension (principal); J43.1 Panlobular emphysema; F41.9 Anxiety disorder, unspecified; F32.9 Major depressive disorder, single episode, unspecified; Z68.30 Body mass index [BMI] 30.0-30.9, adult; F17.219 Nicotine dependence, cigarettes, with unspecified nicotine-induced disorders; Z71.6 Tobacco abuse counseling; Z71.89 Other specified counseling | CPT/HCPCS: 80061 ==

== ENCOUNTER 2021-03-14 11:56 | Outpatient (RCR) | payer MEDICARE, MEDICAID, SELFPAY ==
[2021-03-11 09:09] LABS: Basophils % 0.5 %; Eosinophils # 0.1 10^3/uL (0.0-0.8); Eosinophils % 1.7 %; Hematocrit 39.6 % (37.0-47.0); Hemoglobin 12.4 g/dL (11.5-15.3); Lymphocytes # 2.5 10^3/uL (0.8-4.8); Lymphocytes % 42.3 %; Mean Corpuscular HGB Conc 31.3 g/dL (30.0-36.0); Mean Corpuscular Hemoglobin 30.6 pg (28.0-34.0); Mean Corpuscular Volume 97.8 fl (81-99); Mean Platelet Volume 10.2 fL (7.4-10.4); Monocytes # 0.6 10^3/uL (0.2-0.9); Monocytes % 9.8 %; Neutrophils # 2.73 10^3/uL (1.8-7.7); Neutrophils % 45.5 %; Nucleated Red Blood Cells % 0 %; Platelet Count 320 10^3/cmm (130-400); Red Blood Count 4.05 10^6/uL (4.1-5.3); Red Cell Distribution Width 13.5 % (12.1-15.1)
[2021-03-11 09:35] LABS: Alanine Aminotransferase 9 U/L (0-33); Albumin Level 3.8 g/dL (3.5-5.2); Alkaline Phosphatase 112 IU/L (35-105); Anion Gap 12.7 (5-19); Aspartate Amino Transferase 13 U/L (0-32); Blood Urea Nitrogen 8 mg/dL (8-23); Calcium 8.9 mg/dL (8.5-10.5); Carbon Dioxide 31 mmol/L (22-29); Chloride 100 mmol/L (98-107); Globulin 2.7 g/dL (1.3-4.6); Glomerular Filtration Rate 124.6 mL/min (90-130); Glucose 108 mg/dL (65-115); Osmolality Calculated 289 mOsm/kg (285-295); Potassium 3.7 mmol/L (3.5-5.1); Sodium 140 mmol/L (136-145); Total Bilirubin 0.2 mg/dL (0.15-1.2); Total Protein 6.5 g/dL (6.6-8.7)
--- NOTE | 2021-03-11 12:22 | ONC FU_ITS ---
Dr. Díaz follow up note Patient: Swathi Frederick Unit #: [id number]: [id number] Dicatated By: Kaya Díaz M.D.Date of Visit:Mar 11, 2021 Onc Med Follow-up/Prog Note History of Present Illness: Ms Frederick is a 65 year-old woman with grade 1 infiltrating ductal carcinoma of the right breast, stage IA (T1c, N0, M0), ER/OK positive and HER-2/christophe negative. She had presented in October 2014 with palpable lump in her right breast. She had been on hormone replacement therapy for the preceding 20 years. Her mammogram on 11/06/2014 revealed 1.3 cm mass in the right breast at 9:00 position corresponding to a 2 cm nodule palpable on examination. An ultrasound guided biopsy on 12/07/2014 revealed grade 1/3 infiltrating ductal carcinoma with the prognostic profile showing ER positive at 100%, OK positive at 98%, and HER-2/christophe negative, 1.1 by FISH, and 1+ by IHC. The Ki-67 was 10%. She underwent lumpectomy and sentinel lymph node biopsy by Dr. Brennan on 12/24/2014. Her surgical pathology showed 1.5 cm infiltrating ductal carcinoma without lymphovascular invasion. Initial margins were positive, but after further excision the final margins were negative. One sentinel lymph was not involved. Her disease thus was pathologic stage IA (T1c, N0, M0). She was first seen by Dr. Ramirez on 12/27/2014. She had daily headaches ever since stopping her hormone replacement therapy. MRI of the brain on 01/10/2015 was negative for metastatic disease. Chiari I malformation was noted. She was referred to neurology for management of migraines. Oncotype DX score on 01/08/2015 return low at 15, corresponding to 9% risk of distant recurrence following hormonal treatment. She began on adjuvant treatment with Femara in December 2014. Femara was discontinued as she completed 5 years on November 30, 2019. She was found to beVitamin D deficient and she was also then started on replacement therapy. DEXA scan in April 2015 showed normal bone density. She completed definitive adjuvant radiation treatment with a boost on 03/06/2015. A CT of the chest on 03/21/2015 showed bilateral nonspecific upper lobe pulmonary nodules from 2-5 mm, and diffuse interstitial thickening with a pulmonary artery hypertension. Her other medical illnesses include COPD, degenerative arthritis, and depression. 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 She has a history of smoking 1 pack of cigarettes daily for 40 years, and she continues to smoke. Repeat CT of the chest on 08/26/2015 showed clearing of the pulmonary nodules. There was soft tissue density in the right breast with a seroma. By ultrasound, the seroma had decreased. She underwent an FNA of the seroma in August 2015. Cytology was benign. She continued adjuvant hormonal therapy with Femara since December 2014 . Follow-up mammogram done on January 22, 2020 showed BI-RADS 2, benign. Mrs. Mathews had follow-up with Dr. Allred on July 16, 2020 for exacerbation of COPD although she continued to smoke. She was offered low-dose CT scan for lung cancer screening ended pursue the CTs [place]. She did have a CT lung screening on July 31 2020. It reported a spiculated right suprahilar and right upper lobe paramediastinal and soft tissue mass. It measured 6.4 x 4.0 x 7.6 cm AP by transverse by craniocaudal. Findings were most compatible with neoplasm. Recommended dedicated contrast-enhanced chest CT and further evaluation with bronchoscopy. Mild narrowing of the right upper main stem bronchus. Mild narrowing of the right distal mainstem bronchus. Mediastinal lymphadenopathy. Right hilar lymphadenopathy. Mrs. Niño underwent PET CT on August 03, 2020 via [facility] radiology. The right upper lobe paramediastinal/superior right hilar mass measured 4.2 x 7.4 cm with central necrosis and an SUV of 37.3 representing malignancy, likely primary bronchogenic carcinoma. A 1.4 spiculated mass at the minor fissure, right upper lobe has an SUV of 12.6 consistent with a satellite malignant lesion. Other subcentimeter lesions were present in other lobes bilaterally too small to characterize. These are likely malignant and should be closely followed on future imaging. Malignant mediastinal adenopathy is present, representing metastatic disease. These are present in the prevascular, left paratracheal, subaortic and bilateral hilar territory. The financial services sales representative left hilar node has an SUV of 8.5. There were no findings to indicate osseous metastatic disease. No significant pelvic or abdominal adenopathy was present. She did have extensive malignant mediastinal adenopathy. Ms. Mathews underwent bronchoscopy with endobronchial ultrasound-guided transbronchial needle aspiration of lymph nodes and control of bleeding on August 15, [address] Allred. Fine-needle aspiration was performed on the right paratracheal mass. 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 P63 was positive DTF???1 was negative p16 negative Ki 67 = 60% global CK 5/6 strongly and diffusely positive in tumor cells. CK7 was negative CK20 was negative; CK cocktail: Strongly and diffusely positive in tumor cells. CK 8/18 strongly and diffusely positive in tumor cells. CK Victor M: Strongly diffusely positive tumor cells. Staging MRI of the brain from September 05, 2020 reported no evidence of restricted diffusion to suggest ischemia. No evidence of enhancing intracranial metastatic disease. Mild small vessel changes with mild parenchymal volume loss. Small vessel changes in the aquiles. This has progressed since 2015. Numerous new small punctate foci of hemosiderin in the right parietal and temporal lobes. Single focus in the left posterior temporal lobe consistent with chronic tiny punctate microhemorrhages mainly subcortical in location. This is nonspecific but can be seen with amyloid angiopathy. Mild symmetric atrophy involving the temporal lobes and hippocampal formations. Guardant 360 done on August 29, 2020 showed no targetable therapeutic mutations. PD-L1 expression TPS was more than 50%. plan of care was to pursue systemic chemotherapy followed by follow-up PET CT. If the PET/CT shows resolution of bilateral pulmonary nodules then consider combined chemoradiation therapy. Considering that patient has locally advanced disease still contained in the chest ,was recommendeded chemo therapy with immunotherapy consisting of pembrolizumab every 3 weeks and carboplatin Taxol day 1 and 8 repeat every 28 days. She will have follow-up PET CT after 3 cycles. If this again shows good resolution of bilateral pulmonary nodules then will discuss radiation oncology with combined chemoradiation. Incidentally Ms. Frederick was found to be iron deficient with a hemoglobin of 9.4 and was given 2 doses of Injectafer 1 on August 12, 2020 and again on August 19, 2020. Repeat follow-up PET/CT from September 28, 2020 reported the right upper lobe. Mediastinal/superior right hilar mass currently measured 4.2 x 7.4 cm with an SUV of 28.9 and extensive central necrosis. This is unchanged in size and questionably improved in uptake. The 1.46 spiculated mass at the minor fissure, right upper lobe has an SUV of 13.5 and is unchanged in the prior study from 08/03/2020. Subcentimeter pulmonary nodules are unchanged with the prior study. The left hilar index node has an SUV of 7.7, unchanged from 8.5 previously. The other mediastinal nodes in the prevascular, left paratracheal and subaortic and bilateral hilar regions are stable from the prior study. There is no indication of osseous metastatic disease. She began chemotherapy with carboplatin Taxol/Keytruda on day 1 and 8 of a 21-day cycle on October 09, 2020. Follow-up CT PET scan After 4 cycles of Keytruda/carbo/Taxol done on December 28, 2020 showed excellent response, right upper lobe paramediastinal mass now measures 5 x 3.2 cm demonstrate significant central cavitation with only thin solid silva and only 2 sites of viable malignancy are present in anterior and posterior silva with SUV of 6.97.3 respectively. Right upper lobe spiculated mass now measures 1.3 x 2 cm with SUV of 8.6, improvement from prior study. Subcentimeter nodules seen previously are unchanged on current study. Left hilar lymph node with SUV 5.2, down from 7.7 previously. The other describe mediastinal lymph nodes are similarly improved or entirely resolved on current study Follow-up CT PET scan done on February 01, 2021 shows right upper lobe paramediastinal mass seen on prior study now has SUV of 13 compared to 7.3 previously, spiculated right upper lobe mass has SUV of 13.2 compared to 8.6 previously, left hilar node has SUV of 6.3, questionable increased from prior study. Bilateral subcentimeter pulmonary nodules are unchanged from prior study, no new lesions seen otherwise, Chemotherapy was discontinued after January 28, 2021 and she was started on maintenance Keytruda every 3 weeks on February 17, 2021 Came for follow-up, denies any specific complaint except pain/discomfort in the posterior medial mid back,, denies any trauma, but as per patient she has chronic cough and still smoke about half pack a day while on home oxygen. Denies any fever chills denies any yellowish phlegm denies any nausea or vomiting denies any skin rash, denies any diarrhea denies any jaundice denies any headaches blurred vision double vision patient says she was taking Motrin and it was helping her but now requesting something stronger. Otherwise tolerating 3 weekly Keytruda well Medications: Advair Diskus 1 puff(s) (of 250-50 mcg/dose) Aerosol Powder, Breath Activated Inhalation b.i.d., Amoxicillin-Pot Clavulanate (500-125 mg) Tablet Oral b.i.d., Aspirin 1 (325 mg) Tablet Oral daily, Benadryl 1 (25 mg) Capsule Oral daily PRN, ClonazePAM 1 Tablet (of 0.5 mg) Oral b.i.d., Doxycycline Hyclate 1 Tablet (of 100 mg) Oral b.i.d., Ibuprofen 1 Tablet (of 800 mg) Oral t.i.d., Lisinopril 1 Tablet (of 10 mg) Oral daily, methylPREDNISolone Tablet Therapy Pack Oral, PARoxetine HCl 1 Tablet (of 20 mg) Oral daily, ProAir HFA 1 puff(s) (of 108 (90 base) mcg/act) Aerosol, solution Inhalation q 4 hours, Propranolol HCl ER 1 Capsule (of 60 mg) Capsule SR 24 HR Oral daily, Venlafaxine HCl 1 Tablet (of 75 mg) Tablet Oral daily Allergies: No Known Allergies. Review of Systems: Review of Systems is not available for this patient. Vital Signs: Performed on Mar 11, 2021 10:34 Height - 63.00 in Weight - 179.6 lbs (HIGH) BSA - 1.85 sq.m BMI - 31.81 (HIGH) Temperature - 97 F (LOW) Pulse - 79 /min Respiration - 18 /min BP - 138/83 mm(hg) O2 Sat - 93 % (LOW) Pain - 0 Fatigue - 10 Performance Status: 1 - No physically strenuous activity, but ambulatory and able to carry out light or sedentary work (e.g. office work, light house work). (ECOG) Physical Examination: Respiratory - Poor air entry, mild wheezing bilaterally, mild discomfort on deep palpation in the posterior medial chest wall no overlying skin changes, Cardiovascular - Regular rate and rhythm of heart, Gastrointestinal - Soft, bowel sounds present, Extremities - No visible edema. Lab/Imaging: Test performed on Feb 18, 2021 08:03 Creatinine 0.4 mg/dL Cr Clearance (Est) 184.93 mL/min Test performed on Feb 04, 2021 08:42 Sodium 136 mmol/L Potassium 4.5 mmol/L Chloride 97 mmol/L CO2 28 mmol/L Anion Gap 15.5 BUN 12 mg/dL eGFR 161.2 mL/min Glucose 133 mg/dL Osmolality - Calculated 284 mOsm/kg Calcium 9.1 mg/dL Protein, Total 7.2 g/dL Albumin 4.2 g/dL Globulin 3.0 g/dL Bilirubin, Total 0.2 mg/dL ALT (SGPT) 22 U/L AST (SGOT) 18 U/L Alkaline Phosphatase 128 IU/L WBC 4.1 10 3/uL RBC 3.53 10 6/uL HGB 10.7 g/dL HCT 34.4 % MCV 97.5 fl MCH 30.3 pg MCHC 31.1 g/dL RDW 16.2 % Platelet Count 264 10 3/cmm MPV 10.1 fL Neutrophils 3.36 10 3/uL Lymphocytes 0.6 10 3/uL Monocytes 0.1 10 3/uL Eosinophils 0.0 10 3/uL Basophils 0.0 10 3/uL Neutrophil % 83.0 % Lymphocyte % 15.1 % Monocyte % 1.2 % Eosinophil % 0.0 % Basophils % 0.2 % NRBC % 0 % Test performed on Dec 17, 2020 10:29 Ua Color Yellow Ua Appearance Clear Ua Glucose Norm Ua Bilirubin Neg Ua Ketones Negative Ua Specific [place] 1.005 Ua Blood Trace Ua pH 7 Ua Protein Neg Ua Nitrites Negative Ua Leukocyte Esterase Negative Ua Micro: WBC 0-4 /hpf Ua Micro: RBC 0-4 /hpf Ua Micro: Squam Epith Cells 5-10 /hpf Ua Micro: Bacteria NONE /hpf Test performed on Dec 17, 2020 10:23 Ferritin 885 ng/mL Iron 50 mcg/dL Iron Binding Capacity (TIBC) 203 mcg/dl % Iron Saturation 24.6 % UIBC 153 mcg/dL Test performed on Nov 20, 2020 11:20 TSH 0.30 uIU/mL Impression: 1. Squamous cell carcinoma per transbronchial biopsy from right peritracheal mass done on August 15, 2020 CT scan of chest done on July 31, 2020 showed 6.4 x 4 x 7.6 cm right suprahilar/right upper lobe paramediastinal mass and additional spiculated right suprahilar nodule along with right fissure measuring 1.6 x 1.3 cm, spiculated right middle lobe nodule measuring 7 mm and mediastinal lymphadenopathy CT PET scan done on August 03, 2020 showed FDG positive centrally necrotic right upper lobe mass, malignant circular lesion at the right minor fissure, multiple bilateral pulmonary nodules too small to characterize, extensive bilateral malignant mediastinal lymphadenopathy, Stage IIIb versus stage Court, PD-L1 TPS more than 50% MRI scan of the head done on September 05, 2020 showed no evidence of metastatic disease Guardant 360 shows no targetable therapeutic mutations Started on chemoimmunotherapy with Keytruda/carboplatin/Taxol on October 16, 2020, follow-up CT PET scan done on December 28, 2020 showed marked improvement in the right upper lobe mediastinal mass, lesion is now markedly cavitary with only 2 small lesions of viable malignancy remaining. Improvement in the right upper lobe satellite nodule. No change in subcentimeter pulmonary nodules. Improvement or resolution of mediastinal lymphadenopathy. follow-up CT PET scan done on February 01, 2021 which shows right upper lobe paramediastinal mass seen on prior study has now SUV of 13 compared to 7.3 previously, spiculated right upper lobe mass has SUV of 13.2 compared to 8.6 before, left hilar node has SUV of 6.3, questionable increase from previous study. Bilateral subcentimeter pulmonary nodules are unchanged, no new lesions seen otherwise As her follow-up PET scan showed stable disease, increase SUV could be due to mild disease progression or immunotherapy flare, but because of continued decline in quality of life and inconvenience of traveling back and forth to office, chemotherapy with carboplatin/Taxol was discontinued after last dose given on January 28, 2021 but continue with maintenance therapy with Keytruda every 3 weeks starting February 18, 2021 2. Patient with grade 1 infiltrating ductal carcinoma of the right breast, stage IA (T1c, N0, M0), ER/OK positive and HER-2/christophe negative. Oncotype DX score was 15, low risk. 3 She completed radiation to the right breast on 03/06/2015 to a total dose of 6600 cGy. 4. She began adjuvant hormonal therapy with Femara 2.5 mg daily in December 2014. 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 Degenerative arthritis. 7. She has nicotine dependence (cigarettes). Chronic back pain MRI scan of lumbosacral area done on 06/23/2018 and bone scan done on 06/09/2018 showed no evidence of malignancy but chronic arthritis She does have ongoing problems with the COPD, and she currently appears to be experiencing an acute exacerbation. Polycythemia probably due to hypoxia due to severe COPD or chronic smoking, now on home oxygen Improved with smoking cessation for 1 week Iron deficiency anemia, Intolerance to oral iron Plan: Discussed with patient regarding her labs white blood count 6 hemoglobin 12.4 g compared to 11 g previously hematocrit 39.6 platelets 320,000 CMP within normal limits Clinically, patient doing well with no new signs symptom suggestive of disease progression, will proceed with her next 3 weekly dose of Keytruda today then she return to clinic in 3 weeks with CBC CMP As far as right posterior medial mid back pain is concerned, patient has a focal tenderness which could be due to musculoskeletal or rib fracture due to coughing or inflammation or malignancy. At this point we will get plain chest x-ray as well as rib films with special attention to posterior medial mid back area. And review. Patient was also given prescription for Percocet Signed By: Kaya Díaz M.D. <<Signature on File>>
--- NOTE | 2021-03-14 11:58 | XR_ITS ---
WS: [id number] PA and lateral chest, 03/14/2021 Clinical Data: LUNG CANCER Comparison: PA and lateral chest, 11/20/2020. Findings: No nodules, masses or effusions are seen. No pneumonia or pneumothorax is seen. Both jose a re full but unchanged. The heart size is normal. The aortic arch is minimally tortuous. There is a le ft internal jugular venous catheter ending in the superior vena cava unchanged. The diaphragms are fl attened. XR/XR chest 2V* [id number] Impression: 1. Bilateral hilar fullness unchanged. 2. Atherosclerosis and hyperinflation.
--- NOTE | 2021-03-14 11:58 | XR_ITS ---
WS: [id number] Bilateral rib detail, 4 views, 03/14/2021 Clinical Data: LUNG CANCER Comparison: None. Findings: No rib fractures are seen. There is no pneumothorax or subcutaneous emphysema. No pleural effusions a re seen. There is no bone destruction or erosion. There is a levoscoliosis of the lumbar spine. XR/XR ribs BI 3V* [id number] Impression: Negative bilateral rib detail.
== END 2021-03-20 23:59 | disposition home or self-care (01) ==
LOC: ONCMED 11:56
PROVIDERS: PCP Family Medicine; Visit Provider Internal Medicine Hematology & Oncology
DX: Z51.12 Encounter for antineoplastic immunotherapy (principal); C50.811 Malignant neoplasm of overlapping sites of right female breast; Z17.0 Estrogen receptor positive status [ER+]; Z79.811 Long term (current) use of aromatase inhibitors; J44.9 Chronic obstructive pulmonary disease, unspecified; M19.90 Unspecified osteoarthritis, unspecified site; F17.210 Nicotine dependence, cigarettes, uncomplicated; Z92.3 Personal history of irradiation; Z79.899 Other long term (current) drug therapy
CPT/HCPCS: 71046; 71110; 80053; 85025; 96413; 99215; J7050; J9271

== ENCOUNTER 2021-04-01 06:34 | Outpatient (RCR) | payer MEDICARE, MEDICAID, SELFPAY ==
[2021-04-01 09:22] LABS: Basophils % 0.2 %; Eosinophils # 0.2 10^3/uL (0.0-0.8); Eosinophils % 1.2 %; Hematocrit 43.4 % (37.0-47.0); Hemoglobin 13.4 g/dL (11.5-15.3); Lymphocytes # 4.8 10^3/uL (0.8-4.8); Lymphocytes % 39.6 %; Mean Corpuscular HGB Conc 30.9 g/dL (30.0-36.0); Mean Corpuscular Hemoglobin 30.5 pg (28.0-34.0); Mean Corpuscular Volume 98.6 fl (81-99); Mean Platelet Volume 9.7 fL (7.4-10.4); Monocytes # 1.1 10^3/uL (0.2-0.9); Monocytes % 9.2 %; Neutrophils # 5.98 10^3/uL (1.8-7.7); Neutrophils % 49.2 %; Nucleated Red Blood Cells % 0 %; Platelet Count 335 10^3/cmm (130-400); Red Cell Distribution Width 13.4 % (12.1-15.1); White Blood Count 12.2 10^3/uL (4.0-10.0)
[2021-04-01 09:52] LABS: Alanine Aminotransferase 11 U/L (0-33); Albumin Level 3.4 g/dL (3.5-5.2); Alkaline Phosphatase 91 IU/L (35-105); Anion Gap 14.6 (5-19); Aspartate Amino Transferase 9 U/L (0-32); Blood Urea Nitrogen 20 mg/dL (8-23); Calcium 8.4 mg/dL (8.5-10.5); Carbon Dioxide 27 mmol/L (22-29); Chloride 102 mmol/L (98-107); Globulin 2.6 g/dL (1.3-4.6); Glucose 91 mg/dL (65-115); Osmolality Calculated 292 mOsm/kg (285-295); Potassium 3.6 mmol/L (3.5-5.1); Sodium 140 mmol/L (136-145); Total Bilirubin 0.2 mg/dL (0.15-1.2)
--- NOTE | 2021-04-07 09:52 | ONC FU_ITS ---
Dr. Díaz follow up note Patient: Swathi Frederick Unit #: [id number]: [id number] Dicatated By: Kaya Díaz M.D.Date of Visit:Apr 01, 2021 Onc Med Follow-up/Prog Note History of Present Illness: Ms Frederick is a 65 year-old woman with grade 1 infiltrating ductal carcinoma of the right breast, stage IA (T1c, N0, M0), ER/KS positive and HER-2/christophe negative. She had presented in October 2014 with palpable lump in her right breast. She had been on hormone replacement therapy for the preceding 20 years. Her mammogram on 11/06/2014 revealed 1.3 cm mass in the right breast at 9:00 position corresponding to a 2 cm nodule palpable on examination. An ultrasound guided biopsy on 12/07/2014 revealed grade 1/3 infiltrating ductal carcinoma with the prognostic profile showing ER positive at 100%, KS positive at 98%, and HER-2/christophe negative, 1.1 by FISH, and 1+ by IHC. The Ki-67 was 10%. She underwent lumpectomy and sentinel lymph node biopsy by Dr. Brennan on 12/24/2014. Her surgical pathology showed 1.5 cm infiltrating ductal carcinoma without lymphovascular invasion. Initial margins were positive, but after further excision the final margins were negative. One sentinel lymph was not involved. Her disease thus was pathologic stage IA (T1c, N0, M0). She was first seen by Dr. Ramirez on 12/27/2014. She had daily headaches ever since stopping her hormone replacement therapy. MRI of the brain on 01/10/2015 was negative for metastatic disease. Chiari I malformation was noted. She was referred to neurology for management of migraines. Oncotype DX score on 01/08/2015 return low at 15, corresponding to 9% risk of distant recurrence following hormonal treatment. She began on adjuvant treatment with Femara in December 2014. Femara was discontinued as she completed 5 years on November 30, 2019. She was found to beVitamin D deficient and she was also then started on replacement therapy. DEXA scan in April 2015 showed normal bone density. She completed definitive adjuvant radiation treatment with a boost on 03/06/2015. A CT of the chest on 03/21/2015 showed bilateral nonspecific upper lobe pulmonary nodules from 2-5 mm, and diffuse interstitial thickening with a pulmonary artery hypertension. Her other medical illnesses include COPD, degenerative arthritis, and depression. 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 She has a history of smoking 1 pack of cigarettes daily for 40 years, and she continues to smoke. Repeat CT of the chest on 08/26/2015 showed clearing of the pulmonary nodules. There was soft tissue density in the right breast with a seroma. By ultrasound, the seroma had decreased. She underwent an FNA of the seroma in August 2015. Cytology was benign. She continued adjuvant hormonal therapy with Femara since December 2014 . Follow-up mammogram done on January 22, 2020 showed BI-RADS 2, benign. Mrs. Mathews had follow-up with Dr. Allred on July 16, 2020 for exacerbation of COPD although she continued to smoke. She was offered low-dose CT scan for lung cancer screening ended pursue the CTs [place]. She did have a CT lung screening on July 31 2020. It reported a spiculated right suprahilar and right upper lobe paramediastinal and soft tissue mass. It measured 6.4 x 4.0 x 7.6 cm AP by transverse by craniocaudal. Findings were most compatible with neoplasm. Recommended dedicated contrast-enhanced chest CT and further evaluation with bronchoscopy. Mild narrowing of the right upper main stem bronchus. Mild narrowing of the right distal mainstem bronchus. Mediastinal lymphadenopathy. Right hilar lymphadenopathy. Mrs. Niño underwent PET CT on August 03, 2020 via [facility] radiology. The right upper lobe paramediastinal/superior right hilar mass measured 4.2 x 7.4 cm with central necrosis and an SUV of 37.3 representing malignancy, likely primary bronchogenic carcinoma. A 1.4 spiculated mass at the minor fissure, right upper lobe has an SUV of 12.6 consistent with a satellite malignant lesion. Other subcentimeter lesions were present in other lobes bilaterally too small to characterize. These are likely malignant and should be closely followed on future imaging. Malignant mediastinal adenopathy is present, representing metastatic disease. These are present in the prevascular, left paratracheal, subaortic and bilateral hilar territory. The admitting representative left hilar node has an SUV of 8.5. There were no findings to indicate osseous metastatic disease. No significant pelvic or abdominal adenopathy was present. She did have extensive malignant mediastinal adenopathy. Ms. Mathews underwent bronchoscopy with endobronchial ultrasound-guided transbronchial needle aspiration of lymph nodes and control of bleeding on August 15, [address] Allred. Fine-needle aspiration was performed on the right paratracheal mass. 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 P63 was positive DTF???1 was negative p16 negative Ki 67 = 60% global CK 5/6 strongly and diffusely positive in tumor cells. CK7 was negative CK20 was negative; CK cocktail: Strongly and diffusely positive in tumor cells. CK 8/18 strongly and diffusely positive in tumor cells. CK Victor M: Strongly diffusely positive tumor cells. Staging MRI of the brain from September 05, 2020 reported no evidence of restricted diffusion to suggest ischemia. No evidence of enhancing intracranial metastatic disease. Mild small vessel changes with mild parenchymal volume loss. Small vessel changes in the aquiles. This has progressed since 2015. Numerous new small punctate foci of hemosiderin in the right parietal and temporal lobes. Single focus in the left posterior temporal lobe consistent with chronic tiny punctate microhemorrhages mainly subcortical in location. This is nonspecific but can be seen with amyloid angiopathy. Mild symmetric atrophy involving the temporal lobes and hippocampal formations. Guardant 360 done on August 29, 2020 showed no targetable therapeutic mutations. PD-L1 expression TPS was more than 50%. plan of care was to pursue systemic chemotherapy followed by follow-up PET CT. If the PET/CT shows resolution of bilateral pulmonary nodules then consider combined chemoradiation therapy. Considering that patient has locally advanced disease still contained in the chest ,was recommendeded chemo therapy with immunotherapy consisting of pembrolizumab every 3 weeks and carboplatin Taxol day 1 and 8 repeat every 28 days. She will have follow-up PET CT after 3 cycles. If this again shows good resolution of bilateral pulmonary nodules then will discuss radiation oncology with combined chemoradiation. Incidentally Ms. Frederick was found to be iron deficient with a hemoglobin of 9.4 and was given 2 doses of Injectafer 1 on August 12, 2020 and again on August 19, 2020. Repeat follow-up PET/CT from September 28, 2020 reported the right upper lobe. Mediastinal/superior right hilar mass currently measured 4.2 x 7.4 cm with an SUV of 28.9 and extensive central necrosis. This is unchanged in size and questionably improved in uptake. The 1.46 spiculated mass at the minor fissure, right upper lobe has an SUV of 13.5 and is unchanged in the prior study from 08/03/2020. Subcentimeter pulmonary nodules are unchanged with the prior study. The left hilar index node has an SUV of 7.7, unchanged from 8.5 previously. The other mediastinal nodes in the prevascular, left paratracheal and subaortic and bilateral hilar regions are stable from the prior study. There is no indication of osseous metastatic disease. She began chemotherapy with carboplatin Taxol/Keytruda on day 1 and 8 of a 21-day cycle on October 09, 2020. Follow-up CT PET scan After 4 cycles of Keytruda/carbo/Taxol done on December 28, 2020 showed excellent response, right upper lobe paramediastinal mass now measures 5 x 3.2 cm demonstrate significant central cavitation with only thin solid silva and only 2 sites of viable malignancy are present in anterior and posterior silva with SUV of 6.97.3 respectively. Right upper lobe spiculated mass now measures 1.3 x 2 cm with SUV of 8.6, improvement from prior study. Subcentimeter nodules seen previously are unchanged on current study. Left hilar lymph node with SUV 5.2, down from 7.7 previously. The other describe mediastinal lymph nodes are similarly improved or entirely resolved on current study Follow-up CT PET scan done on February 01, 2021 shows right upper lobe paramediastinal mass seen on prior study now has SUV of 13 compared to 7.3 previously, spiculated right upper lobe mass has SUV of 13.2 compared to 8.6 previously, left hilar node has SUV of 6.3, questionable increased from prior study. Bilateral subcentimeter pulmonary nodules are unchanged from prior study, no new lesions seen otherwise, Chemotherapy was discontinued after January 28, 2021 and she was started on maintenance Keytruda every 3 weeks on February 17, 2021 Came for follow-up, denies any specific complaints, no fever chills, no nausea or vomiting, no diarrhea or constipation, no melena or hematochezia, no hemoptysis or hematemesis, mid upper back pain is resolving. No hemoptysis hematemesis, still smoking about a pack a day while on home oxygen. Denies any diarrhea denies any jaundice denies any skin rash tolerating 3 weekly Keytruda well otherwise Medications: Advair Diskus 1 puff(s) (of 250-50 mcg/dose) Aerosol Powder, Breath Activated Inhalation b.i.d., Amoxicillin-Pot Clavulanate (500-125 mg) Tablet Oral b.i.d., Aspirin 1 (325 mg) Tablet Oral daily, Benadryl 1 (25 mg) Capsule Oral daily PRN, ClonazePAM 1 Tablet (of 0.5 mg) Oral b.i.d., Doxycycline Hyclate 1 Tablet (of 100 mg) Oral b.i.d., Ibuprofen 1 Tablet (of 800 mg) Oral t.i.d., Lisinopril 1 Tablet (of 10 mg) Oral daily, methylPREDNISolone Tablet Therapy Pack Oral, PARoxetine HCl 1 Tablet (of 20 mg) Oral daily, ProAir HFA 1 puff(s) (of 108 (90 base) mcg/act) Aerosol, solution Inhalation q 4 hours, Propranolol HCl ER 1 Capsule (of 60 mg) Capsule SR 24 HR Oral daily, Venlafaxine HCl 1 Tablet (of 75 mg) Tablet Oral daily Allergies: No Known Allergies. Review of Systems: Review of Systems is not available for this patient. Vital Signs: Performed on Apr 01, 2021 09:59 Height - 63.00 in Weight - 183.6 lbs (HIGH) BSA - 1.86 sq.m BMI - 32.52 (HIGH) Temperature - 97.1 F (LOW) Pulse - 90 /min Respiration - 22 /min BP - 158/73 mm(hg) (HIGH) O2 Sat - 89 % (LOW) Pain - 0 Fatigue - 10 Performance Status: 1 - No physically strenuous activity, but ambulatory and able to carry out light or sedentary work (e.g. office work, light house work). (ECOG) Physical Examination: Respiratory - Poor air entry otherwise clear, Cardiovascular - Regular rate and rhythm of heart, Gastrointestinal - Soft, bowel sounds present, Extremities - No visible edema. Lab/Imaging: Test performed on Feb 18, 2021 08:03 Creatinine 0.4 mg/dL Cr Clearance (Est) 184.93 mL/min Test performed on Feb 04, 2021 08:42 Sodium 136 mmol/L Potassium 4.5 mmol/L Chloride 97 mmol/L CO2 28 mmol/L Anion Gap 15.5 BUN 12 mg/dL eGFR 161.2 mL/min Glucose 133 mg/dL Osmolality - Calculated 284 mOsm/kg Calcium 9.1 mg/dL Protein, Total 7.2 g/dL Albumin 4.2 g/dL Globulin 3.0 g/dL Bilirubin, Total 0.2 mg/dL ALT (SGPT) 22 U/L AST (SGOT) 18 U/L Alkaline Phosphatase 128 IU/L WBC 4.1 10 3/uL RBC 3.53 10 6/uL HGB 10.7 g/dL HCT 34.4 % MCV 97.5 fl MCH 30.3 pg MCHC 31.1 g/dL RDW 16.2 % Platelet Count 264 10 3/cmm MPV 10.1 fL Neutrophils 3.36 10 3/uL Lymphocytes 0.6 10 3/uL Monocytes 0.1 10 3/uL Eosinophils 0.0 10 3/uL Basophils 0.0 10 3/uL Neutrophil % 83.0 % Lymphocyte % 15.1 % Monocyte % 1.2 % Eosinophil % 0.0 % Basophils % 0.2 % NRBC % 0 % Test performed on Dec 17, 2020 10:29 Ua Color Yellow Ua Appearance Clear Ua Glucose Norm Ua Bilirubin Neg Ua Ketones Negative Ua Specific [place] 1.005 Ua Blood Trace Ua pH 7 Ua Protein Neg Ua Nitrites Negative Ua Leukocyte Esterase Negative Ua Micro: WBC 0-4 /hpf Ua Micro: RBC 0-4 /hpf Ua Micro: Squam Epith Cells 5-10 /hpf Ua Micro: Bacteria NONE /hpf Test performed on Dec 17, 2020 10:23 Ferritin 885 ng/mL Iron 50 mcg/dL Iron Binding Capacity (TIBC) 203 mcg/dl % Iron Saturation 24.6 % UIBC 153 mcg/dL Test performed on Nov 20, 2020 11:20 TSH 0.30 uIU/mL Impression: 1. Squamous cell carcinoma per transbronchial biopsy from right peritracheal mass done on August 15, 2020 CT scan of chest done on July 31, 2020 showed 6.4 x 4 x 7.6 cm right suprahilar/right upper lobe paramediastinal mass and additional spiculated right suprahilar nodule along with right fissure measuring 1.6 x 1.3 cm, spiculated right middle lobe nodule measuring 7 mm and mediastinal lymphadenopathy CT PET scan done on August 03, 2020 showed FDG positive centrally necrotic right upper lobe mass, malignant circular lesion at the right minor fissure, multiple bilateral pulmonary nodules too small to characterize, extensive bilateral malignant mediastinal lymphadenopathy, Stage IIIb versus stage Court, PD-L1 TPS more than 50% MRI scan of the head done on September 05, 2020 showed no evidence of metastatic disease Guardant 360 shows no targetable therapeutic mutations Started on chemoimmunotherapy with Keytruda/carboplatin/Taxol on October 16, 2020, follow-up CT PET scan done on December 28, 2020 showed marked improvement in the right upper lobe mediastinal mass, lesion is now markedly cavitary with only 2 small lesions of viable malignancy remaining. Improvement in the right upper lobe satellite nodule. No change in subcentimeter pulmonary nodules. Improvement or resolution of mediastinal lymphadenopathy. follow-up CT PET scan done on February 01, 2021 which shows right upper lobe paramediastinal mass seen on prior study has now SUV of 13 compared to 7.3 previously, spiculated right upper lobe mass has SUV of 13.2 compared to 8.6 before, left hilar node has SUV of 6.3, questionable increase from previous study. Bilateral subcentimeter pulmonary nodules are unchanged, no new lesions seen otherwise As her follow-up PET scan showed stable disease, increase SUV could be due to mild disease progression or immunotherapy flare, but because of continued decline in quality of life and inconvenience of traveling back and forth to office, chemotherapy with carboplatin/Taxol was discontinued after last dose given on January 28, 2021 but continue with maintenance therapy with Keytruda every 3 weeks starting February 18, 2021 2. Patient with grade 1 infiltrating ductal carcinoma of the right breast, stage IA (T1c, N0, M0), ER/KS positive and HER-2/christophe negative. Oncotype DX score was 15, low risk. 3 She completed radiation to the right breast on 03/06/2015 to a total dose of 6600 cGy. 4. She began adjuvant hormonal therapy with Femara 2.5 mg daily in December 2014. 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 Degenerative arthritis. 7. She has nicotine dependence (cigarettes). Chronic back pain MRI scan of lumbosacral area done on 06/23/2018 and bone scan done on 06/09/2018 showed no evidence of malignancy but chronic arthritis She does have ongoing problems with the COPD, and she currently appears to be experiencing an acute exacerbation. Polycythemia probably due to hypoxia due to severe COPD or chronic smoking, now on home oxygen Improved with smoking cessation for 1 week Iron deficiency anemia, Intolerance to oral iron Plan: Discussed with patient regarding her labs white blood count 12.2 hemoglobin 13.4 hematocrit 43.4 platelets 335,000 Chest x-ray done on March 14, 2021 for mid upper back pain showed no bone destruction or erosion, no pleural effusion no acute pulmonary findings. Clinically, patient doing well with no new signs symptoms suggestive of disease progression, tolerating 3 weekly Keytruda well, will proceed with next dose today and then she will return to clinic in 3 weeks with CBC CMP Signed By: Kaya Díaz M.D. <<Signature on File>>
== END 2021-04-20 23:59 | disposition home or self-care (01) ==
LOC: ONCMED 06:34
PROVIDERS: PCP Family Medicine; Visit Provider Internal Medicine Hematology & Oncology
DX: Z51.12 Encounter for antineoplastic immunotherapy (principal); C34.11 Malignant neoplasm of upper lobe, right bronchus or lung; D75.1 Secondary polycythemia; J44.9 Chronic obstructive pulmonary disease, unspecified; F17.210 Nicotine dependence, cigarettes, uncomplicated; Z99.81 Dependence on supplemental oxygen; D50.9 Iron deficiency anemia, unspecified; E55.9 Vitamin D deficiency, unspecified; Z85.3 Personal history of malignant neoplasm of breast; Z79.899 Other long term (current) drug therapy; Z92.3 Personal history of irradiation
CPT/HCPCS: 80053; 85025; 96413; 99215; J7050; J9271

== ENCOUNTER 2021-05-13 06:23 | Outpatient (RCR) | payer MEDICARE, MEDICAID, SELFPAY ==
[2021-04-22 10:34] LABS: Basophils % 0.3 %; Eosinophils # 0.1 10^3/uL (0.0-0.8); Eosinophils % 0.8 %; Lymphocytes # 3.8 10^3/uL (0.8-4.8); Lymphocytes % 33.3 %; Mean Corpuscular Volume 96.8 fl (81-99); Mean Platelet Volume 9.6 fL (7.4-10.4); Monocytes # 0.9 10^3/uL (0.2-0.9); Monocytes % 7.7 %; Neutrophils # 6.44 10^3/uL (1.8-7.7); Neutrophils % 57.2 %; Nucleated Red Blood Cells % 0 %; Platelet Count 304 10^3/cmm (130-400); Red Blood Count 4.34 10^6/uL (4.1-5.3); Red Cell Distribution Width 13.3 % (12.1-15.1); White Blood Count 11.3 10^3/uL (4.0-10.0)
[2021-04-22 11:01] LABS: Alanine Aminotransferase 14 U/L (0-33); Albumin Level 3.6 g/dL (3.5-5.2); Alkaline Phosphatase 85 IU/L (35-105); Aspartate Amino Transferase 11 U/L (0-32); Blood Urea Nitrogen 12 mg/dL (8-23); Calcium 8.9 mg/dL (8.5-10.5); Carbon Dioxide 34 mmol/L (22-29); Chloride 97 mmol/L (98-107); Globulin 2.1 g/dL (1.3-4.6); Glomerular Filtration Rate 161.2 mL/min (90-130); Glucose 72 mg/dL (65-115); Osmolality Calculated 286 mOsm/kg (285-295); Sodium 139 mmol/L (136-145); Thyroid Stimulating Hormone 3.28 uIU/mL (0.27-4.20); Total Bilirubin 0.2 mg/dL (0.15-1.2); Total Protein 5.7 g/dL (6.6-8.7)
[2021-04-22 11:05] LABS: Anion Gap 12.3 (5-19); Potassium 4.3 mmol/L (3.5-5.1)
[2021-05-13 08:35] LABS: Alanine Aminotransferase 12 U/L (0-33); Albumin Level 3.7 g/dL (3.5-5.2); Alkaline Phosphatase 88 IU/L (35-105); Aspartate Amino Transferase 12 U/L (0-32); Blood Urea Nitrogen 13 mg/dL (8-23); Calcium 8.4 mg/dL (8.5-10.5); Carbon Dioxide 35 mmol/L (22-29); Chloride 94 mmol/L (98-107); Globulin 2.5 g/dL (1.3-4.6); Glomerular Filtration Rate 124.6 mL/min (90-130); Glucose 85 mg/dL (65-115); Osmolality Calculated 279 mOsm/kg (285-295); Sodium 135 mmol/L (136-145); Total Bilirubin 0.2 mg/dL (0.15-1.2); Total Protein 6.2 g/dL (6.6-8.7)
[2021-05-13 09:07] LABS: Basophils % 0.3 %; Eosinophils % 0.1 %; Hemoglobin 12.2 g/dL (11.5-15.3); Lymphocytes # 3.4 10^3/uL (0.8-4.8); Lymphocytes % 24.5 %; Mean Corpuscular HGB Conc 32.1 g/dL (30.0-36.0); Mean Corpuscular Hemoglobin 29.3 pg (28.0-34.0); Mean Corpuscular Volume 91.3 fl (81-99); Mean Platelet Volume 10.1 fL (7.4-10.4); Monocytes # 1.3 10^3/uL (0.2-0.9); Monocytes % 9.2 %; Neutrophils # 8.93 10^3/uL (1.8-7.7); Neutrophils % 65.2 %; Nucleated Red Blood Cells % 0 %; Platelet Count 312 10^3/cmm (130-400); Red Blood Count 4.16 10^6/uL (4.1-5.3); Red Cell Distribution Width 13.2 % (12.1-15.1); White Blood Count 13.7 10^3/uL (4.0-10.0)
[2021-05-13] MEDS: sodium chloride 0.9% 250 ML 125 ML IV (10:00)
--- NOTE | 2021-05-13 10:35 | ONC FU_ITS ---
Dr. Díaz follow up note Patient: Swathi Frederick Unit #: [id number]: [id number] Dicatated By: Kaya Díaz M.D.Date of Visit:May 13, 2021 Onc Med Follow-up/Prog Note History of Present Illness: Ms Frederick is a 65 year-old woman with grade 1 infiltrating ductal carcinoma of the right breast, stage IA (T1c, N0, M0), ER/NJ positive and HER-2/christophe negative. She had presented in October 2014 with palpable lump in her right breast. She had been on hormone replacement therapy for the preceding 20 years. Her mammogram on 11/06/2014 revealed 1.3 cm mass in the right breast at 9:00 position corresponding to a 2 cm nodule palpable on examination. An ultrasound guided biopsy on 12/07/2014 revealed grade 1/3 infiltrating ductal carcinoma with the prognostic profile showing ER positive at 100%, NJ positive at 98%, and HER-2/christophe negative, 1.1 by FISH, and 1+ by IHC. The Ki-67 was 10%. She underwent lumpectomy and sentinel lymph node biopsy by Dr. Brennan on 12/24/2014. Her surgical pathology showed 1.5 cm infiltrating ductal carcinoma without lymphovascular invasion. Initial margins were positive, but after further excision the final margins were negative. One sentinel lymph was not involved. Her disease thus was pathologic stage IA (T1c, N0, M0). She was first seen by Dr. Ramirez on 12/27/2014. She had daily headaches ever since stopping her hormone replacement therapy. MRI of the brain on 01/10/2015 was negative for metastatic disease. Chiari I malformation was noted. She was referred to neurology for management of migraines. Oncotype DX score on 01/08/2015 return low at 15, corresponding to 9% risk of distant recurrence following hormonal treatment. She began on adjuvant treatment with Femara in December 2014. Femara was discontinued as she completed 5 years on November 30, 2019. She was found to beVitamin D deficient and she was also then started on replacement therapy. DEXA scan in April 2015 showed normal bone density. She completed definitive adjuvant radiation treatment with a boost on 03/06/2015. A CT of the chest on 03/21/2015 showed bilateral nonspecific upper lobe pulmonary nodules from 2-5 mm, and diffuse interstitial thickening with a pulmonary artery hypertension. Her other medical illnesses include COPD, degenerative arthritis, and depression. 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 She has a history of smoking 1 pack of cigarettes daily for 40 years, and she continues to smoke. Repeat CT of the chest on 08/26/2015 showed clearing of the pulmonary nodules. There was soft tissue density in the right breast with a seroma. By ultrasound, the seroma had decreased. She underwent an FNA of the seroma in August 2015. Cytology was benign. She continued adjuvant hormonal therapy with Femara since December 2014 . Follow-up mammogram done on January 22, 2020 showed BI-RADS 2, benign. Mrs. Mathews had follow-up with Dr. Allred on July 16, 2020 for exacerbation of COPD although she continued to smoke. She was offered low-dose CT scan for lung cancer screening ended pursue the CTs [place]. She did have a CT lung screening on July 31 2020. It reported a spiculated right suprahilar and right upper lobe paramediastinal and soft tissue mass. It measured 6.4 x 4.0 x 7.6 cm AP by transverse by craniocaudal. Findings were most compatible with neoplasm. Recommended dedicated contrast-enhanced chest CT and further evaluation with bronchoscopy. Mild narrowing of the right upper main stem bronchus. Mild narrowing of the right distal mainstem bronchus. Mediastinal lymphadenopathy. Right hilar lymphadenopathy. Mrs. Niño underwent PET CT on August 03, 2020 via [facility] radiology. The right upper lobe paramediastinal/superior right hilar mass measured 4.2 x 7.4 cm with central necrosis and an SUV of 37.3 representing malignancy, likely primary bronchogenic carcinoma. A 1.4 spiculated mass at the minor fissure, right upper lobe has an SUV of 12.6 consistent with a satellite malignant lesion. Other subcentimeter lesions were present in other lobes bilaterally too small to characterize. These are likely malignant and should be closely followed on future imaging. Malignant mediastinal adenopathy is present, representing metastatic disease. These are present in the prevascular, left paratracheal, subaortic and bilateral hilar territory. The sales representative business courses left hilar node has an SUV of 8.5. There were no findings to indicate osseous metastatic disease. No significant pelvic or abdominal adenopathy was present. She did have extensive malignant mediastinal adenopathy. Ms. Mathews underwent bronchoscopy with endobronchial ultrasound-guided transbronchial needle aspiration of lymph nodes and control of bleeding on August 15, [address] Allred. Fine-needle aspiration was performed on the right paratracheal mass. 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 P63 was positive DTF???1 was negative p16 negative Ki 67 = 60% global CK 5/6 strongly and diffusely positive in tumor cells. CK7 was negative CK20 was negative; CK cocktail: Strongly and diffusely positive in tumor cells. CK 8/18 strongly and diffusely positive in tumor cells. CK Victor M: Strongly diffusely positive tumor cells. Staging MRI of the brain from September 05, 2020 reported no evidence of restricted diffusion to suggest ischemia. No evidence of enhancing intracranial metastatic disease. Mild small vessel changes with mild parenchymal volume loss. Small vessel changes in the aquiles. This has progressed since 2015. Numerous new small punctate foci of hemosiderin in the right parietal and temporal lobes. Single focus in the left posterior temporal lobe consistent with chronic tiny punctate microhemorrhages mainly subcortical in location. This is nonspecific but can be seen with amyloid angiopathy. Mild symmetric atrophy involving the temporal lobes and hippocampal formations. Guardant 360 done on August 29, 2020 showed no targetable therapeutic mutations. PD-L1 expression TPS was more than 50%. plan of care was to pursue systemic chemotherapy followed by follow-up PET CT. If the PET/CT shows resolution of bilateral pulmonary nodules then consider combined chemoradiation therapy. Considering that patient has locally advanced disease still contained in the chest ,was recommendeded chemo therapy with immunotherapy consisting of pembrolizumab every 3 weeks and carboplatin Taxol day 1 and 8 repeat every 28 days. She will have follow-up PET CT after 3 cycles. If this again shows good resolution of bilateral pulmonary nodules then will discuss radiation oncology with combined chemoradiation. Incidentally Ms. Frederick was found to be iron deficient with a hemoglobin of 9.4 and was given 2 doses of Injectafer 1 on August 12, 2020 and again on August 19, 2020. Repeat follow-up PET/CT from September 28, 2020 reported the right upper lobe. Mediastinal/superior right hilar mass currently measured 4.2 x 7.4 cm with an SUV of 28.9 and extensive central necrosis. This is unchanged in size and questionably improved in uptake. The 1.46 spiculated mass at the minor fissure, right upper lobe has an SUV of 13.5 and is unchanged in the prior study from 08/03/2020. Subcentimeter pulmonary nodules are unchanged with the prior study. The left hilar index node has an SUV of 7.7, unchanged from 8.5 previously. The other mediastinal nodes in the prevascular, left paratracheal and subaortic and bilateral hilar regions are stable from the prior study. There is no indication of osseous metastatic disease. She began chemotherapy with carboplatin Taxol/Keytruda on day 1 and 8 of a 21-day cycle on October 09, 2020. Follow-up CT PET scan After 4 cycles of Keytruda/carbo/Taxol done on December 28, 2020 showed excellent response, right upper lobe paramediastinal mass now measures 5 x 3.2 cm demonstrate significant central cavitation with only thin solid silva and only 2 sites of viable malignancy are present in anterior and posterior silva with SUV of 6.97.3 respectively. Right upper lobe spiculated mass now measures 1.3 x 2 cm with SUV of 8.6, improvement from prior study. Subcentimeter nodules seen previously are unchanged on current study. Left hilar lymph node with SUV 5.2, down from 7.7 previously. The other describe mediastinal lymph nodes are similarly improved or entirely resolved on current study Follow-up CT PET scan done on February 01, 2021 shows right upper lobe paramediastinal mass seen on prior study now has SUV of 13 compared to 7.3 previously, spiculated right upper lobe mass has SUV of 13.2 compared to 8.6 previously, left hilar node has SUV of 6.3, questionable increased from prior study. Bilateral subcentimeter pulmonary nodules are unchanged from prior study, no new lesions seen otherwise, Chemotherapy was discontinued after January 28, 2021 and she was started on maintenance Keytruda every 3 weeks on February 17, 2021 Came for follow-up, denies any specific complaint except generalized weakness and fatigue, patient is on home oxygen and continues smoke about a pack a day, she may also have sleep apnea but refusing sleep study. Denies any fever chills denies any nausea or vomiting denies any hemoptysis or hematemesis. Tolerating immunotherapy with Keytruda well otherwise Medications: Advair Diskus 1 puff(s) (of 250-50 mcg/dose) Aerosol Powder, Breath Activated Inhalation b.i.d., Amoxicillin-Pot Clavulanate (500-125 mg) Tablet Oral b.i.d., Aspirin 1 (325 mg) Tablet Oral daily, Benadryl 1 (25 mg) Capsule Oral daily PRN, ClonazePAM 1 Tablet (of 0.5 mg) Oral b.i.d., Doxycycline Hyclate 1 Tablet (of 100 mg) Oral b.i.d., Ibuprofen 1 Tablet (of 800 mg) Oral t.i.d., Lisinopril 1 Tablet (of 10 mg) Oral daily, methylPREDNISolone Tablet Therapy Pack Oral, PARoxetine HCl 1 Tablet (of 20 mg) Oral daily, ProAir HFA 1 puff(s) (of 108 (90 base) mcg/act) Aerosol, solution Inhalation q 4 hours, Propranolol HCl ER 1 Capsule (of 60 mg) Capsule SR 24 HR Oral daily, Venlafaxine HCl 1 Tablet (of 75 mg) Tablet Oral daily Allergies: No Known Allergies. Review of Systems: Review of Systems is not available for this patient. Vital Signs: Performed on May 13, 2021 09:50 Height - 63.00 in Weight - 189.2 lbs (HIGH) BSA - 1.89 sq.m BMI - 33.52 (HIGH) Temperature - 97.8 F (LOW) Pulse - 83 /min Respiration - 18 /min BP - 176/99 mm(hg) (HIGH) O2 Sat - 92 % (LOW) Pain - 0 Fatigue - 10 Performance Status: 1 - No physically strenuous activity, but ambulatory and able to carry out light or sedentary work (e.g. office work, light house work). (ECOG) Physical Examination: Respiratory - Poor air entry otherwise clear, Cardiovascular - Regular rate and rhythm of heart, Gastrointestinal - Soft, bowel sounds present, Extremities - No visible edema. Lab/Imaging: Test performed on Feb 18, 2021 08:03 Creatinine 0.4 mg/dL Cr Clearance (Est) 184.93 mL/min Test performed on Feb 04, 2021 08:42 Sodium 136 mmol/L Potassium 4.5 mmol/L Chloride 97 mmol/L CO2 28 mmol/L Anion Gap 15.5 BUN 12 mg/dL eGFR 161.2 mL/min Glucose 133 mg/dL Osmolality - Calculated 284 mOsm/kg Calcium 9.1 mg/dL Protein, Total 7.2 g/dL Albumin 4.2 g/dL Globulin 3.0 g/dL Bilirubin, Total 0.2 mg/dL ALT (SGPT) 22 U/L AST (SGOT) 18 U/L Alkaline Phosphatase 128 IU/L WBC 4.1 10 3/uL RBC 3.53 10 6/uL HGB 10.7 g/dL HCT 34.4 % MCV 97.5 fl MCH 30.3 pg MCHC 31.1 g/dL RDW 16.2 % Platelet Count 264 10 3/cmm MPV 10.1 fL Neutrophils 3.36 10 3/uL Lymphocytes 0.6 10 3/uL Monocytes 0.1 10 3/uL Eosinophils 0.0 10 3/uL Basophils 0.0 10 3/uL Neutrophil % 83.0 % Lymphocyte % 15.1 % Monocyte % 1.2 % Eosinophil % 0.0 % Basophils % 0.2 % NRBC % 0 % Test performed on Dec 17, 2020 10:29 Ua Color Yellow Ua Appearance Clear Ua Glucose Norm Ua Bilirubin Neg Ua Ketones Negative Ua Specific [place] 1.005 Ua Blood Trace Ua pH 7 Ua Protein Neg Ua Nitrites Negative Ua Leukocyte Esterase Negative Ua Micro: WBC 0-4 /hpf Ua Micro: RBC 0-4 /hpf Ua Micro: Squam Epith Cells 5-10 /hpf Ua Micro: Bacteria NONE /hpf Test performed on Dec 17, 2020 10:23 Ferritin 885 ng/mL Iron 50 mcg/dL Iron Binding Capacity (TIBC) 203 mcg/dl % Iron Saturation 24.6 % UIBC 153 mcg/dL Test performed on Nov 20, 2020 11:20 TSH 0.30 uIU/mL Impression: 1. Squamous cell carcinoma per transbronchial biopsy from right peritracheal mass done on August 15, 2020 CT scan of chest done on July 31, 2020 showed 6.4 x 4 x 7.6 cm right suprahilar/right upper lobe paramediastinal mass and additional spiculated right suprahilar nodule along with right fissure measuring 1.6 x 1.3 cm, spiculated right middle lobe nodule measuring 7 mm and mediastinal lymphadenopathy CT PET scan done on August 03, 2020 showed FDG positive centrally necrotic right upper lobe mass, malignant circular lesion at the right minor fissure, multiple bilateral pulmonary nodules too small to characterize, extensive bilateral malignant mediastinal lymphadenopathy, Stage IIIb versus stage Court, PD-L1 TPS more than 50% MRI scan of the head done on September 05, 2020 showed no evidence of metastatic disease Guardant 360 shows no targetable therapeutic mutations Started on chemoimmunotherapy with Keytruda/carboplatin/Taxol on October 16, 2020, follow-up CT PET scan done on December 28, 2020 showed marked improvement in the right upper lobe mediastinal mass, lesion is now markedly cavitary with only 2 small lesions of viable malignancy remaining. Improvement in the right upper lobe satellite nodule. No change in subcentimeter pulmonary nodules. Improvement or resolution of mediastinal lymphadenopathy. follow-up CT PET scan done on February 01, 2021 which shows right upper lobe paramediastinal mass seen on prior study has now SUV of 13 compared to 7.3 previously, spiculated right upper lobe mass has SUV of 13.2 compared to 8.6 before, left hilar node has SUV of 6.3, questionable increase from previous study. Bilateral subcentimeter pulmonary nodules are unchanged, no new lesions seen otherwise As her follow-up PET scan showed stable disease, increase SUV could be due to mild disease progression or immunotherapy flare, but because of continued decline in quality of life and inconvenience of traveling back and forth to office, chemotherapy with carboplatin/Taxol was discontinued after last dose given on January 28, 2021 but continue with maintenance therapy with Keytruda every 3 weeks starting February 18, 2021 2. Patient with grade 1 infiltrating ductal carcinoma of the right breast, stage IA (T1c, N0, M0), ER/NJ positive and HER-2/christophe negative. Oncotype DX score was 15, low risk. 3 She completed radiation to the right breast on 03/06/2015 to a total dose of 6600 cGy. 4. She began adjuvant hormonal therapy with Femara 2.5 mg daily in December 2014. 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 Degenerative arthritis. 7. She has nicotine dependence (cigarettes). Chronic back pain MRI scan of lumbosacral area done on 06/23/2018 and bone scan done on 06/09/2018 showed no evidence of malignancy but chronic arthritis She does have ongoing problems with the COPD, and she currently appears to be experiencing an acute exacerbation. Polycythemia probably due to hypoxia due to severe COPD or chronic smoking, now on home oxygen Improved with smoking cessation for 1 week Iron deficiency anemia, Intolerance to oral iron Plan: Discussed with patient regarding her labs white blood count 13.7 hemoglobin 12.2 hematocrit 38 platelets 312,000 CMP within normal limits except sodium 135 Clinically, patient is doing reasonably well, tolerating maintenance therapy with Keytruda well, will proceed with the next dose today and then she will return to clinic in 3 weeks with CBC CMP and follow-up CT PET scan to assess disease status. As per generalized weakness and fatigue is concerned probably multifactorial including underlying sleep apnea or severe COPD requiring home oxygen and patient continues to smoke about a pack a day, patient was advised to quit smoking and was offered any assistance she may need. Patient return to clinic in 3 weeks with CBC CMP and follow-up CT PET scan as mentioned above Signed By: Kaya Díaz M.D. <<Signature on File>>
== END 2021-05-20 23:59 | disposition home or self-care (01) ==
LOC: ONCMED 06:23
PROVIDERS: PCP Family Medicine; Visit Provider Internal Medicine Hematology & Oncology
DX: Z51.12 Encounter for antineoplastic immunotherapy (principal); C34.11 Malignant neoplasm of upper lobe, right bronchus or lung; C78.02 Secondary malignant neoplasm of left lung; C77.8 Secondary and unspecified malignant neoplasm of lymph nodes of multiple regions; D50.9 Iron deficiency anemia, unspecified; D75.1 Secondary polycythemia; F17.210 Nicotine dependence, cigarettes, uncomplicated; E55.9 Vitamin D deficiency, unspecified; R53.83 Other fatigue; Z99.81 Dependence on supplemental oxygen; Z85.3 Personal history of malignant neoplasm of breast; Z92.3 Personal history of irradiation
CPT/HCPCS: 80053; 84443; 85025; 90471; 90686; 96413; 99214; J7050; J9271

== ENCOUNTER 2021-06-03 06:30 | Outpatient (RCR) | payer MEDICARE, MEDICAID, SELFPAY ==
[2021-06-03 08:36] LABS: Basophils % 0.2 %; Eosinophils # 0.1 10^3/uL (0.0-0.8); Eosinophils % 0.7 %; Hematocrit 39.5 % (37.0-47.0); Hemoglobin 12.3 g/dL (11.5-15.3); Lymphocytes # 2.7 10^3/uL (0.8-4.8); Lymphocytes % 24.8 %; Mean Corpuscular HGB Conc 31.1 g/dL (30.0-36.0); Mean Corpuscular Hemoglobin 28.9 pg (28.0-34.0); Mean Corpuscular Volume 92.7 fl (81-99); Mean Platelet Volume 10.3 fL (7.4-10.4); Monocytes # 1.1 10^3/uL (0.2-0.9); Monocytes % 9.5 %; Neutrophils # 7.06 10^3/uL (1.8-7.7); Neutrophils % 64.3 %; Nucleated Red Blood Cells % 0 %; Platelet Count 304 10^3/cmm (130-400); Red Blood Count 4.26 10^6/uL (4.1-5.3); Red Cell Distribution Width 13.4 % (12.1-15.1)
[2021-06-03 08:51] LABS: Alanine Aminotransferase 10 U/L (0-33); Albumin Level 3.7 g/dL (3.5-5.2); Alkaline Phosphatase 87 IU/L (35-105); Anion Gap 14.5 (5-19); Aspartate Amino Transferase 12 U/L (0-32); Blood Urea Nitrogen 8 mg/dL (8-23); Calcium 8.6 mg/dL (8.5-10.5); Carbon Dioxide 30 mmol/L (22-29); Chloride 96 mmol/L (98-107); Globulin 2.7 g/dL (1.3-4.6); Glucose 91 mg/dL (65-115); Osmolality Calculated 280 mOsm/kg (285-295); Potassium 4.5 mmol/L (3.5-5.1); Sodium 136 mmol/L (136-145); Total Bilirubin 0.2 mg/dL (0.15-1.2); Total Protein 6.4 g/dL (6.6-8.7)
[2021-06-03 09:12] LABS: Thyroid Stimulating Hormone 1.66 uIU/mL (0.27-4.20)
== END 2021-06-20 23:59 | disposition home or self-care (01) ==
LOC: ONCMED 06:30
PROVIDERS: PCP Family Medicine; Visit Provider Nurse Practitioner Family
DX: Z51.12 Encounter for antineoplastic immunotherapy (principal); C34.81 Malignant neoplasm of overlapping sites of right bronchus and lung; C78.02 Secondary malignant neoplasm of left lung; C77.8 Secondary and unspecified malignant neoplasm of lymph nodes of multiple regions; C50.811 Malignant neoplasm of overlapping sites of right female breast; Z17.0 Estrogen receptor positive status [ER+]; Z79.811 Long term (current) use of aromatase inhibitors; J44.1 Chronic obstructive pulmonary disease with (acute) exacerbation; D75.1 Secondary polycythemia; Z99.81 Dependence on supplemental oxygen; M19.90 Unspecified osteoarthritis, unspecified site; F17.210 Nicotine dependence, cigarettes, uncomplicated; M47.897 Other spondylosis, lumbosacral region; D50.9 Iron deficiency anemia, unspecified; Z79.899 Other long term (current) drug therapy
CPT/HCPCS: 80053; 84443; 85025; 96413; 99215; J7050; J9271

== ENCOUNTER 2021-07-15 06:20 | Outpatient (RCR) | payer MEDICARE, MEDICAID, SELFPAY ==
[2021-06-24 08:27] LABS: Basophils % 0.2 %; Eosinophils # 0.1 10^3/uL (0.0-0.8); Eosinophils % 0.9 %; Hematocrit 40.7 % (37.0-47.0); Hemoglobin 12.1 g/dL (11.5-15.3); Lymphocytes % 29.1 %; Mean Corpuscular HGB Conc 29.7 g/dL (30.0-36.0); Mean Corpuscular Hemoglobin 28.7 pg (28.0-34.0); Mean Corpuscular Volume 96.4 fl (81-99); Mean Platelet Volume 9.7 fL (7.4-10.4); Monocytes # 1.2 10^3/uL (0.2-0.9); Monocytes % 11.4 %; Neutrophils # 5.97 10^3/uL (1.8-7.7); Neutrophils % 57.9 %; Nucleated Red Blood Cells % 0 %; Platelet Count 320 10^3/cmm (130-400); Red Blood Count 4.22 10^6/uL (4.1-5.3); Red Cell Distribution Width 13.8 % (12.1-15.1); White Blood Count 10.3 10^3/uL (4.0-10.0)
[2021-06-24 08:55] LABS: Alanine Aminotransferase 15 U/L (0-33); Albumin Level 3.5 g/dL (3.5-5.2); Alkaline Phosphatase 83 IU/L (35-105); Aspartate Amino Transferase 13 U/L (0-32); Blood Urea Nitrogen 17 mg/dL (8-23); Calcium 8.2 mg/dL (8.5-10.5); Carbon Dioxide 36 mmol/L (22-29); Chloride 98 mmol/L (98-107); Globulin 2.5 g/dL (1.3-4.6); Glomerular Filtration Rate 124.6 mL/min (90-130); Glucose 84 mg/dL (65-115); Osmolality Calculated 295 mOsm/kg (285-295); Sodium 142 mmol/L (136-145); Total Bilirubin 0.2 mg/dL (0.15-1.2)
--- NOTE | 2021-06-24 14:48 | ONC FU_ITS ---
Dr. Díaz follow up note Patient: Swathi Frederick Unit #: [id number]: 1955 Dicatated By: Kaya Díaz M.D.Date of Visit:Jun 24, 2021 Onc Med Follow-up/Prog Note History of Present Illness: Ms Frederick is a 65 year-old woman with grade 1 infiltrating ductal carcinoma of the right breast, stage IA (T1c, N0, M0), ER/VA positive and HER-2/christophe negative. She had presented in October 2014 with palpable lump in her right breast. She had been on hormone replacement therapy for the preceding 20 years. Her mammogram on 11/06/2014 revealed 1.3 cm mass in the right breast at 9:00 position corresponding to a 2 cm nodule palpable on examination. An ultrasound guided biopsy on 12/07/2014 revealed grade 1/3 infiltrating ductal carcinoma with the prognostic profile showing ER positive at 100%, VA positive at 98%, and HER-2/christophe negative, 1.1 by FISH, and 1+ by IHC. The Ki-67 was 10%. She underwent lumpectomy and sentinel lymph node biopsy by Dr. Brennan on 12/24/2014. Her surgical pathology showed 1.5 cm infiltrating ductal carcinoma without lymphovascular invasion. Initial margins were positive, but after further excision the final margins were negative. One sentinel lymph was not involved. Her disease thus was pathologic stage IA (T1c, N0, M0). She was first seen by Dr. Ramirez on 12/27/2014. She had daily headaches ever since stopping her hormone replacement therapy. MRI of the brain on 01/10/2015 was negative for metastatic disease. Chiari I malformation was noted. She was referred to neurology for management of migraines. Oncotype DX score on 01/08/2015 return low at 15, corresponding to 9% risk of distant recurrence following hormonal treatment. She began on adjuvant treatment with Femara in December 2014. Femara was discontinued as she completed 5 years on November 30, 2019. She was found to beVitamin D deficient and she was also then started on replacement therapy. DEXA scan in April 2015 showed normal bone density. She completed definitive adjuvant radiation treatment with a boost on 03/06/2015. A CT of the chest on 03/21/2015 showed bilateral nonspecific upper lobe pulmonary nodules from 2-5 mm, and diffuse interstitial thickening with a pulmonary artery hypertension. Her other medical illnesses include COPD, degenerative arthritis, and depression. 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 She has a history of smoking 1 pack of cigarettes daily for 40 years, and she continues to smoke. Repeat CT of the chest on 08/26/2015 showed clearing of the pulmonary nodules. There was soft tissue density in the right breast with a seroma. By ultrasound, the seroma had decreased. She underwent an FNA of the seroma in August 2015. Cytology was benign. She continued adjuvant hormonal therapy with Femara since December 2014 . Follow-up mammogram done on January 22, 2020 showed BI-RADS 2, benign. Mrs. Mathews had follow-up with Dr. Allred on July 16, 2020 for exacerbation of COPD although she continued to smoke. She was offered low-dose CT scan for lung cancer screening ended pursue the CTs [place]. She did have a CT lung screening on July 31 2020. It reported a spiculated right suprahilar and right upper lobe paramediastinal and soft tissue mass. It measured 6.4 x 4.0 x 7.6 cm AP by transverse by craniocaudal. Findings were most compatible with neoplasm. Recommended dedicated contrast-enhanced chest CT and further evaluation with bronchoscopy. Mild narrowing of the right upper main stem bronchus. Mild narrowing of the right distal mainstem bronchus. Mediastinal lymphadenopathy. Right hilar lymphadenopathy. Mrs. Niño underwent PET CT on August 03, 2020 via [facility] radiology. The right upper lobe paramediastinal/superior right hilar mass measured 4.2 x 7.4 cm with central necrosis and an SUV of 37.3 representing malignancy, likely primary bronchogenic carcinoma. A 1.4 spiculated mass at the minor fissure, right upper lobe has an SUV of 12.6 consistent with a satellite malignant lesion. Other subcentimeter lesions were present in other lobes bilaterally too small to characterize. These are likely malignant and should be closely followed on future imaging. Malignant mediastinal adenopathy is present, representing metastatic disease. These are present in the prevascular, left paratracheal, subaortic and bilateral hilar territory. The automotive sales representative left hilar node has an SUV of 8.5. There were no findings to indicate osseous metastatic disease. No significant pelvic or abdominal adenopathy was present. She did have extensive malignant mediastinal adenopathy. Ms. Mathews underwent bronchoscopy with endobronchial ultrasound-guided transbronchial needle aspiration of lymph nodes and control of bleeding on August 15, [address] Allred. Fine-needle aspiration was performed on the right paratracheal mass. 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 P63 was positive DTF???1 was negative p16 negative Ki 67 = 60% global CK 5/6 strongly and diffusely positive in tumor cells. CK7 was negative CK20 was negative; CK cocktail: Strongly and diffusely positive in tumor cells. CK 8/18 strongly and diffusely positive in tumor cells. CK Victor M: Strongly diffusely positive tumor cells. Staging MRI of the brain from September 05, 2020 reported no evidence of restricted diffusion to suggest ischemia. No evidence of enhancing intracranial metastatic disease. Mild small vessel changes with mild parenchymal volume loss. Small vessel changes in the aquiles. This has progressed since 2015. Numerous new small punctate foci of hemosiderin in the right parietal and temporal lobes. Single focus in the left posterior temporal lobe consistent with chronic tiny punctate microhemorrhages mainly subcortical in location. This is nonspecific but can be seen with amyloid angiopathy. Mild symmetric atrophy involving the temporal lobes and hippocampal formations. Guardant 360 done on August 29, 2020 showed no targetable therapeutic mutations. PD-L1 expression TPS was more than 50%. plan of care was to pursue systemic chemotherapy followed by follow-up PET CT. If the PET/CT shows resolution of bilateral pulmonary nodules then consider combined chemoradiation therapy. Considering that patient has locally advanced disease still contained in the chest ,was recommendeded chemo therapy with immunotherapy consisting of pembrolizumab every 3 weeks and carboplatin Taxol day 1 and 8 repeat every 28 days. She will have follow-up PET CT after 3 cycles. If this again shows good resolution of bilateral pulmonary nodules then will discuss radiation oncology with combined chemoradiation. Incidentally Ms. Frederick was found to be iron deficient with a hemoglobin of 9.4 and was given 2 doses of Injectafer 1 on August 12, 2020 and again on August 19, 2020. Repeat follow-up PET/CT from September 28, 2020 reported the right upper lobe. Mediastinal/superior right hilar mass currently measured 4.2 x 7.4 cm with an SUV of 28.9 and extensive central necrosis. This is unchanged in size and questionably improved in uptake. The 1.46 spiculated mass at the minor fissure, right upper lobe has an SUV of 13.5 and is unchanged in the prior study from 08/03/2020. Subcentimeter pulmonary nodules are unchanged with the prior study. The left hilar index node has an SUV of 7.7, unchanged from 8.5 previously. The other mediastinal nodes in the prevascular, left paratracheal and subaortic and bilateral hilar regions are stable from the prior study. There is no indication of osseous metastatic disease. She began chemotherapy with carboplatin Taxol/Keytruda on day 1 and 8 of a 21-day cycle on October 09, 2020. Follow-up CT PET scan After 4 cycles of Keytruda/carbo/Taxol done on December 28, 2020 showed excellent response, right upper lobe paramediastinal mass now measures 5 x 3.2 cm demonstrate significant central cavitation with only thin solid silva and only 2 sites of viable malignancy are present in anterior and posterior silva with SUV of 6.97.3 respectively. Right upper lobe spiculated mass now measures 1.3 x 2 cm with SUV of 8.6, improvement from prior study. Subcentimeter nodules seen previously are unchanged on current study. Left hilar lymph node with SUV 5.2, down from 7.7 previously. The other describe mediastinal lymph nodes are similarly improved or entirely resolved on current study Follow-up CT PET scan done on February 01, 2021 shows right upper lobe paramediastinal mass seen on prior study now has SUV of 13 compared to 7.3 previously, spiculated right upper lobe mass has SUV of 13.2 compared to 8.6 previously, left hilar node has SUV of 6.3, questionable increased from prior study. Bilateral subcentimeter pulmonary nodules are unchanged from prior study, no new lesions seen otherwise, Chemotherapy was discontinued after January 28, 2021 and she was started on maintenance Keytruda every 3 weeks on February 17, 2021 Follow-up CT PET scan done on June 07, 2021 showed right upper lobe paramediastinal mass with slightly higher with SUV of 17.4 compared to 13 previously the cavitary aspect of the lesion has resolved, therefore this lesion does not demonstrate clinical progression. Spiculated right upper lobe lesion measured 1.6 cm with SUV of 10.1, this is slight improvement from 13.2 previously the left hilar uptake demonstrate similar, modest improvement with SUV of 4.9 compared to 6.2 previously. Activity in scattered mediastinal lymph node is mildly improved as well. 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 No hemoptysis or hematemesis, no new bony pains, no headaches or blurred vision or double vision,, no fever chills, tolerating palliative/maintenance therapy with Keytruda well. Patient still smoking about pack a day. Medications: Advair Diskus 1 puff(s) (of 250-50 mcg/dose) Aerosol Powder, Breath Activated Inhalation b.i.d., Amoxicillin-Pot Clavulanate (500-125 mg) Tablet Oral b.i.d., Aspirin 1 (325 mg) Tablet Oral daily, Benadryl 1 (25 mg) Capsule Oral daily PRN, ClonazePAM 1 Tablet (of 0.5 mg) Oral b.i.d., Doxycycline Hyclate 1 Tablet (of 100 mg) Oral b.i.d., Ibuprofen 1 Tablet (of 800 mg) Oral t.i.d., Levaquin 1 Tablet (of 750 mg) Oral daily for 7 days, Lisinopril 1 Tablet (of 10 mg) Oral daily, methylPREDNISolone Tablet Therapy Pack Oral, PARoxetine HCl 1 Tablet (of 20 mg) Oral daily, predniSONE 2 Tablet (of 20 mg) Oral daily for 5 days, ProAir HFA 1 puff(s) (of 108 (90 base) mcg/act) Aerosol, solution Inhalation q 4 hours, Propranolol HCl ER 1 Capsule (of 60 mg) Capsule SR 24 HR Oral daily, Venlafaxine HCl 1 Tablet (of 75 mg) Tablet Oral daily Allergies: No Known Allergies. Review of Systems: Review of Systems is not available for this patient. Vital Signs: Performed on Jun 24, 2021 09:48 Height - 63.00 in Temperature - 97.8 F (LOW) Pulse - 73 /min Respiration - 27 /min BP - 83/40 mm(hg) (LOW) O2 Sat - 88 % (LOW) Pain - 4 Performance Status: 1 - No physically strenuous activity, but ambulatory and able to carry out light or sedentary work (e.g. office work, light house work). (ECOG) Physical Examination: Respiratory - Poor air entry, mild wheezing, Cardiovascular - Regular rate and rhythm of heart, Gastrointestinal - Soft, bowel sounds present, Extremities - No visible edema. Lab/Imaging: Test performed on Jun 03, 2021 09:53 TSH 1.66 uU/mL Glucose 91 mg/dL BUN 8 mg/dL Creatinine 0.6 mg/dL Cr Clearance (Est) 129.20 mL/min Sodium 136 mmol/L Potassium 4.5 mmol/L Chloride 96 mmol/L CO2 30 mmol/L Calcium 8.6 mg/dL Protein, Total 6.4 g/dL Albumin 3.7 g/dL Globulin 2.7 g/dL Bilirubin, Total 0.2 mg/dL Alkaline Phosphatase 87 International Units/L AST (SGOT) 12 International Units/L ALT (SGPT) 10 International Units/L WBC 11.0 10^9/L RBC 4.26 10^12/L HGB 12.3 g/dL HCT 39.5 % MCV 92.7 fl MCH 28.9 pg MCHC 31.1 g/dL RDW 13.4 % Platelet Count 304 10^9/L MPV 10.3 fL Neutrophils (Gran) 7.06 10^9/L Lymphocytes 2.7 10^9/L Monocytes 1.1 10^9/L Eosinophils 0.1 10^9/L Basophils 0 10^9/L Manual Lymphocytes 24.8 % Manual Monocytes 9.5 % Manual Eosinophils 0.7 % Manual Basophils 0.2 % Test performed on Feb 04, 2021 08:42 Anion Gap 15.5 eGFR 161.2 mL/min Osmolality - Calculated 284 mOsm/kg Neutrophil % 83.0 % Lymphocyte % 15.1 % Monocyte % 1.2 % Eosinophil % 0.0 % Basophils % 0.2 % NRBC % 0 % Impression: 1. Squamous cell carcinoma per transbronchial biopsy from right peritracheal mass done on August 15, 2020 CT scan of chest done on July 31, 2020 showed 6.4 x 4 x 7.6 cm right suprahilar/right upper lobe paramediastinal mass and additional spiculated right suprahilar nodule along with right fissure measuring 1.6 x 1.3 cm, spiculated right middle lobe nodule measuring 7 mm and mediastinal lymphadenopathy CT PET scan done on August 03, 2020 showed FDG positive centrally necrotic right upper lobe mass, malignant circular lesion at the right minor fissure, multiple bilateral pulmonary nodules too small to characterize, extensive bilateral malignant mediastinal lymphadenopathy, Stage IIIb versus stage Court, PD-L1 TPS more than 50% MRI scan of the head done on September 05, 2020 showed no evidence of metastatic disease Guardant 360 shows no targetable therapeutic mutations Started on chemoimmunotherapy with Keytruda/carboplatin/Taxol on October 16, 2020, follow-up CT PET scan done on December 28, 2020 showed marked improvement in the right upper lobe mediastinal mass, lesion is now markedly cavitary with only 2 small lesions of viable malignancy remaining. Improvement in the right upper lobe satellite nodule. No change in subcentimeter pulmonary nodules. Improvement or resolution of mediastinal lymphadenopathy. follow-up CT PET scan done on February 01, 2021 which shows right upper lobe paramediastinal mass seen on prior study has now SUV of 13 compared to 7.3 previously, spiculated right upper lobe mass has SUV of 13.2 compared to 8.6 before, left hilar node has SUV of 6.3, questionable increase from previous study. Bilateral subcentimeter pulmonary nodules are unchanged, no new lesions seen otherwise As her follow-up PET scan showed stable disease, increase SUV could be due to mild disease progression or immunotherapy flare, but because of continued decline in quality of life and inconvenience of traveling back and forth to office, chemotherapy with carboplatin/Taxol was discontinued after last dose given on January 28, 2021 but continue with maintenance therapy with Keytruda every 3 weeks starting February 18, 2021 Follow-up CT PET scan done on June 07, 2021 showed right upper lobe paramediastinal mass with slightly higher with SUV of 17.4 compared to 13 previously the cavitary aspect of the lesion has resolved, therefore this lesion does not demonstrate clinical progression. Spiculated right upper lobe lesion measured 1.6 cm with SUV of 10.1, this is slight improvement from 13.2 previously the left hilar uptake demonstrate similar, modest improvement with SUV of 4.9 compared to 6.2 previously. Activity in scattered mediastinal lymph node is mildly improved as well. 2. Patient with grade 1 infiltrating ductal carcinoma of the right breast, stage IA (T1c, N0, M0), ER/VA positive and HER-2/christophe negative. Oncotype DX score was 15, low risk. 3 She completed radiation to the right breast on 03/06/2015 to a total dose of 6600 cGy. 4. She began adjuvant hormonal therapy with Femara 2.5 mg daily in December 2014. 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 Degenerative arthritis. 7. She has nicotine dependence (cigarettes). Chronic back pain MRI scan of lumbosacral area done on 06/23/2018 and bone scan done on 06/09/2018 showed no evidence of malignancy but chronic arthritis She does have ongoing problems with the COPD, and she currently appears to be experiencing an acute exacerbation. Polycythemia probably due to hypoxia due to severe COPD or chronic smoking, now on home oxygen Improved with smoking cessation for 1 week Iron deficiency anemia, Intolerance to oral iron Plan: Discussed with patient regarding her labs white blood count 10.3 hemoglobin 12.1 hematocrit 40.7 platelets 320,000 CMP within normal limits, TSH checked on June 03, 2020 was 1.66, And follow-up CT PET scan which showed no new lesion no evidence of disease progression stable/some improvement Clinically, patient is doing well with no new signs symptoms just to disease progression her follow-up CT PET scan showed no new lesions rather stable disease with some improvement in the mediastinal lymphadenopathy. Patient is on maintenance Keytruda, tolerating well, will proceed with next three weekly dose today and then return to clinic in 3 weeks with CBC CMP Mild leukocytosis probably due to steroids/or smoking, patient is on oral antibiotics/steroids prescribed by pulmonology for progressive wheezing, will continue to monitor Patient was advised to quit smoking and was offered any assistance she may need Signed By: Kaya Díaz M.D. <<Signature on File>>
[2021-07-15 08:43] LABS: Basophils % 0.3 %; Eosinophils # 0.1 10^3/uL (0.0-0.8); Eosinophils % 0.6 %; Hematocrit 41.4 % (37.0-47.0); Hemoglobin 12.5 g/dL (11.5-15.3); Lymphocytes # 2.5 10^3/uL (0.8-4.8); Mean Corpuscular HGB Conc 30.2 g/dL (30.0-36.0); Mean Corpuscular Hemoglobin 27.8 pg (28.0-34.0); Monocytes % 10.7 %; Neutrophils # 5.65 10^3/uL (1.8-7.7); Nucleated Red Blood Cells % 0 %; Platelet Count 343 10^3/cmm (130-400); Red Cell Distribution Width 13.3 % (12.1-15.1); White Blood Count 9.3 10^3/uL (4.0-10.0)
[2021-07-15 09:09] LABS: Alanine Aminotransferase 10 U/L (0-33); Albumin Level 3.9 g/dL (3.5-5.2); Alkaline Phosphatase 97 IU/L (35-105); Aspartate Amino Transferase 12 U/L (0-32); Blood Urea Nitrogen 11 mg/dL (8-23); Carbon Dioxide 34 mmol/L (22-29); Chloride 96 mmol/L (98-107); Globulin 2.8 g/dL (1.3-4.6); Glomerular Filtration Rate 124.2 mL/min (90-130); Glucose 92 mg/dL (65-115); Osmolality Calculated 287 mOsm/kg (285-295); Sodium 139 mmol/L (136-145); Thyroid Stimulating Hormone 1.92 uIU/mL (0.27-4.20); Total Bilirubin 0.2 mg/dL (0.15-1.2); Total Protein 6.7 g/dL (6.6-8.7)
--- NOTE | 2021-07-15 11:22 | ONC FU_ITS ---
Dr. Díaz follow up note Patient: Swathi Frederick Unit #: [id number]: 1955 Dicatated By: Kaya Díaz M.D.Date of Visit:Jul 15, 2021 Onc Med Follow-up/Prog Note History of Present Illness: Ms Frederick is a 66 year-old woman with grade 1 infiltrating ductal carcinoma of the right breast, stage IA (T1c, N0, M0), ER/SC positive and HER-2/christophe negative. She had presented in October 2014 with palpable lump in her right breast. She had been on hormone replacement therapy for the preceding 20 years. Her mammogram on 11/06/2014 revealed 1.3 cm mass in the right breast at 9:00 position corresponding to a 2 cm nodule palpable on examination. An ultrasound guided biopsy on 12/07/2014 revealed grade 1/3 infiltrating ductal carcinoma with the prognostic profile showing ER positive at 100%, SC positive at 98%, and HER-2/christophe negative, 1.1 by FISH, and 1+ by IHC. The Ki-67 was 10%. She underwent lumpectomy and sentinel lymph node biopsy by Dr. Brennan on 12/24/2014. Her surgical pathology showed 1.5 cm infiltrating ductal carcinoma without lymphovascular invasion. Initial margins were positive, but after further excision the final margins were negative. One sentinel lymph was not involved. Her disease thus was pathologic stage IA (T1c, N0, M0). She was first seen by Dr. Ramirez on 12/27/2014. She had daily headaches ever since stopping her hormone replacement therapy. MRI of the brain on 01/10/2015 was negative for metastatic disease. Chiari I malformation was noted. She was referred to neurology for management of migraines. Oncotype DX score on 01/08/2015 return low at 15, corresponding to 9% risk of distant recurrence following hormonal treatment. She began on adjuvant treatment with Femara in December 2014. Femara was discontinued as she completed 5 years on November 30, 2019. She was found to beVitamin D deficient and she was also then started on replacement therapy. DEXA scan in April 2015 showed normal bone density. She completed definitive adjuvant radiation treatment with a boost on 03/06/2015. A CT of the chest on 03/21/2015 showed bilateral nonspecific upper lobe pulmonary nodules from 2-5 mm, and diffuse interstitial thickening with a pulmonary artery hypertension. Her other medical illnesses include COPD, degenerative arthritis, and depression. 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 She has a history of smoking 1 pack of cigarettes daily for 40 years, and she continues to smoke. Repeat CT of the chest on 08/26/2015 showed clearing of the pulmonary nodules. There was soft tissue density in the right breast with a seroma. By ultrasound, the seroma had decreased. She underwent an FNA of the seroma in August 2015. Cytology was benign. She continued adjuvant hormonal therapy with Femara since December 2014 . Follow-up mammogram done on January 22, 2020 showed BI-RADS 2, benign. Mrs. Mathews had follow-up with Dr. Allred on July 16, 2020 for exacerbation of COPD although she continued to smoke. She was offered low-dose CT scan for lung cancer screening ended pursue the CTs [place]. She did have a CT lung screening on July 31 2020. It reported a spiculated right suprahilar and right upper lobe paramediastinal and soft tissue mass. It measured 6.4 x 4.0 x 7.6 cm AP by transverse by craniocaudal. Findings were most compatible with neoplasm. Recommended dedicated contrast-enhanced chest CT and further evaluation with bronchoscopy. Mild narrowing of the right upper main stem bronchus. Mild narrowing of the right distal mainstem bronchus. Mediastinal lymphadenopathy. Right hilar lymphadenopathy. Mrs. Niño underwent PET CT on August 03, 2020 via [facility] radiology. The right upper lobe paramediastinal/superior right hilar mass measured 4.2 x 7.4 cm with central necrosis and an SUV of 37.3 representing malignancy, likely primary bronchogenic carcinoma. A 1.4 spiculated mass at the minor fissure, right upper lobe has an SUV of 12.6 consistent with a satellite malignant lesion. Other subcentimeter lesions were present in other lobes bilaterally too small to characterize. These are likely malignant and should be closely followed on future imaging. Malignant mediastinal adenopathy is present, representing metastatic disease. These are present in the prevascular, left paratracheal, subaortic and bilateral hilar territory. The new accounts representative left hilar node has an SUV of 8.5. There were no findings to indicate osseous metastatic disease. No significant pelvic or abdominal adenopathy was present. She did have extensive malignant mediastinal adenopathy. Ms. Mathews underwent bronchoscopy with endobronchial ultrasound-guided transbronchial needle aspiration of lymph nodes and control of bleeding on August 15, [address] Allred. Fine-needle aspiration was performed on the right paratracheal mass. 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 P63 was positive DTF???1 was negative p16 negative Ki 67 = 60% global CK 5/6 strongly and diffusely positive in tumor cells. CK7 was negative CK20 was negative; CK cocktail: Strongly and diffusely positive in tumor cells. CK 8/18 strongly and diffusely positive in tumor cells. CK Victor M: Strongly diffusely positive tumor cells. Staging MRI of the brain from September 05, 2020 reported no evidence of restricted diffusion to suggest ischemia. No evidence of enhancing intracranial metastatic disease. Mild small vessel changes with mild parenchymal volume loss. Small vessel changes in the aquiles. This has progressed since 2015. Numerous new small punctate foci of hemosiderin in the right parietal and temporal lobes. Single focus in the left posterior temporal lobe consistent with chronic tiny punctate microhemorrhages mainly subcortical in location. This is nonspecific but can be seen with amyloid angiopathy. Mild symmetric atrophy involving the temporal lobes and hippocampal formations. Guardant 360 done on August 29, 2020 showed no targetable therapeutic mutations. PD-L1 expression TPS was more than 50%. plan of care was to pursue systemic chemotherapy followed by follow-up PET CT. If the PET/CT shows resolution of bilateral pulmonary nodules then consider combined chemoradiation therapy. Considering that patient has locally advanced disease still contained in the chest ,was recommendeded chemo therapy with immunotherapy consisting of pembrolizumab every 3 weeks and carboplatin Taxol day 1 and 8 repeat every 28 days. She will have follow-up PET CT after 3 cycles. If this again shows good resolution of bilateral pulmonary nodules then will discuss radiation oncology with combined chemoradiation. Incidentally Ms. Frederick was found to be iron deficient with a hemoglobin of 9.4 and was given 2 doses of Injectafer 1 on August 12, 2020 and again on August 19, 2020. Repeat follow-up PET/CT from September 28, 2020 reported the right upper lobe. Mediastinal/superior right hilar mass currently measured 4.2 x 7.4 cm with an SUV of 28.9 and extensive central necrosis. This is unchanged in size and questionably improved in uptake. The 1.46 spiculated mass at the minor fissure, right upper lobe has an SUV of 13.5 and is unchanged in the prior study from 08/03/2020. Subcentimeter pulmonary nodules are unchanged with the prior study. The left hilar index node has an SUV of 7.7, unchanged from 8.5 previously. The other mediastinal nodes in the prevascular, left paratracheal and subaortic and bilateral hilar regions are stable from the prior study. There is no indication of osseous metastatic disease. She began chemotherapy with carboplatin Taxol/Keytruda on day 1 and 8 of a 21-day cycle on October 09, 2020. Follow-up CT PET scan After 4 cycles of Keytruda/carbo/Taxol done on December 28, 2020 showed excellent response, right upper lobe paramediastinal mass now measures 5 x 3.2 cm demonstrate significant central cavitation with only thin solid silva and only 2 sites of viable malignancy are present in anterior and posterior silva with SUV of 6.97.3 respectively. Right upper lobe spiculated mass now measures 1.3 x 2 cm with SUV of 8.6, improvement from prior study. Subcentimeter nodules seen previously are unchanged on current study. Left hilar lymph node with SUV 5.2, down from 7.7 previously. The other describe mediastinal lymph nodes are similarly improved or entirely resolved on current study Follow-up CT PET scan done on February 01, 2021 shows right upper lobe paramediastinal mass seen on prior study now has SUV of 13 compared to 7.3 previously, spiculated right upper lobe mass has SUV of 13.2 compared to 8.6 previously, left hilar node has SUV of 6.3, questionable increased from prior study. Bilateral subcentimeter pulmonary nodules are unchanged from prior study, no new lesions seen otherwise, Chemotherapy was discontinued after January 28, 2021 and she was started on maintenance Keytruda every 3 weeks on February 17, 2021 Follow-up CT PET scan done on June 07, 2021 showed right upper lobe paramediastinal mass with slightly higher with SUV of 17.4 compared to 13 previously the cavitary aspect of the lesion has resolved, therefore this lesion does not demonstrate clinical progression. Spiculated right upper lobe lesion measured 1.6 cm with SUV of 10.1, this is slight improvement from 13.2 previously the left hilar uptake demonstrate similar, modest improvement with SUV of 4.9 compared to 6.2 previously. Activity in scattered mediastinal lymph node is mildly improved as well. For follow-up, denies any specific complaints except chronic shortness of breath/dyspnea exertion which is due to COPD, patient is on home oxygen and still smoking about pack a day. No fever chills, no nausea or vomiting, no diarrhea or constipation, no hemoptysis hematemesis, no jaundice, no skin rash, no mucus in her stool. Tolerating maintenance therapy with Keytruda well otherwise Medications: Advair Diskus 1 puff(s) (of 250-50 mcg/dose) Aerosol Powder, Breath Activated Inhalation b.i.d., Amoxicillin-Pot Clavulanate (500-125 mg) Tablet Oral b.i.d., Aspirin 1 (325 mg) Tablet Oral daily, Benadryl 1 (25 mg) Capsule Oral daily PRN, ClonazePAM 1 Tablet (of 0.5 mg) Oral b.i.d., Doxycycline Hyclate 1 Tablet (of 100 mg) Oral b.i.d., Ibuprofen 1 Tablet (of 800 mg) Oral t.i.d., Levaquin 1 Tablet (of 750 mg) Oral daily for 7 days, Lisinopril 1 Tablet (of 10 mg) Oral daily, methylPREDNISolone Tablet Therapy Pack Oral, PARoxetine HCl 1 Tablet (of 20 mg) Oral daily, predniSONE 2 Tablet (of 20 mg) Oral daily for 5 days, ProAir HFA 1 puff(s) (of 108 (90 base) mcg/act) Aerosol, solution Inhalation q 4 hours, Propranolol HCl ER 1 Capsule (of 60 mg) Capsule SR 24 HR Oral daily, Venlafaxine HCl 1 Tablet (of 75 mg) Tablet Oral daily Allergies: No Known Allergies. Review of Systems: Review of Systems is not available for this patient. Vital Signs: Vitals are not available for this patient. Performance Status: 2 - Ambulatory/capable of all self-care, unable to perform any work activities. Up and about more than 50% of waking hours. (ECOG) Physical Examination: Respiratory - Poor air entry, mild wheezing bilaterally, Cardiovascular - Regular rate and rhythm of heart, Gastrointestinal - Soft, bowel sounds present, Extremities - No visible edema. Lab/Imaging: Test performed on Jun 03, 2021 09:53 TSH 1.66 uU/mL Glucose 91 mg/dL BUN 8 mg/dL Creatinine 0.6 mg/dL Cr Clearance (Est) 129.20 mL/min Sodium 136 mmol/L Potassium 4.5 mmol/L Chloride 96 mmol/L CO2 30 mmol/L Calcium 8.6 mg/dL Protein, Total 6.4 g/dL Albumin 3.7 g/dL Globulin 2.7 g/dL Bilirubin, Total 0.2 mg/dL Alkaline Phosphatase 87 International Units/L AST (SGOT) 12 International Units/L ALT (SGPT) 10 International Units/L WBC 11.0 10^9/L RBC 4.26 10^12/L HGB 12.3 g/dL HCT 39.5 % MCV 92.7 fl MCH 28.9 pg MCHC 31.1 g/dL RDW 13.4 % Platelet Count 304 10^9/L MPV 10.3 fL Neutrophils (Gran) 7.06 10^9/L Lymphocytes 2.7 10^9/L Monocytes 1.1 10^9/L Eosinophils 0.1 10^9/L Basophils 0 10^9/L Manual Lymphocytes 24.8 % Manual Monocytes 9.5 % Manual Eosinophils 0.7 % Manual Basophils 0.2 % Test performed on Feb 04, 2021 08:42 Anion Gap 15.5 eGFR 161.2 mL/min Osmolality - Calculated 284 mOsm/kg Neutrophil % 83.0 % Lymphocyte % 15.1 % Monocyte % 1.2 % Eosinophil % 0.0 % Basophils % 0.2 % NRBC % 0 % Impression: 1. Squamous cell carcinoma per transbronchial biopsy from right peritracheal mass done on August 15, 2020 CT scan of chest done on July 31, 2020 showed 6.4 x 4 x 7.6 cm right suprahilar/right upper lobe paramediastinal mass and additional spiculated right suprahilar nodule along with right fissure measuring 1.6 x 1.3 cm, spiculated right middle lobe nodule measuring 7 mm and mediastinal lymphadenopathy CT PET scan done on August 03, 2020 showed FDG positive centrally necrotic right upper lobe mass, malignant circular lesion at the right minor fissure, multiple bilateral pulmonary nodules too small to characterize, extensive bilateral malignant mediastinal lymphadenopathy, Stage IIIb versus stage Court, PD-L1 TPS more than 50% MRI scan of the head done on September 05, 2020 showed no evidence of metastatic disease Guardant 360 shows no targetable therapeutic mutations Started on chemoimmunotherapy with Keytruda/carboplatin/Taxol on October 16, 2020, follow-up CT PET scan done on December 28, 2020 showed marked improvement in the right upper lobe mediastinal mass, lesion is now markedly cavitary with only 2 small lesions of viable malignancy remaining. Improvement in the right upper lobe satellite nodule. No change in subcentimeter pulmonary nodules. Improvement or resolution of mediastinal lymphadenopathy. follow-up CT PET scan done on February 01, 2021 which shows right upper lobe paramediastinal mass seen on prior study has now SUV of 13 compared to 7.3 previously, spiculated right upper lobe mass has SUV of 13.2 compared to 8.6 before, left hilar node has SUV of 6.3, questionable increase from previous study. Bilateral subcentimeter pulmonary nodules are unchanged, no new lesions seen otherwise As her follow-up PET scan showed stable disease, increase SUV could be due to mild disease progression or immunotherapy flare, but because of continued decline in quality of life and inconvenience of traveling back and forth to office, chemotherapy with carboplatin/Taxol was discontinued after last dose given on January 28, 2021 but continue with maintenance therapy with Keytruda every 3 weeks starting February 18, 2021 2. Patient with grade 1 infiltrating ductal carcinoma of the right breast, stage IA (T1c, N0, M0), ER/SC positive and HER-2/christophe negative. Oncotype DX score was 15, low risk. 3 She completed radiation to the right breast on 03/06/2015 to a total dose of 6600 cGy. 4. She began adjuvant hormonal therapy with Femara 2.5 mg daily in December 2014. completed 5 years in 2019 Her other medical illnesses include: 5 COPD with secondary erythrocytosis.on o2 6. Degenerative arthritis. 7. She has nicotine dependence (cigarettes). Chronic back pain MRI scan of lumbosacral area done on 06/23/2018 and bone scan done on 06/09/2018 showed no evidence of malignancy but chronic arthritis She does have ongoing problems with the COPD, and she currently appears to be experiencing an acute exacerbation. Polycythemia probably due to hypoxia due to severe COPD or chronic smoking, now on home oxygen Improved with smoking cessation for 1 week Iron deficiency anemia, Intolerance to oral iron Plan: Discussed with patient regarding her labs white blood count 9.3 hemoglobin 12.5 hematocrit 41.4 platelets 343,000 CMP within normal limits TSH 1.92 Clinically, patient doing well with no new signs symptoms history of disease progression, tolerating maintenance therapy with Keytruda well we will proceed with next dose today and then return to clinic in 3 weeks with CMP. Patient was advised to quit smoking, she was offered any assistance she may need. Signed By: Kaya Díaz M.D. <<Signature on File>>
== END 2021-07-21 23:59 | disposition home or self-care (01) ==
LOC: ONCMED 06:20
PROVIDERS: PCP Family Medicine; Visit Provider Internal Medicine Hematology & Oncology
DX: Z51.12 Encounter for antineoplastic immunotherapy (principal); C34.11 Malignant neoplasm of upper lobe, right bronchus or lung; D50.9 Iron deficiency anemia, unspecified; F17.210 Nicotine dependence, cigarettes, uncomplicated; E55.9 Vitamin D deficiency, unspecified; J44.9 Chronic obstructive pulmonary disease, unspecified; D75.1 Secondary polycythemia; M19.90 Unspecified osteoarthritis, unspecified site; Z99.81 Dependence on supplemental oxygen; Z85.3 Personal history of malignant neoplasm of breast; Z92.21 Personal history of antineoplastic chemotherapy; Z92.3 Personal history of irradiation; Z79.899 Other long term (current) drug therapy
CPT/HCPCS: 80053; 84443; 85025; 96413; 99215; J7050; J9271

== ENCOUNTER 2021-08-05 07:52 | Outpatient (RCR) | payer MEDICARE, MEDICAID, SELFPAY ==
[2021-08-05 08:24] LABS: Basophils % 0.3 %; Eosinophils # 0.1 10^3/uL (0.0-0.8); Eosinophils % 1.1 %; Hematocrit 39.5 % (37.0-47.0); Hemoglobin 11.8 g/dL (11.5-15.3); Lymphocytes # 2.8 10^3/uL (0.8-4.8); Lymphocytes % 28.9 %; Mean Corpuscular HGB Conc 29.9 g/dL (30.0-36.0); Mean Corpuscular Hemoglobin 28.1 pg (28.0-34.0); Mean Platelet Volume 10.5 fL (7.4-10.4); Monocytes # 0.9 10^3/uL (0.2-0.9); Neutrophils % 60.3 %; Nucleated Red Blood Cells % 0 %; Platelet Count 303 10^3/cmm (130-400); Red Cell Distribution Width 13.8 % (12.1-15.1); White Blood Count 9.8 10^3/uL (4.0-10.0)
[2021-08-05 08:38] LABS: Alanine Aminotransferase 10 U/L (0-33); Albumin Level 3.9 g/dL (3.5-5.2); Alkaline Phosphatase 85 IU/L (35-105); Anion Gap 12.7 (5-19); Aspartate Amino Transferase 12 U/L (0-32); Blood Urea Nitrogen 11 mg/dL (8-23); Calcium 8.4 mg/dL (8.5-10.5); Carbon Dioxide 32 mmol/L (22-29); Chloride 99 mmol/L (98-107); Globulin 2.6 g/dL (1.3-4.6); Glomerular Filtration Rate 124.2 mL/min (90-130); Glucose 109 mg/dL (65-115); Osmolality Calculated 290 mOsm/kg (285-295); Potassium 3.7 mmol/L (3.5-5.1); Sodium 140 mmol/L (136-145); Total Bilirubin 0.2 mg/dL (0.15-1.2); Total Protein 6.5 g/dL (6.6-8.7)
--- NOTE | 2021-08-05 15:56 | ONC FU_ITS ---
Dr. Díaz follow up note Patient: Swathi Frederick Unit #: [id number]: 1955 Dicatated By: Kaya Díaz M.D.Date of Visit:Aug 05, 2021 Onc Med Follow-up/Prog Note History of Present Illness: Ms Frederick is a 66 year-old woman with grade 1 infiltrating ductal carcinoma of the right breast, stage IA (T1c, N0, M0), ER/WY positive and HER-2/christophe negative. She had presented in October 2014 with palpable lump in her right breast. She had been on hormone replacement therapy for the preceding 20 years. Her mammogram on 11/06/2014 revealed 1.3 cm mass in the right breast at 9:00 position corresponding to a 2 cm nodule palpable on examination. An ultrasound guided biopsy on 12/07/2014 revealed grade 1/3 infiltrating ductal carcinoma with the prognostic profile showing ER positive at 100%, WY positive at 98%, and HER-2/christophe negative, 1.1 by FISH, and 1+ by IHC. The Ki-67 was 10%. She underwent lumpectomy and sentinel lymph node biopsy by Dr. Brennan on 12/24/2014. Her surgical pathology showed 1.5 cm infiltrating ductal carcinoma without lymphovascular invasion. Initial margins were positive, but after further excision the final margins were negative. One sentinel lymph was not involved. Her disease thus was pathologic stage IA (T1c, N0, M0). She was first seen by Dr. Ramirez on 12/27/2014. She had daily headaches ever since stopping her hormone replacement therapy. MRI of the brain on 01/10/2015 was negative for metastatic disease. Chiari I malformation was noted. She was referred to neurology for management of migraines. Oncotype DX score on 01/08/2015 return low at 15, corresponding to 9% risk of distant recurrence following hormonal treatment. She began on adjuvant treatment with Femara in December 2014. Femara was discontinued as she completed 5 years on November 30, 2019. She was found to beVitamin D deficient and she was also then started on replacement therapy. DEXA scan in April 2015 showed normal bone density. She completed definitive adjuvant radiation treatment with a boost on 03/06/2015. A CT of the chest on 03/21/2015 showed bilateral nonspecific upper lobe pulmonary nodules from 2-5 mm, and diffuse interstitial thickening with a pulmonary artery hypertension. Her other medical illnesses include COPD, degenerative arthritis, and depression. 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 She has a history of smoking 1 pack of cigarettes daily for 40 years, and she continues to smoke. Repeat CT of the chest on 08/26/2015 showed clearing of the pulmonary nodules. There was soft tissue density in the right breast with a seroma. By ultrasound, the seroma had decreased. She underwent an FNA of the seroma in August 2015. Cytology was benign. She continued adjuvant hormonal therapy with Femara since December 2014 . Follow-up mammogram done on January 22, 2020 showed BI-RADS 2, benign. Mrs. Mathews had follow-up with Dr. Allred on July 16, 2020 for exacerbation of COPD although she continued to smoke. She was offered low-dose CT scan for lung cancer screening ended pursue the CTs [place]. She did have a CT lung screening on July 31 2020. It reported a spiculated right suprahilar and right upper lobe paramediastinal and soft tissue mass. It measured 6.4 x 4.0 x 7.6 cm AP by transverse by craniocaudal. Findings were most compatible with neoplasm. Recommended dedicated contrast-enhanced chest CT and further evaluation with bronchoscopy. Mild narrowing of the right upper main stem bronchus. Mild narrowing of the right distal mainstem bronchus. Mediastinal lymphadenopathy. Right hilar lymphadenopathy. Mrs. Niño underwent PET CT on August 03, 2020 via [facility] radiology. The right upper lobe paramediastinal/superior right hilar mass measured 4.2 x 7.4 cm with central necrosis and an SUV of 37.3 representing malignancy, likely primary bronchogenic carcinoma. A 1.4 spiculated mass at the minor fissure, right upper lobe has an SUV of 12.6 consistent with a satellite malignant lesion. Other subcentimeter lesions were present in other lobes bilaterally too small to characterize. These are likely malignant and should be closely followed on future imaging. Malignant mediastinal adenopathy is present, representing metastatic disease. These are present in the prevascular, left paratracheal, subaortic and bilateral hilar territory. The patient services representative left hilar node has an SUV of 8.5. There were no findings to indicate osseous metastatic disease. No significant pelvic or abdominal adenopathy was present. She did have extensive malignant mediastinal adenopathy. Ms. Mathews underwent bronchoscopy with endobronchial ultrasound-guided transbronchial needle aspiration of lymph nodes and control of bleeding on August 15, [address] Allred. Fine-needle aspiration was performed on the right paratracheal mass. 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 P63 was positive DTF???1 was negative p16 negative Ki 67 = 60% global CK 5/6 strongly and diffusely positive in tumor cells. CK7 was negative CK20 was negative; CK cocktail: Strongly and diffusely positive in tumor cells. CK 8/18 strongly and diffusely positive in tumor cells. CK Victor M: Strongly diffusely positive tumor cells. Staging MRI of the brain from September 05, 2020 reported no evidence of restricted diffusion to suggest ischemia. No evidence of enhancing intracranial metastatic disease. Mild small vessel changes with mild parenchymal volume loss. Small vessel changes in the aquiles. This has progressed since 2015. Numerous new small punctate foci of hemosiderin in the right parietal and temporal lobes. Single focus in the left posterior temporal lobe consistent with chronic tiny punctate microhemorrhages mainly subcortical in location. This is nonspecific but can be seen with amyloid angiopathy. Mild symmetric atrophy involving the temporal lobes and hippocampal formations. Guardant 360 done on August 29, 2020 showed no targetable therapeutic mutations. PD-L1 expression TPS was more than 50%. plan of care was to pursue systemic chemotherapy followed by follow-up PET CT. If the PET/CT shows resolution of bilateral pulmonary nodules then consider combined chemoradiation therapy. Considering that patient has locally advanced disease still contained in the chest ,was recommendeded chemo therapy with immunotherapy consisting of pembrolizumab every 3 weeks and carboplatin Taxol day 1 and 8 repeat every 28 days. She will have follow-up PET CT after 3 cycles. If this again shows good resolution of bilateral pulmonary nodules then will discuss radiation oncology with combined chemoradiation. Incidentally Ms. Frederick was found to be iron deficient with a hemoglobin of 9.4 and was given 2 doses of Injectafer 1 on August 12, 2020 and again on August 19, 2020. Repeat follow-up PET/CT from September 28, 2020 reported the right upper lobe. Mediastinal/superior right hilar mass currently measured 4.2 x 7.4 cm with an SUV of 28.9 and extensive central necrosis. This is unchanged in size and questionably improved in uptake. The 1.46 spiculated mass at the minor fissure, right upper lobe has an SUV of 13.5 and is unchanged in the prior study from 08/03/2020. Subcentimeter pulmonary nodules are unchanged with the prior study. The left hilar index node has an SUV of 7.7, unchanged from 8.5 previously. The other mediastinal nodes in the prevascular, left paratracheal and subaortic and bilateral hilar regions are stable from the prior study. There is no indication of osseous metastatic disease. She began chemotherapy with carboplatin Taxol/Keytruda on day 1 and 8 of a 21-day cycle on October 09, 2020. Follow-up CT PET scan After 4 cycles of Keytruda/carbo/Taxol done on December 28, 2020 showed excellent response, right upper lobe paramediastinal mass now measures 5 x 3.2 cm demonstrate significant central cavitation with only thin solid silva and only 2 sites of viable malignancy are present in anterior and posterior silva with SUV of 6.97.3 respectively. Right upper lobe spiculated mass now measures 1.3 x 2 cm with SUV of 8.6, improvement from prior study. Subcentimeter nodules seen previously are unchanged on current study. Left hilar lymph node with SUV 5.2, down from 7.7 previously. The other describe mediastinal lymph nodes are similarly improved or entirely resolved on current study Follow-up CT PET scan done on February 01, 2021 shows right upper lobe paramediastinal mass seen on prior study now has SUV of 13 compared to 7.3 previously, spiculated right upper lobe mass has SUV of 13.2 compared to 8.6 previously, left hilar node has SUV of 6.3, questionable increased from prior study. Bilateral subcentimeter pulmonary nodules are unchanged from prior study, no new lesions seen otherwise, Chemotherapy was discontinued after January 28, 2021 and she was started on maintenance Keytruda every 3 weeks on February 17, 2021 Follow-up CT PET scan done on June 07, 2021 showed right upper lobe paramediastinal mass with slightly higher with SUV of 17.4 compared to 13 previously the cavitary aspect of the lesion has resolved, therefore this lesion does not demonstrate clinical progression. Spiculated right upper lobe lesion measured 1.6 cm with SUV of 10.1, this is slight improvement from 13.2 previously the left hilar uptake demonstrate similar, modest improvement with SUV of 4.9 compared to 6.2 previously. Activity in scattered mediastinal lymph node is mildly improved as well. Came for follow-up, Denies any specific complaints,, no fever chills, no nausea or vomiting, no diarrhea constipation, as per patient her productive cough has improved with [id number] cough medicine with a decongestant, also Dr. Allred has prescribed her prednisone 10 mg p.o. daily which is also helping but she continues to smoke while on home oxygen. Denies any hemoptysis or hematemesis, denies any chest pain, denies any jaundice denies any headaches blurred vision or double vision denies any new bony pains, denies any diarrhea or skin rash. Tolerating maintenance therapy with Keytruda well Medications: Advair Diskus 1 puff(s) (of 250-50 mcg/dose) Aerosol Powder, Breath Activated Inhalation b.i.d., Amoxicillin-Pot Clavulanate (500-125 mg) Tablet Oral b.i.d., Aspirin 1 (325 mg) Tablet Oral daily, Benadryl 1 (25 mg) Capsule Oral daily PRN, ClonazePAM 1 Tablet (of 0.5 mg) Oral b.i.d., Doxycycline Hyclate 1 Tablet (of 100 mg) Oral b.i.d., Ibuprofen 1 Tablet (of 800 mg) Oral t.i.d., Levaquin 1 Tablet (of 750 mg) Oral daily for 7 days, Lisinopril 1 Tablet (of 10 mg) Oral daily, methylPREDNISolone Tablet Therapy Pack Oral, PARoxetine HCl 1 Tablet (of 20 mg) Oral daily, predniSONE 2 Tablet (of 20 mg) Oral daily for 5 days, ProAir HFA 1 puff(s) (of 108 (90 base) mcg/act) Aerosol, solution Inhalation q 4 hours, Propranolol HCl ER 1 Capsule (of 60 mg) Capsule SR 24 HR Oral daily, Venlafaxine HCl 1 Tablet (of 75 mg) Tablet Oral daily Allergies: No Known Allergies. Review of Systems: Review of Systems is not available for this patient. Vital Signs: Performed on Aug 05, 2021 13:58 Height - 63.00 in Weight - 193.4 lbs (HIGH) BSA - 1.91 sq.m BMI - 34.26 (HIGH) Temperature - 98.1 F (LOW) Pulse - 79 /min Respiration - 20 /min BP - 179/95 mm(hg) (HIGH) O2 Sat - 92 % (LOW) Pain - 6 Fatigue - 7 Performance Status: 2 - Ambulatory/capable of all self-care, unable to perform any work activities. Up and about more than 50% of waking hours. (ECOG) Physical Examination: Respiratory - Poor air entry, mild wheezing bilaterally, Cardiovascular - Regular rate and rhythm of heart, Gastrointestinal - Soft, bowel sounds present, Extremities - No visible edema. Lab/Imaging: Test performed on Jun 03, 2021 09:53 TSH 1.66 uU/mL Glucose 91 mg/dL BUN 8 mg/dL Creatinine 0.6 mg/dL Cr Clearance (Est) 129.20 mL/min Sodium 136 mmol/L Potassium 4.5 mmol/L Chloride 96 mmol/L CO2 30 mmol/L Calcium 8.6 mg/dL Protein, Total 6.4 g/dL Albumin 3.7 g/dL Globulin 2.7 g/dL Bilirubin, Total 0.2 mg/dL Alkaline Phosphatase 87 International Units/L AST (SGOT) 12 International Units/L ALT (SGPT) 10 International Units/L WBC 11.0 10^9/L RBC 4.26 10^12/L HGB 12.3 g/dL HCT 39.5 % MCV 92.7 fl MCH 28.9 pg MCHC 31.1 g/dL RDW 13.4 % Platelet Count 304 10^9/L MPV 10.3 fL Neutrophils (Gran) 7.06 10^9/L Lymphocytes 2.7 10^9/L Monocytes 1.1 10^9/L Eosinophils 0.1 10^9/L Basophils 0 10^9/L Manual Lymphocytes 24.8 % Manual Monocytes 9.5 % Manual Eosinophils 0.7 % Manual Basophils 0.2 % Impression: 1. Squamous cell carcinoma per transbronchial biopsy from right peritracheal mass done on August 15, 2020 CT scan of chest done on July 31, 2020 showed 6.4 x 4 x 7.6 cm right suprahilar/right upper lobe paramediastinal mass and additional spiculated right suprahilar nodule along with right fissure measuring 1.6 x 1.3 cm, spiculated right middle lobe nodule measuring 7 mm and mediastinal lymphadenopathy CT PET scan done on August 03, 2020 showed FDG positive centrally necrotic right upper lobe mass, malignant circular lesion at the right minor fissure, multiple bilateral pulmonary nodules too small to characterize, extensive bilateral malignant mediastinal lymphadenopathy, Stage IIIb versus stage Court, PD-L1 TPS more than 50% MRI scan of the head done on September 05, 2020 showed no evidence of metastatic disease Guardant 360 shows no targetable therapeutic mutations Started on chemoimmunotherapy with Keytruda/carboplatin/Taxol on October 16, 2020, follow-up CT PET scan done on December 28, 2020 showed marked improvement in the right upper lobe mediastinal mass, lesion is now markedly cavitary with only 2 small lesions of viable malignancy remaining. Improvement in the right upper lobe satellite nodule. No change in subcentimeter pulmonary nodules. Improvement or resolution of mediastinal lymphadenopathy. follow-up CT PET scan done on February 01, 2021 which shows right upper lobe paramediastinal mass seen on prior study has now SUV of 13 compared to 7.3 previously, spiculated right upper lobe mass has SUV of 13.2 compared to 8.6 before, left hilar node has SUV of 6.3, questionable increase from previous study. Bilateral subcentimeter pulmonary nodules are unchanged, no new lesions seen otherwise As her follow-up PET scan showed stable disease, increase SUV could be due to mild disease progression or immunotherapy flare, but because of continued decline in quality of life and inconvenience of traveling back and forth to office, chemotherapy with carboplatin/Taxol was discontinued after last dose given on January 28, 2021 but continue with maintenance therapy with Keytruda every 3 weeks starting February 18, 2021 2. Patient with grade 1 infiltrating ductal carcinoma of the right breast, stage IA (T1c, N0, M0), ER/WY positive and HER-2/christophe negative. Oncotype DX score was 15, low risk. 3 She completed radiation to the right breast on 03/06/2015 to a total dose of 6600 cGy. 4. She began adjuvant hormonal therapy with Femara 2.5 mg daily in December 2014. 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 Degenerative arthritis. 7. She has nicotine dependence (cigarettes). Chronic back pain MRI scan of lumbosacral area done on 06/23/2018 and bone scan done on 06/09/2018 showed no evidence of malignancy but chronic arthritis She does have ongoing problems with the COPD, and she currently appears to be experiencing an acute exacerbation. Polycythemia probably due to hypoxia due to severe COPD or chronic smoking, now on home oxygen Improved with smoking cessation for 1 week Iron deficiency anemia, Intolerance to oral iron Plan: Discussed with patient regarding her labs white blood count 9.8 hemoglobin 11.8 g medical 39.5 platelets 303,000 CMP within normal limits Clinically, patient doing well with no new signs symptoms history of disease progression, tolerating maintenance therapy with Keytruda well, will proceed with next dose today and then return to clinic in 3 weeks with CBC CMP Signed By: Kaya Díaz M.D. <<Signature on File>>
== END 2021-08-18 23:59 | disposition home or self-care (01) ==
LOC: ONCMED 07:52
PROVIDERS: PCP Family Medicine; Visit Provider Internal Medicine Hematology & Oncology
DX: Z51.12 Encounter for antineoplastic immunotherapy (principal); C34.11 Malignant neoplasm of upper lobe, right bronchus or lung; C50.511 Malignant neoplasm of lower-outer quadrant of right female breast; Z17.0 Estrogen receptor positive status [ER+]; J44.9 Chronic obstructive pulmonary disease, unspecified; D75.1 Secondary polycythemia; M19.90 Unspecified osteoarthritis, unspecified site; F17.210 Nicotine dependence, cigarettes, uncomplicated; Z99.81 Dependence on supplemental oxygen; D50.9 Iron deficiency anemia, unspecified; E55.9 Vitamin D deficiency, unspecified; Z79.818 Long term (current) use of other agents affecting estrogen receptors and estrogen levels
CPT/HCPCS: 36415; 80053; 85025; 96413; 99215; J7050; J9271

== ENCOUNTER 2021-08-26 07:47 | Outpatient (RCR) | payer MEDICARE, MEDICAID, SELFPAY ==
[2021-08-26 08:59] LABS: Basophils % 0.4 %; Eosinophils # 0.2 10^3/uL (0.0-0.8); Eosinophils % 2.1 %; Hematocrit 38.8 % (37.0-47.0); Hemoglobin 11.7 g/dL (11.5-15.3); Lymphocytes # 2.1 10^3/uL (0.8-4.8); Lymphocytes % 23.3 %; Mean Corpuscular HGB Conc 30.2 g/dL (30.0-36.0); Mean Corpuscular Hemoglobin 28.4 pg (28.0-34.0); Mean Corpuscular Volume 94.2 fl (81-99); Mean Platelet Volume 10.8 fL (7.4-10.4); Monocytes # 0.9 10^3/uL (0.2-0.9); Monocytes % 10.3 %; Neutrophils # 5.78 10^3/uL (1.8-7.7); Neutrophils % 63.6 %; Nucleated Red Blood Cells % 0 %; Platelet Count 305 10^3/cmm (130-400); Red Blood Count 4.12 10^6/uL (4.1-5.3); Red Cell Distribution Width 13.2 % (12.1-15.1); White Blood Count 9.1 10^3/uL (4.0-10.0)
[2021-08-26 09:15] LABS: Alanine Aminotransferase 6 U/L (0-33); Alkaline Phosphatase 95 IU/L (35-105); Anion Gap 11.7 (5-19); Aspartate Amino Transferase 13 U/L (0-32); Blood Urea Nitrogen 16 mg/dL (8-23); Calcium 9.2 mg/dL (8.5-10.5); Carbon Dioxide 33 mmol/L (22-29); Chloride 98 mmol/L (98-107); Globulin 2.7 g/dL (1.3-4.6); Glomerular Filtration Rate 124.2 mL/min (90-130); Glucose 105 mg/dL (65-115); Osmolality Calculated 288 mOsm/kg (285-295); Potassium 4.7 mmol/L (3.5-5.1); Sodium 138 mmol/L (136-145); Total Bilirubin 0.2 mg/dL (0.15-1.2); Total Protein 6.7 g/dL (6.6-8.7)
--- NOTE | 2021-08-26 09:47 | ONC FU_ITS ---
Emma Newell Progress Note Patient: Swathi Frederick Unit #: [id number]: [id number] Dicatated By: Emma Newell N.P.Date of Visit:Aug 26, 2021 Onc MED Follow-up/Prog Note Chief Complaint: Breast cancer.and Non-small cell lung cancer (active ) History of Present Illness: Ms Frederick is a 66 year-old woman with grade 1 infiltrating ductal carcinoma of the right breast, stage IA (T1c, N0, M0), ER/CA positive and HER-2/christophe negative. She had presented in October 2014 with palpable lump in her right breast. She had been on hormone replacement therapy for the preceding 20 years. Her mammogram on 11/06/2014 revealed 1.3 cm mass in the right breast at 9:00 position corresponding to a 2 cm nodule palpable on examination. An ultrasound guided biopsy on 12/07/2014 revealed grade 1/3 infiltrating ductal carcinoma with the prognostic profile showing ER positive at 100%, CA positive at 98%, and HER-2/christophe negative, 1.1 by FISH, and 1+ by IHC. The Ki-67 was 10%. She underwent lumpectomy and sentinel lymph node biopsy by Dr. Brennan on 12/24/2014. Her surgical pathology showed 1.5 cm infiltrating ductal carcinoma without lymphovascular invasion. Initial margins were positive, but after further excision the final margins were negative. One sentinel lymph was not involved. Her disease thus was pathologic stage IA (T1c, N0, M0). She was first seen by Dr. Ramirez on 12/27/2014. She had daily headaches ever since stopping her hormone replacement therapy. MRI of the brain on 01/10/2015 was negative for metastatic disease. Chiari I malformation was noted. She was referred to neurology for management of migraines. Oncotype DX score on 01/08/2015 return low at 15, corresponding to 9% risk of distant recurrence following hormonal treatment. She began on adjuvant treatment with Femara in December 2014. Femara was discontinued as she completed 5 years on November 30, 2019. She was found to beVitamin D deficient and she was also then started on replacement therapy. DEXA scan in April 2015 showed normal bone density. She completed definitive adjuvant radiation treatment with a boost on 03/06/2015. A CT of the chest on 03/21/2015 showed bilateral nonspecific upper lobe pulmonary nodules from 2-5 mm, and diffuse interstitial thickening with a pulmonary artery hypertension. Her other medical illnesses include COPD, degenerative arthritis, and depression. 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 She has a history of smoking 1 pack of cigarettes daily for 40 years, and she continues to smoke. Repeat CT of the chest on 08/26/2015 showed clearing of the pulmonary nodules. There was soft tissue density in the right breast with a seroma. By ultrasound, the seroma had decreased. She underwent an FNA of the seroma in August 2015. Cytology was benign. She continued adjuvant hormonal therapy with Femara since December 2014 . Follow-up mammogram done on January 22, 2020 showed BI-RADS 2, benign. Mrs. Mathews had follow-up with Dr. Allred on July 16, 2020 for exacerbation of COPD although she continued to smoke. She was offered low-dose CT scan for lung cancer screening ended pursue the CTs [place]. She did have a CT lung screening on July 31 2020. It reported a spiculated right suprahilar and right upper lobe paramediastinal and soft tissue mass. It measured 6.4 x 4.0 x 7.6 cm AP by transverse by craniocaudal. Findings were most compatible with neoplasm. Recommended dedicated contrast-enhanced chest CT and further evaluation with bronchoscopy. Mild narrowing of the right upper main stem bronchus. Mild narrowing of the right distal mainstem bronchus. Mediastinal lymphadenopathy. Right hilar lymphadenopathy. Mrs. Niño underwent PET CT on August 03, 2020 via [facility] radiology. The right upper lobe paramediastinal/superior right hilar mass measured 4.2 x 7.4 cm with central necrosis and an SUV of 37.3 representing malignancy, likely primary bronchogenic carcinoma. A 1.4 spiculated mass at the minor fissure, right upper lobe has an SUV of 12.6 consistent with a satellite malignant lesion. Other subcentimeter lesions were present in other lobes bilaterally too small to characterize. These are likely malignant and should be closely followed on future imaging. Malignant mediastinal adenopathy is present, representing metastatic disease. These are present in the prevascular, left paratracheal, subaortic and bilateral hilar territory. The sales solutions representative left hilar node has an SUV of 8.5. There were no findings to indicate osseous metastatic disease. No significant pelvic or abdominal adenopathy was present. She did have extensive malignant mediastinal adenopathy. Ms. Mathews underwent bronchoscopy with endobronchial ultrasound-guided transbronchial needle aspiration of lymph nodes and control of bleeding on August 15, [address] Allred. Fine-needle aspiration was performed on the right paratracheal mass. 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 P63 was positive DTF???1 was negative p16 negative Ki 67 = 60% global CK 5/6 strongly and diffusely positive in tumor cells. CK7 was negative CK20 was negative; CK cocktail: Strongly and diffusely positive in tumor cells. CK 8/18 strongly and diffusely positive in tumor cells. CK Victor M: Strongly diffusely positive tumor cells. Staging MRI of the brain from September 05, 2020 reported no evidence of restricted diffusion to suggest ischemia. No evidence of enhancing intracranial metastatic disease. Mild small vessel changes with mild parenchymal volume loss. Small vessel changes in the aquiles. This has progressed since 2015. Numerous new small punctate foci of hemosiderin in the right parietal and temporal lobes. Single focus in the left posterior temporal lobe consistent with chronic tiny punctate microhemorrhages mainly subcortical in location. This is nonspecific but can be seen with amyloid angiopathy. Mild symmetric atrophy involving the temporal lobes and hippocampal formations. Guardant 360 done on August 29, 2020 showed no targetable therapeutic mutations. PD-L1 expression TPS was more than 50%. plan of care was to pursue systemic chemotherapy followed by follow-up PET CT. If the PET/CT shows resolution of bilateral pulmonary nodules then consider combined chemoradiation therapy. Considering that patient has locally advanced disease still contained in the chest ,was recommendeded chemo therapy with immunotherapy consisting of pembrolizumab every 3 weeks and carboplatin Taxol day 1 and 8 repeat every 28 days. She will have follow-up PET CT after 3 cycles. If this again shows good resolution of bilateral pulmonary nodules then will discuss radiation oncology with combined chemoradiation. Incidentally Ms. Frederick was found to be iron deficient with a hemoglobin of 9.4 and was given 2 doses of Injectafer 1 on August 12, 2020 and again on August 19, 2020. Repeat follow-up PET/CT from September 28, 2020 reported the right upper lobe. Mediastinal/superior right hilar mass currently measured 4.2 x 7.4 cm with an SUV of 28.9 and extensive central necrosis. This is unchanged in size and questionably improved in uptake. The 1.46 spiculated mass at the minor fissure, right upper lobe has an SUV of 13.5 and is unchanged in the prior study from 08/03/2020. Subcentimeter pulmonary nodules are unchanged with the prior study. The left hilar index node has an SUV of 7.7, unchanged from 8.5 previously. The other mediastinal nodes in the prevascular, left paratracheal and subaortic and bilateral hilar regions are stable from the prior study. There is no indication of osseous metastatic disease. She began chemotherapy with carboplatin Taxol/Keytruda on day 1 and 8 of a 21-day cycle on October 09, 2020. Follow-up CT PET scan After 4 cycles of Keytruda/carbo/Taxol done on December 28, 2020 showed excellent response, right upper lobe paramediastinal mass now measures 5 x 3.2 cm demonstrate significant central cavitation with only thin solid silva and only 2 sites of viable malignancy are present in anterior and posterior silva with SUV of 6.97.3 respectively. Right upper lobe spiculated mass now measures 1.3 x 2 cm with SUV of 8.6, improvement from prior study. Subcentimeter nodules seen previously are unchanged on current study. Left hilar lymph node with SUV 5.2, down from 7.7 previously. The other describe mediastinal lymph nodes are similarly improved or entirely resolved on current study Follow-up CT PET scan done on February 01, 2021 shows right upper lobe paramediastinal mass seen on prior study now has SUV of 13 compared to 7.3 previously, spiculated right upper lobe mass has SUV of 13.2 compared to 8.6 previously, left hilar node has SUV of 6.3, questionable increased from prior study. Bilateral subcentimeter pulmonary nodules are unchanged from prior study, no new lesions seen otherwise, Chemotherapy was discontinued after January 28, 2021 and she was started on maintenance Keytruda every 3 weeks on February 17, 2021 Follow-up CT PET scan done on June 07, 2021 showed right upper lobe paramediastinal mass with slightly higher with SUV of 17.4 compared to 13 previously the cavitary aspect of the lesion has resolved, therefore this lesion does not demonstrate clinical progression. Spiculated right upper lobe lesion measured 1.6 cm with SUV of 10.1, this is slight improvement from 13.2 previously the left hilar uptake demonstrate similar, modest improvement with SUV of 4.9 compared to 6.2 previously. Activity in scattered mediastinal lymph node is mildly improved as well. Patient presents today for follow-up. She states that she is feeling pretty good. Her appetite has been fair she has 1 pound weight gain this week. No fever, chills, night sweats. No mouth sores or sore throat. She has shortness of breath secondary to COPD. No wheezing or cough at present. No chest pain. She denies nausea or vomiting. She had one episode of diarrhea yesterday evening after eating. No urinary symptoms. No joint or muscle pain. No headaches or dizziness. She has been tolerating Keytruda well. Review Of Symptoms:See above. Past Medical History: Anxiety Asthma Chronic obstructive pulmonary disease Depression Osteoarthritis Past Surgical History: Appendectomy Tonsillectomy Tubal ligation Flu Vaccube in 2020 - Given in left deltoid./lc Left subclavian Port-A-Cath???Dr. Brennan in 2020 Prevnar 13 in 2014 Flu vaccine in 2014 Breast biopsy in 2014 Allergies: No Known Allergies. Medications: Advair Diskus 1 puff(s) (of 250-50 mcg/dose) Aerosol Powder, Breath Activated Inhalation b.i.d. Amoxicillin-Pot Clavulanate (500-125 mg) Tablet Oral b.i.d. Aspirin 1 (325 mg) Tablet Oral daily Benadryl 1 (25 mg) Capsule Oral daily PRN ClonazePAM 1 Tablet (of 0.5 mg) Oral b.i.d. Doxycycline Hyclate 1 Tablet (of 100 mg) Oral b.i.d. Ibuprofen 1 Tablet (of 800 mg) Oral t.i.d. Levaquin 1 Tablet (of 750 mg) Oral daily for 7 days Lisinopril 1 Tablet (of 10 mg) Oral daily methylPREDNISolone Tablet Therapy Pack Oral PARoxetine HCl 1 Tablet (of 20 mg) Oral daily predniSONE 2 Tablet (of 20 mg) Oral daily for 5 days ProAir HFA 1 puff(s) (of 108 (90 base) mcg/act) Aerosol, solution Inhalation q 4 hours Propranolol HCl ER 1 Capsule (of 60 mg) Capsule SR 24 HR Oral daily Venlafaxine HCl 1 Tablet (of 75 mg) Tablet Oral daily Family History: Ms. Frederick's mother is . Ms. Frederick's father is . Unknown family history. Social History: Ms. Frederick is and she is a disabled. She is a daily smoker who has smoked 0.5 packs/day for 42 years. She has no history of drinking. Ms. Frederick reports the following support systems: lives in own house and adequate transportation available for expected visits. Her diet consists of regular meals. She indicates her activity level as: daily activities. Physical Examination: Vitals are not available for this patient. Performance Status: 2 - Ambulatory/capable of all self-care, unable to perform any work activities. Up and about more than 50% of waking hours. (ECOG) Constitutional Alert, cooperative, oriented. Mood and affect appropriate. Appears close to chronological age. Well nourished. Well developed. Chronic ill appearance Head Normocephalic; no scars. Respiratory Lungs are clear to auscultation without rhonchi or wheezing. Decreased breath sounds bilaterally. Oxygen at 4 liters per NC Cardiovascular Regular rate and rhythm of heart without murmurs, gallops or rubs. Abdomen Non-tender, non-distended, no masses, ascites or hepatosplenomegaly. Good bowel sounds. No guarding or rebound tenderness. Extremities No visible deformities, no cyanosis, clubbing or edema. Musculoskeletal No tenderness or swelling, normal range of motion without obvious weakness. Weakness secondary to dyspnea Psychiatric Alert and oriented times three. Coherent speech. Verbalizes understanding of our discussions today. Laboratory: Test performed on Aug 26, 2021 08:18 Sodium 138 mmol/L Potassium 4.7 mmol/L Chloride 98 mmol/L CO2 33 mmol/L Anion Gap 11.7 BUN 16 mg/dL Creatinine 0.5 mg/dL Cr Clearance (Est) 157.4200 mL/min eGFR 124.2 mL/min Glucose 105 mg/dL Osmolality - Calculated 288 mOsm/kg Calcium 9.2 mg/dL Protein, Total 6.7 g/dL Albumin 4.0 g/dL Globulin 2.7 g/dL Bilirubin, Total 0.2 mg/dL ALT (SGPT) 6 U/L AST (SGOT) 13 U/L Alkaline Phosphatase 95 IU/L WBC 9.1 10 3/uL RBC 4.12 10 6/uL HGB 11.7 g/dL HCT 38.8 % MCV 94.2 fl MCH 28.4 pg MCHC 30.2 g/dL RDW 13.2 % Platelet Count 305 10 3/cmm MPV 10.8 fL Neutrophils 5.78 10 3/uL Lymphocytes 2.1 10 3/uL Monocytes 0.9 10 3/uL Eosinophils 0.2 10 3/uL Basophils 0.0 10 3/uL Neutrophil % 63.6 % Lymphocyte % 23.3 % Monocyte % 10.3 % Eosinophil % 2.1 % Basophils % 0.4 % NRBC % 0 % Test performed on Jun 03, 2021 09:53 TSH 1.66 uU/mL Manual Lymphocytes 24.8 % Manual Monocytes 9.5 % Manual Eosinophils 0.7 % Manual Basophils 0.2 % Impression: 1. Squamous cell carcinoma per transbronchial biopsy from right peritracheal mass done on August 15, 2020 CT scan of chest done on July 31, 2020 showed 6.4 x 4 x 7.6 cm right suprahilar/right upper lobe paramediastinal mass and additional spiculated right suprahilar nodule along with right fissure measuring 1.6 x 1.3 cm, spiculated right middle lobe nodule measuring 7 mm and mediastinal lymphadenopathy CT PET scan done on August 03, 2020 showed FDG positive centrally necrotic right upper lobe mass, malignant circular lesion at the right minor fissure, multiple bilateral pulmonary nodules too small to characterize, extensive bilateral malignant mediastinal lymphadenopathy, Stage IIIb versus stage Court, PD-L1 TPS more than 50% MRI scan of the head done on September 05, 2020 showed no evidence of metastatic disease Guardant 360 shows no targetable therapeutic mutations Started on chemoimmunotherapy with Keytruda/carboplatin/Taxol on October 16, 2020, follow-up CT PET scan done on December 28, 2020 showed marked improvement in the right upper lobe mediastinal mass, lesion is now markedly cavitary with only 2 small lesions of viable malignancy remaining. Improvement in the right upper lobe satellite nodule. No change in subcentimeter pulmonary nodules. Improvement or resolution of mediastinal lymphadenopathy. follow-up CT PET scan done on February 01, 2021 which shows right upper lobe paramediastinal mass seen on prior study has now SUV of 13 compared to 7.3 previously, spiculated right upper lobe mass has SUV of 13.2 compared to 8.6 before, left hilar node has SUV of 6.3, questionable increase from previous study. Bilateral subcentimeter pulmonary nodules are unchanged, no new lesions seen otherwise As her follow-up PET scan showed stable disease, increase SUV could be due to mild disease progression or immunotherapy flare, but because of continued decline in quality of life and inconvenience of traveling back and forth to office, chemotherapy with carboplatin/Taxol was discontinued after last dose given on January 28, 2021 but continue with maintenance therapy with Keytruda every 3 weeks starting February 18, 2021 2. Patient with grade 1 infiltrating ductal carcinoma of the right breast, stage IA (T1c, N0, M0), ER/CA positive and HER-2/christophe negative. Oncotype DX score was 15, low risk. 3 She completed radiation to the right breast on 03/06/2015 to a total dose of 6600 cGy. 4. She began adjuvant hormonal therapy with Femara 2.5 mg daily in December 2014. 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 Degenerative arthritis. 7. She has nicotine dependence (cigarettes). Chronic back pain MRI scan of lumbosacral area done on 06/23/2018 and bone scan done on 06/09/2018 showed no evidence of malignancy but chronic arthritis She does have ongoing problems with the COPD, and she currently appears to be experiencing an acute exacerbation. Polycythemia probably due to hypoxia due to severe COPD or chronic smoking, now on home oxygen Improved with smoking cessation for 1 week Iron deficiency anemia, Intolerance to oral iron Plan: Labs are reviewed with patient CBC and CMP are both within normal limits. WBC 9.1, hemoglobin 11.7, hematocrit 38.8, and platelet count 305,000. 3-month reevaluation PET scan will be due at the end of this month. We will place the order. She will receive her Keytruda infusion today. She will return in 3 weeks with CBC and CMP. Signed By: Emma Newell N.P. <<Signature on File>>
[2021-08-26] MEDS: sodium chloride 0.9% 250 ML 600 ML IV (10:13)
== END 2021-09-18 23:59 | disposition home or self-care (01) ==
LOC: ONCMED 07:47
PROVIDERS: PCP Family Medicine; Visit Provider Nurse Practitioner Family
DX: Z51.12 Encounter for antineoplastic immunotherapy (principal); C34.11 Malignant neoplasm of upper lobe, right bronchus or lung; C78.02 Secondary malignant neoplasm of left lung; C77.2 Secondary and unspecified malignant neoplasm of intra-abdominal lymph nodes; C50.511 Malignant neoplasm of lower-outer quadrant of right female breast; Z17.0 Estrogen receptor positive status [ER+]; J44.1 Chronic obstructive pulmonary disease with (acute) exacerbation; D75.1 Secondary polycythemia; Z99.81 Dependence on supplemental oxygen; M19.90 Unspecified osteoarthritis, unspecified site; F17.210 Nicotine dependence, cigarettes, uncomplicated; M51.37 Other intervertebral disc degeneration, lumbosacral region; D50.9 Iron deficiency anemia, unspecified; Z79.899 Other long term (current) drug therapy; Z79.818 Long term (current) use of other agents affecting estrogen receptors and estrogen levels
CPT/HCPCS: 80053; 85025; 96413; 99215; J7050; J9271

== ENCOUNTER → 2021-09-02 11:48 | Outpatient (BNVA) | payer MEDICARE, MEDICAID, SELFPAY | PROVIDERS: PCP Family Medicine; Visit Provider Nurse Practitioner | DX: N39.0 Urinary tract infection, site not specified (principal) | CPT/HCPCS: 81000 ==